=== PATIENT | male | born 1990 | race American Indian/Alaskan Native ===

== ENCOUNTER 2017-04-15 18:22 | Emergency (ER) | payer OTHER ==
[2017-04-15] MEDS ORDERED: TORADOL IM ONE (22:14)
--- NOTE | 2017-04-15 22:50 | Emergency Department Report ---
ED Back Pain/Injury HPI - General Chief Complaint: Back Pain/Injury Stated Complaint: LOWER BACK PAIN Time Seen by Provider: 04/15/17 21:57 Source: patient Limitations: No Limitations - History of Present Illness Initial Comments: This is a 27-year-old male nontoxic, well nourished in appearance, no acute signs of distress presents to the ED complaining of chronic back pain. Patient stated he was picking up heavy objects and developed sharp pain that has resolved. 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 Patient denies any trauma to the region. Denies any bladder or bowel instability, chest pain, numbness, tingling, fever, chills, headache, n/v, stiff neck, shortness of breathe. Patient stated symptoms of back pain radiate to right lower extremity. PAtient denies follow- up with PCP or any other provider because symptoms are resolved. Patient denies any allergies or PMH. MD Complaint: back pain -: Gradual, days(s) (2) Similar Symptoms Previously: Yes Place: work Radiation: right leg Severity: mild Severity scale (0 -10): 7 Quality: aching Consistency: intermittent Improves With: immobilization, supine, sitting upright Worsens With: movement, walking Context: while lifting, turning/twisting Associated Symptoms: denies other symptoms. denies: confusion, weakness, chest pain, numbness, difficulty walking, cough, difficulty urinating, diaphoresis, incontinence, fever/chills, constipation, headaches, abdominal pain, loss of appetite, malaise, nausea/vomiting, rash, seizure, shortness of breath, syncope - Related Data Previous Rx's Medication Instructions Recorded Last Taken Type Cyclobenzaprine [Flexeril] 10 mg PO BID PRN #10 tablet 04/15/17 Unknown Rx Ibuprofen [Motrin 600 MG tab] 600 mg PO Q8H PRN #30 tablet 04/15/17 Unknown Rx Allergies Allergy/AdvReac Type Severity Reaction Status Date / Time No Known Allergies Allergy Unverified 04/15/17 18:25 ED Review of Systems ROS: Stated complaint: LOWER BACK PAIN Other details as noted in HPI Constitutional: denies: chills, fever Eyes: denies: eye pain, eye discharge, vision change ENT: denies: ear pain, throat pain Respiratory: denies: cough, shortness of breath, wheezing Cardiovascular: denies: chest pain, palpitations Endocrine: no symptoms reported Gastrointestinal: denies: abdominal pain, nausea, diarrhea Genitourinary: denies: urgency, dysuria Musculoskeletal: denies: back pain, joint swelling, arthralgia Skin: denies: rash, lesions Neurological: denies: headache, weakness, paresthesias Psychiatric: denies: anxiety, depression Hematological/Lymphatic: denies: easy bleeding, easy bruising ED Past Medical Hx - Past Medical History Previous Medical History?: Yes Additional medical history: Back injury/pain, Head lac @ age 9 - Surgical History Past Surgical History?: No - Social History Smoking Status: Current Every Day Smoker Substance Use Type: Alcohol, Marijuana - Medications Home Medications: Home Medications Medication Instructions Recorded Confirmed Last Taken Type Cyclobenzaprine [Flexeril] 10 mg PO BID PRN #10 tablet 04/15/17 Unknown Rx Ibuprofen [Motrin 600 MG tab] 600 mg PO Q8H PRN #30 tablet 04/15/17 Unknown Rx ED Physical Exam - General Limitations: No Limitations General appearance: alert, in no apparent distress - Head Head exam: Present: atraumatic, normocephalic, normal inspection - Eye Eye exam: Present: normal appearance, PERRL, EOMI. Absent: scleral icterus, conjunctival injection, nystagmus, periorbital swelling, periorbital tenderness Pupils: Present: normal accommodation - ENT ENT exam: Present: normal exam, normal orophraynx, mucous membranes moist, TM's normal bilaterally, normal external ear exam - Neck Neck exam: Present: normal inspection, full ROM. Absent: tenderness, meningismus, lymphadenopathy, thyromegaly - Respiratory Respiratory exam: Present: normal lung sounds bilaterally. Absent: respiratory distress, wheezes, rales, rhonchi, stridor, chest wall tenderness, accessory muscle use, decreased breath sounds, prolonged expiratory - Cardiovascular Cardiovascular Exam: Present: regular rate, normal rhythm, normal heart sounds. Absent: systolic murmur, diastolic murmur, rubs, gallop - GI/Abdominal GI/Abdominal exam: Present: soft, normal bowel sounds. Absent: distended, tenderness, guarding, rebound, rigid, diminished bowel sounds - Rectal Rectal exam: Present: deferred - Extremities Exam Extremities exam: Present: normal inspection, full ROM, normal capillary refill. Absent: tenderness, pedal edema, joint swelling, calf tenderness - Back Exam Back exam: Present: normal inspection, full ROM, paraspinal tenderness (lumbar region). Absent: tenderness, CVA tenderness (R), CVA tenderness (L), muscle spasm, vertebral tenderness, rash noted - Expanded Back Exam Expanded Back exam: Absent: saddle anesthesia Back exam: Negative Straight Leg Raising: Left, Right - Neurological Exam Neurological exam: Present: alert, oriented X3, CN II-XII intact, normal gait, reflexes normal - Psychiatric Psychiatric exam: Present: normal affect, normal mood - Skin Skin exam: Present: warm, dry, intact, normal color. Absent: rash ED Course Vital Signs 04/15/17 18:25 Temperature 98.7 F Pulse Rate 52 L Respiratory 18 Rate Blood Pressure 128/72 O2 Sat by Pulse 99 Oximetry - Reevaluation(s) Reevaluation #1: 04/15/17 22:52 Patient is speaking in full sentences with no signs of distress noted. Reevaluation #2: 04/15/17 22:52 Patient stated symptoms have subsided after patient received Toradol in the ED. ED Medical Decision Making - Medical Decision Making 27-year-old male that presents with low back strain. Patient received Toradol in the ED which patient stated symptoms has resolved. Patient received Flexeril and ibuprofen at discharge and was instructed not to operate any machinery while taking Flexeril due to drowsiness. Patient is hemodynamically stable with stable vital signs. Patient states he is feeling better. At time time of discharge, the patient does not seem toxic or ill in appearance. No acute signs of distress noted. Patient agrees to discharge treatment plan of care. No further questions noted by the patient. Patient was instructed to follow-up with a primary care doctor in 3-5 days or if symptoms worsen and continue return to emergency room as soon as possible possible. Critical care attestation.: If time is entered above; I have spent that time in minutes in the direct care of this critically ill patient, excluding procedure time. ED Disposition Clinical Impression: Low back strain Qualifiers: Encounter type: initial encounter Qualified Code(s): S39.012A - Strain of muscle, fascia and tendon of lower back, initial encounter Disposition: TO HOME OR SELFCARE Is pt being admited?: No Does the pt Need Aspirin: No Condition: Stable Instructions: Low Back Strain (ED), Ibuprofen (By mouth), Cyclobenzaprine (By mouth) Additional Instructions: Follow-up with your primary care doctor in 3-5 days or if symptoms worsen such as bladder or bowel stability, chest pain, short of breath, numbness or tingling sensation in extremities, headache, dizziness, visual changes, nausea vomiting, or abdominal pain, return back to emergency room as was possible. Take ibuprofen and Flexeril as prescribed. Do not operate heavy machinery while taking Flexeril due to sedation Prescriptions: Cyclobenzaprine [Flexeril] 10 mg PO BID PRN #10 tablet PRN Reason: Muscle Spasm Ibuprofen [Motrin 600 MG tab] 600 mg PO Q8H PRN #30 tablet PRN Reason: Pain Referrals: PRIMARY CAREMD [Primary Care Provider] - 3-5 Days TRINA FORREST MD [Staff Physician] - 3-5 Days [facility] [Outside] - 3-5 Days [facility] [Outside] - 3-5 Days Forms: Work/School Release Form(ED)
[2017-04-16 04:27] VITALS: BP 126/75
== END 2017-04-15 23:10 | disposition home or self-care (01) ==
LOC: ED 18:22
DX: S39.012A Strain of muscle, fascia and tendon of lower back, initial encounter (principal); F17.200 Nicotine dependence, unspecified, uncomplicated; F12.10 Cannabis abuse, uncomplicated; X50.0XXA Overexertion from strenuous movement or load, initial encounter; Y93.89 Activity, other specified; Y92.89 Other specified places as the place of occurrence of the external cause; Y99.8 Other external cause status
CPT/HCPCS: 96372; 99282; J1885

== ENCOUNTER 2019-03-29 18:03 | Inpatient (IN) | payer BC, OTHER ==
[2019-03-29] MEDS ORDERED: ATIVAN IV ONE ×2 (18:09→19:07)
[2019-03-29] MEDS ORDERED: NACL 0.9% 1000 ML 1,000 ML IV ONE ×2 (18:09→22:09)
[2019-03-29] MEDS ORDERED: NACL 0.9% 1000 ML 2,000 ML IV ONE (18:24)
[2019-03-29] MEDS ORDERED: MAXIPIME/NS 2 GM/100 ML 2 GM/100 ML BAG IV ONE (18:25)
--- NOTE | 2019-03-29 18:32 | Emergency Department Report ---
<ULICES VELASCO III - Last Filed: 03/30/19 00:56> ED Seizure HPI - General Stated Complaint: SEIZURE Time Seen by Provider: 03/29/19 18:09 - Related Data Previous Rx's Medication Instructions Recorded Last Taken Type Lacosamide [Vimpat] 150 mg PO Q12HR@0800,1999 #90 03/22/19 03/29/19 08:00 Rx tablet Allergies Allergy/AdvReac Type Severity Reaction Status Date / Time [facility] AdvReac Severe Unknown Verified 03/29/19 19:02 ED Review of Systems Comment: Unobtainable due to pts medical conditions ED Past Medical Hx - Past Medical History Previous Medical History?: Yes Hx Seizures: Yes - Surgical History Past Surgical History?: No - Family History Family history: no significant - Social History Smoking Status: Current Every Day Smoker Substance Use Type: Alcohol, Marijuana - Medications Home Medications: Home Medications Medication Instructions Recorded Confirmed Last Taken Type Lacosamide [Vimpat] 150 mg PO Q12HR@08 #90 03/22/19 03/29/19 03/29/19 08:00 Rx tablet ED Physical Exam - General Limitations: Altered Mental Status General appearance: obtunded, in distress - Head Head exam: Present: atraumatic, normocephalic - Eye Eye exam: Present: normal appearance, PERRL Pupils: Present: normal accommodation - ENT ENT exam: Present: normal exam, normal orophraynx - Respiratory Respiratory exam: Present: respiratory distress, wheezes, rales - Cardiovascular Cardiovascular Exam: Present: regular rate, normal rhythm, tachycardia - Rectal Rectal exam: Present: deferred - Extremities Exam Extremities exam: Present: normal inspection - Neurological Exam Neurological exam: Present: altered - Skin Skin exam: Present: warm, dry, intact, normal color ED Course - Reevaluation(s) Reevaluation #5: Initial evaluation of patient done with the mid-level immediately upon arrival. Patient noted to have multiple seizures and in status epilepticus. I intubated the patient immediately for airway protection. Patient also required an LP due to fevers or activity. LP was done at the request of the hospitalist.. See procedure notes. Orders placed on CSF. Patient given fluids and antibiotics immediately due to his believe the patient has sepsis. Patient admitted to the hospitalist service. Reevaluation is done throughout the patient's stay in the ER. 03/30/19 00:57 ED Medical Decision Making - Lab Data Result diagrams: 03/29/19 18:29 03/29/19 18:29 - EKG Data -: EKG Interpreted by Me EKG shows normal: sinus rhythm, axis, intervals, QRS complexes, ST-T waves Rate: tachycardia - Radiology Data Radiology results: report reviewed, image reviewed interpreted by me: Right lower lung pneumonia. ET tube in good placement Critical Care Time: Yes Critical Care Time: 55 minutes ED Disposition Clinical Impression: Metabolic acidosis, Seizure, Status epilepticus, Lactic acidosis, Encephalopathy acute, ALINE (acute kidney injury), Electrolyte abnormality Sepsis Qualifiers: Sepsis type: sepsis due to unspecified organism Sepsis acute organ dysfunction status: unspecified Qualified Code(s): A41.9 - Sepsis, unspecified organism Altered mental status Qualifiers: Altered mental status type: unspecified Qualified Code(s): R41.82 - Altered mental status, unspecified Fever Qualifiers: Fever type: unspecified Qualified Code(s): R50.9 - Fever, unspecified Acute respiratory failure Qualifiers: Respiratory failure complication: hypoxia Qualified Code(s): J96.01 - Acute respiratory failure with hypoxia Pneumonia Qualifiers: Pneumonia type: due to unspecified organism Laterality: right Lung location: lower lobe of lung Qualified Code(s): J18.1 - Lobar pneumonia, unspecified organism Disposition: OP ADMIT IP TO THIS HOSP Condition: Stable <LINDAROSA - Last Filed: 03/30/19 01:11> ED Seizure HPI - History of Present Illness Initial Comments: This is a 28-year-old male that was brought by EMS for seizures. Last witnessed seizures by mother at home prior to arrival. Mother stated that patient has been sleepy all day intermittently when he woke up he was disoriented and started to have seizures. Mother stated patient does have this history of seizures and does take medication for this. Mother denies any vomiting. Mother denies the patient has been complaining about anything. Mother denies any fevers at home. MD Complaint: seizure -: This afternoon Witnessed:: Yes Trauma: No Seizure History: known seizure disorder Place: home Possible Precipitating Event: none Associated Symptoms: syncope Treatments Prior to Arrival: airway maneuvers ED Review of Systems ROS: Stated complaint: SEIZURE Other details as noted in HPI Constitutional: fever ED Past Medical Hx - Past Medical History Additional medical history: Back injury/pain, Head lac @ age 9 - Social History Smoking Status: Current Every Day Smoker Substance Use Type: Alcohol, Marijuana ED Physical Exam - General Limitations: Altered Mental Status - Head Head exam: Present: atraumatic, normocephalic - ENT ENT exam: Present: normal exam, normal orophraynx - Respiratory Respiratory exam: Present: respiratory distress, wheezes, rales - Cardiovascular Cardiovascular Exam: Present: tachycardia - GI/Abdominal GI/Abdominal exam: Present: soft, normal bowel sounds. Absent: distended - Extremities Exam Extremities exam: Present: normal capillary refill - Neurological Exam Neurological exam: Present: altered - Skin Skin exam: Present: warm, dry, intact, normal color. Absent: rash ED Course Vital Signs 03/29/19 03/29/19 03/29/19 18:47 19:14 19:15 Temperature 102.2 F H Pulse Rate 130 H 145 H 123 H Respiratory Rate Blood Pressure 160/80 142/93 O2 Sat by Pulse 100 Oximetry 03/29/19 03/29/19 03/29/19 19:28 19:30 19:45 Temperature Pulse Rate 124 H 121 H Respiratory 25 H Rate Blood Pressure 128/101 136/89 O2 Sat by Pulse 100 100 Oximetry 03/29/19 03/29/19 03/29/19 19:48 20:00 20:30 Temperature Pulse Rate 121 H 121 H 117 H Respiratory Rate Blood Pressure 128/101 134/91 148/95 O2 Sat by Pulse 100 100 99 Oximetry 03/29/19 03/29/19 03/29/19 21:00 21:15 21:30 Temperature 99.9 F H Pulse Rate 102 H 112 H 109 H Respiratory 24 Rate Blood Pressure 140/98 135/89 143/93 O2 Sat by Pulse 98 100 Oximetry 03/29/19 03/29/19 03/29/19 22:00 22:15 22:28 Temperature Pulse Rate 111 H 111 H 107 H Respiratory Rate Blood Pressure 142/93 146/94 146/94 O2 Sat by Pulse 100 100 Oximetry 03/29/19 03/29/19 03/29/19 22:30 22:45 23:00 Temperature Pulse Rate 110 H 111 H 110 H Respiratory Rate Blood Pressure 144/93 137/90 146/104 O2 Sat by Pulse 100 Oximetry 03/29/19 03/29/19 03/29/19 23:15 23:30 23:45 Temperature Pulse Rate 111 H 109 H 107 H Respiratory Rate Blood Pressure 139/94 135/89 132/92 O2 Sat by Pulse Oximetry 03/30/19 03/30/19 03/30/19 00:00 00:15 00:30 Temperature 100.0 F H Pulse Rate 104 H 113 H 111 H Respiratory Rate Blood Pressure 135/86 127/84 128/84 O2 Sat by Pulse 100 Oximetry - Reevaluation(s) Reevaluation #1: 03/29/19 18:11 Patient intubated for airway protection and intractable seizure. See intubation notes. Reevaluation #2: 03/29/19 18:09 Code sepsis initiated. Reevaluation #3: 03/30/19 00:10 Consent received by mother and LP done. See notes. - Consultations Consultation #1: 03/29/19 21:48 Patient has been consulted with Dr. Guadarrama (hospitalist) about patient history, physical exam, and labs/CT results and accepts patient for admission. - Intubation Time Out Performed: Yes Sedative: Versed Paralytic: Rocuronium Laryngoscope: fiberoptic video scope Size: 4 ET Tube Size: 7.5 Tube Secured Depth (cm): 20 Tube Secured Location: teeth Tube Placement Confirmation: visualized tube passing t, equal breath sounds bilat, no breath sounds over epi, confirmation by capnometr Patient Tolerated Procedure: well, no complications Intubation Complications: none Additional Comments: Intubation done by Dr. Velasco. - Lumbar Puncture Consent Obtained: written consent, emergent situation Time Out Performed: Yes Indication for Procedure: fever work up Patient Position: right lateral decubitus Skin Prep: Povidone-Iodine 1% Spinal Needle Gauge: 20G Interspace Used: L4-L5 Fluid Initially Obtained: clear Complications: none Patient Tolerated Procedure: well, no complications Additional Comments: Under sterile field, Betadine to clean the area prior to procedure. LP pressure was 28. Procedure done by Dr. Velasco. ED Medical Decision Making - Lab Data Result diagrams: 03/29/19 18:29 03/29/19 18:29 - EKG Data 03/29/19 18:[address] by Dr. Velasco. - Medical Decision Making Upon arrival to the ED patient has been seizing with tachycardia and febrile at 103. I came to the ED immediately. I was concerned about aspiration and airway compromise. Patient was altered. Dr. Barrett present during the exam. Code sepsis initiated. Lumbar LP performed by Dr. Velasco. Patient had airway compromise so patient has been intubated for airway as well as seizure activity. Labs obtained. CT of head has been obtained. Chest xray post intubation obtained. Patient received fluids as well as medical treatment ER. Patient is currently stable. Patient is admitted with hospitalist. Critical Care Time: Yes Critical care time in (mins) excluding proc time.: 55 Critical care attestation.: If time is entered above; I have spent that time in minutes in the direct care of this critically ill patient, excluding procedure time. ED Disposition Is pt being admited?: Yes Does the pt Need Aspirin: No
[2019-03-29 18:41] LABS: Hematocrit 38.9 % (35.5-45.6); Hemoglobin 12.4 gm/dl (11.8-15.2); Mean Corpuscular HGB Conc 32 % (32-34); Mean Corpuscular Volume 88 fl (84-94); Platelet Count 435 K/mm3 (140-440); Red Blood Count 4.43 M/mm3 (3.65-5.03); Red Cell Distribution Width 14.7 % (13.2-15.2)
[2019-03-29 18:55] LABS: Partial Thromboplastin Time 29.5 Sec. (24.2-36.6)
[2019-03-29 18:59] LABS: Alanine Aminotransferase 81 units/L (7-56); Albumin 4.4 g/dL (3.9-5); BUN/Creatinine Ratio 8; Blood Urea Nitrogen 10 mg/dL (9-20); Calcium 9.3 mg/dL (8.4-10.2); Hemolysis Index 10
[2019-03-29] MEDS ORDERED: VERSED IV ONE (19:01)
[2019-03-29 19:03] LABS: INR 1.13 (0.87-1.13)
[2019-03-29] MEDS ORDERED: ZEMURON IV ONE (19:03)
[2019-03-29 19:13] LABS: Basophils % (Manual) 0 % (0.0-1.8); Total Cells Counted 100
[2019-03-29 19:14] LABS: Anisocytosis Few; Platelet Estimate Consistent w Auto; Tear Drop Cells Rare
[2019-03-29 19:22] LABS: Chol/HDL Ratio 3.16 %
--- NOTE | 2019-03-29 19:26 | XRay Report ---
CHEST 1 VIEW 1842 INDICATION / CLINICAL INFORMATION: sepsis. COMPARISON: 03/14/2019 FINDINGS: SUPPORT DEVICES: Endotracheal tube appears to be in satisfactory position with tip approximately 6 cm above the machelle. HEART / MEDIASTINUM: Stable LUNGS / PLEURA: Increasing density and atelectasis is seen in the right base. This could represent de veloping pneumonitis and follow-up is suggested. Left lung is clear though the base is not fully seen .. No pneumothorax. ADDITIONAL FINDINGS: No significant additional findings. IMPRESSION: Atelectasis and possible infiltrate developing in the right base as above Signer Name: Daniel Ballesteros MD Signed: 03/29/2019 7:22 PM Workstation Name: [id number]
[2019-03-29] MEDS: ATIVAN 100 MG in NACL 0.9% 50 ML, VIAFLEX EMPTY CONTAINER 0 ML IV SCH (19:48)
[2019-03-29 19:51] LABS: Bacteria,Urine 1+ /HPF (Negative); Bilirubin,Urine NEG (Negative); Blood,Urine SM (Negative); Color,Urine Yellow (Yellow); Mucus,Urine FEW /HPF; Urobilinogen,Urine < 2.0 mg/dL (<2.0)
[2019-03-29 19:58] LABS: Amphetamine Screen,Urine PRESUMPTIVE NEGATIVE; Cannabinoid Screen,Urine PRESUMPTIVE NEGATIVE; Cocaine Screen,Urine PRESUMPTIVE NEGATIVE; Methadone Screen,Urine PRESUMPTIVE NEGATIVE; Opiate Screen,Urine PRESUMPTIVE NEGATIVE
[2019-03-29] MEDS ORDERED: SUBLIMAZE IV ONE (20:35)
[2019-03-29 20:38] LABS: Benzodiazepines Screen,Urine PRESUMPTIVE POSITIVE
[2019-03-29] MEDS: fentaNYL DRIP Premix 2,000 MCG/100 ML BAG IV SCH (21:00)
--- NOTE | 2019-03-29 22:05 | Cat Scan Report ---
CT HEAD WITHOUT CONTRAST INDICATION / CLINICAL INFORMATION: History provided is seizure, syncopal episode. Respiratory failure. Intubated patient. TECHNIQUE: All CT scans at this location are performed using CT dose reduction for ALARA by means of automated e xposure control. COMPARISON: Head CT 03/19/2019, 03/14/2019 and 03/08/2019. MRI brain 03/16/2019. FINDINGS: HEMORRHAGE: No evidence of intracranial hemorrhage or extra-axial fluid collection. EXTRA-AXIAL SPACES: Cortical sulci, sylvian fissures and basilar cisterns have an unremarkable appear ance. VENTRICULAR SYSTEM: The ventricular system is of normal size and configuration. CEREBRAL PARENCHYMA: No areas of abnormal brain parenchymal attenuation are identified. There is no i ndication of recent infarction. MIDLINE SHIFT OR HERNIATION: There is no mass effect. CEREBELLUM / BRAINSTEM: Brainstem and cerebellum have an unremarkable appearance. INTRACRANIAL VESSELS:No abnormalities are identified on this noncontrast head CT. ORBITS: visualized portions of the orbits have an unremarkable appearance. SOFT TISSUES of HEAD: No significant abnormality. CALVARIUM: Evaluation of bone windows reveals no abnormalities. PARANASAL SINUSES / MASTOID AIR CELLS: Paranasal sinuses are free from inflammatory mucosal disease. Mastoid air cells are normally pneumatized. IMPRESSION: 1. No abnormality identified on head CT without contrast. The neuro imaging appearance of the brain i s stable since 03/08/2019. There is been no interval change on the previous 3 CT head examinations whi ch have obtained in the past 3 weeks. Signer Name: Daniel Tatum MD Signed: 03/29/2019 10:01 PM Workstation Name: [id number]
--- NOTE | 2019-03-29 23:31 | History and Physical Report ---
History of Present Illness Date of examination: 03/29/19 History of present illness: 28-year-old man was recently diagnosed with seizure, discharge from the hospital on March 22 comes back today for evaluation of seizure. After he was discharged he had a seizure on the , mom stated that he's been compliant with his Vimpat. He was seen at [facility] and discharge. He also had another seizure at home on Wednesday and was then taken to [facility], no change in his medication he was given a follow-up with urology clinic. Mom states that he smoked marijuana on the prior to the seizure. He is been having fevers at home since last night. he also had seizure in route to the hospital, was intubated in the emergency room for airway protection. Review system is unobtainable PAST MEDICAL HISTORY:seizure PAST SURGICAL HISTORY:None FAMILY HISTORY:hypertension, diabetes SOCIAL HISTORY: Denies tobacco, marijuana, no alcohol Medications and Allergies Allergies Allergy/AdvReac Type Severity Reaction Status Date / Time levetiracetam [From [facility]] AdvReac Severe Unknown Verified 03/29/19 19:02 Home Medications Medication Instructions Recorded Confirmed Last Taken Type Lacosamide [Vimpat] 150 mg PO Q12HR@0800,1999 #90 03/22/19 03/29/19 03/29/19 08:00 Rx tablet Active Meds: Active Medications Lorazepam 100 mg/ Sodium Chloride/ Miscellaneous Information 100 mls @ 1 mls/hr IV TITR RENÉ; Protocol Last Admin: 03/29/19 19:48 Dose: 2 mg/hr, 2 mls/hr Documented by: Fentanyl Citrate (Fentanyl Drip Premix) 2,000 mcg in 100 mls @ 3.175 mls/hr IV TITR RENÉ; Protocol Last Admin: 03/29/19 21:00 Dose: 1 mcg/kg/hr, 3.175 mls/hr Documented by: Exam - Physical Exam Narrative exam: General Apperance: The patient lying in bed no acute distress, intubated HEENT: Normocephalic, atraumatic. Pupils equally round and reactive to light, unable to do extraocular movement intact, and no sclericterus or JVD or thyromegaly or nodule. Neck supple, no carotid bruit, mucous membranes moist, ET tube in place Heart: S1-S2, regular is rhythm Lungs: Clear to auscultation bilaterally, breathing comfortable Abdomen: Positive bowel sounds, soft, nontender, nondistended, no organomegaly Extremities: No edema cyanosis clubbing Skin: no rash, nodule, warm and dry Neuro: sedated - Constitutional Vitals: Temp Pulse Resp BP Pulse Ox 99.9 F H 111 H 24 146/94 100 03/29/19 21:00 03/29/19 22:15 03/29/19 21:00 03/29/19 22:15 03/29/19 22:00 Results - Labs CBC & Chem 7: 03/29/19 18:29 03/29/19 18:29 Labs: Abnormal lab results 03/29/19 03/29/19 03/29/19 Range/Units 18:29 18:29 18:29 WBC 19.4 H (4.5-11.0) K/mm3 Seg Neuts % (Manual) 72.0 H (40.0-70.0) % Monocytes % (Manual) 8.0 H (0.0-7.3) % Seg Neutrophils # Man 14.0 H (1.8-7.7) K/mm3 Monocytes # (Manual) 1.6 H (0.0-0.8) K/mm3 POC ABG pO2 (80-105) VBG pH (7.320-7.420) Sodium 136 L (137-145) mmol/L Chloride 90.6 L (98-107) mmol/L Carbon Dioxide 13 L (22-30) mmol/L Glucose 154 H (75-100) mg/dL Lactic Acid 17.50 H* (0.7-2.0) mmol/L ALT 81 H (7-56) units/L Troponin T (0.00-0.029) ng/mL Urine WBC (Auto) (0.0-6.0) /HPF 03/29/19 03/29/19 03/29/19 Range/Units 18:29 19:09 19:27 WBC (4.5-11.0) K/mm3 Seg Neuts % (Manual) (40.0-70.0) % Monocytes % (Manual) (0.0-7.3) % Seg Neutrophils # Man (1.8-7.7) K/mm3 Monocytes # (Manual) (0.0-0.8) K/mm3 POC ABG pO2 (80-105) VBG pH 7.269 L (7.320-7.420) Sodium (137-145) mmol/L Chloride (98-107) mmol/L Carbon Dioxide (22-30) mmol/L Glucose (75-100) mg/dL Lactic Acid (0.7-2.0) mmol/L ALT (7-56) units/L Troponin T 0.031 H (0.00-0.029) ng/mL Urine WBC (Auto) 9.0 H (0.0-6.0) /HPF 03/29/19 03/29/19 03/29/19 Range/Units 19:33 20:27 21:01 WBC (4.5-11.0) K/mm3 Seg Neuts % (Manual) (40.0-70.0) % Monocytes % (Manual) (0.0-7.3) % Seg Neutrophils # Man (1.8-7.7) K/mm3 Monocytes # (Manual) (0.0-0.8) K/mm3 POC ABG pO2 170 H (80-105) VBG pH (7.320-7.420) Sodium (137-145) mmol/L Chloride (98-107) mmol/L Carbon Dioxide (22-30) mmol/L Glucose (75-100) mg/dL Lactic Acid 3.80 H* 4.10 H* (0.7-2.0) mmol/L ALT (7-56) units/L Troponin T (0.00-0.029) ng/mL Urine WBC (Auto) (0.0-6.0) /HPF - Imaging and Cardiology EKG: image reviewed Chest x-ray: report reviewed Assessment and Plan Assessment Acute respiratory failure Acute on chronic seizure, ? Underlying meningitis Pneumonia Plan Admit to medicine Start IV fluids, fentanyl and ativan drip Rocephin, lumbar puncture is pending Dose of Zosyn, possible aspiration pneumonia Consult Critical care, neurology DVT prophylaxis
[2019-03-30 00:58] LABS: Appearance,CSF Clear; Red Blood Cell,CSF 10 /mm3 (0-0); White Blood Cell,CSF 18 /mm3 (1-10)
[2019-03-30] MEDS ORDERED: SODIUM CHLORIDE FLUSH SYRINGE 10 ML IV PRN (01:27)
[2019-03-30 01:51] LABS: Total Cells Counted 50 /mm3
[2019-03-30 01:52] LABS: Basophils CSF 0 %
[2019-03-30] MEDS ORDERED: ROCEPHIN/NS 2 GM/100 ML 2 GM/100 ML BAG IV SCH ×2 (02:00→16:00)
[2019-03-30] MEDS ORDERED: NACL 0.9% 1000 ML 1,000 ML IV SCH ×2 (02:00→06:00)
[2019-03-30] MEDS ORDERED: ZEMURON IV ONE (03:00)
[2019-03-30] MEDS ORDERED: VERSED IV ONE (03:00)
[2019-03-30] MEDS ORDERED: ZOSYN/NS 4.5GM/100ML 4.5 GM/100 ML VIAL IV ONE (05:13)
[2019-03-30 05:24] LABS: Creatine Kinase MB 2.8 ng/mL (0.0-4.0)
[2019-03-30] MEDS: ATIVAN 100 MG in NACL 0.9% 50 ML, VIAFLEX EMPTY CONTAINER 0 ML IV SCH (05:55)
[2019-03-30 05:58] LABS: BUN/Creatinine Ratio 10; Blood Urea Nitrogen 9 mg/dL (9-20); Calcium 8.4 mg/dL (8.4-10.2); Hemolysis Index 1
[2019-03-30 06:06] LABS: Hematocrit 33.5 % (35.5-45.6); Hemoglobin 10.9 gm/dl (11.8-15.2); Mean Corpuscular HGB Conc 33 % (32-34); Mean Corpuscular Volume 85 fl (84-94); Platelet Count 375 K/mm3 (140-440); Red Blood Count 3.92 M/mm3 (3.65-5.03); Red Cell Distribution Width 14.4 % (13.2-15.2)
[2019-03-30] MEDS: fentaNYL DRIP Premix 2,000 MCG/100 ML BAG IV SCH ×2 (07:45→22:31)
[2019-03-30 08:17] LABS: Band Neutrophils # (Manual) 0.6 K/mm3; Basophils % (Manual) 0 % (0.0-1.8); Eosinophils % (Manual) 0 % (0.0-4.3); Total Cells Counted 100
[2019-03-30 08:20] LABS: Anisocytosis Few; Burr Cells Rare; Platelet Estimate Consistent w Auto; Tear Drop Cells Rare
[2019-03-30 08:42] LABS: Creatine Kinase MB 2.8 ng/mL (0.0-4.0)
[2019-03-30] MEDS: LOVENOX SUB-Q SCH (09:14)
[2019-03-30] MEDS: PEPCID IV SCH ×2 (09:15→21:39)
[2019-03-30] MEDS: SODIUM CHLORIDE FLUSH SYRINGE 10 ML IV SCH ×2 (09:15→21:40)
[2019-03-30] MEDS ORDERED: LOVENOX SUB-Q SCH (10:00)
[2019-03-30] MEDS: TYLENOL PO PRN (10:27)
--- NOTE | 2019-03-30 11:29 | Consultation ---
History of Present Illness Consult date: 03/30/19 Requesting physician: CHUCK SILVEIRA Reason for consult: other (Seizures) History of present illness: PULMONARY/CCM CONSULT NOTE (full dictation # [id number]) Please see dictated notes for full details Medications and Allergies Allergies Allergy/AdvReac Type Severity Reaction Status Date / Time levetiracetam [From [facility]] AdvReac Severe Unknown Verified 03/29/19 19:02 Home Medications Medication Instructions Recorded Confirmed Last Taken Type Lacosamide [Vimpat] 150 mg PO Q12HR@08,1999 #90 03/22/19 03/29/19 03/29/19 08:00 Rx tablet Active Meds: Active Medications Acetaminophen (Tylenol) 650 mg PO Q4H PRN PRN Reason: Pain MILD(1-3)/Fever >100.5/LICONA Last Admin: 03/30/19 10:27 Dose: 650 mg Documented by: Enoxaparin Sodium (Lovenox) 40 mg SUB-Q QDAY@1000 RENÉ Last Admin: 03/30/19 09:14 Dose: 40 mg Documented by: Famotidine (Pepcid) 20 mg IV BID RENÉ Last Admin: 03/30/19 09:15 Dose: 20 mg Documented by: Lorazepam 100 mg/ Sodium Chloride/ Miscellaneous Information 100 mls @ 1 mls/hr IV TITR RENÉ; Protocol Last Admin: 03/30/19 05:55 Dose: 5 mg/hr, 5 mls/hr Documented by: Fentanyl Citrate (Fentanyl Drip Premix) 2,000 mcg in 100 mls @ 3.175 mls/hr IV TITR RENÉ; Protocol Last Admin: 03/30/19 07:45 Dose: 2 mcg/kg/hr, 6.35 mls/hr Documented by: Ceftriaxone Sodium (Rocephin/Ns 2 Gm/100 Ml) 2 gm in 100 mls @ 200 mls/hr IV Q24H RENÉ; Protocol Last Admin: 03/30/19 02:58 Dose: 200 mls/hr Documented by: Sodium Chloride (Nacl 0.9% 1000 Ml) 1,000 mls @ 150 mls/hr IV DIRECT RENÉ Last Admin: 03/30/19 07:45 Dose: 150 mls/hr Documented by: Ondansetron HCl (Zofran) 4 mg IV Q4H PRN PRN Reason: Nausea And Vomiting Sodium Chloride (Sodium Chloride Flush Syringe 10 Ml) 10 ml IV BID RENÉ Last Admin: 03/30/19 09:15 Dose: 10 ml Documented by: Sodium Chloride (Sodium Chloride Flush Syringe 10 Ml) 10 ml IV PRN PRN PRN Reason: LINE FLUSH Physical Examination Vital signs: Vital Signs Temp Pulse BP 102.2 F H 130 H 160/80 03/29/19 18:47 03/29/19 18:47 03/29/19 18:47 Results - Laboratory Findings CBC and BMP: 03/30/19 05:21 03/30/19 05:11 ABG POC ABG pH 7.409 (7.35-7.45) 03/30/19 04:45 POC ABG pCO2 42.5 (35-45) 03/30/19 04:45 POC ABG pO2 172 (80-105) H 03/30/19 04:45 POC ABG HCO3 26.9 (22-26 mml/L) 03/30/19 04:45 POC ABG Total CO2 28 (23-27mmol/L) 03/30/19 04:45 POC ABG O2 Sat 100 03/30/19 04:45 PT/INR, D-dimer PT Cancelled 03/29/19 18:29 INR 1.13 (0.87-1.13) 03/29/19 18:29 Abnormal lab findings: Abnormal Labs 03/29/19 03/29/19 03/29/19 18:29 18:29 18:29 WBC 19.4 H Hgb Hct Seg Neuts % (Manual) 72.0 H Lymphocytes % (Manual) Monocytes % (Manual) 8.0 H Seg Neutrophils # Man 14.0 H Monocytes # (Manual) 1.6 H POC ABG pO2 VBG pH Sodium 136 L Chloride 90.6 L Carbon Dioxide 13 L Glucose 154 H Lactic Acid 17.50 H* ALT 81 H Total Creatine Kinase Troponin T Urine WBC (Auto) Group A Strep Rapid 03/29/19 03/29/19 03/29/19 18:29 19:09 19:27 WBC Hgb Hct Seg Neuts % (Manual) Lymphocytes % (Manual) Monocytes % (Manual) Seg Neutrophils # Man Monocytes # (Manual) POC ABG pO2 VBG pH 7.269 L Sodium Chloride Carbon Dioxide Glucose Lactic Acid ALT Total Creatine Kinase Troponin T 0.031 H Urine WBC (Auto) 9.0 H Group A Strep Rapid 03/29/19 03/29/19 03/29/19 19:33 20:27 21:01 WBC Hgb Hct Seg Neuts % (Manual) Lymphocytes % (Manual) Monocytes % (Manual) Seg Neutrophils # Man Monocytes # (Manual) POC ABG pO2 170 H VBG pH Sodium Chloride Carbon Dioxide Glucose Lactic Acid 3.80 H* 4.10 H* ALT Total Creatine Kinase Troponin T Urine WBC (Auto) Group A Strep Rapid 03/29/19 03/29/19 03/30/19 23:46 Unknown 04:08 WBC Hgb Hct Seg Neuts % (Manual) Lymphocytes % (Manual) Monocytes % (Manual) Seg Neutrophils # Man Monocytes # (Manual) POC ABG pO2 VBG pH Sodium Chloride Carbon Dioxide Glucose Lactic Acid 2.10 H* ALT Total Creatine Kinase 172 H Troponin T 0.033 H Urine WBC (Auto) Group A Strep Rapid Positive A 03/30/19 03/30/19 03/30/19 04:45 05:21 07:17 WBC 20.8 H Hgb 10.9 L Hct 33.5 L Seg Neuts % (Manual) 85.0 H Lymphocytes % (Manual) 8.0 L Monocytes % (Manual) Seg Neutrophils # Man 17.7 H Monocytes # (Manual) POC ABG pO2 172 H VBG pH Sodium Chloride Carbon Dioxide Glucose Lactic Acid ALT Total Creatine Kinase 173 H Troponin T 0.039 H Urine WBC (Auto) Group A Strep Rapid
[2019-03-30] MEDS ORDERED: SODIUM BICARBONATE FEEDTUBE PRN (12:44)
[2019-03-30] MEDS ORDERED: SIMPLE SYRUP FEEDTUBE PRN ×2 (12:44)
[2019-03-30] MEDS ORDERED: PANCREAZE DR 10,500 UNIT FEEDTUBE PRN (12:44)
[2019-03-30] MEDS ORDERED: VANCOMYCIN/NS 1 GM/250 ML 1 GM/250 ML BAG IV ONE (13:00)
[2019-03-30] MEDS ORDERED: PROVENTIL IH PRN (14:00)
[2019-03-30] MEDS ORDERED: ARTIFICIAL TEARS OPHTH OINT OU PRN (14:51)
[2019-03-30] MEDS ORDERED: VASELINE LIP THERAPY TP PRN (14:51)
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
--- NOTE | 2019-03-30 15:11 | XRay Report ---
CHEST 1 VIEW INDICATION: atelectasis. COMPARISON: 03/29/2019 FINDINGS: Support devices: The endotracheal tube remains in good position terminating at the level of the clavi cles. A nasogastric tube is followed to the mid stomach. Heart: Within normal limits. Lungs/Pleura: No acute air space or interstitial disease. Atelectasis at the right lung base has reso lved. Additional findings: None. IMPRESSION: Unremarkable AP chest. Signer Name: Jerardo Hendrix Jr, MD Signed: 03/30/2019 3:07 PM Workstation Name: [id number]
[2019-03-30] MEDS: VIMPAT PO SCH (16:30)
[2019-03-30] MEDS: CLEOCIN 900 MG/50 mL 900 MG/50 ML BAG IV SCH ×2 (16:31→21:39)
--- NOTE | 2019-03-30 17:16 | Progress Note ---
Assessment and Plan Assessment and plan: 28-year-old man was recently diagnosed with seizure, discharge from the hospital on March 22 comes back today for evaluation of seizure. After he was discharged he had a seizure on the , mom stated that he's been compliant with his Vimpat. He was seen at [facility] and discharge. He also had another seizure at home on Wednesday and was then taken to [place], no change in his medication he was given a follow-up with urology clinic. Mom states that he smoked marijuana on the prior to the seizure. He is been having fevers at home since last night. He also had seizure in route to the hospital, was intubated in the emergency room for airway protection. Acute respiratory failure Sepsis Acute Metabolic Encephalopathy Status Epileptics Sinus Tachycardia Acute on chronic seizure, ?Underlying meningitis Pneumonia Plan Continue supportive care Continue IV fluids, fentanyl and ativan drip Rocephin, lumbar puncture is pending Dose of Zosyn, possible aspiration pneumonia Consult Critical care, neurology Follow up blood culture and CSF Culture Start on Acylovir for Possible HSV send CSF HSV PCR ceftriaxone 2 gm IV q 12 hour vancomycin IV with PK consult clindamycin 900 mg IV q 8 hour valtrex 1 g po TID (due to IV acyclovir shortage) EEG repeat brain MRI Neuro consult DVT/GI PROPHY History Interval history: Patient seen and examined, remains intubated, family at bedside. Hospitalist Physical - Constitutional Vitals: Temp Pulse Resp BP Pulse Ox 97.6 F 116 H 15 151/93 100 03/30/19 08:00 03/30/19 17:10 03/30/19 16:40 03/30/19 17:10 03/30/19 17:10 General appearance: Present: mild distress - EENT Eyes: Present: PERRL, EOM intact ENT: other (ET tube in place), no hearing intact, no clear oral mucosa - Neck Neck: Present: supple, normal ROM - Respiratory Respiratory effort: labored, other Respiratory: bilateral: diminished - Cardiovascular Rhythm: other (Tachycardia) - Extremities Extremities: no ischemia, pulses intact, pulses symmetrical, No edema, normal t emperature, normal color, Full ROM Peripheral Pulses: within normal limits - Abdominal General gastrointestinal: soft, non-tender, non-distended - Integumentary Integumentary: Present: warm, dry - Psychiatric Psychiatric: other (SEDATED) - Neurologic Neurologic: other (SEDATED) - Allied Health Allied health notes reviewed: nursing Results - Labs CBC & Chem 7: 03/30/19 05:21 03/30/19 05:11 Labs: Laboratory Last Values WBC 20.8 K/mm3 (4.5-11.0) H 03/30/19 05:21 RBC 3.92 M/mm3 (3.65-5.03) 03/30/19 05:21 Hgb 10.9 gm/dl (11.8-15.2) L 03/30/19 05:21 Hct 33.5 % (35.5-45.6) L 03/30/19 05:21 MCV 85 fl (84-94) 03/30/19 05:21 MCH 28 pg (28-32) 03/30/19 05:21 MCHC 33 % (32-34) 03/30/19 05:21 RDW 14.4 % (13.2-15.2) 03/30/19 05:21 Plt Count 375 K/mm3 (140-440) 03/30/19 05:21 Add Manual Diff Complete 03/30/19 05:21 Total Counted 100 03/30/19 05:21 Seg Neuts % (Manual) 85.0 % (40.0-70.0) H 03/30/19 05:21 Band Neutrophils % 3.0 % 03/30/19 05:21 Lymphocytes % (Manual) 8.0 % (13.4-35.0) L 03/30/19 05:21 Reactive Lymphs % (Man) 0 % 03/30/19 05:21 Monocytes % (Manual) 4.0 % (0.0-7.3) 03/30/19 05:21 Eosinophils % (Manual) 0 % (0.0-4.3) 03/30/19 05:21 Basophils % (Manual) 0 % (0.0-1.8) 03/30/19 05:21 Metamyelocytes % 0 % 03/30/19 05:21 Myelocytes % 0 % 03/30/19 05:21 Promyelocytes % 0 % 03/30/19 05:21 Blast Cells % 0 % 03/30/19 05:21 Nucleated RBC % Not Reportable 03/30/19 05:21 Seg Neutrophils # Man 17.7 K/mm3 (1.8-7.7) H 03/30/19 05:21 Band Neutrophils # 0.6 K/mm3 03/30/19 05:21 Lymphocytes # (Manual) 1.7 K/mm3 (1.2-5.4) 03/30/19 05:21 Abs React Lymphs (Man) 0.0 K/mm3 03/30/19 05:21 Monocytes # (Manual) 0.8 K/mm3 (0.0-0.8) 03/30/19 05:21 Eosinophils # (Manual) 0.0 K/mm3 (0.0-0.4) 03/30/19 05:21 Basophils # (Manual) 0.0 K/mm3 (0.0-0.1) 03/30/19 05:21 Metamyelocytes # 0.0 K/mm3 03/30/19 05:21 Myelocytes # 0.0 K/mm3 03/30/19 05:21 Promyelocytes # 0.0 K/mm3 03/30/19 05:21 Blast Cells # 0.0 K/mm3 03/30/19 05:21 WBC Morphology Not Reportable 03/30/19 05:21 Hypersegmented Neuts Not Reportable 03/30/19 05:21 Hyposegmented Neuts Not Reportable 03/30/19 05:21 Hypogranular Neuts Not Reportable 03/30/19 05:21 Smudge Cells Not Reportable 03/30/19 05:21 Toxic Granulation Not Reportable 03/30/19 05:21 Toxic Vacuolation Not Reportable 03/30/19 05:21 Dohle Bodies Not Reportable 03/30/19 05:21 Pelger-Huet Anomaly Not Reportable 03/30/19 05:21 Zbigniew Rods Not Reportable 03/30/19 05:21 Platelet Estimate Consistent w auto 03/30/19 05:21 Clumped Platelets Not Reportable 03/30/19 05:21 Plt Clumps, EDTA Not Reportable 03/30/19 05:21 Large Platelets Not Reportable 03/30/19 05:21 Giant Platelets Not Reportable 03/30/19 05:21 Platelet Satelliting Not Reportable 03/30/19 05:21 Plt Morphology Comment Not Reportable 03/30/19 05:21 RBC Morphology Not Reportable 03/30/19 05:21 Dimorphic RBCs Not Reportable 03/30/19 05:21 Polychromasia Not Reportable 03/30/19 05:21 Hypochromasia Not Reportable 03/30/19 05:21 Poikilocytosis Not Reportable 03/30/19 05:21 Anisocytosis Few 03/30/19 05:21 Microcytosis Not Reportable 03/30/19 05:21 Macrocytosis Not Reportable 03/30/19 05:21 Spherocytes Not Reportable 03/30/19 05:21 Pappenheimer Bodies Not Reportable 03/30/19 05:21 Sickle Cells Not Reportable 03/30/19 05:21 Target Cells Not Reportable 03/30/19 05:21 Tear Drop Cells Rare 03/30/19 05:21 Ovalocytes Not Reportable 03/30/19 05:21 Helmet Cells Not Reportable 03/30/19 05:21 [place] Bodies Not Reportable 03/30/19 05:21 [place] Rings Not Reportable 03/30/19 05:21 Zamzam Cells Rare 03/30/19 05:21 Bite Cells Not Reportable 03/30/19 05:21 Crenated Cell Not Reportable 03/30/19 05:21 Elliptocytes Not Reportable 03/30/19 05:21 Acanthocytes (Spur) Not Reportable 03/30/19 05:21 Rouleaux Not Reportable 03/30/19 05:21 Hemoglobin C Crystals Not Reportable 03/30/19 05:21 Schistocytes Not Reportable 03/30/19 05:21 Malaria parasites Not Reportable 03/30/19 05:21 Erich Bodies Not Reportable 03/30/19 05:21 Hem Pathologist Commnt No 03/30/19 05:21 PT Cancelled 03/29/19 18:29 INR 1.13 (0.87-1.13) 03/29/19 18:29 INR Cancelled 03/29/19 18:29 APTT 29.5 Sec. (24.2-36.6) 03/29/19 18:29 PT Patient/Control Mix Cancelled 03/29/19 18:29 PT Pat/Norm 1:1 5 min Cancelled 03/29/19 18:29 PT Pat/Norm 1:1 1 Hr Cancelled 03/29/19 18:29 POC ABG pH 7.409 (7.35-7.45) 03/30/19 04:45 POC ABG pCO2 42.5 (35-45) 03/30/19 04:45 POC ABG pO2 172 (80-105) H 03/30/19 04:45 POC ABG HCO3 26.9 (22-26 mml/L) 03/30/19 04:45 POC ABG Total CO2 28 (23-27mmol/L) 03/30/19 04:45 POC ABG O2 Sat 100 03/30/19 04:45 POC ABG Base Excess 2 ((-2) - (+3)mmol/L) 03/30/19 04:45 VBG pH 7.269 (7.320-7.420) L 03/29/19 19:09 FiO2 60 % 03/30/19 04:45 Sodium 137 mmol/L (137-145) 03/30/19 05:11 Potassium 3.8 mmol/L (3.6-5.0) 03/30/19 05:11 Chloride 100.0 mmol/L (98-107) 03/30/19 05:11 Carbon Dioxide 23 mmol/L (22-30) D 03/30/19 05:11 Anion Gap 18 mmol/L 03/30/19 05:11 BUN 9 mg/dL (9-20) 03/30/19 05:11 Creatinine 0.9 mg/dL (0.8-1.5) 03/30/19 05:11 Estimated GFR > 60 ml/min 03/30/19 05:11 BUN/Creatinine Ratio 10 % 03/30/19 05:11 Glucose 89 mg/dL (75-100) 03/30/19 05:11 Lactic Acid 1.90 mmol/L (0.7-2.0) 03/30/19 05:11 Calcium 8.4 mg/dL (8.4-10.2) 03/30/19 05:11 Total Bilirubin 0.20 mg/dL (0.1-1.2) 03/29/19 18:29 AST 36 units/L (5-40) 03/29/19 18:29 ALT 81 units/L (7-56) H 03/29/19 18:29 Alkaline Phosphatase 66 units/L (35-129) 03/29/19 18:29 Total Creatine Kinase 173 units/L (55-170) H 03/30/19 07:17 CK-MB (CK-2) 2.8 ng/mL (0.0-4.0) 03/30/19 07:17 CK-MB (CK-2) Rel Index 1.6 (0-4) 03/30/19 07:17 Troponin T 0.039 ng/mL (0.00-0.029) H 03/30/19 07:17 Total Protein 7.8 g/dL (6.3-8.2) 03/29/19 18:29 Albumin 4.4 g/dL (3.9-5) 03/29/19 18:29 Albumin/Globulin Ratio 1.3 % 03/29/19 18:29 Triglycerides 63 mg/dL (2-149) 03/29/19 18:29 Cholesterol 177 mg/dL (50-199) 03/29/19 18:29 LDL Cholesterol Direct 119 mg/dL (50-130) 03/29/19 18:29 HDL Cholesterol 56 mg/dL (40-59) 03/29/19 18:29 Cholesterol/HDL Ratio 3.16 % 03/29/19 18:29 Urine Color Yellow (Yellow) 03/29/19 19:27 Urine Turbidity Slightly-cloudy (Clear) 03/29/19 19: Urine pH 5.0 (5.0-7.0) 03/29/19 19:27 Ur Specific [place] 1.011 (1.003-1.030) 03/29/19 19:27 Urine Protein 100 mg/dl mg/dL (Negative) 03/29/19 19: Urine Glucose (UA) Neg mg/dL (Negative) 03/29/19 19:27 Urine Ketones Neg mg/dL (Negative) 03/29/19 19:27 Urine Blood Sm (Negative) 03/29/19 19: Urine Nitrite Neg (Negative) 03/29/19 19: Urine Bilirubin Neg (Negative) 03/29/19 19: Urine Urobilinogen < 2.0 mg/dL (<2.0) 03/29/19 19:27 Ur Leukocyte Esterase Neg (Negative) 03/29/19 19:27 Urine WBC (Auto) 9.0 /HPF (0.0-6.0) H 03/29/19 19:27 Urine RBC (Auto) 3.0 /HPF (0.0-6.0) 03/29/19 19:27 U Epithel Cells (Auto) < 1.0 /HPF (0-13.0) 03/29/19 19:27 Urine Bacteria (Auto) 1+ /HPF (Negative) 03/29/19 19:27 Urine Mucus Few /HPF 03/29/19 19:27 CSF Appearance Clear 03/30/19 Unknown CSF Color Colorless 03/30/19 Unknown CSF WBC 18 /mm3 (1-10) 03/30/19 Unknown CSF RBC 10 /mm3 (0-0) 03/30/19 Unknown CSF Seg Neutrophils 4.0 % (0-6) 03/30/19 Unknown CSF Lymphocytes % 92.0 % (40-80) 03/30/19 Unknown CSF Reactive Lymphs 0 % 03/30/19 Unknown CSF Monocytes % 4.0 % (15-45) 03/30/19 Unknown CSF Eosinophils % 0 % 03/30/19 Unknown CSF Basophils 0 % 03/30/19 Unknown CSF Pathologist Review C 03/30/19 Unknown Urine Opiates Screen Presumptive negative 03/29/19 19:27 Urine Methadone Screen Presumptive negative 03/29/19 19:27 Ur Barbiturates Screen Presumptive negative 03/29/19 19:27 Ur Phencyclidine Scrn Presumptive negative 03/29/19 19:27 Ur Amphetamines Screen Presumptive negative 03/29/19 19:27 U Benzodiazepines Scrn Presumptive positive 03/29/19 19:27 Urine Cocaine Screen Presumptive negative 03/29/19 19:27 U Marijuana (THC) Screen Presumptive negative 03/29/19 19:27 Drugs of Abuse Note Disclamer 03/29/19 19:27 Influenza A (Rapid) Negative (Negative) 03/29/19 Unknown Influenza B (Rapid) Negative (Negative) 03/29/19 Unknown Group A Strep Rapid Positive (Negative) A 03/29/19 Unknown Active Medications - Current Medications Current Medications: Generic Name Dose Route Start Last Admin Trade Name Freq PRN Reason Stop Dose Admin Acetaminophen 650 mg 03/30/19 01:27 03/30/19 10:27 Tylenol PO 650 mg Q4H PRN Administration Pain MILD(1-3)/Fever >100.5/LICONA Albuterol 2.5 mg 03/30/19 14:00 Proventil IH Q4HRT PRN Shortness Of Breath Lipase/Protease/Amylase 1 each 03/30/19 12:44 Pancreaze 10,500 Unit FEEDTUBE PRN PRN For Clogged Feeding Tube Enoxaparin Sodium 40 mg 03/30/19 10:00 03/30/19 09:14 Lovenox SUB-Q 40 mg QDAY@1000 RENÉ Administration Famotidine 20 mg 03/30/19 10:00 03/30/19 09:15 Pepcid IV 20 mg BID RENÉ Administration Hydrophilic Ointment 1 applic 03/30/19 14:51 Vaseline Lip Therapy TP Q2HR PRN Dry Lips Fentanyl Citrate 2,000 mcg in 100 mls @ 3.175 mls/hr 03/29/19 23:00 03/30/19 07:45 Fentanyl Drip Premix IV 2 mcg/kg/hr TITR RENÉ 6.35 mls/hr Administration Protocol 1 MCG/KG/HR Vancomycin HCl 1 gm in 250 mls @ 166.667 mls/hr 03/31/19 04:00 Vancomycin/Ns 1 Gm/250 Ml IV Q12H RENÉ Protocol Ceftriaxone Sodium 2 gm in 100 mls @ 200 mls/hr 03/30/19 16:00 03/30/19 16:30 Rocephin/Ns 2 Gm/100 Ml IV 200 mls/hr Q12HR RENÉ Administration Protocol Clindamycin HCl 900 mg in 50 mls @ 100 mls/hr 03/30/19 16:00 03/30/19 16:31 Cleocin 900 Mg/50 Ml IV 100 mls/hr Q8HR RENÉ Administration Protocol Acyclovir 620 mg/ Sodium 112.4 mls @ 100 mls/hr 03/30/19 18:00 Chloride IV Q8HR RENÉ Protocol Lacosamide 150 mg 03/30/19 15:00 03/30/19 16:30 Vimpat PO 150 mg Q12HR RENÉ Administration Lorazepam 2 mg 03/30/19 12:10 Ativan IV Q1H PRN Agitation Multi-Ingred Cream/Lotion/Oil/Oint 1 applic 03/30/19 14:51 Artificial Tears Ophth Oint OU Q4HR PRN Dry Eye(s) Ondansetron HCl 4 mg 03/30/19 01:27 Zofran IV Q4H PRN Nausea And Vomiting Simple Syrup 15 ml 03/30/19 12:44 Simple Syrup FEEDTUBE PRN PRN Hypoglycemia Simple Syrup 30 ml 03/30/19 12:44 Simple Syrup FEEDTUBE PRN PRN Hypoglycemia Sodium Bicarbonate 325 mg 03/30/19 12:44 Sodium Bicarbonate FEEDTUBE PRN PRN For Clogged Feeding Tube Sodium Chloride 10 ml 03/30/19 10:00 03/30/19 09:15 Sodium Chloride Flush Syringe 10 Ml IV 10 ml BID RENÉ Administration Sodium Chloride 10 ml 03/30/19 01:27 Sodium Chloride Flush Syringe 10 Ml IV PRN PRN LINE FLUSH Valacyclovir HCl 1,000 mg 03/30/19 20:00 Valtrex PO TID RENÉ Nutrition/Malnutrition Assess - Dietary Evaluation Nutrition/Malnutrition Findings: Nutrition Notes Start: 03/30/19 12:41 Freq: Status: Active Protocol: Document 03/30/19 12:41 RS (Rec: 03/30/19 13:41 RS [id number]) Co-Sign 03/30/19 12:41 Nutrition Notes Need for Assessment generated from: MD Order Initial or Follow up Assessment Current Diagnosis Respiratory Failure Other Pertinent Diagnosis Seizures, Pneu, Meningitis Current Diet Tube Feeding Labs/Tests reviewed Pertinent Medications reviewed Height 5 ft 9 in Weight 62.3 kg [place] Body Weight (kg) 72.72 BMI 20.2 Subjective/Other Information MD consult for TF. Pt admitted to to CCU with AMS and episodes of seizures. Burn Absent Trauma Absent Food Allergy No Minimum of two criteria No #1 Nutrition Diagnosis Inadequate oral intake Etiology vent As Evidenced by Signs and Symptoms NPO status Is patient on ventilator? Yes Is Patient Ambulatory and/or Out of Bed No REE-([place]-[facility] Jeor-confined to bed) 1896.084 [facility]culation [facility] Additional Notes PRO needs 1.2-2.0g/day (75-125g/day) Fluid needs: 1mL/kcal Nutrition Intervention Change Diet Order: Continue TF Nutrition Support: Vital AF 1.2 at 65ml/hr Initiate Vital AF 1.2 at 15mL/ hr and increase by 10mL q8hr until goal rate of 65mL/hr is met. Water flush of 100mL q4hr. Kcal 1,872 Protein (gm) 117 Fluid (mL) 1,265 Goal #1 TF tolerance Goal #2 Pt will meet 75% of kcal/PRO needs via TF Anticipated Discharge Needs: Unable to determine at this time Follow-Up By: 04/03/19 Additional Comments F/U for TF tolerance - Attestation Statement I have reviewed and agreed w/ Malnutrition eval & tx plan: Yes
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
[2019-03-30] MEDS ORDERED: NACL 0.9% IV SCH (18:00)
[2019-03-30] MEDS ORDERED: ZOVIRAX IV SCH (18:00)
[2019-03-30 20:19] LABS: Glucose,CSF 75 mg/dL
[2019-03-30] MEDS: VALTREX PO SCH (21:39)
--- NOTE | 2019-03-31 03:28 | XRay Report ---
CHEST 1 VIEW 03/31/2019 2:19 AM INDICATION / CLINICAL INFORMATION: follow up respiratory failure. COMPARISON: 03/30/19 FINDINGS: SUPPORT DEVICES: Unchanged. HEART / MEDIASTINUM: No significant abnormality. LUNGS / PLEURA: No significant pulmonary or pleural abnormality. No pneumothorax. ADDITIONAL FINDINGS: No significant additional findings. IMPRESSION: 1. No acute findings. No change. Signer Name: Solis Hill MD Signed: 03/31/2019 3:24 AM Workstation Name: [id number]
[2019-03-31 05:02] LABS: Hematocrit 32.4 % (35.5-45.6); Hemoglobin 10.7 gm/dl (11.8-15.2); Mean Corpuscular HGB Conc 33 % (32-34); Mean Corpuscular Volume 86 fl (84-94); Platelet Count 361 K/mm3 (140-440); Red Blood Count 3.76 M/mm3 (3.65-5.03); Red Cell Distribution Width 14.9 % (13.2-15.2)
[2019-03-31 05:19] LABS: Alanine Aminotransferase 40 units/L (7-56); Albumin 3.3 g/dL (3.9-5); BUN/Creatinine Ratio 8; Blood Urea Nitrogen 7 mg/dL (9-20); Calcium 8.6 mg/dL (8.4-10.2); Hemolysis Index 0
--- NOTE | 2019-03-31 05:34 | Consultation ---
PULMONARY CRITICAL CARE CONSULTATION CONSULTING PHYSICIAN: Dr. Isis Guadarrama. REASON FOR CONSULTATION: Acute respiratory failure, on mechanical ventilatory support; seizures. CHIEF COMPLAINT AND HISTORY OF PRESENT ILLNESS: As follows, the patient is a 28-year-old -Syrian male with past medical history significant for a diagnosis of seizure disorder, recently discharged from hospital, I believe [place] or may be in this hospital on 03/22/2019, he was in this hospital, came back for evaluation of a seizure. According to the mother, he had been taking his medications including the antiepileptic drugs. He came down from upstairs on the day, looked a little confused, sat down on the chair. She then went to see him and then she noticed significant nystagmus followed by facial, then right arm, then generalized tonic-clonic seizures. This is his usual type of seizure according to the mom. They denied current tobacco use. He did smoke some THC on the , but not on the day of presentation. He was evaluated in the Emergency Room, and it looks like he was intubated in the Emergency Room. He also had a lumbar puncture done. She denied any real fevers or chills. She denied any complaints of back pain or neck pain. She denied vomiting or overt aspiration. This really is much of the history of presentation as I have. PAST MEDICAL HISTORY: Seizure disorder. Tobacco use disorder. PAST SURGICAL HISTORY: None. MEDICATIONS: He was on at the time I stopped by to see him were reviewed. Pertinent medications included the following: Tylenol 650 mg p.o. q. 4 hours p.r.n. mild pain or fevers. All p.o. meds via the feeding tube. Rocephin 2 g IV daily, Lovenox 40 mg subcutaneously daily, Pepcid 20 mg IV b.i.d., fentanyl drip was going at 2 mcg/kg per hour, Ativan drip I believe was going at 5 mg per hour, Zofran 4 mg IV q. 8 hours p.r.n. nausea and vomiting. He also received cefepime in the Emergency Room and Zosyn 4.5 g IV x 1. ALLERGIES: To KEPPRA; nature of this allergy is unknown. DIET: Well-built, on the thin side gentleman. Family denies acute weight loss or gain in the preceding few weeks to months. FAMILY AND SOCIAL HISTORY: Lives in the community. He has a less than 10-pack year tobacco smoking history, uses THC, and there is a family history of hypertension and diabetes. REVIEW OF SYSTEMS: Unobtainable secondary to the patient's medical and mental condition. Since he has been here, no gross hematochezia or melena. No gross hematuria. No bloody tracheal secretions and no witnessed seizures. Review of systems otherwise unobtainable. PHYSICAL EXAMINATION: VITAL SIGNS: On examination at presentation in the Emergency Room, he had a fever of 102.2 degrees Fahrenheit, pulse of 130, respiratory rate 25, blood pressure 160/80, O2 sats were 100%, inspired oxygen concentration at that time was not recorded. When I stopped by to see him, his O2 sats were 98%, that was on the assist control mode of ventilation, tidal volume 500, rate of 20, PEEP of 6, and 25% FiO2. GENERAL: A thin, well-built -Syrian male. Normocephalic, atraumatic. Resting peacefully in bed without significantly increased respiratory effort and no patient ventilator dyssynchrony. HEAD, EYES, EARS, NOSE, AND THROAT: Pupils is anicteric. No conjunctival erythema. Oropharynx is moist and large oropharyngeal secretions. No gross jugular venous distention, no thyromegaly. Grossly, no palpable lymph nodes in the supraclavicular or submandibular lymph node chains. NECK: Supple. No elicitable pain. LUNGS: Auscultation of both lung sanabria unremarkable. Good bilateral air movement, and breath sounds are heard in all zones in all areas. HEART: Heart sounds 1 and 2 are heard. Regular rate and rhythm at time of my evaluation without overt rubs or murmurs. ABDOMEN: Soft, full, bowel sounds are positive, nontender, no palpable hepatosplenomegaly. EXTREMITIES: Without overt digital clubbing, no cyanosis and no pedal edema. Pedal pulses are 2+ bilaterally. NEUROLOGIC: Pupils are equal, round, about 2-3 mm, sluggishly reactive to light. Extraocular muscle movements could not be assessed. No nystagmus. He has spontaneous movements to all 4 extremities. SKIN: Normal turgor without overt cellulitis or rash. UROGENITAL: He has scrotal swelling. Nontender, firm, but not tense. LABORATORY DATA: From my review are as follows: Admission white cell count 19,400 with a hemoglobin of 12.4, hematocrit of 38.9, and platelet count of 435. No significant band forms reported. ABG showed a pH of 7.38, pCO2 of 41, pO2 of 170, that was on a 100% FiO2 at presentation. Serum sodium 136, potassium 3.6, chloride 91, bicarbonate 13, BUN 10, creatinine 1.3, glucose was 154. Lactic acid level at presentation was 17.5, down to 1.9 at this time. ALT was up at 81. Otherwise, liver function test essentially within normal limits. Troponin was slightly elevated at 0.031. Urinalysis negative for nitrites and leukocyte esterase, 9 white cells per high power field. A CSF lumbar puncture was done that shows 18 white cells, 10 RBC's, 92% lymphocytes, glucose and total protein are pending. Urine drug screen was presumptive positive for benzodiazepines, otherwise negative. Group A Rapid Strep was positive. Blood cultures, no growth to date. CSF culture, no growth to date. Tracheal aspirate is pending in the lab. IMAGING DATA: A CT scan was done of his head. I have reviewed the radiologist's report and essentially no abnormality identified ____ CT head and stable in the past 3 weeks. Chest x-ray essentially shows evidence of right lower lobe small volume atelectasis with some elevation of the hemidiaphragm on that right side. Endotracheal tube tip is in appropriate position. He may also have an early developing infiltrate in the right lower lobe, but I do feel that this is atelectasis developing there. No cardiomegaly. No gross pneumothorax. ASSESSMENT: 1. Acute respiratory failure, on mechanical ventilatory support. 2. Tonic-clonic seizure. 3. Leukocytosis. 4. Abnormal cerebrospinal fluid studies. 5. Severe metabolic acidosis at presentation. 6. Lactic acidosis. 7. Elevated serum transaminases. 8. Abnormal urinalysis. 9. History of seizures. 10. Likely hydrocele. PLAN: We will keep him on full mechanical ventilatory support in the short term to protect his airways. I will reduce the set rate to 16 per minute, and attempt to begin spontaneous breathing trials as soon as possible, ventilator-associated pneumonia bundle has been introduced, critical care bundles are being observed. Aspiration precautions will be maintained. He will be treated with p.r.n. Ativan for seizures. I will stop the Ativan drip at this point in time. It is unclear what he was taking at home for his seizure control. Neurology evaluation has been placed. We will defer to Neurology. Actually I do see he was on Vimpat 150 mg p.o. q. 12 and I will resume his home Vimpat dosing. We will continue empiric meningitis treatment with Rocephin and vancomycin. I will add vancomycin IV, give him 1 g dose, and an ID consult to be placed. Enteral nutrition will be the feeding modality of choice. Oxygen will be weaned to keep sats greater than or equal to above 90%. Bronchodilators will be scheduled with pulmonary hygiene per the respiratory therapist. He is on GI and DVT prophylaxis. Urology evaluation will be requested, and as the family reported, he was about to see a urologist. Flu and pneumonia vaccination will be addressed per protocol. Thank you very much for the consult, Dr. Guadarrama. We will follow along. We will make further recommendations as picture progresses/becomes clearer. He is critically ill on life-sustaining interventions including mechanical ventilatory support at high risk of decompensation including the risk of . At this time, I spent about 40 minutes of critical care time without overlap. I will be discussing with his mother at this point in time. JOB# [id number] VALDO/BRENNA SUTHERLAND
[2019-03-31] MEDS: CLEOCIN 900 MG/50 mL 900 MG/50 ML BAG IV SCH ×3 (05:47→21:16)
[2019-03-31] MEDS: VANCOMYCIN/NS 1 GM/250 ML 1 GM/250 ML BAG IV SCH ×2 (05:47→16:58)
[2019-03-31] MEDS: VALTREX PO SCH (07:43)
[2019-03-31] MEDS: ATIVAN IV PRN (07:43)
[2019-03-31] MEDS: LOVENOX SUB-Q SCH (09:12)
[2019-03-31] MEDS: VIMPAT PO SCH ×3 (09:13→22:39)
[2019-03-31] MEDS: ROCEPHIN/NS 2 GM/100 ML 2 GM/100 ML BAG IV SCH ×2 (09:14→21:17)
[2019-03-31] MEDS: PEPCID IV SCH ×2 (09:14→21:17)
[2019-03-31] MEDS: SODIUM CHLORIDE FLUSH SYRINGE 10 ML IV SCH ×2 (09:15→21:18)
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
--- NOTE | 2019-03-31 10:46 | Progress Note ---
Assessment and Plan PATIENT SEEMS LITTLE BETTER TODAY,FAMILY MEMBERS REPORTED THAT HE MOVED HIS LEGS,CSF SHOWS GLUCOSE OF 75 WHICH HAS ABOUT 2/3 OF BLOOD GLUCOSE. NO GROWTH IN 24HRS,VALTREX WAS STARTED. WBC COUNT CONTINUES TO BE HIGH ALTHOUGH SOME IMPROVEMNT COMPARED TO YESTERDAY. VALTREX WAS STARTED LAST NIGHT ON SUSPICION OF HSV ENCEPHALITIS. ALSO GETTING ANTI BIOTICS IN ADDITION TO VALTREX. PHYSICAL EXAMINATION PATIENT IS VERBALLY UNRESPONSIVE,RESPONDS TO PAINFUL STIMULI WITH MINIMAL FACIAL GRIMACING PUPILS REACT TO LIGHT. CORNEAL REFLEX IS PRESENT. MOVES ALL FOUR EXTREMITIES REFLEXES- REFLEXES ARE NORMAL IN ALL FOUR EXTREMITIES WITH BILATERAL DOWN GOING TOES. IMPRESION. 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 NO RECURRENCE OF SEIZURE ,DILANTIN WAS ADDED YESTERDAY TO LACOSAMIDE RECOMMEND 1. CONTINUE ACYCLOVIR/VALTREX PRESCRIBED 2. CONTINUE DILANTIN AND LACOSAMIDE PRESCRIBED. 3. WILL FOLLOW UP. Subjective Principal diagnosis: seizures/fever Objective - Vital Sign Vital Signs - 12hr 03/30/19 03/30/19 03/30/19 23:00 23:18 23:20 Temperature 101.1 F H Pulse Rate 109 H 108 H Pulse Rate [ Apical] Respiratory 16 Rate Blood Pressure 119/69 119/69 O2 Sat by Pulse 96 96 Oximetry 03/30/19 03/31/19 03/31/19 23:44 00:00 01:00 Temperature Pulse Rate 106 H 107 H 104 H Pulse Rate [ 104 H Apical] Respiratory 16 16 16 Rate Blood Pressure 119/69 116/68 116/72 O2 Sat by Pulse 96 96 97 Oximetry 03/31/19 03/31/19 03/31/19 02:00 03:00 03:03 Temperature 98.9 F Pulse Rate 103 H 102 H Pulse Rate [ Apical] Respiratory 16 16 Rate Blood Pressure 119/71 139/84 O2 Sat by Pulse 97 97 Oximetry 03/31/19 03/31/19 03/31/19 04:00 04:10 05:00 Temperature Pulse Rate 95 H 101 H 99 H Pulse Rate [ 99 H Apical] Respiratory 16 16 Rate Blood Pressure 130/80 130/80 135/84 O2 Sat by Pulse 97 97 97 Oximetry 03/31/19 03/31/19 06:00 07:00 Temperature Pulse Rate 99 H 97 H Pulse Rate [ Apical] Respiratory 16 16 Rate Blood Pressure 123/77 117/79 O2 Sat by Pulse 96 100 Oximetry - Laboratory Findings CBC and BMP: 03/31/19 04:24 03/31/19 04:24 Abnormal Lab Findings: Abnormal Labs 03/29/19 03/29/19 03/29/19 18:29 18:29 18:29 WBC 19.4 H Hgb Hct Seg Neuts % (Manual) 72.0 H Lymphocytes % (Manual) Monocytes % (Manual) 8.0 H Seg Neutrophils # Man 14.0 H Monocytes # (Manual) 1.6 H POC ABG pH POC ABG pCO2 POC ABG pO2 VBG pH Sodium 136 L Chloride 90.6 L Carbon Dioxide 13 L BUN Glucose 154 H Lactic Acid 17.50 H* ALT 81 H Total Creatine Kinase Troponin T Albumin Urine WBC (Auto) Group A Strep Rapid 03/29/19 03/29/19 03/29/19 18:29 19:09 19:27 WBC Hgb Hct Seg Neuts % (Manual) Lymphocytes % (Manual) Monocytes % (Manual) Seg Neutrophils # Man Monocytes # (Manual) POC ABG pH POC ABG pCO2 POC ABG pO2 VBG pH 7.269 L Sodium Chloride Carbon Dioxide BUN Glucose Lactic Acid ALT Total Creatine Kinase Troponin T 0.031 H Albumin Urine WBC (Auto) 9.0 H Group A Strep Rapid 03/29/19 03/29/19 03/29/19 19:33 20:27 21:01 WBC Hgb Hct Seg Neuts % (Manual) Lymphocytes % (Manual) Monocytes % (Manual) Seg Neutrophils # Man Monocytes # (Manual) POC ABG pH POC ABG pCO2 POC ABG pO2 170 H VBG pH Sodium Chloride Carbon Dioxide BUN Glucose Lactic Acid 3.80 H* 4.10 H* ALT Total Creatine Kinase Troponin T Albumin Urine WBC (Auto) Group A Strep Rapid 03/29/19 03/29/19 03/30/19 23:46 Unknown 04:08 WBC Hgb Hct Seg Neuts % (Manual) Lymphocytes % (Manual) Monocytes % (Manual) Seg Neutrophils # Man Monocytes # (Manual) POC ABG pH POC ABG pCO2 POC ABG pO2 VBG pH Sodium Chloride Carbon Dioxide BUN Glucose Lactic Acid 2.10 H* ALT Total Creatine Kinase 172 H Troponin T 0.033 H Albumin Urine WBC (Auto) Group A Strep Rapid Positive A 03/30/19 03/30/19 03/30/19 04:45 05:21 07:17 WBC 20.8 H Hgb 10.9 L Hct 33.5 L Seg Neuts % (Manual) 85.0 H Lymphocytes % (Manual) 8.0 L Monocytes % (Manual) Seg Neutrophils # Man 17.7 H Monocytes # (Manual) POC ABG pH POC ABG pCO2 POC ABG pO2 172 H VBG pH Sodium Chloride Carbon Dioxide BUN Glucose Lactic Acid ALT Total Creatine Kinase 173 H Troponin T 0.039 H Albumin Urine WBC (Auto) Group A Strep Rapid 03/31/19 03/31/19 03/31/19 04:24 04:24 04:27 WBC 17.9 H Hgb 10.7 L Hct 32.4 L Seg Neuts % (Manual) Lymphocytes % (Manual) Monocytes % (Manual) Seg Neutrophils # Man Monocytes # (Manual) POC ABG pH 7.324 L POC ABG pCO2 51.9 H POC ABG pO2 VBG pH Sodium Chloride Carbon Dioxide BUN 7 L Glucose 108 H Lactic Acid ALT Total Creatine Kinase Troponin T Albumin 3.3 L Urine WBC (Auto) Group A Strep Rapid
[2019-03-31] MEDS: fentaNYL DRIP Premix 2,000 MCG/100 ML BAG IV SCH (13:14)
--- NOTE | 2019-03-31 13:34 | Progress Note ---
Assessment and Plan Acute respiratory failure, on mechanical ventilatory support. Tonic-clonic seizure. Leukocytosis. Abnormal cerebrospinal fluid studies. Severe metabolic acidosis at presentation. Lactic acidosis. Elevated serum transaminases. Abnormal urinalysis. History of seizures. Scrotal swelling - advance ETT 2 cm -continue acyclovir for empiric Herpes encephalitis coverage - get procalcitonin level to aid clinical decision making - repeat ABG at 9 pm; reduce set rate if acidosis resolved - continue to wean FiO2 for sats > 90% - VAP bundle addressed - continue daily SAT's and SBT assessment as tolerated - target sedation for RASS 0 to -1 - prn analgesia per CPOT score - continue enteral nutrition at goal rate as tolerated - prn supportive blood transfusions to keep serum Hb > 7.0 - Monitor hemodynamics closely - continue empiric broad spectrum antiinfective's per ID recommendations (de- escalate based on clinical and microbiologic data) - continue mobility protocols and off loading as tolerated for pressure ulcer prophylaxis - continue to avoid nephrotoxins, adjust all medications for GFR and CRCL - continue GI & VTE prophylaxis with - accuchecks with glycemic control per SSI for target BG of 140-180 mg/dl acute ly - continue other care per attending / other consultants .... care plan discussed with parents at bedside ... re-evaluate in am & prn CONDITION: CRITICAL PROGNOSIS: VERY GUARDED CODE STATUS: FULL CODE Discussed extensively with RT/RN and care team in ICU IDT rounds The high probability of a clinically significant, sudden or life threatening deterioration of the [Respiratory, Cardiac & Neurological] system's' required my full and direct attention, intervention and personal management. The aggregate critical care time was 34 minutes. This time is in addition to time spent performing reported procedures but includes the following: [x] Data Review and interpretation [x] Patient assessment and monitoring of vital signs [x] Documentation [x] Medication orders and management Subjective Date of service: 03/31/19 Principal diagnosis: Ac. Resp failure; Seizures; Ac. Encephalopathy; Abnormal CSF (? herpes) Interval history: Patient is seen today for: Acute respiratory failure; Tonic-clonic seizure; Leukocytosis; Abnormal CSF (? herpes encephalitis); Lactic acidosis; Elevated serum transaminases; History of seizures; Scrotal swelling (Chronic per Mom) Seen and examined at bedside; 24hour events reviewed; nursing and respiratory care staff consulted; no adverse overnight events reported to me; resting peacefully in bed; sedated now; agitated and combative during SAT; no emesis or overt aspiration; no reported seizures; parent's in room Objective Vital Signs - 12hr 03/31/19 03/31/19 03/31/19 02:00 03:00 03:03 Temperature 98.9 F Pulse Rate 103 H 102 H Pulse Rate [ Apical] Respiratory 16 16 Rate Blood Pressure 119/71 139/84 O2 Sat by Pulse 97 97 Oximetry 03/31/19 03/31/19 03/31/19 04:00 04:10 05:00 Temperature Pulse Rate 95 H 101 H 99 H Pulse Rate [ 99 H Apical] Respiratory 16 16 Rate Blood Pressure 130/80 130/80 135/84 O2 Sat by Pulse 97 97 97 Oximetry 03/31/19 03/31/19 03/31/19 06:00 07:00 08:00 Temperature Pulse Rate 99 H 97 H 104 H Pulse Rate [ 102 H Apical] Respiratory 16 16 16 Rate Blood Pressure 123/77 117/79 133/85 O2 Sat by Pulse 96 100 98 Oximetry 03/31/19 03/31/19 03/31/19 08:40 09:00 10:00 Temperature Pulse Rate 97 H 100 H Pulse Rate [ Apical] Respiratory 16 16 Rate Blood Pressure 128/77 125/77 O2 Sat by Pulse 99 98 98 Oximetry 03/31/19 03/31/19 11:00 12:34 Temperature Pulse Rate 101 H 98 H Pulse Rate [ Apical] Respiratory 16 Rate Blood Pressure 123/76 130/77 O2 Sat by Pulse 97 99 Oximetry Constitutional: no acute distress, other (young AAM normocephalicv and atraumatic resting in bed withmildly increased resp effort on MVS) Eyes: non-icteric ENT: oropharynx moist, other (ETT 24 cm KALYAN) Neck: supple, no lymphadenopathy, no JVD Effort: mildly labored Ascultation: Bilateral: rhonchi Percussion: Bilateral: not dull Cardiovascular: regular rate and rhythm Gastrointestinal: normoactive bowel sounds, soft, non-tender, non-distended Integumentary: normal Extremities: no cyanosis, no edema, pulses normal, no ischemia or petechiae Neurologic: non-focal exam (grossly), pupils equal and round, motor strength normal and, unable to assess (re: Encephalopathy) Psychiatric: other (unable to assess re: AMS) CBC and BMP: 03/31/19 04:24 03/31/19 04:24 ABG, PT/INR, D-dimer: ABG POC ABG pH 7.324 (7.35-7.45) L 03/31/19 04:27 POC ABG pCO2 51.9 (35-45) H 03/31/19 04:27 POC ABG pO2 84 (80-105) 03/31/19 04:27 POC ABG HCO3 27.0 (22-26 mml/L) 03/31/19 04:27 POC ABG Total CO2 29 (23-27mmol/L) 03/31/19 04:27 POC ABG O2 Sat 95 03/31/19 04:27 PT/INR, D-dimer PT Cancelled 03/29/19 18:29 INR 1.13 (0.87-1.13) 03/29/19 18:29 Abnormal lab findings: Abnormal Labs 03/29/19 03/29/19 03/29/19 18:29 18:29 18:29 WBC 19.4 H Hgb Hct Seg Neuts % (Manual) 72.0 H Lymphocytes % (Manual) Monocytes % (Manual) 8.0 H Seg Neutrophils # Man 14.0 H Monocytes # (Manual) 1.6 H POC ABG pH POC ABG pCO2 POC ABG pO2 VBG pH Sodium 136 L Chloride 90.6 L Carbon Dioxide 13 L BUN Glucose 154 H Lactic Acid 17.50 H* ALT 81 H Total Creatine Kinase Troponin T Albumin Urine WBC (Auto) Group A Strep Rapid 03/29/19 03/29/19 03/29/19 18:29 19:09 19:27 WBC Hgb Hct Seg Neuts % (Manual) Lymphocytes % (Manual) Monocytes % (Manual) Seg Neutrophils # Man Monocytes # (Manual) POC ABG pH POC ABG pCO2 POC ABG pO2 VBG pH 7.269 L Sodium Chloride Carbon Dioxide BUN Glucose Lactic Acid ALT Total Creatine Kinase Troponin T 0.031 H Albumin Urine WBC (Auto) 9.0 H Group A Strep Rapid 03/29/19 03/29/19 03/29/19 19:33 20:27 21:01 WBC Hgb Hct Seg Neuts % (Manual) Lymphocytes % (Manual) Monocytes % (Manual) Seg Neutrophils # Man Monocytes # (Manual) POC ABG pH POC ABG pCO2 POC ABG pO2 170 H VBG pH Sodium Chloride Carbon Dioxide BUN Glucose Lactic Acid 3.80 H* 4.10 H* ALT Total Creatine Kinase Troponin T Albumin Urine WBC (Auto) Group A Strep Rapid 03/29/19 03/29/19 03/30/19 23:46 Unknown 04:08 WBC Hgb Hct Seg Neuts % (Manual) Lymphocytes % (Manual) Monocytes % (Manual) Seg Neutrophils # Man Monocytes # (Manual) POC ABG pH POC ABG pCO2 POC ABG pO2 VBG pH Sodium Chloride Carbon Dioxide BUN Glucose Lactic Acid 2.10 H* ALT Total Creatine Kinase 172 H Troponin T 0.033 H Albumin Urine WBC (Auto) Group A Strep Rapid Positive A 03/30/19 03/30/19 03/30/19 04:45 05:21 07:17 WBC 20.8 H Hgb 10.9 L Hct 33.5 L Seg Neuts % (Manual) 85.0 H Lymphocytes % (Manual) 8.0 L Monocytes % (Manual) Seg Neutrophils # Man 17.7 H Monocytes # (Manual) POC ABG pH POC ABG pCO2 POC ABG pO2 172 H VBG pH Sodium Chloride Carbon Dioxide BUN Glucose Lactic Acid ALT Total Creatine Kinase 173 H Troponin T 0.039 H Albumin Urine WBC (Auto) Group A Strep Rapid 03/31/19 03/31/19 03/31/19 04:24 04:24 04:27 WBC 17.9 H Hgb 10.7 L Hct 32.4 L Seg Neuts % (Manual) Lymphocytes % (Manual) Monocytes % (Manual) Seg Neutrophils # Man Monocytes # (Manual) POC ABG pH 7.324 L POC ABG pCO2 51.9 H POC ABG pO2 VBG pH Sodium Chloride Carbon Dioxide BUN 7 L Glucose 108 H Lactic Acid ALT Total Creatine Kinase Troponin T Albumin 3.3 L Urine WBC (Auto) Group A Strep Rapid Chest x-ray: image reviewed (clear lung sanabria; ETT riding high) Allied health notes reviewed: nursing
[2019-03-31] MEDS: NACL 0.9% IV SCH ×2 (14:24→22:59)
[2019-03-31] MEDS: ZOVIRAX IV SCH ×2 (14:24→22:59)
--- NOTE | 2019-03-31 14:49 | Progress Note ---
Assessment and Plan Acute respiratory failure Sepsis Acute Metabolic Encephalopathy Status Epileptics Sinus Tachycardia Acute on chronic seizure, ?Underlying meningitis Pneumonia Plan Continue supportive care Continue IV fluids, fentanyl and ativan drip Rocephin, lumbar puncture is pending Dose of Zosyn, possible aspiration pneumonia Consult Critical care, neurology Follow up blood culture and CSF Culture Start on Acylovir for Possible HSV send CSF HSV PCR ceftriaxone 2 gm IV q 12 hour vancomycin IV with PK consult clindamycin 900 mg IV q 8 hour valtrex 1 g po TID (due to IV acyclovir shortage) EEG repeat brain MRI --pending Neuro consult ---IMPRESION. 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 NO RECURRENCE OF SEIZURE ,DILANTIN WAS ADDED TO LACOSAMIDE RECOMMEND 1. CONTINUE ACYCLOVIR/VALTREX PRESCRIBED 2. CONTINUE DILANTIN AND LACOSAMIDE PRESCRIBED. DVT/GI PROPHYLAXIS The high probability of a clinically significant, sudden or life threatening deterioration of the [neuro] system(s) required my full and direct attention, intervention and personal management. The aggregate critical care time was [33] minutes. This time is in addition to time spent performing reported procedures but includes the following: [x] Data Review and interpretation [x] Patient assessment and monitoring of vital signs [x] Documentation [x] Medication orders and management Subjective Date of service: 03/31/19 Principal diagnosis: seizures/fever Interval history: 28-year-old man was recently diagnosed with seizure, discharge from the hospital on March 22 comes back today for evaluation of seizure. After he was discharged he had a seizure on the , mom stated that he's been compliant with his Vimpat. He was seen at [facility] and discharge. He also had another seizure at home on Wednesday and was then taken to [place], no change in his medication he was given a follow-up with urology clinic. Mom states that he smoked marijuana on the prior to the seizure. He is been having fevers at home since last night. He also had seizure in route to the hospital, was intubated in the emergency room for airway protection. Objective - Constitutional Vitals: Vital Signs - 12hr 03/31/19 03/31/19 03/31/19 03:00 03:03 04:00 Temperature 98.9 F Pulse Rate 102 H 95 H Pulse Rate [ 99 H Apical] Respiratory 16 16 Rate Blood Pressure 139/84 130/80 O2 Sat by Pulse 97 97 Oximetry 03/31/19 03/31/19 03/31/19 04:10 05:00 06:00 Temperature Pulse Rate 101 H 99 H 99 H Pulse Rate [ Apical] Respiratory 16 16 Rate Blood Pressure 130/80 135/84 123/77 O2 Sat by Pulse 97 97 96 Oximetry 03/31/19 03/31/19 03/31/19 07:00 08:00 08:40 Temperature Pulse Rate 97 H 104 H Pulse Rate [ 102 H Apical] Respiratory 16 16 Rate Blood Pressure 117/79 133/85 O2 Sat by Pulse 100 98 99 Oximetry 03/31/19 03/31/19 03/31/19 09:00 10:00 11:00 Temperature Pulse Rate 97 H 100 H 101 H Pulse Rate [ Apical] Respiratory 16 16 16 Rate Blood Pressure 128/77 125/77 123/76 O2 Sat by Pulse 98 98 97 Oximetry 03/31/19 03/31/19 03/31/19 12:00 12:34 13:00 Temperature Pulse Rate 98 H 98 H 101 H Pulse Rate [ Apical] Respiratory 16 16 Rate Blood Pressure 130/77 130/77 121/75 O2 Sat by Pulse 98 99 98 Oximetry 03/31/19 14:00 Temperature Pulse Rate 117 H Pulse Rate [ Apical] Respiratory 15 Rate Blood Pressure 142/102 O2 Sat by Pulse 94 Oximetry General appearance: Present: no acute distress, well-nourished - EENT Eyes: PERRL, EOM intact ENT: hearing intact, clear oral mucosa Ears: bilateral: normal - Neck Neck: supple, normal ROM - Respiratory Respiratory effort: normal Respiratory: bilateral: CTA - Breasts Breasts: normal - Cardiovascular Rhythm: regular Heart Sounds: Present: S1 & S2. Absent: gallop, rub Extremities: pulses intact, No edema, normal color, Full ROM - Gastrointestinal General gastrointestinal: Present: soft, non-tender, non-distended, normal bowel sounds - Genitourinary Male genitourinary: normal - Integumentary Integumentary: clear, warm, dry - Musculoskeletal Musculoskeletal: 1, strength equal bilaterally - Neurologic Neurologic: moves all extremities - Psychiatric Psychiatric: memory intact, appropriate mood/affect, intact judgment & insight - Labs CBC & Chem 7: 03/31/19 04:24 03/31/19 04:24 Labs: Abnormal lab results 03/31/19 03/31/19 03/31/19 Range/Units 04:24 04:24 04:27 WBC 17.9 H (4.5-11.0) K/mm3 Hgb 10.7 L (11.8-15.2) gm/dl Hct 32.4 L (35.5-45.6) % POC ABG pH 7.324 L (7.35-7.45) POC ABG pCO2 51.9 H (35-45) BUN 7 L (9-20) mg/dL Glucose 108 H (75-100) mg/dL Albumin 3.3 L (3.9-5) g/dL
[2019-03-31] MEDS: TYLENOL PO PRN (20:16)
[2019-04-01] MEDS: ATIVAN IV PRN ×6 (01:48→21:14)
[2019-04-01] MEDS: ZOFRAN IV PRN (01:48)
[2019-04-01] MEDS: VANCOMYCIN/NS 1 GM/250 ML 1 GM/250 ML BAG IV SCH ×2 (03:23→16:58)
[2019-04-01] MEDS: CLEOCIN 900 MG/50 mL 900 MG/50 ML BAG IV SCH ×3 (05:08→21:33)
[2019-04-01] MEDS: NACL 0.9% IV SCH ×3 (05:44→21:32)
[2019-04-01] MEDS: ZOVIRAX IV SCH ×3 (05:44→21:32)
--- NOTE | 2019-04-01 07:22 | XRay Report ---
CHEST 1 VIEW INDICATION / CLINICAL INFORMATION: follow up respiratory failure. COMPARISON: 03/31/2019 FINDINGS: SUPPORT DEVICES: ET tube and NG tube remain in stable and satisfactory position. HEART / MEDIASTINUM: No significant abnormality. LUNGS / PLEURA: There has developed parenchymal disease within the right medial lower lobe - unclear if this is atelectasis or developing pneumonia. Left lung remains clear. No pneumothorax. ADDITIONAL FINDINGS: No significant additional findings. IMPRESSION: 1. Developing parenchymal disease within the right lung base medially. I suspect this is atelectasis but pneumonia is not excluded and correlation with clinical presentation is suggested. Follow-up radi ograph also recommended. . Signer Name: Liberty Galindo MD Signed: 04/01/2019 7:18 AM Workstation Name: [id number]
[2019-04-01] MEDS: fentaNYL DRIP Premix 2,000 MCG/100 ML BAG IV SCH ×2 (09:08→23:08)
[2019-04-01] MEDS: SODIUM CHLORIDE FLUSH SYRINGE 10 ML IV SCH ×2 (10:12→21:36)
[2019-04-01] MEDS: PEPCID IV SCH ×2 (10:12→21:35)
[2019-04-01] MEDS: LOVENOX SUB-Q SCH (10:12)
[2019-04-01] MEDS: VIMPAT PO SCH ×2 (10:12→21:35)
[2019-04-01] MEDS: ROCEPHIN/NS 2 GM/100 ML 2 GM/100 ML BAG IV SCH ×2 (10:12→21:35)
--- NOTE | 2019-04-01 11:48 | Progress Note ---
Assessment and Plan Acute respiratory failure--Weaning in progress Sepsis Acute Metabolic Encephalopathy Status Epileptics Sinus Tachycardia Acute on chronic seizure, ?Underlying meningitis Pneumonia Plan Continue supportive care Continue IV fluids, fentanyl and ativan drip Rocephin, lumbar puncture is pending Dose of Zosyn, possible aspiration pneumonia Consult Critical care, neurology Follow up blood culture and CSF Culture Started on Valtrex for Possible HSV send CSF HSV PCR ceftriaxone 2 gm IV q 12 hour vancomycin IV with PK consult clindamycin 900 mg IV q 8 hour valtrex 1 g po TID (due to IV acyclovir shortage) EEG repeat brain MRI --pending Neuro consult ---IMPRESION. 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 NO RECURRENCE OF SEIZURE ,DILANTIN WAS ADDED TO LACOSAMIDE RECOMMEND 1. CONTINUE VALTREX PRESCRIBED 2. CONTINUE DILANTIN AND LACOSAMIDE PRESCRIBED. DVT/GI PROPHYLAXIS The high probability of a clinically significant, sudden or life threatening deterioration of the [neuro] system(s) required my full and direct attention, intervention and personal management. The aggregate critical care time was [33] minutes. This time is in addition to time spent performing reported procedures but includes the following: [x] Data Review and interpretation [x] Patient assessment and monitoring of vital signs [x] Documentation [x] Medication orders and management Subjective Date of service: 04/01/19 Principal diagnosis: seizures/fever Interval history: 28-year-old man was recently diagnosed with seizure, discharge from the hospital on March 22 comes back today for evaluation of seizure. After he was discharged he had a seizure on the , mom stated that he's been compliant with his Vimpat. He was seen at [facility] and discharge. He also had another seizure at home on Wednesday and was then taken to [place], no change in his medication he was given a follow-up with urology clinic. Mom states that he smoked marijuana on the prior to the seizure. He is been having fevers at home since last night. He also had seizure in route to the hospital, was intubated in the emergency room for airway protection. Objective - Constitutional Vitals: Vital Signs - 12hr 03/31/19 04/01/19 04/01/19 23:54 00:00 01:00 Temperature Pulse Rate 96 H 97 H 98 H Pulse Rate [ 97 H From Monitor] Respiratory 16 16 Rate Blood Pressure 104/60 121/76 131/87 O2 Sat by Pulse 100 100 100 Oximetry 04/01/19 04/01/19 04/01/19 02:01 03:00 03:37 Temperature 98.8 F Pulse Rate 128 H 99 H Pulse Rate [ From Monitor] Respiratory 17 16 Rate Blood Pressure 160/109 135/91 O2 Sat by Pulse 94 99 Oximetry 04/01/19 04/01/19 04/01/19 04:00 05:01 06:00 Temperature Pulse Rate 106 H 144 H 107 H Pulse Rate [ 106 H From Monitor] Respiratory 16 20 16 Rate Blood Pressure 143/93 143/93 128/78 O2 Sat by Pulse 98 98 Oximetry 04/01/19 04/01/19 04/01/19 07:00 08:00 08:27 Temperature 100.3 F H Pulse Rate 111 H 120 H 97 H Pulse Rate [ 106 H From Monitor] Respiratory 16 16 Rate Blood Pressure 133/85 143/91 143/91 O2 Sat by Pulse 100 97 97 Oximetry General appearance: Present: no acute distress, well-nourished - EENT Eyes: PERRL, EOM intact ENT: hearing intact, clear oral mucosa Ears: bilateral: normal - Neck Neck: supple, normal ROM - Respiratory Respiratory effort: normal Respiratory: bilateral: CTA - Breasts Breasts: normal - Cardiovascular Rhythm: regular Heart Sounds: Present: S1 & S2. Absent: gallop, rub Extremities: no ischemia, pulses intact, No edema, normal color, Full ROM - Gastrointestinal General gastrointestinal: Present: soft, non-tender, non-distended, normal bowel sounds - Genitourinary Male genitourinary: normal - Integumentary Integumentary: clear, warm, dry - Musculoskeletal Musculoskeletal: generalized weakness - Neurologic Neurologic: moves all extremities - Psychiatric Psychiatric: other (Intubated) - Labs CBC & Chem 7: 03/31/19 04:24 03/31/19 04:24 Labs: Abnormal lab results 03/31/19 Range/Units 20:54 POC ABG pH 7.345 L (7.35-7.45) POC ABG pCO2 54.1 H (35-45) POC ABG pO2 78 L (80-105)
[2019-04-01] MEDS: TYLENOL PO PRN (12:21)
--- NOTE | 2019-04-01 14:18 | Progress Note ---
Assessment and Plan Acute respiratory failure, on mechanical ventilatory support. Tonic-clonic seizure. Leukocytosis. Abnormal cerebrospinal fluid studies. Severe metabolic acidosis at presentation. Lactic acidosis. Elevated serum transaminases. Abnormal urinalysis. History of seizures. Scrotal swelling - advance ETT 2 cm (not done yesterday) - continue acyclovir for empiric Herpes encephalitis coverage - get procalcitonin level to aid clinical decision making - repeat ABG at 9 pm; reduce set rate if acidosis resolved - continue to wean FiO2 for sats > 90% - VAP bundle addressed - continue daily SAT's and SBT assessment as tolerated (failed today) - target sedation for RASS 0 to -1 - prn analgesia per CPOT score - continue enteral nutrition at goal rate as tolerated - prn supportive blood transfusions to keep serum Hb > 7.0 - Monitor hemodynamics closely - continue empiric broad spectrum antiinfective's per ID recommendations (de- escalate based on clinical and microbiologic data) - continue mobility protocols and off loading as tolerated for pressure ulcer prophylaxis - continue to avoid nephrotoxins, adjust all medications for GFR and CRCL - continue GI & VTE prophylaxis with - accuchecks with glycemic control per SSI for target BG of 140-180 mg/dl acutely - continue other care per attending / other consultants .... care plan discussed with parents at bedside ... re-evaluate in am & prn CONDITION: CRITICAL PROGNOSIS: VERY GUARDED CODE STATUS: FULL CODE Discussed extensively with RT/RN and care team in ICU IDT rounds The high probability of a clinically significant, sudden or life threatening deterioration of the [Respiratory, Cardiac & Neurological] system's' required my full and direct attention, intervention and personal management. The aggregate critical care time was 32 minutes. This time is in addition to time spent performing reported procedures but includes the following: [x] Data Review and interpretation [x] Patient assessment and monitoring of vital signs [x] Documentation [x] Medication orders and management Subjective Date of service: 04/01/19 Principal diagnosis: Ac. Resp failure; Seizures; Ac. Encephalopathy; Abnormal CSF (? herpes) Interval history: Patient is seen today for: Acute respiratory failure; Tonic-clonic seizure; Leukocytosis; Abnormal CSF (? herpes encephalitis); Lactic acidosis; Elevated serum transaminases; History of seizures; Scrotal swelling (Chronic per Mom) Seen and examined at bedside; 24hour events reviewed; nursing and respiratory care staff consulted; no adverse overnight events reported to me; resting peacefully in bed; failed SBT; still with intermittent agitation; no seizures reported; no emesis or overt aspiration Objective Vital Signs - 12hr 04/01/19 04/01/19 04/01/19 03:00 03:37 04:00 Temperature 98.8 F Pulse Rate 99 H 106 H Pulse Rate [ 106 H From Monitor] Respiratory 16 16 Rate Blood Pressure 135/91 143/93 O2 Sat by Pulse 99 98 Oximetry 04/01/19 04/01/19 04/01/19 05:01 06:00 07:00 Temperature Pulse Rate 144 H 107 H 111 H Pulse Rate [ From Monitor] Respiratory 20 16 16 Rate Blood Pressure 143/93 128/78 133/85 O2 Sat by Pulse 98 100 Oximetry 04/01/19 04/01/19 04/01/19 08:00 08:27 12:00 Temperature 100.3 F H Pulse Rate 120 H 97 H 106 H Pulse Rate [ 106 H From Monitor] Respiratory 16 Rate Blood Pressure 143/91 143/91 131/84 O2 Sat by Pulse 97 97 100 Oximetry Constitutional: no acute distress, other (young AAM normocephalicv and atraumatic resting in bed withmildly increased resp effort on MVS) Eyes: non-icteric ENT: oropharynx moist, other (ETT 24 cm KALYAN) Neck: supple, no lymphadenopathy, no JVD Effort: mildly labored Ascultation: Bilateral: rhonchi Percussion: Bilateral: not dull Cardiovascular: regular rate and rhythm Gastrointestinal: normoactive bowel sounds, soft, non-tender, non-distended Integumentary: normal Extremities: no cyanosis, no edema, pulses normal, no ischemia or petechiae Neurologic: non-focal exam (grossly), pupils equal and round, motor strength normal and, unable to assess (re: Encephalopathy) Psychiatric: other (unable to assess re: AMS) CBC and BMP: 04/02/19 04:40 04/02/19 04:40 ABG, PT/INR, D-dimer: ABG POC ABG pH 7.345 (7.35-7.45) L 03/31/19 20:54 POC ABG pCO2 54.1 (35-45) H 03/31/19 20:54 POC ABG pO2 78 (80-105) L 03/31/19 20:54 POC ABG HCO3 29.5 (22-26 mml/L) 03/31/19 20:54 POC ABG Total CO2 31 (23-27mmol/L) 03/31/19 20:54 POC ABG O2 Sat 94 03/31/19 20:54 PT/INR, D-dimer PT Cancelled 03/29/19 18:29 INR 1.13 (0.87-1.13) 03/29/19 18:29 Abnormal lab findings: Abnormal Labs 03/29/19 03/29/19 03/29/19 18:29 18:29 18:29 WBC 19.4 H Hgb Hct Seg Neuts % (Manual) 72.0 H Lymphocytes % (Manual) Monocytes % (Manual) 8.0 H Seg Neutrophils # Man 14.0 H Monocytes # (Manual) 1.6 H POC ABG pH POC ABG pCO2 POC ABG pO2 VBG pH Sodium 136 L Chloride 90.6 L Carbon Dioxide 13 L BUN Glucose 154 H Lactic Acid 17.50 H* ALT 81 H Total Creatine Kinase Troponin T Albumin Urine WBC (Auto) Group A Strep Rapid 03/29/19 03/29/19 03/29/19 18:29 19:09 19:27 WBC Hgb Hct Seg Neuts % (Manual) Lymphocytes % (Manual) Monocytes % (Manual) Seg Neutrophils # Man Monocytes # (Manual) POC ABG pH POC ABG pCO2 POC ABG pO2 VBG pH 7.269 L Sodium Chloride Carbon Dioxide BUN Glucose Lactic Acid ALT Total Creatine Kinase Troponin T 0.031 H Albumin Urine WBC (Auto) 9.0 H Group A Strep Rapid 03/29/19 03/29/19 03/29/19 19:33 20:27 21:01 WBC Hgb Hct Seg Neuts % (Manual) Lymphocytes % (Manual) Monocytes % (Manual) Seg Neutrophils # Man Monocytes # (Manual) POC ABG pH POC ABG pCO2 POC ABG pO2 170 H VBG pH Sodium Chloride Carbon Dioxide BUN Glucose Lactic Acid 3.80 H* 4.10 H* ALT Total Creatine Kinase Troponin T Albumin Urine WBC (Auto) Group A Strep Rapid 03/29/19 03/29/19 03/30/19 23:46 Unknown 04:08 WBC Hgb Hct Seg Neuts % (Manual) Lymphocytes % (Manual) Monocytes % (Manual) Seg Neutrophils # Man Monocytes # (Manual) POC ABG pH POC ABG pCO2 POC ABG pO2 VBG pH Sodium Chloride Carbon Dioxide BUN Glucose Lactic Acid 2.10 H* ALT Total Creatine Kinase 172 H Troponin T 0.033 H Albumin Urine WBC (Auto) Group A Strep Rapid Positive A 03/30/19 03/30/19 03/30/19 04:45 05:21 07:17 WBC 20.8 H Hgb 10.9 L Hct 33.5 L Seg Neuts % (Manual) 85.0 H Lymphocytes % (Manual) 8.0 L Monocytes % (Manual) Seg Neutrophils # Man 17.7 H Monocytes # (Manual) POC ABG pH POC ABG pCO2 POC ABG pO2 172 H VBG pH Sodium Chloride Carbon Dioxide BUN Glucose Lactic Acid ALT Total Creatine Kinase 173 H Troponin T 0.039 H Albumin Urine WBC (Auto) Group A Strep Rapid 03/31/19 03/31/19 03/31/19 04:24 04:24 04:27 WBC 17.9 H Hgb 10.7 L Hct 32.4 L Seg Neuts % (Manual) Lymphocytes % (Manual) Monocytes % (Manual) Seg Neutrophils # Man Monocytes # (Manual) POC ABG pH 7.324 L POC ABG pCO2 51.9 H POC ABG pO2 VBG pH Sodium Chloride Carbon Dioxide BUN 7 L Glucose 108 H Lactic Acid ALT Total Creatine Kinase Troponin T Albumin 3.3 L Urine WBC (Auto) Group A Strep Rapid 03/31/19 20:54 WBC Hgb Hct Seg Neuts % (Manual) Lymphocytes % (Manual) Monocytes % (Manual) Seg Neutrophils # Man Monocytes # (Manual) POC ABG pH 7.345 L POC ABG pCO2 54.1 H POC ABG pO2 78 L VBG pH Sodium Chloride Carbon Dioxide BUN Glucose Lactic Acid ALT Total Creatine Kinase Troponin T Albumin Urine WBC (Auto) Group A Strep Rapid Chest x-ray: image reviewed (No new infiltrate) Allied health notes reviewed: nursing
--- NOTE | 2019-04-01 22:10 | XRay Report ---
CHEST 1 VIEW 04/01/2019 9:39 PM INDICATION / CLINICAL INFORMATION: advanced ET. COMPARISON: Chest x-ray 2:17 AM same day FINDINGS: SUPPORT DEVICES: ET tube and NG tube again project in expected position. ET tube has been advanced sl ightly and now has its tip 5 cm above machelle HEART / MEDIASTINUM: No significant abnormality. LUNGS / PLEURA: Mild parenchymal disease right lower lobe, unchanged suggestive for pneumonia. No pne umothorax. ADDITIONAL FINDINGS: No significant additional findings. IMPRESSION: 1. Probable right lower lobe pneumonia, unchanged Signer Name: Luis M Wong MD Signed: 04/01/2019 10:06 PM Workstation Name: [id number]
[2019-04-02] MEDS: ZOFRAN IV PRN (02:50)
[2019-04-02] MEDS: ATIVAN IV PRN ×4 (02:50→18:10)
[2019-04-02] MEDS: VANCOMYCIN/NS 1 GM/250 ML 1 GM/250 ML BAG IV SCH ×3 (03:37→21:06)
[2019-04-02] MEDS: ZOVIRAX IV SCH ×3 (05:30→21:05)
[2019-04-02] MEDS: NACL 0.9% IV SCH ×3 (05:30→21:05)
[2019-04-02] MEDS: CLEOCIN 900 MG/50 mL 900 MG/50 ML BAG IV SCH ×2 (05:30→13:17)
[2019-04-02 05:36] LABS: Basophils # (Auto) 0.1 K/mm3 (0.0-0.1); Basophils % (Auto) 0.5 % (0.0-1.8); Eosinophils # (Auto) 0.4 K/mm3 (0.0-0.4); Hemoglobin 9.5 gm/dl (11.8-15.2); Lymphocytes # (Auto) 0.7 K/mm3 (1.2-5.4); Lymphocytes % (Auto) 4.7 % (13.4-35.0); Mean Corpuscular HGB Conc 34 % (32-34); Mean Corpuscular Volume 84 fl (84-94); Monocytes # (Auto) 1.7 K/mm3 (0.0-0.8); Monocytes % (Auto) 12.7 % (0.0-7.3); Platelet Count 381 K/mm3 (140-440); Red Blood Count 3.33 M/mm3 (3.65-5.03); Red Cell Distribution Width 14.3 % (13.2-15.2)
[2019-04-02 06:03] LABS: Alanine Aminotransferase 27 units/L (7-56); BUN/Creatinine Ratio 6; Blood Urea Nitrogen 5 mg/dL (9-20); Calcium 8.4 mg/dL (8.4-10.2); Hemolysis Index 20
[2019-04-02] MEDS: fentaNYL DRIP Premix 2,000 MCG/100 ML BAG IV SCH (08:02)
[2019-04-02] MEDS: VIMPAT PO SCH ×2 (09:14→21:05)
[2019-04-02] MEDS: PEPCID IV SCH ×2 (09:15→21:05)
[2019-04-02] MEDS: LOVENOX SUB-Q SCH (09:15)
[2019-04-02] MEDS: TYLENOL PO PRN (09:15)
[2019-04-02] MEDS: SODIUM CHLORIDE FLUSH SYRINGE 10 ML IV SCH ×2 (09:16→21:05)
[2019-04-02] MEDS: ROCEPHIN/NS 2 GM/100 ML 2 GM/100 ML BAG IV SCH ×2 (10:08→21:06)
--- NOTE | 2019-04-02 12:38 | Progress Note ---
Assessment and Plan Acute respiratory failure--Weaning in progress Sepsis Acute Metabolic Encephalopathy Status Epileptics Sinus Tachycardia Acute on chronic seizure, ?Underlying meningitis Pneumonia Plan Continue supportive care Continue IV fluids, fentanyl and ativan drip Rocephin, lumbar puncture ---done-CSF -- CSF with only 18 WBCs possible CSF pleocytosis and mildly elevated protein Pneumonia versus Asp Pneumonia--On Ceftriaxone and Vancomycin Critical care, neurology -F/u appreciated Follow up blood culture and CSF Culture Started on Valtrex--Acyclovir not available for Possible HSV --HSV pcr pending sent CSF HSV PCR ceftriaxone 2 gm IV q 12 hour vancomycin IV with PK consult valtrex 1 g po TID (due to IV acyclovir shortage) EEG Neuro consult ---IMPRESION. 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 NO RECURRENCE OF SEIZURE ,DILANTIN WAS ADDED TO LACOSAMIDE RECOMMEND 1. CONTINUE VALTREX PRESCRIBED 2. CONTINUE DILANTIN AND LACOSAMIDE PRESCRIBED. DVT/GI PROPHYLAXIS The high probability of a clinically significant, sudden or life threatening deterioration of the [neuro] system(s) required my full and direct attention, intervention and personal management. The aggregate critical care time was [32] minutes. This time is in addition to time spent performing reported procedures but includes the following: [x] Data Review and interpretation [x] Patient assessment and monitoring of vital signs [x] Documentation [x] Medication orders and management Subjective Date of service: 04/02/19 Principal diagnosis: Ac. Resp failure; Seizures; Ac. Encephalopathy; Abnormal CSF (? herpes) Interval history: 28-year-old man was recently diagnosed with seizure, discharge from the hospital on March 22 comes back today for evaluation of seizure. After he was discharged he had a seizure on the , mom stated that he's been compliant with his Vimpat. He was seen at [facility] and discharge. He also had another seizure at home on Wednesday and was then taken to [place], no change in his medication he was given a follow-up with urology clinic. Mom states that he smoked marijuana on the prior to the seizure. He is been having fevers at home since last night. He also had seizure in route to the hospital, was intubated in the emergency room for airway protection. Objective - Constitutional Vitals: Vital Signs - 12hr 04/02/19 04/02/19 04/02/19 01:00 01:07 02:01 Temperature Pulse Rate 107 H 107 H 122 H Respiratory 16 16 Rate Blood Pressure 128/88 128/88 146/94 O2 Sat by Pulse 100 100 100 Oximetry 04/02/19 04/02/19 04/02/19 03:00 04:00 04:02 Temperature 100.1 F H Pulse Rate 126 H 112 H Respiratory 17 16 Rate Blood Pressure 137/83 127/68 O2 Sat by Pulse 98 98 Oximetry 04/02/19 04/02/19 04/02/19 05:00 05:15 05:30 Temperature Pulse Rate 110 H 111 H 115 H Respiratory 16 15 16 Rate Blood Pressure 135/84 133/83 139/93 O2 Sat by Pulse 100 100 100 Oximetry 04/02/19 04/02/19 04/02/19 05:45 06:00 06:15 Temperature Pulse Rate 142 H 137 H 136 H Respiratory 16 15 16 Rate Blood Pressure 139/93 154/96 O2 Sat by Pulse 97 97 98 Oximetry 04/02/19 04/02/19 04/02/19 06:30 06:45 07:00 Temperature Pulse Rate 129 H 124 H 122 H Respiratory 16 16 16 Rate Blood Pressure 137/82 134/79 129/78 O2 Sat by Pulse 98 98 98 Oximetry 04/02/19 04/02/19 04/02/19 07:15 07:30 07:45 Temperature Pulse Rate 135 H 120 H 118 H Respiratory 15 16 16 Rate Blood Pressure 129/78 129/78 125/77 O2 Sat by Pulse 99 99 99 Oximetry 04/02/19 04/02/19 04/02/19 08:00 08:15 08:30 Temperature 100.7 F H Pulse Rate 118 H 115 H 114 H Respiratory 16 16 16 Rate Blood Pressure 132/82 135/87 131/83 O2 Sat by Pulse 99 99 99 Oximetry 04/02/19 04/02/19 04/02/19 08:45 09:00 09:15 Temperature Pulse Rate 112 H 121 H 117 H Respiratory 16 16 16 Rate Blood Pressure 142/96 151/97 145/93 O2 Sat by Pulse 100 98 99 Oximetry 04/02/19 04/02/19 04/02/19 09:30 09:45 10:00 Temperature Pulse Rate 119 H 115 H 112 H Respiratory 16 16 16 Rate Blood Pressure 150/88 135/80 127/79 O2 Sat by Pulse 99 99 99 Oximetry 04/02/19 04/02/19 04/02/19 10:06 10:15 10:30 Temperature Pulse Rate 116 H 124 H 126 H Respiratory 16 15 Rate Blood Pressure 127/99 135/93 146/86 O2 Sat by Pulse 99 98 97 Oximetry General appearance: Present: no acute distress, well-nourished - EENT Eyes: PERRL, EOM intact ENT: hearing intact, clear oral mucosa Ears: bilateral: normal - Neck Neck: supple, normal ROM - Respiratory Respiratory effort: normal Respiratory: bilateral: CTA - Breasts Breasts: normal - Cardiovascular Rhythm: regular Heart Sounds: Present: S1 & S2. Absent: gallop, rub Extremities: pulses intact, No edema, normal color, Full ROM - Gastrointestinal General gastrointestinal: Present: soft, non-tender, non-distended, normal bowel sounds - Genitourinary Male genitourinary: normal - Integumentary Integumentary: clear, warm, dry - Musculoskeletal Musculoskeletal: 1, strength equal bilaterally - Neurologic Neurologic: moves all extremities - Psychiatric Psychiatric: memory intact, appropriate mood/affect, intact judgment & insight - Labs CBC & Chem 7: 04/02/19 04:40 04/02/19 04:40 Labs: Abnormal lab results 04/01/19 04/02/19 04/02/19 Range/Units 22:40 04:40 04:40 WBC 13.7 H (4.5-11.0) K/mm3 RBC 3.33 L (3.65-5.03) M/mm3 Hgb 9.5 L (11.8-15.2) gm/dl Hct 28.0 L (35.5-45.6) % Lymph % (Auto) 4.7 L (13.4-35.0) % [place] % (Auto) 12.7 H (0.0-7.3) % Lymph # 0.7 L (1.2-5.4) K/mm3 [place] # 1.7 H (0.0-0.8) K/mm3 Seg Neutrophils % 79.1 H (40.0-70.0) % Seg Neutrophils # 10.9 H (1.8-7.7) K/mm3 POC ABG pCO2 50.2 H (35-45) POC ABG pO2 145 H (80-105) Potassium 3.2 L (3.6-5.0) mmol/L Chloride 94.9 L (98-107) mmol/L BUN 5 L (9-20) mg/dL Albumin 3.0 L (3.9-5) g/dL 04/02/19 Range/Units 05:35 WBC (4.5-11.0) K/mm3 RBC (3.65-5.03) M/mm3 Hgb (11.8-15.2) gm/dl Hct (35.5-45.6) % Lymph % (Auto) (13.4-35.0) % [place] % (Auto) (0.0-7.3) % Lymph # (1.2-5.4) K/mm3 [place] # (0.0-0.8) K/mm3 Seg Neutrophils % (40.0-70.0) % Seg Neutrophils # (1.8-7.7) K/mm3 POC ABG pCO2 45.4 H (35-45) POC ABG pO2 (80-105) Potassium (3.6-5.0) mmol/L Chloride (98-107) mmol/L BUN (9-20) mg/dL Albumin (3.9-5) g/dL
[2019-04-02] MEDS ORDERED: POTASSIUM CHLORIDE FEEDTUBE NR (13:11)
[2019-04-02] MEDS ORDERED: DIPRIVAN 10 MG/ML 0 MG/0 ML BOTTLE IV ONE (13:49)
[2019-04-02] MEDS ORDERED: DIPRIVAN 10 MG/ML 1,000 MG/100 ML BOTTLE IV SCH (14:00)
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
--- NOTE | 2019-04-02 16:16 | Progress Note ---
Assessment and Plan Acute respiratory failure, on mechanical ventilatory support. Tonic-clonic seizure. Leukocytosis. Abnormal cerebrospinal fluid studies. Severe metabolic acidosis at presentation. Lactic acidosis. Elevated serum transaminases. Abnormal urinalysis. History of seizures. Scrotal swelling - ABG after 2 hours on PSV 10/6 - keep set rate at 12/min - tentative extubation in am if passes repeat SBT - continue acyclovir for empiric Herpes encephalitis coverage - repeat ABG at 9 pm; reduce set rate if acidosis resolved - continue to wean FiO2 for sats > 90% - VAP bundle addressed - continue daily SAT's and SBT assessment as tolerated (failed today) - target sedation for RASS 0 to -1 - prn analgesia per CPOT score - continue enteral nutrition at goal rate as tolerated - prn supportive blood transfusions to keep serum Hb > 7.0 - Monitor hemodynamics closely - continue empiric broad spectrum antiinfective's per ID recommendations (de- escalate based on clinical and microbiologic data) - continue mobility protocols and off loading as tolerated for pressure ulcer prophylaxis - continue to avoid nephrotoxins, adjust all medications for GFR and CRCL - continue GI & VTE prophylaxis with - accuchecks with glycemic control per SSI for target BG of 140-180 mg/dl acutely - continue other care per attending / other consultants .... care plan discussed with parents at bedside ... re-evaluate in am & prn CONDITION: CRITICAL PROGNOSIS: VERY GUARDED CODE STATUS: FULL CODE Discussed extensively with RT/RN and care team in ICU IDT rounds The high probability of a clinically significant, sudden or life threatening deterioration of the [Respiratory, Cardiac & Neurological] system's' required my full and direct attention, intervention and personal management. The aggregate critical care time was 35 minutes. This time is in addition to time spent performing reported procedures but includes the following: [x] Data Review and interpretation [x] Patient assessment and monitoring of vital signs [x] Documentation [x] Medication orders and management Subjective Date of service: 04/02/19 Principal diagnosis: Ac. Resp failure; Seizures; Ac. Encephalopathy; Abnormal CSF (? herpes) Interval history: Patient is seen today for: Acute respiratory failure; Tonic-clonic seizure; Leukocytosis; Abnormal CSF (? herpes encephalitis); Lactic acidosis; Elevated serum transaminases; History of seizures; Scrotal swelling (Chronic per Mom) Seen and examined at bedside; 24hour events reviewed; nursing and respiratory care staff consulted; no adverse overnight events reported to me; resting peacefully in bed; was more appropriate mentally and folowing commabnds; failed SBT ultimately with hypercapnia; no N/V/F/C; still with delirium ultimately Objective Vital Signs - 12hr 04/02/19 04/02/19 04/02/19 05:00 05:15 05:30 Temperature Pulse Rate 110 H 111 H 115 H Respiratory 16 15 16 Rate Blood Pressure 135/84 133/83 139/93 O2 Sat by Pulse 100 100 100 Oximetry 04/02/19 04/02/19 04/02/19 05:45 06:00 06:15 Temperature Pulse Rate 142 H 137 H 136 H Respiratory 16 15 16 Rate Blood Pressure 139/93 154/96 O2 Sat by Pulse 97 97 98 Oximetry 04/02/19 04/02/19 04/02/19 06:30 06:45 07:00 Temperature Pulse Rate 129 H 124 H 122 H Respiratory 16 16 16 Rate Blood Pressure 137/82 134/79 129/78 O2 Sat by Pulse 98 98 98 Oximetry 04/02/19 04/02/19 04/02/19 07:15 07:30 07:45 Temperature Pulse Rate 135 H 120 H 118 H Respiratory 15 16 16 Rate Blood Pressure 129/78 129/78 125/77 O2 Sat by Pulse 99 99 99 Oximetry 04/02/19 04/02/19 04/02/19 08:00 08:15 08:30 Temperature 100.7 F H Pulse Rate 122 H 115 H 114 H Respiratory 16 16 16 Rate Blood Pressure 132/82 135/87 131/83 O2 Sat by Pulse 99 99 99 Oximetry 04/02/19 04/02/19 04/02/19 08:45 09:00 09:15 Temperature Pulse Rate 112 H 121 H 117 H Respiratory 16 16 16 Rate Blood Pressure 142/96 151/97 145/93 O2 Sat by Pulse 100 98 99 Oximetry 04/02/19 04/02/19 04/02/19 09:30 09:45 10:00 Temperature Pulse Rate 119 H 115 H 112 H Respiratory 16 16 16 Rate Blood Pressure 150/88 135/80 127/79 O2 Sat by Pulse 99 99 99 Oximetry 04/02/19 04/02/19 04/02/19 10:06 10:15 10:30 Temperature Pulse Rate 116 H 124 H 126 H Respiratory 16 15 Rate Blood Pressure 127/99 135/93 146/86 O2 Sat by Pulse 99 98 97 Oximetry 04/02/19 04/02/19 04/02/19 10:45 11:00 11:15 Temperature Pulse Rate 132 H 122 H Respiratory 21 11 L 16 Rate Blood Pressure 146/86 164/95 143/86 O2 Sat by Pulse 97 98 98 Oximetry 04/02/19 04/02/19 04/02/19 11:30 11:45 12:00 Temperature Pulse Rate 116 H 107 H 104 H Respiratory 16 16 16 Rate Blood Pressure 137/80 126/75 128/74 O2 Sat by Pulse 98 99 99 Oximetry 04/02/19 04/02/19 04/02/19 12:15 12:30 12:45 Temperature Pulse Rate 102 H 99 H 97 H Respiratory 16 16 16 Rate Blood Pressure 118/68 125/80 130/84 O2 Sat by Pulse 99 99 100 Oximetry 04/02/19 04/02/19 04/02/19 13:00 13:15 13:18 Temperature Pulse Rate 107 H 112 H 113 H Respiratory 16 15 Rate Blood Pressure 137/89 150/106 150/106 O2 Sat by Pulse 100 100 100 Oximetry 04/02/19 04/02/19 04/02/19 13:31 13:45 14:01 Temperature Pulse Rate 131 H 149 H 123 H Respiratory 18 16 16 Rate Blood Pressure 159/109 159/109 159/109 O2 Sat by Pulse 100 98 95 Oximetry 04/02/19 04/02/19 04/02/19 14:15 14:31 14:45 Temperature Pulse Rate 131 H 129 H 127 H Respiratory 14 24 13 Rate Blood Pressure 150/101 151/94 150/104 O2 Sat by Pulse 100 99 99 Oximetry 04/02/19 04/02/19 15:00 15:15 Temperature Pulse Rate 122 H 125 H Respiratory 14 11 L Rate Blood Pressure 155/96 154/97 O2 Sat by Pulse 99 98 Oximetry Constitutional: no acute distress, other (young AAM normocephalicv and atraumatic resting in bed withmildly increased resp effort on MVS) Eyes: non-icteric ENT: oropharynx moist, other (ETT 24 cm KALYAN) Neck: supple, no lymphadenopathy, no JVD Effort: mildly labored Ascultation: Bilateral: rhonchi Percussion: Bilateral: not dull Cardiovascular: regular rate and rhythm Gastrointestinal: normoactive bowel sounds, soft, non-tender, non-distended Integumentary: normal Extremities: no cyanosis, no edema, pulses normal, no ischemia or petechiae Neurologic: non-focal exam (grossly), pupils equal and round, motor strength normal and, unable to assess (re: Encephalopathy) Psychiatric: other (unable to assess re: AMS) CBC and BMP: 04/02/19 04:40 04/02/19 04:40 ABG, PT/INR, D-dimer: ABG POC ABG pH 7.444 (7.35-7.45) 04/02/19 05:35 POC ABG pCO2 45.4 (35-45) H 04/02/19 05:35 POC ABG pO2 85 (80-105) 04/02/19 05:35 POC ABG HCO3 31.2 (22-26 mml/L) 04/02/19 05:35 POC ABG Total CO2 33 (23-27mmol/L) 04/02/19 05:35 POC ABG O2 Sat 97 04/02/19 05:35 PT/INR, D-dimer PT Cancelled 03/29/19 18:29 INR 1.13 (0.87-1.13) 03/29/19 18:29 Abnormal lab findings: Abnormal Labs 03/29/19 03/29/19 03/29/19 18:29 18:29 18:29 WBC 19.4 H RBC Hgb Hct Lymph % (Auto) [place] % (Auto) Lymph # [place] # Seg Neutrophils % Seg Neuts % (Manual) 72.0 H Lymphocytes % (Manual) Monocytes % (Manual) 8.0 H Seg Neutrophils # Seg Neutrophils # Man 14.0 H Monocytes # (Manual) 1.6 H POC ABG pH POC ABG pCO2 POC ABG pO2 VBG pH Sodium 136 L Potassium Chloride 90.6 L Carbon Dioxide 13 L BUN Glucose 154 H Lactic Acid 17.50 H* ALT 81 H Total Creatine Kinase Troponin T Albumin Urine WBC (Auto) Group A Strep Rapid 03/29/19 03/29/19 03/29/19 18:29 19:09 19:27 WBC RBC Hgb Hct Lymph % (Auto) [place] % (Auto) Lymph # [place] # Seg Neutrophils % Seg Neuts % (Manual) Lymphocytes % (Manual) Monocytes % (Manual) Seg Neutrophils # Seg Neutrophils # Man Monocytes # (Manual) POC ABG pH POC ABG pCO2 POC ABG pO2 VBG pH 7.269 L Sodium Potassium Chloride Carbon Dioxide BUN Glucose Lactic Acid ALT Total Creatine Kinase Troponin T 0.031 H Albumin Urine WBC (Auto) 9.0 H Group A Strep Rapid 03/29/19 03/29/19 03/29/19 19:33 20:27 21:01 WBC RBC Hgb Hct Lymph % (Auto) [place] % (Auto) Lymph # [place] # Seg Neutrophils % Seg Neuts % (Manual) Lymphocytes % (Manual) Monocytes % (Manual) Seg Neutrophils # Seg Neutrophils # Man Monocytes # (Manual) POC ABG pH POC ABG pCO2 POC ABG pO2 170 H VBG pH Sodium Potassium Chloride Carbon Dioxide BUN Glucose Lactic Acid 3.80 H* 4.10 H* ALT Total Creatine Kinase Troponin T Albumin Urine WBC (Auto) Group A Strep Rapid 03/29/19 03/29/19 03/30/19 23:46 Unknown 04:08 WBC RBC Hgb Hct Lymph % (Auto) [place] % (Auto) Lymph # [place] # Seg Neutrophils % Seg Neuts % (Manual) Lymphocytes % (Manual) Monocytes % (Manual) Seg Neutrophils # Seg Neutrophils # Man Monocytes # (Manual) POC ABG pH POC ABG pCO2 POC ABG pO2 VBG pH Sodium Potassium Chloride Carbon Dioxide BUN Glucose Lactic Acid 2.10 H* ALT Total Creatine Kinase 172 H Troponin T 0.033 H Albumin Urine WBC (Auto) Group A Strep Rapid Positive A 03/30/19 03/30/19 03/30/19 04:45 05:21 07:17 WBC 20.8 H RBC Hgb 10.9 L Hct 33.5 L Lymph % (Auto) [place] % (Auto) Lymph # [place] # Seg Neutrophils % Seg Neuts % (Manual) 85.0 H Lymphocytes % (Manual) 8.0 L Monocytes % (Manual) Seg Neutrophils # Seg Neutrophils # Man 17.7 H Monocytes # (Manual) POC ABG pH POC ABG pCO2 POC ABG pO2 172 H VBG pH Sodium Potassium Chloride Carbon Dioxide BUN Glucose Lactic Acid ALT Total Creatine Kinase 173 H Troponin T 0.039 H Albumin Urine WBC (Auto) Group A Strep Rapid 03/31/19 03/31/19 03/31/19 04:24 04:24 04:27 WBC 17.9 H RBC Hgb 10.7 L Hct 32.4 L Lymph % (Auto) [place] % (Auto) Lymph # [place] # Seg Neutrophils % Seg Neuts % (Manual) Lymphocytes % (Manual) Monocytes % (Manual) Seg Neutrophils # Seg Neutrophils # Man Monocytes # (Manual) POC ABG pH 7.324 L POC ABG pCO2 51.9 H POC ABG pO2 VBG pH Sodium Potassium Chloride Carbon Dioxide BUN 7 L Glucose 108 H Lactic Acid ALT Total Creatine Kinase Troponin T Albumin 3.3 L Urine WBC (Auto) Group A Strep Rapid 03/31/19 04/01/19 04/02/19 20:54 22:40 04:40 WBC 13.7 H RBC 3.33 L Hgb 9.5 L Hct 28.0 L Lymph % (Auto) 4.7 L [place] % (Auto) 12.7 H Lymph # 0.7 L [place] # 1.7 H Seg Neutrophils % 79.1 H Seg Neuts % (Manual) Lymphocytes % (Manual) Monocytes % (Manual) Seg Neutrophils # 10.9 H Seg Neutrophils # Man Monocytes # (Manual) POC ABG pH 7.345 L POC ABG pCO2 54.1 H 50.2 H POC ABG pO2 78 L 145 H VBG pH Sodium Potassium Chloride Carbon Dioxide BUN Glucose Lactic Acid ALT Total Creatine Kinase Troponin T Albumin Urine WBC (Auto) Group A Strep Rapid 04/02/19 04/02/19 04:40 05:35 WBC RBC Hgb Hct Lymph % (Auto) [place] % (Auto) Lymph # [place] # Seg Neutrophils % Seg Neuts % (Manual) Lymphocytes % (Manual) Monocytes % (Manual) Seg Neutrophils # Seg Neutrophils # Man Monocytes # (Manual) POC ABG pH POC ABG pCO2 45.4 H POC ABG pO2 VBG pH Sodium Potassium 3.2 L Chloride 94.9 L Carbon Dioxide BUN 5 L Glucose Lactic Acid ALT Total Creatine Kinase Troponin T Albumin 3.0 L Urine WBC (Auto) Group A Strep Rapid Chest x-ray: image reviewed Allied health notes reviewed: nursing
--- NOTE | 2019-04-02 21:02 | XRay Report ---
ABDOMEN 1 VIEW(S) INDICATION / CLINICAL INFORMATION: tube feed retention. COMPARISON: None available. FINDINGS: TUBES / LINES: NG tube has tip in distal gastric antrum portion of stomach. BOWEL GAS PATTERN: No significant abnormality. FREE AIR / EXTRALUMINAL GAS: None seen. ADDITIONAL FINDINGS: No significant additional findings. IMPRESSION: 1. No significant abnormality. Signer Name: Luis M Wong MD Signed: 04/02/2019 8:58 PM Workstation Name: [id number]
[2019-04-02] MEDS: REGLAN IV SCH (21:04)
[2019-04-03] MEDS: REGLAN IV SCH ×4 (03:00→20:11)
[2019-04-03] MEDS: VANCOMYCIN/NS 1 GM/250 ML 1 GM/250 ML BAG IV SCH ×3 (03:02→20:12)
[2019-04-03] MEDS: ATIVAN IV PRN ×4 (04:10→20:11)
--- NOTE | 2019-04-03 05:57 | XRay Report ---
CHEST 1 VIEW INDICATION / CLINICAL INFORMATION: follow up respiratory failure. COMPARISON: Chest radiograph 04/01/2019 FINDINGS: SUPPORT DEVICES: Stable position of endotracheal and enteric tubes. HEART / MEDIASTINUM: No significant abnormality. LUNGS / PLEURA: Near-complete resolution of previously seen right lower lobe parenchymal opacity. No pleural effusion. No pneumothorax. ADDITIONAL FINDINGS: No significant additional findings. IMPRESSION: 1. Near complete resolution of previously seen right lower lobe parenchymal opacity. Signer Name: Geena Lopes MD Signed: 04/03/2019 5:53 AM Workstation Name: [id number]
[2019-04-03] MEDS: ZOVIRAX IV SCH ×3 (06:41→22:50)
[2019-04-03] MEDS: NACL 0.9% IV SCH ×3 (06:41→22:50)
[2019-04-03] MEDS ORDERED: DILAUDID IV PRN (07:30)
[2019-04-03] MEDS: VIMPAT PO SCH ×2 (09:25→21:38)
[2019-04-03] MEDS: LOVENOX SUB-Q SCH (09:25)
[2019-04-03] MEDS: PEPCID IV SCH ×2 (09:25→21:39)
[2019-04-03] MEDS: SODIUM CHLORIDE FLUSH SYRINGE 10 ML IV SCH ×2 (09:26→21:38)
[2019-04-03] MEDS: ROCEPHIN/NS 2 GM/100 ML 2 GM/100 ML BAG IV SCH ×2 (09:49→21:38)
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
--- NOTE | 2019-04-03 13:29 | Progress Note ---
Assessment and Plan Acute respiratory failure, on mechanical ventilatory support. Tonic-clonic seizure. Leukocytosis. Abnormal cerebrospinal fluid studies. Severe metabolic acidosis at presentation. Lactic acidosis. Elevated serum transaminases. Abnormal urinalysis. History of seizures. Scrotal swelling - Precedex started - ABG after 2 hours on PSV 10/6 - extubate if acceptable - keep set rate at 12/min - continue acyclovir for empiric Herpes encephalitis coverage - continue to wean FiO2 for sats > 90% - VAP bundle addressed - continue daily SAT's and SBT assessment as tolerated (failed today) - target sedation for RASS 0 to -1 - prn analgesia per CPOT score - continue enteral nutrition at goal rate as tolerated - prn supportive blood transfusions to keep serum Hb > 7.0 - Monitor hemodynamics closely - continue empiric broad spectrum antiinfective's per ID recommendations (de- escalate based on clinical and microbiologic data) - continue mobility protocols and off loading as tolerated for pressure ulcer prophylaxis - continue to avoid nephrotoxins, adjust all medications for GFR and CRCL - continue GI & VTE prophylaxis with - accuchecks with glycemic control per SSI for target BG of 140-180 mg/dl acutely - continue other care per attending / other consultants .... care plan discussed with parents at bedside ... re-evaluate in am & prn CONDITION: CRITICAL PROGNOSIS: VERY GUARDED CODE STATUS: FULL CODE Discussed extensively with RT/RN and care team in ICU IDT rounds The high probability of a clinically significant, sudden or life threatening deterioration of the [Respiratory, Cardiac & Neurological] system's' required my full and direct attention, intervention and personal management. The aggregate critical care time was 33 minutes. This time is in addition to time spent performing reported procedures but includes the following: [x] Data Review and interpretation [x] Patient assessment and monitoring of vital signs [x] Documentation [x] Medication orders and management Subjective Date of service: 04/03/19 Principal diagnosis: Ac. Resp failure; Seizures; Ac. Encephalopathy; Abnormal CSF (? herpes) Interval history: Patient is seen today for: Acute respiratory failure; Tonic-clonic seizure; Leukocytosis; Abnormal CSF (? herpes encephalitis); Lactic acidosis; Elevated serum transaminases; History of seizures; Scrotal swelling (Chronic per Mom) Seen and examined at bedside; 24hour events reviewed; nursing and respiratory care staff consulted; no adverse overnight events reported to me; resting peacefully in bed; toleratin SBT better today; still with intermittent agitation and started on Precedex; No N/V/F/C Objective Vital Signs - 12hr 04/03/19 04/03/19 04/03/19 02:00 03:00 04:00 Temperature 98.9 F Pulse Rate 98 H 115 H 107 H Respiratory 18 17 18 Rate Blood Pressure 122/82 146/98 137/97 O2 Sat by Pulse 100 100 100 Oximetry 04/03/19 04/03/19 04/03/19 05:00 06:00 07:00 Temperature Pulse Rate 108 H 105 H 117 H Respiratory 12 12 12 Rate Blood Pressure 133/91 129/81 147/93 O2 Sat by Pulse 99 99 98 Oximetry 04/03/19 04/03/19 04/03/19 08:00 09:00 09:20 Temperature Pulse Rate 115 H 116 H 114 H Respiratory 14 13 12 Rate Blood Pressure 133/85 133/85 129/83 O2 Sat by Pulse 99 98 98 Oximetry 04/03/19 04/03/19 10:00 11:00 Temperature Pulse Rate 112 H 105 H Respiratory 14 14 Rate Blood Pressure 141/88 140/89 O2 Sat by Pulse 100 99 Oximetry Constitutional: no acute distress, other (young AAM normocephalicv and atraum atic resting in bed withmildly increased resp effort on MVS) Eyes: non-icteric ENT: oropharynx moist, other (ETT 24 cm KALYAN) Neck: supple, no lymphadenopathy, no JVD Effort: mildly labored Ascultation: Bilateral: rhonchi Percussion: Bilateral: not dull Cardiovascular: regular rate and rhythm Gastrointestinal: normoactive bowel sounds, soft, non-tender, non-distended Integumentary: normal Extremities: no cyanosis, no edema, pulses normal, no ischemia or petechiae Neurologic: non-focal exam (grossly), pupils equal and round, motor strength normal and, unable to assess (re: Encephalopathy) Psychiatric: other (unable to assess re: AMS) CBC and BMP: 04/04/19 04:16 04/04/19 04:16 ABG, PT/INR, D-dimer: ABG POC ABG pH 7.506 (7.35-7.45) H 04/03/19 04:13 POC ABG pCO2 39.6 (35-45) 04/03/19 04:13 POC ABG pO2 143 (80-105) H 04/03/19 04:13 POC ABG HCO3 31.4 (22-26 mml/L) 04/03/19 04:13 POC ABG Total CO2 33 (23-27mmol/L) 04/03/19 04:13 POC ABG O2 Sat 99 04/03/19 04:13 PT/INR, D-dimer PT Cancelled 03/29/19 18:29 INR 1.13 (0.87-1.13) 03/29/19 18:29 Abnormal lab findings: Abnormal Labs 03/29/19 03/29/19 03/29/19 18:29 18:29 18:29 WBC 19.4 H RBC Hgb Hct Lymph % (Auto) [place] % (Auto) Lymph # [place] # Seg Neutrophils % Seg Neuts % (Manual) 72.0 H Lymphocytes % (Manual) Monocytes % (Manual) 8.0 H Seg Neutrophils # Seg Neutrophils # Man 14.0 H Monocytes # (Manual) 1.6 H POC ABG pH POC ABG pCO2 POC ABG pO2 VBG pH Sodium 136 L Potassium Chloride 90.6 L Carbon Dioxide 13 L BUN Glucose 154 H Lactic Acid 17.50 H* ALT 81 H Total Creatine Kinase Troponin T Albumin Urine WBC (Auto) Group A Strep Rapid 03/29/19 03/29/19 03/29/19 18:29 19:09 19:27 WBC RBC Hgb Hct Lymph % (Auto) [place] % (Auto) Lymph # [place] # Seg Neutrophils % Seg Neuts % (Manual) Lymphocytes % (Manual) Monocytes % (Manual) Seg Neutrophils # Seg Neutrophils # Man Monocytes # (Manual) POC ABG pH POC ABG pCO2 POC ABG pO2 VBG pH 7.269 L Sodium Potassium Chloride Carbon Dioxide BUN Glucose Lactic Acid ALT Total Creatine Kinase Troponin T 0.031 H Albumin Urine WBC (Auto) 9.0 H Group A Strep Rapid 03/29/19 03/29/19 03/29/19 19:33 20:27 21:01 WBC RBC Hgb Hct Lymph % (Auto) [place] % (Auto) Lymph # [place] # Seg Neutrophils % Seg Neuts % (Manual) Lymphocytes % (Manual) Monocytes % (Manual) Seg Neutrophils # Seg Neutrophils # Man Monocytes # (Manual) POC ABG pH POC ABG pCO2 POC ABG pO2 170 H VBG pH Sodium Potassium Chloride Carbon Dioxide BUN Glucose Lactic Acid 3.80 H* 4.10 H* ALT Total Creatine Kinase Troponin T Albumin Urine WBC (Auto) Group A Strep Rapid 03/29/19 03/29/19 03/30/19 23:46 Unknown 04:08 WBC RBC Hgb Hct Lymph % (Auto) [place] % (Auto) Lymph # [place] # Seg Neutrophils % Seg Neuts % (Manual) Lymphocytes % (Manual) Monocytes % (Manual) Seg Neutrophils # Seg Neutrophils # Man Monocytes # (Manual) POC ABG pH POC ABG pCO2 POC ABG pO2 VBG pH Sodium Potassium Chloride Carbon Dioxide BUN Glucose Lactic Acid 2.10 H* ALT Total Creatine Kinase 172 H Troponin T 0.033 H Albumin Urine WBC (Auto) Group A Strep Rapid Positive A 03/30/19 03/30/19 03/30/19 04:45 05:21 07:17 WBC 20.8 H RBC Hgb 10.9 L Hct 33.5 L Lymph % (Auto) [place] % (Auto) Lymph # [place] # Seg Neutrophils % Seg Neuts % (Manual) 85.0 H Lymphocytes % (Manual) 8.0 L Monocytes % (Manual) Seg Neutrophils # Seg Neutrophils # Man 17.7 H Monocytes # (Manual) POC ABG pH POC ABG pCO2 POC ABG pO2 172 H VBG pH Sodium Potassium Chloride Carbon Dioxide BUN Glucose Lactic Acid ALT Total Creatine Kinase 173 H Troponin T 0.039 H Albumin Urine WBC (Auto) Group A Strep Rapid 03/31/19 03/31/19 03/31/19 04:24 04:24 04:27 WBC 17.9 H RBC Hgb 10.7 L Hct 32.4 L Lymph % (Auto) [place] % (Auto) Lymph # [place] # Seg Neutrophils % Seg Neuts % (Manual) Lymphocytes % (Manual) Monocytes % (Manual) Seg Neutrophils # Seg Neutrophils # Man Monocytes # (Manual) POC ABG pH 7.324 L POC ABG pCO2 51.9 H POC ABG pO2 VBG pH Sodium Potassium Chloride Carbon Dioxide BUN 7 L Glucose 108 H Lactic Acid ALT Total Creatine Kinase Troponin T Albumin 3.3 L Urine WBC (Auto) Group A Strep Rapid 03/31/19 04/01/19 04/02/19 20:54 22:40 04:40 WBC 13.7 H RBC 3.33 L Hgb 9.5 L Hct 28.0 L Lymph % (Auto) 4.7 L [place] % (Auto) 12.7 H Lymph # 0.7 L [place] # 1.7 H Seg Neutrophils % 79.1 H Seg Neuts % (Manual) Lymphocytes % (Manual) Monocytes % (Manual) Seg Neutrophils # 10.9 H Seg Neutrophils # Man Monocytes # (Manual) POC ABG pH 7.345 L POC ABG pCO2 54.1 H 50.2 H POC ABG pO2 78 L 145 H VBG pH Sodium Potassium Chloride Carbon Dioxide BUN Glucose Lactic Acid ALT Total Creatine Kinase Troponin T Albumin Urine WBC (Auto) Group A Strep Rapid 04/02/19 04/02/19 04/02/19 04:40 05:35 16:07 WBC RBC Hgb Hct Lymph % (Auto) [place] % (Auto) Lymph # [place] # Seg Neutrophils % Seg Neuts % (Manual) Lymphocytes % (Manual) Monocytes % (Manual) Seg Neutrophils # Seg Neutrophils # Man Monocytes # (Manual) POC ABG pH 7.310 L POC ABG pCO2 45.4 H 68.5 H POC ABG pO2 137 H VBG pH Sodium Potassium 3.2 L Chloride 94.9 L Carbon Dioxide BUN 5 L Glucose Lactic Acid ALT Total Creatine Kinase Troponin T Albumin 3.0 L Urine WBC (Auto) Group A Strep Rapid 04/03/19 04:13 WBC RBC Hgb Hct Lymph % (Auto) [place] % (Auto) Lymph # [place] # Seg Neutrophils % Seg Neuts % (Manual) Lymphocytes % (Manual) Monocytes % (Manual) Seg Neutrophils # Seg Neutrophils # Man Monocytes # (Manual) POC ABG pH 7.506 H POC ABG pCO2 POC ABG pO2 143 H VBG pH Sodium Potassium Chloride Carbon Dioxide BUN Glucose Lactic Acid ALT Total Creatine Kinase Troponin T Albumin Urine WBC (Auto) Group A Strep Rapid Allied health notes reviewed: nursing
[2019-04-03] MEDS: DEXMEDETOMIDINE 200 MCG in NACL 0.9% 48 ML IV SCH ×2 (14:43→20:40)
--- NOTE | 2019-04-03 14:53 | Progress Note ---
Assessment and Plan Assessment and plan: 28-year-old man was recently diagnosed with seizure, discharge from the hospital on March 22 comes back today for evaluation of seizure. After he was discharged he had a seizure on the , mom stated that he's been compliant with his Vimpat. He was seen at [facility] and discharge. He also had another seizure at home on Wednesday and was then taken to [place], no change in his medication he was given a follow-up with urology clinic. Mom states that he smoked marijuana on the prior to the seizure. He is been having fevers at home since last night. He also had seizure in route to the hospital, was intubated in the emergency room for airway protection. * csf NEGATIVE FOR BACTERIA MENINGITIS * Patient clinically improving and anticipate Extubation today * Will need extensive counselling following extubation. Acute respiratory failure ON MV>96 HOURS Sepsis Acute Metabolic Encephalopathy Status Epileptics Sinus Tachycardia Acute on chronic seizure, ?Underlying meningitis ?Viral Encephalitis Pneumonia Plan Continue supportive care Continue Acylovir for Possible HSV ceftriaxone 2 gm IV q 12 hour vancomycin IV with PK consult clindamycin 900 mg IV q 8 hour Neurology seen and examined, dilantin and lacosamide started DVT/GI PROPHY Family advised of findings The high probability of a clinically significant, sudden or life threatening deterioration of the [neuro] system(s) required my full and direct attention, intervention and personal management. The aggregate critical care time was [32] minutes. This time is in addition to time spent performing reported procedures but includes the following: [x] Data Review and interpretation [x] Patient assessment and monitoring of vital signs [x] Documentation [x] Medication orders and management History Interval history: Patient seen and examined, remains intubated, family at bedside VERY AGITATED. Hospitalist Physical - Physical exam Narrative exam: General appearance: Present: no acute distress, well-nourished, Agitated, disheveled - EENT Eyes: PERRL, EOM intact ENT: hearing intact, clear oral mucosa Ears: bilateral: normal ETT STILL IN. - Neck Neck: supple, normal ROM - Respiratory Respiratory effort: normal Respiratory: bilateral: CTA - Breasts Breasts: normal - Cardiovascular Rhythm: regular Heart Sounds: Present: S1 & S2. Absent: gallop, rub Extremities: pulses intact, No edema, normal color, Full ROM - Gastrointestinal General gastrointestinal: Present: soft, non-tender, non-distended, normal bowel sounds - Genitourinary Male genitourinary: normal - Integumentary Integumentary: clear, warm, dry - Musculoskeletal Musculoskeletal: 1, strength equal bilaterally - Neurologic Neurologic: moves all extremities - Psychiatric Psychiatric: memory intact, appropriate mood/affect, intact judgment & insight - Constitutional Vitals: Temp Pulse Resp BP Pulse Ox 98.9 F 131 H 11 L 159/102 100 04/03/19 04:00 04/03/19 14:00 04/03/19 14:00 04/03/19 14:00 04/03/19 14:00 General appearance: Present: no acute distress, well-nourished Results - Labs CBC & Chem 7: 04/02/19 04:40 04/02/19 04:40 Labs: Laboratory Last Values WBC 13.7 K/mm3 (4.5-11.0) H 04/02/19 04:40 RBC 3.33 M/mm3 (3.65-5.03) L 04/02/19 04:40 Hgb 9.5 gm/dl (11.8-15.2) L 04/02/19 04:40 Hct 28.0 % (35.5-45.6) L 04/02/19 04:40 MCV 84 fl (84-94) 04/02/19 04:40 MCH 29 pg (28-32) 04/02/19 04:40 MCHC 34 % (32-34) 04/02/19 04:40 RDW 14.3 % (13.2-15.2) 04/02/19 04:40 Plt Count 381 K/mm3 (140-440) 04/02/19 04:40 Lymph % (Auto) 4.7 % (13.4-35.0) L 04/02/19 04:40 [place] % (Auto) 12.7 % (0.0-7.3) H 04/02/19 04:40 Eos % (Auto) 3.0 % (0.0-4.3) 04/02/19 04:40 Baso % (Auto) 0.5 % (0.0-1.8) 04/02/19 04:40 Lymph # 0.7 K/mm3 (1.2-5.4) L 04/02/19 04:40 [place] # 1.7 K/mm3 (0.0-0.8) H 04/02/19 04:40 Eos # 0.4 K/mm3 (0.0-0.4) 04/02/19 04:40 Baso # 0.1 K/mm3 (0.0-0.1) 04/02/19 04:40 Add Manual Diff Complete 03/30/19 05:21 Total Counted 100 03/30/19 05:21 Seg Neutrophils % 79.1 % (40.0-70.0) H 04/02/19 04:40 Seg Neuts % (Manual) 85.0 % (40.0-70.0) H 03/30/19 05:21 Band Neutrophils % 3.0 % 03/30/19 05:21 Lymphocytes % (Manual) 8.0 % (13.4-35.0) L 03/30/19 05:21 Reactive Lymphs % (Man) 0 % 03/30/19 05:21 Monocytes % (Manual) 4.0 % (0.0-7.3) 03/30/19 05:21 Eosinophils % (Manual) 0 % (0.0-4.3) 03/30/19 05:21 Basophils % (Manual) 0 % (0.0-1.8) 03/30/19 05:21 Metamyelocytes % 0 % 03/30/19 05:21 Myelocytes % 0 % 03/30/19 05:21 Promyelocytes % 0 % 03/30/19 05:21 Blast Cells % 0 % 03/30/19 05:21 Nucleated RBC % Not Reportable 03/30/19 05:21 Seg Neutrophils # 10.9 K/mm3 (1.8-7.7) H 04/02/19 04:40 Seg Neutrophils # Man 17.7 K/mm3 (1.8-7.7) H 03/30/19 05:21 Band Neutrophils # 0.6 K/mm3 03/30/19 05:21 Lymphocytes # (Manual) 1.7 K/mm3 (1.2-5.4) 03/30/19 05:21 Abs React Lymphs (Man) 0.0 K/mm3 03/30/19 05:21 Monocytes # (Manual) 0.8 K/mm3 (0.0-0.8) 03/30/19 05:21 Eosinophils # (Manual) 0.0 K/mm3 (0.0-0.4) 03/30/19 05:21 Basophils # (Manual) 0.0 K/mm3 (0.0-0.1) 03/30/19 05:21 Metamyelocytes # 0.0 K/mm3 03/30/19 05:21 Myelocytes # 0.0 K/mm3 03/30/19 05:21 Promyelocytes # 0.0 K/mm3 03/30/19 05:21 Blast Cells # 0.0 K/mm3 03/30/19 05:21 WBC Morphology Not Reportable 03/30/19 05:21 Hypersegmented Neuts Not Reportable 03/30/19 05:21 Hyposegmented Neuts Not Reportable 03/30/19 05:21 Hypogranular Neuts Not Reportable 03/30/19 05:21 Smudge Cells Not Reportable 03/30/19 05:21 Toxic Granulation Not Reportable 03/30/19 05:21 Toxic Vacuolation Not Reportable 03/30/19 05:21 Dohle Bodies Not Reportable 03/30/19 05:21 Pelger-Huet Anomaly Not Reportable 03/30/19 05:21 Zbigniew Rods Not Reportable 03/30/19 05:21 Platelet Estimate Consistent w auto 03/30/19 05:21 Clumped Platelets Not Reportable 03/30/19 05:21 Plt Clumps, EDTA Not Reportable 03/30/19 05:21 Large Platelets Not Reportable 03/30/19 05:21 Giant Platelets Not Reportable 03/30/19 05:21 Platelet Satelliting Not Reportable 03/30/19 05:21 Plt Morphology Comment Not Reportable 03/30/19 05:21 RBC Morphology Not Reportable 03/30/19 05:21 Dimorphic RBCs Not Reportable 03/30/19 05:21 Polychromasia Not Reportable 03/30/19 05:21 Hypochromasia Not Reportable 03/30/19 05:21 Poikilocytosis Not Reportable 03/30/19 05:21 Anisocytosis Few 03/30/19 05:21 Microcytosis Not Reportable 03/30/19 05:21 Macrocytosis Not Reportable 03/30/19 05:21 Spherocytes Not Reportable 03/30/19 05:21 Pappenheimer Bodies Not Reportable 03/30/19 05:21 Sickle Cells Not Reportable 03/30/19 05:21 Target Cells Not Reportable 03/30/19 05:21 Tear Drop Cells Rare 03/30/19 05:21 Ovalocytes Not Reportable 03/30/19 05:21 Helmet Cells Not Reportable 03/30/19 05:21 [place] Bodies Not Reportable 03/30/19 05:21 [place] Rings Not Reportable 03/30/19 05:21 Zamzam Cells Rare 03/30/19 05:21 Bite Cells Not Reportable 03/30/19 05:21 Crenated Cell Not Reportable 03/30/19 05:21 Elliptocytes Not Reportable 03/30/19 05:21 Acanthocytes (Spur) Not Reportable 03/30/19 05:21 Rouleaux Not Reportable 03/30/19 05:21 Hemoglobin C Crystals Not Reportable 03/30/19 05:21 Schistocytes Not Reportable 03/30/19 05:21 Malaria parasites Not Reportable 03/30/19 05:21 Erich Bodies Not Reportable 03/30/19 05:21 Hem Pathologist Commnt No 03/30/19 05:21 PT Cancelled 03/29/19 18:29 INR 1.13 (0.87-1.13) 03/29/19 18:29 INR Cancelled 03/29/19 18:29 APTT 29.5 Sec. (24.2-36.6) 03/29/19 18:29 PT Patient/Control Mix Cancelled 03/29/19 18:29 PT Pat/Norm 1:1 5 min Cancelled 03/29/19 18:29 PT Pat/Norm 1:1 1 Hr Cancelled 03/29/19 18:29 POC ABG pH 7.506 (7.35-7.45) H 04/03/19 04:13 POC ABG pCO2 39.6 (35-45) 04/03/19 04:13 POC ABG pO2 143 (80-105) H 04/03/19 04:13 POC ABG HCO3 31.4 (22-26 mml/L) 04/03/19 04:13 POC ABG Total CO2 33 (23-27mmol/L) 04/03/19 04:13 POC ABG O2 Sat 99 04/03/19 04:13 POC ABG Base Excess 8 ((-2) - (+3)mmol/L) 04/03/19 04:13 VBG pH 7.269 (7.320-7.420) L 03/29/19 19:09 FiO2 30 % 04/03/19 04:13 Sodium 137 mmol/L (137-145) 04/02/19 04:40 Potassium 3.2 mmol/L (3.6-5.0) L 04/02/19 04:40 Chloride 94.9 mmol/L (98-107) L 04/02/19 04:40 Carbon Dioxide 26 mmol/L (22-30) 04/02/19 04:40 Anion Gap 19 mmol/L 04/02/19 04:40 BUN 5 mg/dL (9-20) L 04/02/19 04:40 Creatinine 0.9 mg/dL (0.8-1.5) 04/02/19 04:40 Estimated GFR > 60 ml/min 04/02/19 04:40 BUN/Creatinine Ratio 6 % 04/02/19 04:40 Glucose 95 mg/dL (75-100) 04/02/19 04:40 POC Glucose 89 (70-105) 04/03/19 12:44 Lactic Acid 1.90 mmol/L (0.7-2.0) 03/30/19 05:11 Calcium 8.4 mg/dL (8.4-10.2) 04/02/19 04:40 Total Bilirubin 0.20 mg/dL (0.1-1.2) 04/02/19 04:40 AST 19 units/L (5-40) 04/02/19 04:40 ALT 27 units/L (7-56) 04/02/19 04:40 Alkaline Phosphatase 53 units/L (35-129) 04/02/19 04:40 Total Creatine Kinase 173 units/L (55-170) H 03/30/19 07:17 CK-MB (CK-2) 2.8 ng/mL (0.0-4.0) 03/30/19 07:17 CK-MB (CK-2) Rel Index 1.6 (0-4) 03/30/19 07:17 Troponin T 0.039 ng/mL (0.00-0.029) H 03/30/19 07:17 Total Protein 6.3 g/dL (6.3-8.2) 04/02/19 04:40 Albumin 3.0 g/dL (3.9-5) L 04/02/19 04:40 Albumin/Globulin Ratio 0.9 % 04/02/19 04:40 Triglycerides 63 mg/dL (2-149) 03/29/19 18:29 Cholesterol 177 mg/dL (50-199) 03/29/19 18:29 LDL Cholesterol Direct 119 mg/dL (50-130) 03/29/19 18:29 HDL Cholesterol 56 mg/dL (40-59) 03/29/19 18:29 Cholesterol/HDL Ratio 3.16 % 03/29/19 18:29 Urine Color Yellow (Yellow) 03/29/19 19:27 Urine Turbidity Slightly-cloudy (Clear) 03/29/19 19: Urine pH 5.0 (5.0-7.0) 03/29/19 19:27 Ur Specific [place] 1.011 (1.003-1.030) 03/29/19 19:27 Urine Protein 100 mg/dl mg/dL (Negative) 03/29/19 19:27 Urine Glucose (UA) Neg mg/dL (Negative) 03/29/19 19:27 Urine Ketones Neg mg/dL (Negative) 03/29/19 19:27 Urine Blood Sm (Negative) 03/29/19 19:27 Urine Nitrite Neg (Negative) 03/29/19 19:27 Urine Bilirubin Neg (Negative) 03/29/19 19:27 Urine Urobilinogen < 2.0 mg/dL (<2.0) 03/29/19 19:27 Ur Leukocyte Esterase Neg (Negative) 03/29/19 19:27 Urine WBC (Auto) 9.0 /HPF (0.0-6.0) H 03/29/19 19:27 Urine RBC (Auto) 3.0 /HPF (0.0-6.0) 03/29/19 19:27 U Epithel Cells (Auto) < 1.0 /HPF (0-13.0) 03/29/19 19:27 Urine Bacteria (Auto) 1+ /HPF (Negative) 03/29/19 19:27 Urine Mucus Few /HPF 03/29/19 19:27 CSF Appearance Clear 03/30/19 Unknown CSF Color Colorless 03/30/19 Unknown CSF WBC 18 /mm3 (1-10) 03/30/19 Unknown CSF RBC 10 /mm3 (0-0) 03/30/19 Unknown CSF Seg Neutrophils 4.0 % (0-6) 03/30/19 Unknown CSF Lymphocytes % 92.0 % (40-80) 03/30/19 Unknown CSF Reactive Lymphs 0 % 03/30/19 Unknown CSF Monocytes % 4.0 % (15-45) 03/30/19 Unknown CSF Eosinophils % 0 % 03/30/19 Unknown CSF Basophils 0 % 03/30/19 Unknown CSF Pathologist Review C 03/30/19 Unknown CSF Glucose 75 mg/dL 03/30/19 Unknown CSF Total Protein 61 mg/dL 03/30/19 Unknown Vancomycin Trough 7.8 ug/mL (5.0-20.0) 04/01/19 15:22 Urine Opiates Screen Presumptive negative 03/29/19 19:27 Urine Methadone Screen Presumptive negative 03/29/19 19:27 Ur Barbiturates Screen Presumptive negative 03/29/19 19:27 Ur Phencyclidine Scrn Presumptive negative 03/29/19 19:27 Ur Amphetamines Screen Presumptive negative 03/29/19 19:27 U Benzodiazepines Scrn Presumptive positive 03/29/19 19:27 Urine Cocaine Screen Presumptive negative 03/29/19 19:27 U Marijuana (THC) Screen Presumptive negative 03/29/19 19:27 Drugs of Abuse Note Disclamer 03/29/19 19:27 RPR Nonreactive (Nonreactive) 03/31/19 11:17 Influenza A (Rapid) Negative (Negative) 03/29/19 Unknown Influenza B (Rapid) Negative (Negative) 03/29/19 Unknown Group A Strep Rapid Positive (Negative) A 03/29/19 Unknown Active Medications - Current Medications Current Medications: Generic Name Dose Route Start Last Admin Trade Name Freq PRN Reason Stop Dose Admin Acetaminophen 650 mg 03/30/19 01:27 04/02/19 09:15 Tylenol PO 650 mg Q4H PRN Administration Pain MILD(1-3)/Fever >100.5/LICONA Albuterol 2.5 mg 03/30/19 14:00 Proventil IH Q4HRT PRN Shortness Of Breath Lipase/Protease/Amylase 1 each 03/30/19 12:[address] 10,500 Unit FEEDTUBE PRN PRN For Clogged Feeding Tube Enoxaparin Sodium 40 mg 03/30/19 10:00 04/03/19 09:25 Lovenox SUB-Q 40 mg QDAY@1000 RENÉ Administration Famotidine 20 mg 03/30/19 10:00 04/03/19 09:25 Pepcid IV 20 mg BID RENÉ Administration Haloperidol Lactate 5 mg 04/03/19 15:00 04/03/19 14:48 Haldol IV 04/03/19 15:01 5 mg ONCE ONE Administration Hydromorphone HCl 0.5 mg 04/03/19 07:30 04/03/19 07:58 Dilaudid IV 0.5 mg Q3H PRN Administration Pain , Severe (7-10) Hydrophilic Ointment 1 applic 03/30/19 14:51 Vaseline Lip Therapy TP Q2HR PRN Dry Lips Fentanyl Citrate 2,000 mcg in 100 mls @ 3.175 mls/hr 03/29/19 23:00 04/02/19 19:08 Fentanyl Drip Premix IV 0 mcg/kg/hr TITR RENÉ 0 mls/hr Titration Protocol 1 MCG/KG/HR Ceftriaxone Sodium 2 gm in 100 mls @ 200 mls/hr 03/31/19 10:00 04/03/19 09:49 Rocephin/Ns 2 Gm/100 Ml IV 200 mls/hr Q12HR RENÉ Administration Protocol Acyclovir 620 mg/ Sodium 112.4 mls @ 100 mls/hr 03/31/19 14:00 04/03/19 13:25 Chloride IV 100 mls/hr Q8HR RENÉ Administration Protocol Vancomycin HCl 1 gm in 250 mls @ 166.667 mls/hr 04/02/19 12:00 04/03/19 11:50 Vancomycin/Ns 1 Gm/250 Ml IV 166.667 mls/hr Q8H RENÉ Administration Protocol Dexmedetomidine HCl 200 mcg/ 50 mls @ 3.115 mls/hr 04/03/19 15:00 04/03/19 14:43 Sodium Chloride IV 0.2 mcg/kg/hr TITRATE RENÉ 3.115 mls/hr Administration Protocol 0.2 MCG/KG/HR Lacosamide 150 mg 03/30/19 15:00 04/03/19 09:25 Vimpat PO 150 mg Q12HR RENÉ Administration Lorazepam 2 mg 03/30/19 12:10 04/03/19 08:00 Ativan IV 2 mg Q1H PRN Administration Agitation Metoclopramide HCl 5 mg 04/02/19 20:00 04/03/19 08:03 Reglan IV 5 mg Q6H RENÉ Administration Multi-Ingred Cream/Lotion/Oil/Oint 1 applic 03/30/19 14:51 Artificial Tears Ophth Oint OU Q4HR PRN Dry Eye(s) Ondansetron HCl 4 mg 03/30/19 01:27 04/02/19 02:50 Zofran IV 4 mg Q4H PRN Administration Nausea And Vomiting Quetiapine Fumarate 50 mg 04/02/19 22:00 04/03/19 09:26 Seroquel PO 50 mg BID RENÉ Administration Simple Syrup 15 ml 03/30/19 12:44 Simple Syrup FEEDTUBE PRN PRN Hypoglycemia Simple Syrup 30 ml 03/30/19 12:44 Simple Syrup FEEDTUBE PRN PRN Hypoglycemia Sodium Bicarbonate 325 mg 03/30/19 12:44 Sodium Bicarbonate FEEDTUBE PRN PRN For Clogged Feeding Tube Sodium Chloride 10 ml 03/30/19 10:00 04/03/19 09:26 Sodium Chloride Flush Syringe 10 Ml IV 10 ml BID RENÉ Administration Sodium Chloride 10 ml 03/30/19 01:27 Sodium Chloride Flush Syringe 10 Ml IV PRN PRN LINE FLUSH Nutrition/Malnutrition Assess - Dietary Evaluation Nutrition/Malnutrition Findings: Nutrition Notes Start: 03/30/19 12:41 Freq: Status: Active Protocol: Document 04/03/19 10:35 LM (Rec: 04/03/19 10:51 LM [email or web address]) Nutrition Notes Initial or Follow up Reassessment Current Diagnosis Respiratory Failure Other Pertinent Diagnosis Seizures, Pneu Current Diet Vital AF 1.2 at 65 ml/hr Labs/Tests K 3.2 BUN 5 Pertinent Medications Reviewed Height 5 ft 9 in Weight 62.3 kg [place] Body Weight (kg) 72.72 BMI 20.2 Subjective/Other Information TF turned off due to KUB. Percent of energy/protein needs met: 0%/0% Burn Absent Trauma Absent Minimum of two criteria No #1 Nutrition Diagnosis Inadequate oral intake Diagnosis Progress(for reassessment Continues documentation) Is patient on ventilator? Yes Is Patient Ambulatory and/or Out of Bed No REE-([facility]-confined to bed) 1896.084 Calculation Used for Recommendations [facility] Additional Notes PRO needs 1.2-2.0g/day (75-125g/day) Fluid needs: 1mL/kcal Nutrition Intervention Change Diet Order: Restart TF Nutrition Support: Vital AF 1.2 at 65ml/hr Water flush of 100mL q4hr. Kcal 1,872 Protein (gm) 117 Fluid (mL) 1,265 Goal #1 Restart TF Goal #2 Meet at least 75% of energy and protein needs Goal #3 TF tolerance Anticipated Discharge Needs: Unable to determine at this time Follow-Up By: 04/05/19 Additional Comments F/U for TF restart/tolerance
[2019-04-03] MEDS ORDERED: HALDOL IV ONE (15:00)
[2019-04-04] MEDS: ATIVAN IV PRN ×2 (00:28→06:08)
[2019-04-04] MEDS: REGLAN IV SCH ×3 (02:10→21:14)
[2019-04-04] MEDS: DEXMEDETOMIDINE 200 MCG in NACL 0.9% 48 ML IV SCH ×2 (02:45→07:33)
[2019-04-04] MEDS: VANCOMYCIN/NS 1 GM/250 ML 1 GM/250 ML BAG IV SCH ×2 (03:47→22:08)
[2019-04-04 05:23] LABS: Hematocrit 33.2 % (35.5-45.6); Hemoglobin 10.7 gm/dl (11.8-15.2); Mean Corpuscular HGB Conc 32 % (32-34); Mean Corpuscular Volume 85 fl (84-94); Platelet Count 509 K/mm3 (140-440); Red Cell Distribution Width 14.9 % (13.2-15.2)
[2019-04-04 05:38] LABS: BUN/Creatinine Ratio 5; Blood Urea Nitrogen 6 mg/dL (9-20); Calcium 9.6 mg/dL (8.4-10.2); Hemolysis Index 93
[2019-04-04] MEDS: NACL 0.9% IV SCH ×3 (05:59→22:04)
[2019-04-04] MEDS: ZOVIRAX IV SCH ×3 (05:59→22:04)
[2019-04-04] MEDS: SODIUM CHLORIDE FLUSH SYRINGE 10 ML IV SCH ×2 (11:00→21:14)
[2019-04-04] MEDS: VIMPAT 150 MG in NACL 0.9% 100 ML IV SCH ×2 (11:11→21:14)
--- NOTE | 2019-04-04 11:41 | Progress Note ---
Assessment and Plan 28-year-old man was recently diagnosed with seizure, discharge from the hospital on March 22 comes back today for evaluation of seizure. After he was discharged he had a seizure on the , mom stated that he's been compliant with his Vimpat. He was seen at [facility] and discharge. He also had another seizure at home on Wednesday and was then taken to [place], no change in his medication he was given a follow-up with urology clinic. Mom states that he smoked marijuana on the prior to the seizure. He is been having fevers at home since last night. He also had seizure in route to the hospital, was intubated in the emergency room for airway protection. * csf NEGATIVE FOR BACTERIA MENINGITIS * Will need extensive counselling following extubation. Acute respiratory failure off MV Sepsis Acute Metabolic Encephalopathy Status Epilepti - resolved inus Tachycardia Acute on chronic seizure, ?Underlying meningitis ?Viral Encephalitis Pneumonia Plan Continue supportive care Continue Acylovir for Possible HSV For MRI of viktor brain ceftriaxone 2 gm IV q 12 hour vancomycin IV with PK consult clindamycin 900 mg IV q 8 hour Neurology seen and examined, dilantin and lacosamide started DVT/GI PROPHY Family advised of findings The high probability of a clinically significant, sudden or life threatening deterioration of the [neuro] system(s) required my full and direct attention, intervention and personal management. The aggregate critical care time was [32] minutes. This time is in addition to time spent performing reported procedures but includes the following: [x] Data Review and interpretation [x] Patient assessment and monitoring of vital signs [x] Documentation [x] Medication orders and management Subjective Date of service: 04/04/19 Principal diagnosis: Ac. Resp failure; Seizures; Ac. Encephalopathy; Abnormal CSF (? herpes) Interval history: Patient seen and examined. Off vent. His mother by the bedside. Remains confused. Extubated 04/03/2018. Remains afebrile. Discussed with patient's nurse. No overnight events reported to me. . Objective - Exam Narrative Exam: Constitutional: Confused. In no distress Head: Normocephalic atraumatic Eyes: Pupils are equal round and reactive to light Nose: No enlarged turbinates, no septal deviation. Mouth: Moist mucous membranes. Neck: Supple no thyromegaly. No bruit. No JVD Heart: Regular rate and rhythm, S1-S2 abnormal. No rubs murmurs or gallop Lungs: Clear to auscultation bilaterally no rales or rhonchi Abdomen: Soft, nontender. Bowel sound are present. Extremities: No edema no cyanosis and no clubbing. Neuro: Alert oriented Oriented x3. No focal sensory or motor deficit. Skin: No rashes no hyperemic spots Psychiatry: Euthymic. Calm. - Constitutional Vitals: Vital Signs - 12hr 04/03/19 04/03/19 04/03/19 23:43 23:47 23:49 Temperature 98.1 F Pulse Rate 99 H 101 H Pulse Rate [ From Monitor] Respiratory 24 25 H Rate Blood Pressure 120/79 120/79 O2 Sat by Pulse 98 97 Oximetry 04/04/19 04/04/19 04/04/19 00:00 00:01 01:00 Temperature Pulse Rate 93 H 127 H 89 Pulse Rate [ 93 H From Monitor] Respiratory 23 20 20 Rate Blood Pressure 120/79 133/97 O2 Sat by Pulse 99 99 99 Oximetry 04/04/19 04/04/19 04/04/19 02:00 03:00 03:33 Temperature 98.9 F Pulse Rate 101 H 93 H Pulse Rate [ From Monitor] Respiratory 22 22 Rate Blood Pressure 121/91 111/82 O2 Sat by Pulse 98 98 Oximetry 04/04/19 04/04/19 04/04/19 04:00 05:00 06:00 Temperature Pulse Rate 94 H 94 H 94 H Pulse Rate [ 91 H From Monitor] Respiratory 21 11 L 10 L Rate Blood Pressure 131/95 152/101 147/97 O2 Sat by Pulse 99 100 100 Oximetry 04/04/19 04/04/19 04/04/19 07:00 08:00 09:00 Temperature 97.8 F Pulse Rate 97 H 97 H 92 H Pulse Rate [ 97 H From Monitor] Respiratory 16 12 22 Rate Blood Pressure 136/97 121/93 138/92 O2 Sat by Pulse 100 100 100 Oximetry - Labs CBC & Chem 7: 04/04/19 04:16 04/04/19 04:16 Labs: Abnormal lab results 04/03/19 04/04/19 04/04/19 Range/Units 15:44 04:16 04:16 WBC 18.9 H (4.5-11.0) K/mm3 Hgb 10.7 L (11.8-15.2) gm/dl Hct 33.2 L (35.5-45.6) % MCH 27 L (28-32) pg Plt Count 509 H (140-440) K/mm3 POC ABG pH 7.461 H (7.35-7.45) POC ABG pCO2 45.8 H (35-45) POC ABG pO2 109 H (80-105) BUN 6 L (9-20) mg/dL
--- NOTE | 2019-04-04 12:23 | Progress Note ---
Assessment and Plan Acute respiratory failure, on mechanical ventilatory support. Tonic-clonic seizure. Leukocytosis. Abnormal cerebrospinal fluid studies. Severe metabolic acidosis at presentation. Lactic acidosis. Elevated serum transaminases. Abnormal urinalysis. History of seizures. Scrotal swelling - Stop Precedex - begin Flomax - prn straight cath's for now - D51/2 NS @ 50 mls/hr X 2 liters re: acyclovir and Vancomycin dosing / ALINE risk - repeat CRP level to aid clinical decision making - begin colace 100 mg po bid and give Mag citrate 150 mls X 1 dose for consdtipation - ST evaluation and advance diet as tolerated - continue acyclovir for empiric Herpes encephalitis coverage - continue to wean FiO2 for sats > 90% - prn analgesia per pain / CPOT score - continue enteral nutrition at goal rate as tolerated - prn supportive blood transfusions to keep serum Hb > 7.0 - Monitor hemodynamics closely - continue empiric broad spectrum antiinfective's per ID recommendations (de- escalate based on clinical and microbiologic data) - continue mobility protocols and off loading as tolerated for pressure ulcer prophylaxis - continue to avoid nephrotoxins, adjust all medications for GFR and CRCL - continue GI & VTE prophylaxis with - accuchecks with glycemic control per SSI for target BG of 140-180 mg/dl acutely - continue other care per attending / other consultants .... care plan discussed with parents at bedside ... re-evaluate in am & prn CONDITION: IMPROVED PROGNOSIS: GUARDED CODE STATUS: FULL CODE I have spent ( >35 ) minutes with the patient w/ >50% of the time spent counseling and/or coordinating care for this patient. Counseling topics and/or how time was spent coordinating patient's care is outlined in the impression and plan above. Subjective Date of service: 04/04/19 Principal diagnosis: Ac. Resp failure; Seizures; Ac. Encephalopathy; Abnormal CSF (? herpes) Interval history: Patient is seen today for: Acute respiratory failure; Tonic-clonic seizure; Abraham kocytosis; Abnormal CSF (? herpes encephalitis); Lactic acidosis; Elevated serum transaminases; History of seizures; Scrotal swelling (Chronic per Mom) Seen and examined at bedside; 24hour events reviewed; nursing and respiratory care staff consulted; no adverse overnight events reported to me; resting peacefully in bed; still with Delirium; remains on Precedex drip; + urinary retention on bladder scan; no BM's X 72 hours Objective Vital Signs - 12hr 04/04/19 04/04/19 04/04/19 01:00 02:00 03:00 Temperature Pulse Rate 89 101 H 93 H Pulse Rate [ From Monitor] Respiratory 20 22 22 Rate Blood Pressure 133/97 121/91 111/82 O2 Sat by Pulse 99 98 98 Oximetry 04/04/19 04/04/19 04/04/19 03:33 04:00 05:00 Temperature 98.9 F Pulse Rate 94 H 94 H Pulse Rate [ 91 H From Monitor] Respiratory 21 11 L Rate Blood Pressure 131/95 152/101 O2 Sat by Pulse 99 100 Oximetry 04/04/19 04/04/19 04/04/19 06:00 07:00 08:00 Temperature 97.8 F Pulse Rate 94 H 97 H 97 H Pulse Rate [ 97 H From Monitor] Respiratory 10 L 16 12 Rate Blood Pressure 147/97 136/97 121/93 O2 Sat by Pulse 100 100 100 Oximetry 04/04/19 04/04/19 04/04/19 09:00 10:00 11:00 Temperature Pulse Rate 92 H 95 H 87 Pulse Rate [ From Monitor] Respiratory 22 15 14 Rate Blood Pressure 138/92 160/113 114/79 O2 Sat by Pulse 100 100 100 Oximetry 04/04/19 12:00 Temperature 97.1 F L Pulse Rate Pulse Rate [ From Monitor] Respiratory Rate Blood Pressure O2 Sat by Pulse Oximetry Constitutional: no acute distress, other (young AAM normocephalicv and atraumati c resting in bed withmildly increased resp effort on MVS) Eyes: non-icteric ENT: oropharynx moist, other (extubated) Neck: supple, no lymphadenopathy, no JVD Effort: mildly labored Ascultation: Bilateral: rhonchi (scant) Percussion: Bilateral: not dull Cardiovascular: regular rate and rhythm Gastrointestinal: normoactive bowel sounds, soft, non-tender, non-distended Integumentary: normal Extremities: no cyanosis, no edema, pulses normal, no ischemia or petechiae Neurologic: non-focal exam (grossly), pupils equal and round, motor strength normal and, unable to assess (re: Encephalopathy) Psychiatric: other (unable to assess re: AMS) CBC and BMP: 04/05/19 04:56 04/05/19 04:56 ABG, PT/INR, D-dimer: ABG POC ABG pH 7.461 (7.35-7.45) H 04/03/19 15:44 POC ABG pCO2 45.8 (35-45) H 04/03/19 15:44 POC ABG pO2 109 (80-105) H 04/03/19 15:44 POC ABG HCO3 32.6 (22-26 mml/L) 04/03/19 15:44 POC ABG Total CO2 34 (23-27mmol/L) 04/03/19 15:44 POC ABG O2 Sat 98 04/03/19 15:44 PT/INR, D-dimer PT Cancelled 03/29/19 18:29 INR 1.13 (0.87-1.13) 03/29/19 18:29 Abnormal lab findings: Abnormal Labs 03/29/19 03/29/19 03/29/19 18:29 18:29 18:29 WBC 19.4 H RBC Hgb Hct MCH Plt Count Lymph % (Auto) [place] % (Auto) Lymph # [place] # Seg Neutrophils % Seg Neuts % (Manual) 72.0 H Lymphocytes % (Manual) Monocytes % (Manual) 8.0 H Seg Neutrophils # Seg Neutrophils # Man 14.0 H Monocytes # (Manual) 1.6 H POC ABG pH POC ABG pCO2 POC ABG pO2 VBG pH Sodium 136 L Potassium Chloride 90.6 L Carbon Dioxide 13 L BUN Glucose 154 H Lactic Acid 17.50 H* ALT 81 H Total Creatine Kinase Troponin T Albumin Urine WBC (Auto) Group A Strep Rapid 03/29/19 03/29/19 03/29/19 18:29 19:09 19:27 WBC RBC Hgb Hct MCH Plt Count Lymph % (Auto) [place] % (Auto) Lymph # [place] # Seg Neutrophils % Seg Neuts % (Manual) Lymphocytes % (Manual) Monocytes % (Manual) Seg Neutrophils # Seg Neutrophils # Man Monocytes # (Manual) POC ABG pH POC ABG pCO2 POC ABG pO2 VBG pH 7.269 L Sodium Potassium Chloride Carbon Dioxide BUN Glucose Lactic Acid ALT Total Creatine Kinase Troponin T 0.031 H Albumin Urine WBC (Auto) 9.0 H Group A Strep Rapid 03/29/19 03/29/19 03/29/19 19:33 20:27 21:01 WBC RBC Hgb Hct MCH Plt Count Lymph % (Auto) [place] % (Auto) Lymph # [place] # Seg Neutrophils % Seg Neuts % (Manual) Lymphocytes % (Manual) Monocytes % (Manual) Seg Neutrophils # Seg Neutrophils # Man Monocytes # (Manual) POC ABG pH POC ABG pCO2 POC ABG pO2 170 H VBG pH Sodium Potassium Chloride Carbon Dioxide BUN Glucose Lactic Acid 3.80 H* 4.10 H* ALT Total Creatine Kinase Troponin T Albumin Urine WBC (Auto) Group A Strep Rapid 03/29/19 03/29/19 03/30/19 23:46 Unknown 04:08 WBC RBC Hgb Hct MCH Plt Count Lymph % (Auto) [place] % (Auto) Lymph # [place] # Seg Neutrophils % Seg Neuts % (Manual) Lymphocytes % (Manual) Monocytes % (Manual) Seg Neutrophils # Seg Neutrophils # Man Monocytes # (Manual) POC ABG pH POC ABG pCO2 POC ABG pO2 VBG pH Sodium Potassium Chloride Carbon Dioxide BUN Glucose Lactic Acid 2.10 H* ALT Total Creatine Kinase 172 H Troponin T 0.033 H Albumin Urine WBC (Auto) Group A Strep Rapid Positive A 03/30/19 03/30/19 03/30/19 04:45 05:21 07:17 WBC 20.8 H RBC Hgb 10.9 L Hct 33.5 L MCH Plt Count Lymph % (Auto) [place] % (Auto) Lymph # [place] # Seg Neutrophils % Seg Neuts % (Manual) 85.0 H Lymphocytes % (Manual) 8.0 L Monocytes % (Manual) Seg Neutrophils # Seg Neutrophils # Man 17.7 H Monocytes # (Manual) POC ABG pH POC ABG pCO2 POC ABG pO2 172 H VBG pH Sodium Potassium Chloride Carbon Dioxide BUN Glucose Lactic Acid ALT Total Creatine Kinase 173 H Troponin T 0.039 H Albumin Urine WBC (Auto) Group A Strep Rapid 03/31/19 03/31/19 03/31/19 04:24 04:24 04:27 WBC 17.9 H RBC Hgb 10.7 L Hct 32.4 L MCH Plt Count Lymph % (Auto) [place] % (Auto) Lymph # [place] # Seg Neutrophils % Seg Neuts % (Manual) Lymphocytes % (Manual) Monocytes % (Manual) Seg Neutrophils # Seg Neutrophils # Man Monocytes # (Manual) POC ABG pH 7.324 L POC ABG pCO2 51.9 H POC ABG pO2 VBG pH Sodium Potassium Chloride Carbon Dioxide BUN 7 L Glucose 108 H Lactic Acid ALT Total Creatine Kinase Troponin T Albumin 3.3 L Urine WBC (Auto) Group A Strep Rapid 03/31/19 04/01/19 04/02/19 20:54 22:40 04:40 WBC 13.7 H RBC 3.33 L Hgb 9.5 L Hct 28.0 L MCH Plt Count Lymph % (Auto) 4.7 L [place] % (Auto) 12.7 H Lymph # 0.7 L [place] # 1.7 H Seg Neutrophils % 79.1 H Seg Neuts % (Manual) Lymphocytes % (Manual) Monocytes % (Manual) Seg Neutrophils # 10.9 H Seg Neutrophils # Man Monocytes # (Manual) POC ABG pH 7.345 L POC ABG pCO2 54.1 H 50.2 H POC ABG pO2 78 L 145 H VBG pH Sodium Potassium Chloride Carbon Dioxide BUN Glucose Lactic Acid ALT Total Creatine Kinase Troponin T Albumin Urine WBC (Auto) Group A Strep Rapid 04/02/19 04/02/19 04/02/19 04:40 05:35 16:07 WBC RBC Hgb Hct MCH Plt Count Lymph % (Auto) [place] % (Auto) Lymph # [place] # Seg Neutrophils % Seg Neuts % (Manual) Lymphocytes % (Manual) Monocytes % (Manual) Seg Neutrophils # Seg Neutrophils # Man Monocytes # (Manual) POC ABG pH 7.310 L POC ABG pCO2 45.4 H 68.5 H POC ABG pO2 137 H VBG pH Sodium Potassium 3.2 L Chloride 94.9 L Carbon Dioxide BUN 5 L Glucose Lactic Acid ALT Total Creatine Kinase Troponin T Albumin 3.0 L Urine WBC (Auto) Group A Strep Rapid 04/03/19 04/03/19 04/04/19 04:13 15:44 04:16 WBC 18.9 H RBC Hgb 10.7 L Hct 33.2 L MCH 27 L Plt Count 509 H Lymph % (Auto) [place] % (Auto) Lymph # [place] # Seg Neutrophils % Seg Neuts % (Manual) Lymphocytes % (Manual) Monocytes % (Manual) Seg Neutrophils # Seg Neutrophils # Man Monocytes # (Manual) POC ABG pH 7.506 H 7.461 H POC ABG pCO2 45.8 H POC ABG pO2 143 H 109 H VBG pH Sodium Potassium Chloride Carbon Dioxide BUN Glucose Lactic Acid ALT Total Creatine Kinase Troponin T Albumin Urine WBC (Auto) Group A Strep Rapid 04/04/19 04:16 WBC RBC Hgb Hct MCH Plt Count Lymph % (Auto) [place] % (Auto) Lymph # [place] # Seg Neutrophils % Seg Neuts % (Manual) Lymphocytes % (Manual) Monocytes % (Manual) Seg Neutrophils # Seg Neutrophils # Man Monocytes # (Manual) POC ABG pH POC ABG pCO2 POC ABG pO2 VBG pH Sodium Potassium Chloride Carbon Dioxide BUN 6 L Glucose Lactic Acid ALT Total Creatine Kinase Troponin T Albumin Urine WBC (Auto) Group A Strep Rapid Chest x-ray: image reviewed (no new infiltrate) Allied health notes reviewed: nursing
[2019-04-04] MEDS ORDERED: CITRATE OF MAGNESIA PO ONE (13:00)
[2019-04-04] MEDS: D5/0.45NS 1,000 ML IV SCH (13:59)
[2019-04-04] MEDS: COLACE FEEDTUBE SCH ×2 (14:00→21:02)
[2019-04-04] MEDS: FLOMAX PO SCH (14:00)
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
[2019-04-04] MEDS: ROCEPHIN/NS 2 GM/100 ML 2 GM/100 ML BAG IV SCH ×2 (20:33→22:07)
[2019-04-04] MEDS: LOVENOX SUB-Q SCH (20:51)
[2019-04-04] MEDS: PEPCID IV SCH (21:16)
[2019-04-05] MEDS: ATIVAN IV PRN ×3 (00:34→16:01)
[2019-04-05] MEDS: REGLAN IV SCH ×5 (04:23→21:36)
--- NOTE | 2019-04-05 04:37 | XRay Report ---
CHEST 1 VIEW INDICATION / CLINICAL INFORMATION: follow up respiratory failure. COMPARISON: Chest radiograph 04/03/2019 FINDINGS: SUPPORT DEVICES: Interval removal of endotracheal and enteric tubes. HEART / MEDIASTINUM: No significant abnormality. LUNGS / PLEURA: No significant pulmonary or pleural abnormality. No pneumothorax. ADDITIONAL FINDINGS: No significant additional findings. IMPRESSION: 1. Interval removal of endotracheal and enteric tubes. 2. No acute findings. Signer Name: Geena Lopes MD Signed: 04/05/2019 4:32 AM Workstation Name: [id number]
[2019-04-05 05:37] LABS: Hemoglobin 10.8 gm/dl (11.8-15.2); Mean Corpuscular HGB Conc 33 % (32-34); Mean Corpuscular Volume 85 fl (84-94); Platelet Count 546 K/mm3 (140-440); Red Blood Count 3.89 M/mm3 (3.65-5.03); Red Cell Distribution Width 14.8 % (13.2-15.2)
[2019-04-05 05:51] LABS: INR 1.25 (0.87-1.13)
[2019-04-05 06:19] LABS: Alanine Aminotransferase 24 units/L (7-56); Albumin 3.3 g/dL (3.9-5); BUN/Creatinine Ratio 6; Blood Urea Nitrogen 7 mg/dL (9-20); Calcium 9.7 mg/dL (8.4-10.2); Hemolysis Index 0
[2019-04-05 06:43] LABS: Basophils % (Manual) 0 % (0.0-1.8); Eosinophils % (Manual) 0 % (0.0-4.3); Total Cells Counted 100
[2019-04-05 06:46] LABS: Anisocytosis 1+; Platelet Estimate Consistent w Auto; Stomatocytes Rare
--- NOTE | 2019-04-05 09:00 | Progress Note ---
Assessment and Plan Assessment and plan: 28-year-old man was recently diagnosed with seizure, discharge from the hospital on March 22 comes back today for evaluation of seizure. After he was discharged he had a seizure on the , mom stated that he's been compliant with his Vimpat. He was seen at [facility] and discharge. He also had another seizure at home on Wednesday and was then taken to [place], no change in his medication he was given a follow-up with urology clinic. Mom states that he smoked marijuana on the prior to the seizure. He is been having fevers at home since last night. He also had seizure in route to the hospital, was intubated in the emergency room for airway protection. * csf NEGATIVE FOR BACTERIA MENINGITIS Acute respiratory failure was intubated, now extubated, off MV Sepsis Acute Metabolic Encephalopathy Status Epilepti - resolved inus Tachycardia Acute on chronic seizure, ?Underlying meningitis ?Viral Encephalitis Pneumonia Plan Continue supportive care Continue Acylovir for Possible HSV For MRI of Brain ceftriaxone 2 gm IV q 12 hour Vancomycin IV with PK consult Clindamycin 900 mg IV q 8 hour Neurology seen and examined, dilantin and lacosamide started DVT/GI PROPHY Discused with patient and mother at bedside The high probability of a clinically significant, sudden or life threatening deterioration of the [neuro] system(s) required my full and direct attention, intervention and personal management. The aggregate critical care time was [33] minutes. This time is in addition to time spent performing reported procedures but includes the following: [x] Data Review and interpretation [x] Patient assessment and monitoring of vital signs [x] Documentation [x] Medication orders and management History Interval history: Patient extubated yesterday Asking about food Hospitalist Physical - Physical exam Narrative exam: Gen: Not in acute distress, sitting up in bed HEENT: Normocephalic, atraumatic Neck: supple, no JVD Heart: S1 and S2 reg, no murmurs, rubs or gallop Lungs: Clear to auscultation, no rhonchi, no wheeze Abd: soft, non tender, non distended, normal BS, Groin: right large inguinoscrotal hernia, Ext: No edema, no clubbing, no cyanosis Neuro: Awake, alert, oriented X 3, no focal neurological signs - Constitutional Vitals: Temp Pulse Resp BP Pulse Ox 98.0 F 110 H 14 155/96 100 04/05/19 08:00 04/05/19 06:00 04/05/19 07:00 04/05/19 08:00 04/05/19 07:00 General appearance: Present: no acute distress, well-nourished Results - Labs CBC & Chem 7: 04/05/19 04:56 04/05/19 04:56 Labs: Laboratory Last Values WBC 20.5 K/mm3 (4.5-11.0) H 04/05/19 04:56 RBC 3.89 M/mm3 (3.65-5.03) 04/05/19 04:56 Hgb 10.8 gm/dl (11.8-15.2) L 04/05/19 04:56 Hct 33.0 % (35.5-45.6) L 04/05/19 04:56 MCV 85 fl (84-94) 04/05/19 04:56 MCH 28 pg (28-32) 04/05/19 04:56 MCHC 33 % (32-34) 04/05/19 04:56 RDW 14.8 % (13.2-15.2) 04/05/19 04:56 Plt Count 546 K/mm3 (140-440) H 04/05/19 04:56 Lymph % (Auto) 4.7 % (13.4-35.0) L 04/02/19 04:40 [place] % (Auto) 12.7 % (0.0-7.3) H 04/02/19 04:40 Eos % (Auto) 3.0 % (0.0-4.3) 04/02/19 04:40 Baso % (Auto) 0.5 % (0.0-1.8) 04/02/19 04:40 Lymph # 0.7 K/mm3 (1.2-5.4) L 04/02/19 04:40 [place] # 1.7 K/mm3 (0.0-0.8) H 04/02/19 04:40 Eos # 0.4 K/mm3 (0.0-0.4) 04/02/19 04:40 Baso # 0.1 K/mm3 (0.0-0.1) 04/02/19 04:40 Add Manual Diff Complete 04/05/19 04:56 Total Counted 100 04/05/19 04:56 Seg Neutrophils % 79.1 % (40.0-70.0) H 04/02/19 04:40 Seg Neuts % (Manual) 85.0 % (40.0-70.0) H 04/05/19 04:56 Band Neutrophils % 0 % 04/05/19 04:56 Lymphocytes % (Manual) 7.0 % (13.4-35.0) L 04/05/19 04:56 Reactive Lymphs % (Man) 0 % 04/05/19 04:56 Monocytes % (Manual) 8.0 % (0.0-7.3) H 04/05/19 04:56 Eosinophils % (Manual) 0 % (0.0-4.3) 04/05/19 04:56 Basophils % (Manual) 0 % (0.0-1.8) 04/05/19 04:56 Metamyelocytes % 0 % 04/05/19 04:56 Myelocytes % 0 % 04/05/19 04:56 Promyelocytes % 0 % 04/05/19 04:56 Blast Cells % 0 % 04/05/19 04:56 Nucleated RBC % Not Reportable 04/05/19 04:56 Seg Neutrophils # 10.9 K/mm3 (1.8-7.7) H 04/02/19 04:40 Seg Neutrophils # Man 17.4 K/mm3 (1.8-7.7) H 04/05/19 04:56 Band Neutrophils # 0.0 K/mm3 04/05/19 04:56 Lymphocytes # (Manual) 1.4 K/mm3 (1.2-5.4) 04/05/19 04:56 Abs React Lymphs (Man) 0.0 K/mm3 04/05/19 04:56 Monocytes # (Manual) 1.6 K/mm3 (0.0-0.8) H 04/05/19 04:56 Eosinophils # (Manual) 0.0 K/mm3 (0.0-0.4) 04/05/19 04:56 Basophils # (Manual) 0.0 K/mm3 (0.0-0.1) 04/05/19 04:56 Metamyelocytes # 0.0 K/mm3 04/05/19 04:56 Myelocytes # 0.0 K/mm3 04/05/19 04:56 Promyelocytes # 0.0 K/mm3 04/05/19 04:56 Blast Cells # 0.0 K/mm3 04/05/19 04:56 WBC Morphology Not Reportable 04/05/19 04:56 Hypersegmented Neuts Not Reportable 04/05/19 04:56 Hyposegmented Neuts Not Reportable 04/05/19 04:56 Hypogranular Neuts Not Reportable 04/05/19 04:56 Smudge Cells Not Reportable 04/05/19 04:56 Toxic Granulation Not Reportable 04/05/19 04:56 Toxic Vacuolation Not Reportable 04/05/19 04:56 Dohle Bodies Not Reportable 04/05/19 04:56 Pelger-Huet Anomaly Not Reportable 04/05/19 04:56 Zbigniew Rods Not Reportable 04/05/19 04:56 Platelet Estimate Consistent w auto 04/05/19 04:56 Clumped Platelets Not Reportable 04/05/19 04:56 Plt Clumps, EDTA Not Reportable 04/05/19 04:56 Large Platelets Not Reportable 04/05/19 04:56 Giant Platelets Not Reportable 04/05/19 04:56 Platelet Satelliting Not Reportable 04/05/19 04:56 Plt Morphology Comment Not Reportable 04/05/19 04:56 RBC Morphology Not Reportable 04/05/19 04:56 Dimorphic RBCs Not Reportable 04/05/19 04:56 Polychromasia Not Reportable 04/05/19 04:56 Hypochromasia Not Reportable 04/05/19 04:56 Poikilocytosis Not Reportable 04/05/19 04:56 Anisocytosis 1+ 04/05/19 04:56 Microcytosis Few 04/05/19 04:56 Macrocytosis Not Reportable 04/05/19 04:56 Spherocytes Not Reportable 04/05/19 04:56 Pappenheimer Bodies Not Reportable 04/05/19 04:56 Sickle Cells Not Reportable 04/05/19 04:56 Target Cells Not Reportable 04/05/19 04:56 Tear Drop Cells Not Reportable 04/05/19 04:56 Ovalocytes Not Reportable 04/05/19 04:56 Stomatocytes Rare 04/05/19 04:56 Helmet Cells Not Reportable 04/05/19 04:56 [place] Bodies Not Reportable 04/05/19 04:56 [place] Rings Not Reportable 04/05/19 04:56 Zamzam Cells Not Reportable 04/05/19 04:56 Bite Cells Not Reportable 04/05/19 04:56 Crenated Cell Not Reportable 04/05/19 04:56 Elliptocytes Not Reportable 04/05/19 04:56 Acanthocytes (Spur) Not Reportable 04/05/19 04:56 Rouleaux Not Reportable 04/05/19 04:56 Hemoglobin C Crystals Not Reportable 04/05/19 04:56 Schistocytes Not Reportable 04/05/19 04:56 Malaria parasites Not Reportable 04/05/19 04:56 Erich Bodies Not Reportable 04/05/19 04:56 Hem Pathologist Commnt No 04/05/19 04:56 PT 15.4 Sec. (12.2-14.9) H 04/05/19 04:56 INR 1.25 (0.87-1.13) H 04/05/19 04:56 INR Cancelled 03/29/19 18:29 APTT 29.5 Sec. (24.2-36.6) 03/29/19 18:29 PT Patient/Control Mix Cancelled 03/29/19 18:29 PT Pat/Norm 1:1 5 min Cancelled 03/29/19 18:29 PT Pat/Norm 1:1 1 Hr Cancelled 03/29/19 18:29 POC ABG pH 7.461 (7.35-7.45) H 04/03/19 15:44 POC ABG pCO2 45.8 (35-45) H 04/03/19 15:44 POC ABG pO2 109 (80-105) H 04/03/19 15:44 POC ABG HCO3 32.6 (22-26 mml/L) 04/03/19 15:44 POC ABG Total CO2 34 (23-27mmol/L) 04/03/19 15:44 POC ABG O2 Sat 98 04/03/19 15:44 POC ABG Base Excess 9 ((-2) - (+3)mmol/L) 04/03/19 15:44 VBG pH 7.269 (7.320-7.420) L 03/29/19 19:09 FiO2 25 % 04/03/19 15:44 Sodium 148 mmol/L (137-145) H 04/05/19 04:56 Potassium 3.1 mmol/L (3.6-5.0) L D 04/05/19 04:56 Chloride 104.1 mmol/L (98-107) 04/05/19 04:56 Carbon Dioxide 29 mmol/L (22-30) 04/05/19 04:56 Anion Gap 18 mmol/L 04/05/19 04:56 BUN 7 mg/dL (9-20) L 04/05/19 04:56 Creatinine 1.2 mg/dL (0.8-1.5) 04/05/19 04:56 Estimated GFR > 60 ml/min 04/05/19 04:56 BUN/Creatinine Ratio 6 % 04/05/19 04:56 Glucose 98 mg/dL (75-100) 04/05/19 04:56 POC Glucose 89 (70-105) 04/03/19 12:44 Lactic Acid 1.90 mmol/L (0.7-2.0) 03/30/19 05:11 Calcium 9.7 mg/dL (8.4-10.2) 04/05/19 04:56 Total Bilirubin 0.20 mg/dL (0.1-1.2) 04/05/19 04:56 AST 15 units/L (5-40) 04/05/19 04:56 ALT 24 units/L (7-56) 04/05/19 04:56 Alkaline Phosphatase 56 units/L (35-129) 04/05/19 04:56 Total Creatine Kinase 173 units/L (55-170) H 03/30/19 07:17 CK-MB (CK-2) 2.8 ng/mL (0.0-4.0) 03/30/19 07:17 CK-MB (CK-2) Rel Index 1.6 (0-4) 03/30/19 07:17 Troponin T 0.039 ng/mL (0.00-0.029) H 03/30/19 07:17 Total Protein 7.3 g/dL (6.3-8.2) 04/05/19 04:56 Albumin 3.3 g/dL (3.9-5) L 04/05/19 04:56 Albumin/Globulin Ratio 0.8 % 04/05/19 04:56 Triglycerides 63 mg/dL (2-149) 03/29/19 18: Cholesterol 177 mg/dL (50-199) 03/29/19 18: LDL Cholesterol Direct 119 mg/dL (50-130) 03/29/19 18:29 HDL Cholesterol 56 mg/dL (40-59) 03/29/19 18: Cholesterol/HDL Ratio 3.16 % 03/29/19 18:29 Urine Color Yellow (Yellow) 03/29/19 19: Urine Turbidity Slightly-cloudy (Clear) 03/29/19 19: Urine pH 5.0 (5.0-7.0) 03/29/19 19: Ur Specific [place] 1.011 (1.003-1.030) 03/29/19 19: Urine Protein 100 mg/dl mg/dL (Negative) 03/29/19 19: Urine Glucose (UA) Neg mg/dL (Negative) 03/29/19: Urine Ketones Neg mg/dL (Negative) 03/29/19 19: Urine Blood Sm (Negative) 03/29/19 19: Urine Nitrite Neg (Negative) 03/29/19: Urine Bilirubin Neg (Negative) 03/29/19: Urine Urobilinogen < 2.0 mg/dL (<2.0) 03/29/19 19: Ur Leukocyte Esterase Neg (Negative) 03/29/19 19: Urine WBC (Auto) 9.0 /HPF (0.0-6.0) H 03/29/19: Urine RBC (Auto) 3.0 /HPF (0.0-6.0) 03/29/19 19: U Epithel Cells (Auto) < 1.0 /HPF (0-13.0) 03/29/19: Urine Bacteria (Auto) 1+ /HPF (Negative) 03/29/19 19: Urine Mucus Few /HPF 03/29/19 19: CSF Appearance Clear 03/30/19 Unknown CSF Color Colorless 03/30/19 Unknown CSF WBC 18 /mm3 (1-10) 03/30/19 Unknown CSF RBC 10 /mm3 (0-0) 03/30/19 Unknown CSF Seg Neutrophils 4.0 % (0-6) 03/30/19 Unknown CSF Lymphocytes % 92.0 % (40-80) 03/30/19 Unknown CSF Reactive Lymphs 0 % 03/30/19 Unknown CSF Monocytes % 4.0 % (15-45) 03/30/19 Unknown CSF Eosinophils % 0 % 03/30/19 Unknown CSF Basophils 0 % 03/30/19 Unknown CSF Pathologist Review C 03/30/19 Unknown CSF Glucose 75 mg/dL 03/30/19 Unknown CSF Total Protein 61 mg/dL 03/30/19 Unknown Vancomycin Trough 22.3 ug/mL (5.0-20.0) H 04/04/19 10:58 Urine Opiates Screen Presumptive negative 03/29/19 19:27 Urine Methadone Screen Presumptive negative 03/29/19 19:27 Ur Barbiturates Screen Presumptive negative 03/29/19 19:27 Ur Phencyclidine Scrn Presumptive negative 03/29/19 19:27 Ur Amphetamines Screen Presumptive negative 03/29/19 19:27 U Benzodiazepines Scrn Presumptive positive 03/29/19 19:27 Urine Cocaine Screen Presumptive negative 03/29/19 19:27 U Marijuana (THC) Screen Presumptive negative 03/29/19 19:27 Drugs of Abuse Note Disclamer 03/29/19 19:27 RPR Nonreactive (Nonreactive) 03/31/19 11:17 Influenza A (Rapid) Negative (Negative) 03/29/19 Unknown Influenza B (Rapid) Negative (Negative) 03/29/19 Unknown Group A Strep Rapid Positive (Negative) A 03/29/19 Unknown Miscellaneous Test Flexitest 1 03/30/19 Unknown Active Medications - Current Medications Current Medications: Generic Name Dose Route Start Last Admin Trade Name Freq PRN Reason Stop Dose Admin Acetaminophen 650 mg 03/30/19 01:27 04/02/19 09:15 Tylenol PO 650 mg Q4H PRN Administration Pain MILD(1-3)/Fever >100.5/LICONA Albuterol 2.5 mg 03/30/19 14:00 Proventil IH Q4HRT PRN Shortness Of Breath Lipase/Protease/Amylase 1 each 03/30/19 12:[address] 10,500 Unit FEEDTUBE PRN PRN For Clogged Feeding Tube Docusate Sodium 100 mg 04/04/19 13:00 04/04/19 21:02 Colace FEEDTUBE Not Given BID RENÉ Enoxaparin Sodium 40 mg 03/30/19 10:00 04/04/19 20:51 Lovenox SUB-Q 40 mg QDAY@1000 RENÉ Administration Famotidine 20 mg 03/30/19 10:00 04/04/19 21:16 Pepcid IV 20 mg BID RENÉ Administration Hydromorphone HCl 0.5 mg 04/03/19 07:30 04/03/19 07:58 Dilaudid IV 0.5 mg Q3H PRN Administration Pain , Severe (7-10) Hydrophilic Ointment 1 applic 03/30/19 14:51 Vaseline Lip Therapy TP Q2HR PRN Dry Lips Ceftriaxone Sodium 2 gm in 100 mls @ 200 mls/hr 03/31/19 10:00 04/04/19 22:07 Rocephin/Ns 2 Gm/100 Ml IV Not Given Q12HR RENÉ Protocol Acyclovir 620 mg/ Sodium 112.4 mls @ 100 mls/hr 03/31/19 14:00 04/04/19 22:04 Chloride IV 100 mls/hr Q8HR RENÉ Administration Protocol Dexmedetomidine HCl 200 mcg/ 50 mls @ 3.115 mls/hr 04/03/19 15:00 04/04/19 07:33 Sodium Chloride IV 0.7 mcg/kg/hr TITRATE RENÉ 10.903 mls/hr Administration Protocol 0.2 MCG/KG/HR Lacosamide 150 mg/ Sodium 115 mls @ 100 mls/hr 04/04/19 10:00 04/04/19 21:14 Chloride IV 100 mls/hr Q12H RENÉ Administration Dextrose/Sodium Chloride 1,000 mls @ 50 mls/hr 04/04/19 13:00 04/04/19 13:59 D5/0.45ns IV 50 mls/hr DIRECT RENÉ Administration Vancomycin HCl 1 gm in 250 mls @ 166.667 mls/hr 04/04/19 22:00 04/04/19 22:08 Vancomycin/Ns 1 Gm/250 Ml IV 166.667 mls/hr Q12HR RENÉ Administration Protocol Potassium Chloride 10 meq in 100 mls @ 100 mls/hr 04/05/19 09:00 Kcl 10meq/100ml IV 04/05/19 10:59 Q1H RENÉ Lorazepam 2 mg 03/30/19 12:10 04/05/19 04:23 Ativan IV 2 mg Q1H PRN Administration Agitation Metoclopramide HCl 5 mg 04/02/19 20:00 04/05/19 04:23 Reglan IV 5 mg Q6H RENÉ Administration Multi-Ingred Cream/Lotion/Oil/Oint 1 applic 03/30/19 14:51 Artificial Tears Ophth Oint OU Q4HR PRN Dry Eye(s) Ondansetron HCl 4 mg 03/30/19 01:27 04/02/19 02:50 Zofran IV 4 mg Q4H PRN Administration Nausea And Vomiting Quetiapine Fumarate 50 mg 04/02/19 22:00 04/04/19 21:14 Seroquel PO Not Given BID RENÉ Simple Syrup 15 ml 03/30/19 12:44 Simple Syrup FEEDTUBE PRN PRN Hypoglycemia Simple Syrup 30 ml 03/30/19 12:44 Simple Syrup FEEDTUBE PRN PRN Hypoglycemia Sodium Bicarbonate 325 mg 03/30/19 12:44 Sodium Bicarbonate FEEDTUBE PRN PRN For Clogged Feeding Tube Sodium Chloride 10 ml 03/30/19 10:00 04/04/19 21:14 Sodium Chloride Flush Syringe 10 Ml IV 10 ml BID RENÉ Administration Sodium Chloride 10 ml 03/30/19 01:27 Sodium Chloride Flush Syringe 10 Ml IV PRN PRN LINE FLUSH Tamsulosin HCl 0.4 mg 04/04/19 13:00 04/04/19 14:00 Flomax PO Not Given QDAY RENÉ Nutrition/Malnutrition Assess - Dietary Evaluation Nutrition/Malnutrition Findings: Nutrition Notes Start: 03/30/19 12:4 1 Freq: Status: Active Protocol: Document 04/03/19 10:35 LM (Rec: 04/03/19 10:51 LM [email or web address]) Nutrition Notes Initial or Follow up Reassessment Current Diagnosis Respiratory Failure Other Pertinent Diagnosis Seizures, Pneu Current Diet Vital AF 1.2 at 65 ml/hr Labs/Tests K 3.2 BUN 5 Pertinent Medications Reviewed Height 5 ft 9 in Weight 62.3 kg [place] Body Weight (kg) 72.72 BMI 20.2 Subjective/Other Information TF turned off due to KUB. Percent of energy/protein needs met: 0%/0% Burn Absent Trauma Absent Minimum of two criteria No #1 Nutrition Diagnosis Inadequate oral intake Diagnosis Progress(for reassessment Continues documentation) Is patient on ventilator? Yes Is Patient Ambulatory and/or Out of Bed No REE-([facility]-confined to bed) 1896.084 Calculation Used for Recommendations [facility] Additional Notes PRO needs 1.2-2.0g/day (75-125g/day) Fluid needs: 1mL/kcal Nutrition Intervention Change Diet Order: Restart TF Nutrition Support: Vital AF 1.2 at 65ml/hr Water flush of 100mL q4hr. Kcal 1,872 Protein (gm) 117 Fluid (mL) 1,265 Goal #1 Restart TF Goal #2 Meet at least 75% of energy and protein needs Goal #3 TF tolerance Anticipated Discharge Needs: Unable to determine at this time Follow-Up By: 04/05/19 Additional Comments F/U for TF restart/tolerance
[2019-04-05] MEDS: VIMPAT 150 MG in NACL 0.9% 100 ML IV SCH ×2 (09:58→21:23)
[2019-04-05] MEDS: VANCOMYCIN/NS 1 GM/250 ML 1 GM/250 ML BAG IV SCH (09:58)
[2019-04-05] MEDS: ROCEPHIN/NS 2 GM/100 ML 2 GM/100 ML BAG IV SCH ×2 (09:59→22:47)
[2019-04-05] MEDS: KCL 10MEQ/100ML 10 MEQ/100 ML BAG IV SCH ×2 (09:59→11:00)
[2019-04-05] MEDS: PEPCID IV SCH ×2 (10:00→21:28)
[2019-04-05] MEDS: LOVENOX SUB-Q SCH (10:01)
[2019-04-05] MEDS: FLOMAX PO SCH (10:05)
[2019-04-05] MEDS: COLACE FEEDTUBE SCH ×2 (10:05→21:19)
--- NOTE | 2019-04-05 13:05 | Progress Note ---
Assessment and Plan Acute respiratory failure, on mechanical ventilatory support. Tonic-clonic seizure. Leukocytosis. Abnormal cerebrospinal fluid studies. Severe metabolic acidosis at presentation. Lactic acidosis. Elevated serum transaminases. Abnormal urinalysis. History of seizures. Scrotal swelling - Stop Precedex - begin Flomax - prn straight cath's for now - D51/2 NS @ 50 mls/hr X 2 liters re: acyclovir and Vancomycin dosing / ALINE risk - repeat CRP level to aid clinical decision making - begin colace 100 mg po bid and give Mag citrate 150 mls X 1 dose for consdtipation - ST evaluation and advance diet as tolerated - continue acyclovir for empiric Herpes encephalitis coverage - continue to wean FiO2 for sats > 90% - prn analgesia per pain / CPOT score - continue enteral nutrition at goal rate as tolerated - prn supportive blood transfusions to keep serum Hb > 7.0 - Monitor hemodynamics closely - continue empiric broad spectrum antiinfective's per ID recommendations (de- escalate based on clinical and microbiologic data) - continue mobility protocols and off loading as tolerated for pressure ulcer prophylaxis - continue to avoid nephrotoxins, adjust all medications for GFR and CRCL - continue GI & VTE prophylaxis with - accuchecks with glycemic control per SSI for target BG of 140-180 mg/dl acutely - continue other care per attending / other consultants .... care plan discussed with parents at bedside ... re-evaluate in am & prn CONDITION: IMPROVED PROGNOSIS: GUARDED CODE STATUS: FULL CODE Subjective Date of service: 04/05/19 Principal diagnosis: Ac. Resp failure; Seizures; Ac. Encephalopathy; Abnormal CSF (? herpes) Interval history: Patient is seen today for: Acute respiratory failure; Tonic-clonic seizure; Leukocytosis; Abnormal CSF (? herpes encephalitis); Lactic acidosis; Elevated serum transaminases; History of seizures; Scrotal swelling (Chronic per Mom) Seen and examined at bedside; 24hour events reviewed; nursing and respiratory care staff consulted; no adverse overnight events reported to me; resting peacefully in bed; Objective Vital Signs - 12hr 04/05/19 04/05/19 04/05/19 02:00 03:00 04:00 Temperature 98.1 F Pulse Rate 108 H 113 H 106 H Pulse Rate [ 110 H From Monitor] Respiratory 14 24 20 Rate Blood Pressure 150/95 158/100 138/92 O2 Sat by Pulse 100 99 100 Oximetry 04/05/19 04/05/19 04/05/19 05:00 06:00 07:00 Temperature Pulse Rate 111 H 110 H Pulse Rate [ From Monitor] Respiratory 23 16 14 Rate Blood Pressure 148/92 152/90 153/95 O2 Sat by Pulse 99 99 100 Oximetry 04/05/19 04/05/19 04/05/19 08:00 08:20 12:00 Temperature 98.0 F 98.1 F Pulse Rate Pulse Rate [ From Monitor] Respiratory Rate Blood Pressure 155/96 O2 Sat by Pulse 100 Oximetry Constitutional: no acute distress, other (young AAM normocephalicv and atraumatic resting in bed withmildly increased resp effort on MVS) Eyes: non-icteric ENT: oropharynx moist, other (extubated) Neck: supple, no lymphadenopathy, no JVD Effort: mildly labored Ascultation: Bilateral: rhonchi (scant) Percussion: Bilateral: not dull Cardiovascular: regular rate and rhythm Gastrointestinal: normoactive bowel sounds, soft, non-tender, non-distended Integumentary: normal Extremities: no cyanosis, no edema, pulses normal, no ischemia or petechiae Neurologic: non-focal exam (grossly), pupils equal and round, motor strength normal and, unable to assess (re: Encephalopathy) Psychiatric: other (unable to assess re: AMS) CBC and BMP: 04/05/19 04:56 04/05/19 04:56 ABG, PT/INR, D-dimer: ABG POC ABG pH 7.461 (7.35-7.45) H 04/03/19 15:44 POC ABG pCO2 45.8 (35-45) H 04/03/19 15:44 POC ABG pO2 109 (80-105) H 04/03/19 15:44 POC ABG HCO3 32.6 (22-26 mml/L) 04/03/19 15:44 POC ABG Total CO2 34 (23-27mmol/L) 04/03/19 15:44 POC ABG O2 Sat 98 04/03/19 15:44 PT/INR, D-dimer PT 15.4 Sec. (12.2-14.9) H 04/05/19 04:56 INR 1.25 (0.87-1.13) H 04/05/19 04:56 Abnormal lab findings: Abnormal Labs 03/29/19 03/29/19 03/29/19 18:29 18:29 18:29 WBC 19.4 H RBC Hgb Hct MCH Plt Count Lymph % (Auto) [place] % (Auto) Lymph # [place] # Seg Neutrophils % Seg Neuts % (Manual) 72.0 H Lymphocytes % (Manual) Monocytes % (Manual) 8.0 H Seg Neutrophils # Seg Neutrophils # Man 14.0 H Monocytes # (Manual) 1.6 H PT INR POC ABG pH POC ABG pCO2 POC ABG pO2 VBG pH Sodium 136 L Potassium Chloride 90.6 L Carbon Dioxide 13 L BUN Glucose 154 H Lactic Acid 17.50 H* ALT 81 H Total Creatine Kinase Troponin T Albumin Urine WBC (Auto) Vancomycin Trough Group A Strep Rapid 03/29/19 03/29/19 03/29/19 18:29 19:09 19:27 WBC RBC Hgb Hct MCH Plt Count Lymph % (Auto) [place] % (Auto) Lymph # [place] # Seg Neutrophils % Seg Neuts % (Manual) Lymphocytes % (Manual) Monocytes % (Manual) Seg Neutrophils # Seg Neutrophils # Man Monocytes # (Manual) PT INR POC ABG pH POC ABG pCO2 POC ABG pO2 VBG pH 7.269 L Sodium Potassium Chloride Carbon Dioxide BUN Glucose Lactic Acid ALT Total Creatine Kinase Troponin T 0.031 H Albumin Urine WBC (Auto) 9.0 H Vancomycin Trough Group A Strep Rapid 03/29/19 03/29/19 03/29/19 19:33 20:27 21:01 WBC RBC Hgb Hct MCH Plt Count Lymph % (Auto) [place] % (Auto) Lymph # [place] # Seg Neutrophils % Seg Neuts % (Manual) Lymphocytes % (Manual) Monocytes % (Manual) Seg Neutrophils # Seg Neutrophils # Man Monocytes # (Manual) PT INR POC ABG pH POC ABG pCO2 POC ABG pO2 170 H VBG pH Sodium Potassium Chloride Carbon Dioxide BUN Glucose Lactic Acid 3.80 H* 4.10 H* ALT Total Creatine Kinase Troponin T Albumin Urine WBC (Auto) Vancomycin Trough Group A Strep Rapid 03/29/19 03/29/19 03/30/19 23:46 Unknown 04:08 WBC RBC Hgb Hct MCH Plt Count Lymph % (Auto) [place] % (Auto) Lymph # [place] # Seg Neutrophils % Seg Neuts % (Manual) Lymphocytes % (Manual) Monocytes % (Manual) Seg Neutrophils # Seg Neutrophils # Man Monocytes # (Manual) PT INR POC ABG pH POC ABG pCO2 POC ABG pO2 VBG pH Sodium Potassium Chloride Carbon Dioxide BUN Glucose Lactic Acid 2.10 H* ALT Total Creatine Kinase 172 H Troponin T 0.033 H Albumin Urine WBC (Auto) Vancomycin Trough Group A Strep Rapid Positive A 03/30/19 03/30/19 03/30/19 04:45 05:21 07:17 WBC 20.8 H RBC Hgb 10.9 L Hct 33.5 L MCH Plt Count Lymph % (Auto) [place] % (Auto) Lymph # [place] # Seg Neutrophils % Seg Neuts % (Manual) 85.0 H Lymphocytes % (Manual) 8.0 L Monocytes % (Manual) Seg Neutrophils # Seg Neutrophils # Man 17.7 H Monocytes # (Manual) PT INR POC ABG pH POC ABG pCO2 POC ABG pO2 172 H VBG pH Sodium Potassium Chloride Carbon Dioxide BUN Glucose Lactic Acid ALT Total Creatine Kinase 173 H Troponin T 0.039 H Albumin Urine WBC (Auto) Vancomycin Trough Group A Strep Rapid 03/31/19 03/31/19 03/31/19 04:24 04:24 04:27 WBC 17.9 H RBC Hgb 10.7 L Hct 32.4 L MCH Plt Count Lymph % (Auto) [place] % (Auto) Lymph # [place] # Seg Neutrophils % Seg Neuts % (Manual) Lymphocytes % (Manual) Monocytes % (Manual) Seg Neutrophils # Seg Neutrophils # Man Monocytes # (Manual) PT INR POC ABG pH 7.324 L POC ABG pCO2 51.9 H POC ABG pO2 VBG pH Sodium Potassium Chloride Carbon Dioxide BUN 7 L Glucose 108 H Lactic Acid ALT Total Creatine Kinase Troponin T Albumin 3.3 L Urine WBC (Auto) Vancomycin Trough Group A Strep Rapid 03/31/19 04/01/19 04/02/19 20:54 22:40 04:40 WBC 13.7 H RBC 3.33 L Hgb 9.5 L Hct 28.0 L MCH Plt Count Lymph % (Auto) 4.7 L [place] % (Auto) 12.7 H Lymph # 0.7 L [place] # 1.7 H Seg Neutrophils % 79.1 H Seg Neuts % (Manual) Lymphocytes % (Manual) Monocytes % (Manual) Seg Neutrophils # 10.9 H Seg Neutrophils # Man Monocytes # (Manual) PT INR POC ABG pH 7.345 L POC ABG pCO2 54.1 H 50.2 H POC ABG pO2 78 L 145 H VBG pH Sodium Potassium Chloride Carbon Dioxide BUN Glucose Lactic Acid ALT Total Creatine Kinase Troponin T Albumin Urine WBC (Auto) Vancomycin Trough Group A Strep Rapid 04/02/19 04/02/19 04/02/19 04:40 05:35 16:07 WBC RBC Hgb Hct MCH Plt Count Lymph % (Auto) [place] % (Auto) Lymph # [place] # Seg Neutrophils % Seg Neuts % (Manual) Lymphocytes % (Manual) Monocytes % (Manual) Seg Neutrophils # Seg Neutrophils # Man Monocytes # (Manual) PT INR POC ABG pH 7.310 L POC ABG pCO2 45.4 H 68.5 H POC ABG pO2 137 H VBG pH Sodium Potassium 3.2 L Chloride 94.9 L Carbon Dioxide BUN 5 L Glucose Lactic Acid ALT Total Creatine Kinase Troponin T Albumin 3.0 L Urine WBC (Auto) Vancomycin Trough Group A Strep Rapid 04/03/19 04/03/19 04/04/19 04:13 15:44 04:16 WBC 18.9 H RBC Hgb 10.7 L Hct 33.2 L MCH 27 L Plt Count 509 H Lymph % (Auto) [place] % (Auto) Lymph # [place] # Seg Neutrophils % Seg Neuts % (Manual) Lymphocytes % (Manual) Monocytes % (Manual) Seg Neutrophils # Seg Neutrophils # Man Monocytes # (Manual) PT INR POC ABG pH 7.506 H 7.461 H POC ABG pCO2 45.8 H POC ABG pO2 143 H 109 H VBG pH Sodium Potassium Chloride Carbon Dioxide BUN Glucose Lactic Acid ALT Total Creatine Kinase Troponin T Albumin Urine WBC (Auto) Vancomycin Trough Group A Strep Rapid 04/04/19 04/04/19 04/05/19 04:16 10:58 04:56 WBC 20.5 H RBC Hgb 10.8 L Hct 33.0 L MCH Plt Count 546 H Lymph % (Auto) [place] % (Auto) Lymph # [place] # Seg Neutrophils % Seg Neuts % (Manual) 85.0 H Lymphocytes % (Manual) 7.0 L Monocytes % (Manual) 8.0 H Seg Neutrophils # Seg Neutrophils # Man 17.4 H Monocytes # (Manual) 1.6 H PT INR POC ABG pH POC ABG pCO2 POC ABG pO2 VBG pH Sodium Potassium Chloride Carbon Dioxide BUN 6 L Glucose Lactic Acid ALT Total Creatine Kinase Troponin T Albumin Urine WBC (Auto) Vancomycin Trough 22.3 H Group A Strep Rapid 04/05/19 04/05/19 04:56 04:56 WBC RBC Hgb Hct MCH Plt Count Lymph % (Auto) [place] % (Auto) Lymph # [place] # Seg Neutrophils % Seg Neuts % (Manual) Lymphocytes % (Manual) Monocytes % (Manual) Seg Neutrophils # Seg Neutrophils # Man Monocytes # (Manual) PT 15.4 H INR 1.25 H POC ABG pH POC ABG pCO2 POC ABG pO2 VBG pH Sodium 148 H Potassium 3.1 L D Chloride Carbon Dioxide BUN 7 L Glucose Lactic Acid ALT Total Creatine Kinase Troponin T Albumin 3.3 L Urine WBC (Auto) Vancomycin Trough Group A Strep Rapid Allied health notes reviewed: nursing
[2019-04-05] MEDS: DEXMEDETOMIDINE 200 MCG in NACL 0.9% 48 ML IV SCH (13:43)
[2019-04-05] MEDS: NACL 0.9% IV SCH ×2 (13:45)
[2019-04-05] MEDS: ZOVIRAX IV SCH ×2 (13:45)
[2019-04-05] MEDS ORDERED: POTASSIUM CHLORIDE FEEDTUBE ONE (14:00)
[2019-04-05] MEDS ORDERED: HALDOL IV STA (16:06)
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
--- NOTE | 2019-04-05 18:02 | Magnetic Resonance Report ---
MRI BRAIN WITHOUT CONTRAST INDICATION / CLINICAL INFORMATION: Encephalitis. Seizures. TECHNIQUE: Multiplanar, multisequence MR images of the brain were obtained. COMPARISON: Head CT 03/29/2019 and MRI brain 03/16/2019. FINDINGS: BRAIN / INTRACRANIAL CONTENTS: Ventricles and cortical sulci are normal in size and configuration. Th ere is no mass effect. No evidence of intracranial hemorrhage or extra-axial fluid collection is seen . No areas of abnormal brain parenchymal signal intensity are identified. There is no indication of r emote cortical infarction. Diffusion weighted scans are negative. There is no indication of acute isc hemic injury. The brainstem and cerebellum have an unremarkable appearance. Incidental note is made of negative cis terna magna. CRANIOCERVICAL JUNCTION: No abnormalities are identified at the craniocervical junction. VASCULAR FLOW-VOIDS: Normal flow-voids are present within the major intracranial vessels. ORBITS: The orbits have an unremarkable appearance. SINUSES / MASTOIDS: Several millimeters of mucosal thickening are seen at the base of left maxillary sinus. Inflammatory changes are present in both sphenoid sinuses as well as within multiple ethmoid a ir cells bilaterally. Frontal sinuses appear clear. Inflammatory changes in the sphenoid and ethmoid air cells have progressed since prior study. Mild inflammatory changes are seen in the mastoid air ce lls bilaterally. IMPRESSION: 1. No intracranial abnormalities are identified on MRI brain without contrast. No significant interva l change. Signer Name: Daniel Tatum MD Signed: 04/05/2019 5:58 PM Workstation Name: [id number]
[2019-04-05] MEDS: D5/0.45NS 1,000 ML IV SCH (19:12)
[2019-04-05] MEDS: SODIUM CHLORIDE FLUSH SYRINGE 10 ML IV SCH (21:29)
[2019-04-06 05:48] LABS: Basophils # (Auto) 0.2 K/mm3 (0.0-0.1); Basophils % (Auto) 0.8 % (0.0-1.8); Eosinophils # (Auto) 0.4 K/mm3 (0.0-0.4); Eosinophils % (Auto) 2.3 % (0.0-4.3); Hematocrit 29.7 % (35.5-45.6); Hemoglobin 9.7 gm/dl (11.8-15.2); Lymphocytes # (Auto) 1.5 K/mm3 (1.2-5.4); Lymphocytes % (Auto) 8.3 % (13.4-35.0); Mean Corpuscular HGB Conc 33 % (32-34); Mean Corpuscular Volume 84 fl (84-94); Monocytes # (Auto) 2.8 K/mm3 (0.0-0.8); Monocytes % (Auto) 15.4 % (0.0-7.3); Platelet Count 519 K/mm3 (140-440); Red Blood Count 3.52 M/mm3 (3.65-5.03); Red Cell Distribution Width 14.5 % (13.2-15.2)
[2019-04-06 06:20] LABS: Alanine Aminotransferase 25 units/L (7-56); Albumin 2.9 g/dL (3.9-5); BUN/Creatinine Ratio 5; Blood Urea Nitrogen 5 mg/dL (9-20); Calcium 8.6 mg/dL (8.4-10.2); Hemolysis Index 1
--- NOTE | 2019-04-06 06:54 | Progress Note ---
Assessment and Plan Acute respiratory failure,s/p mechanical ventilatory support. Tonic-clonic seizure. Leukocytosis. Abnormal cerebrospinal fluid studies. Severe metabolic acidosis at presentation. Lactic acidosis. Elevated serum transaminases. Abnormal urinalysis. History of seizures. Scrotal swelling Continue supportive care Continue Acylovir for Possible HSV MRI of Brain pending ceftriaxone 2 gm IV q 12 hour Vancomycin IV with PK consult Clindamycin 900 mg IV q 8 hour Continue dilantin and lacosamide Increase activity VTE prophylaxis Seizure precautions Supplemental oxygen if needed to keep O2 sats >90% Discussed with patient and his mother who was a tthe bedside Subjective Date of service: 04/06/19 Principal diagnosis: Ac. Resp failure; Seizures; Ac. Encephalopathy; Abnormal CSF (? herpes) Interval history: Patient is seen today for: Acute respiratory failure s/p MVS ; Tonic-clonic seizure; Leukocytosis; Abnormal CSF (? herpes encephalitis); Lactic acidosis; Elevated serum transaminases; History of seizures; Scrotal swelling (Chronic per Mom) Seen and examined at bedside; 24hour events reviewed; nursing and respiratory care staff consulted; no adverse overnight events reported to me; resting peacefully in bed; apparently had breakthrough seizures- per mother, no chest pain, no shortness of breath, no fevers, no nausea or vomiting. Awaiting MRI Objective Vital Signs - 12hr 04/05/19 04/05/19 04/05/19 19:09 20:04 20:56 Temperature 98.0 F 99.2 F Pulse Rate 107 H 107 H 93 H Respiratory 18 18 Rate Blood Pressure 155/99 Blood Pressure 148/92 [Left] O2 Sat by Pulse 98 100 Oximetry 04/05/19 23:37 Temperature 99.5 F Pulse Rate 109 H Respiratory 18 Rate Blood Pressure 145/94 Blood Pressure [Left] O2 Sat by Pulse 100 Oximetry Constitutional: no acute distress, other (young AAM normocephalicv and atr aumatic resting in bed ) Eyes: non-icteric ENT: oropharynx moist Neck: supple, no lymphadenopathy, no JVD Effort: normal Ascultation: Bilateral: rhonchi (scant) Percussion: Bilateral: not dull Cardiovascular: regular rate and rhythm, other (S1,S2, no murmurs) Gastrointestinal: normoactive bowel sounds, soft, non-tender, non-distended Integumentary: normal Extremities: no cyanosis, no edema, pulses normal, no ischemia or petechiae Neurologic: normal mental status, non-focal exam, pupils equal and round, CN II- XII normal, motor strength normal and Psychiatric: mood appropriate, anxious CBC and BMP: 04/09/19 04:31 04/09/19 04:31 ABG, PT/INR, D-dimer: ABG POC ABG pH 7.461 (7.35-7.45) H 04/03/19 15:44 POC ABG pCO2 45.8 (35-45) H 04/03/19 15:44 POC ABG pO2 109 (80-105) H 04/03/19 15:44 POC ABG HCO3 32.6 (22-26 mml/L) 04/03/19 15:44 POC ABG Total CO2 34 (23-27mmol/L) 04/03/19 15:44 POC ABG O2 Sat 98 04/03/19 15:44 PT/INR, D-dimer PT 15.4 Sec. (12.2-14.9) H 04/05/19 04:56 INR 1.25 (0.87-1.13) H 04/05/19 04:56 Abnormal lab findings: Abnormal Labs 03/29/19 03/29/19 03/29/19 18:29 18:29 18:29 WBC 19.4 H RBC Hgb Hct MCH Plt Count Lymph % (Auto) [place] % (Auto) Lymph # [place] # Baso # Seg Neutrophils % Seg Neuts % (Manual) 72.0 H Lymphocytes % (Manual) Monocytes % (Manual) 8.0 H Seg Neutrophils # Seg Neutrophils # Man 14.0 H Monocytes # (Manual) 1.6 H PT INR POC ABG pH POC ABG pCO2 POC ABG pO2 VBG pH Sodium 136 L Potassium Chloride 90.6 L Carbon Dioxide 13 L BUN Glucose 154 H Lactic Acid 17.50 H* ALT 81 H Total Creatine Kinase Troponin T Albumin Urine WBC (Auto) Vancomycin Trough Group A Strep Rapid 03/29/19 03/29/19 03/29/19 18:29 19:09 19:27 WBC RBC Hgb Hct MCH Plt Count Lymph % (Auto) [place] % (Auto) Lymph # [place] # Baso # Seg Neutrophils % Seg Neuts % (Manual) Lymphocytes % (Manual) Monocytes % (Manual) Seg Neutrophils # Seg Neutrophils # Man Monocytes # (Manual) PT INR POC ABG pH POC ABG pCO2 POC ABG pO2 VBG pH 7.269 L Sodium Potassium Chloride Carbon Dioxide BUN Glucose Lactic Acid ALT Total Creatine Kinase Troponin T 0.031 H Albumin Urine WBC (Auto) 9.0 H Vancomycin Trough Group A Strep Rapid 03/29/19 03/29/19 03/29/19 19:33 20:27 21:01 WBC RBC Hgb Hct MCH Plt Count Lymph % (Auto) [place] % (Auto) Lymph # [place] # Baso # Seg Neutrophils % Seg Neuts % (Manual) Lymphocytes % (Manual) Monocytes % (Manual) Seg Neutrophils # Seg Neutrophils # Man Monocytes # (Manual) PT INR POC ABG pH POC ABG pCO2 POC ABG pO2 170 H VBG pH Sodium Potassium Chloride Carbon Dioxide BUN Glucose Lactic Acid 3.80 H* 4.10 H* ALT Total Creatine Kinase Troponin T Albumin Urine WBC (Auto) Vancomycin Trough Group A Strep Rapid 03/29/19 03/29/19 03/30/19 23:46 Unknown 04:08 WBC RBC Hgb Hct MCH Plt Count Lymph % (Auto) [place] % (Auto) Lymph # [place] # Baso # Seg Neutrophils % Seg Neuts % (Manual) Lymphocytes % (Manual) Monocytes % (Manual) Seg Neutrophils # Seg Neutrophils # Man Monocytes # (Manual) PT INR POC ABG pH POC ABG pCO2 POC ABG pO2 VBG pH Sodium Potassium Chloride Carbon Dioxide BUN Glucose Lactic Acid 2.10 H* ALT Total Creatine Kinase 172 H Troponin T 0.033 H Albumin Urine WBC (Auto) Vancomycin Trough Group A Strep Rapid Positive A 03/30/19 03/30/19 03/30/19 04:45 05:21 07:17 WBC 20.8 H RBC Hgb 10.9 L Hct 33.5 L MCH Plt Count Lymph % (Auto) [place] % (Auto) Lymph # [place] # Baso # Seg Neutrophils % Seg Neuts % (Manual) 85.0 H Lymphocytes % (Manual) 8.0 L Monocytes % (Manual) Seg Neutrophils # Seg Neutrophils # Man 17.7 H Monocytes # (Manual) PT INR POC ABG pH POC ABG pCO2 POC ABG pO2 172 H VBG pH Sodium Potassium Chloride Carbon Dioxide BUN Glucose Lactic Acid ALT Total Creatine Kinase 173 H Troponin T 0.039 H Albumin Urine WBC (Auto) Vancomycin Trough Group A Strep Rapid 03/31/19 03/31/1919 04:24 04:24 04:27 WBC 17.9 H RBC Hgb 10.7 L Hct 32.4 L MCH Plt Count Lymph % (Auto) [place] % (Auto) Lymph # [place] # Baso # Seg Neutrophils % Seg Neuts % (Manual) Lymphocytes % (Manual) Monocytes % (Manual) Seg Neutrophils # Seg Neutrophils # Man Monocytes # (Manual) PT INR POC ABG pH 7.324 L POC ABG pCO2 51.9 H POC ABG pO2 VBG pH Sodium Potassium Chloride Carbon Dioxide BUN 7 L Glucose 108 H Lactic Acid ALT Total Creatine Kinase Troponin T Albumin 3.3 L Urine WBC (Auto) Vancomycin Trough Group A Strep Rapid 03/31/19 04/01/19 04/02/19 20:54 22:40 04:40 WBC 13.7 H RBC 3.33 L Hgb 9.5 L Hct 28.0 L MCH Plt Count Lymph % (Auto) 4.7 L [place] % (Auto) 12.7 H Lymph # 0.7 L [place] # 1.7 H Baso # Seg Neutrophils % 79.1 H Seg Neuts % (Manual) Lymphocytes % (Manual) Monocytes % (Manual) Seg Neutrophils # 10.9 H Seg Neutrophils # Man Monocytes # (Manual) PT INR POC ABG pH 7.345 L POC ABG pCO2 54.1 H 50.2 H POC ABG pO2 78 L 145 H VBG pH Sodium Potassium Chloride Carbon Dioxide BUN Glucose Lactic Acid ALT Total Creatine Kinase Troponin T Albumin Urine WBC (Auto) Vancomycin Trough Group A Strep Rapid 04/02/19 04/02/19 04/02/19 04:40 05:35 16:07 WBC RBC Hgb Hct MCH Plt Count Lymph % (Auto) [place] % (Auto) Lymph # [place] # Baso # Seg Neutrophils % Seg Neuts % (Manual) Lymphocytes % (Manual) Monocytes % (Manual) Seg Neutrophils # Seg Neutrophils # Man Monocytes # (Manual) PT INR POC ABG pH 7.310 L POC ABG pCO2 45.4 H 68.5 H POC ABG pO2 137 H VBG pH Sodium Potassium 3.2 L Chloride 94.9 L Carbon Dioxide BUN 5 L Glucose Lactic Acid ALT Total Creatine Kinase Troponin T Albumin 3.0 L Urine WBC (Auto) Vancomycin Trough Group A Strep Rapid 04/03/19 04/03/19 04/04/19 04:13 15:44 04:16 WBC 18.9 H RBC Hgb 10.7 L Hct 33.2 L MCH 27 L Plt Count 509 H Lymph % (Auto) [place] % (Auto) Lymph # [place] # Baso # Seg Neutrophils % Seg Neuts % (Manual) Lymphocytes % (Manual) Monocytes % (Manual) Seg Neutrophils # Seg Neutrophils # Man Monocytes # (Manual) PT INR POC ABG pH 7.506 H 7.461 H POC ABG pCO2 45.8 H POC ABG pO2 143 H 109 H VBG pH Sodium Potassium Chloride Carbon Dioxide BUN Glucose Lactic Acid ALT Total Creatine Kinase Troponin T Albumin Urine WBC (Auto) Vancomycin Trough Group A Strep Rapid 04/04/19 04/04/19 04/05/19 04:16 10:58 04:56 WBC 20.5 H RBC Hgb 10.8 L Hct 33.0 L MCH Plt Count 546 H Lymph % (Auto) [place] % (Auto) Lymph # [place] # Baso # Seg Neutrophils % Seg Neuts % (Manual) 85.0 H Lymphocytes % (Manual) 7.0 L Monocytes % (Manual) 8.0 H Seg Neutrophils # Seg Neutrophils # Man 17.4 H Monocytes # (Manual) 1.6 H PT INR POC ABG pH POC ABG pCO2 POC ABG pO2 VBG pH Sodium Potassium Chloride Carbon Dioxide BUN 6 L Glucose Lactic Acid ALT Total Creatine Kinase Troponin T Albumin Urine WBC (Auto) Vancomycin Trough 22.3 H Group A Strep Rapid 04/05/19 04/05/19 04/06/19 04:56 04:56 04:52 WBC 18.1 H RBC 3.52 L Hgb 9.7 L Hct 29.7 L MCH Plt Count 519 H Lymph % (Auto) 8.3 L [place] % (Auto) 15.4 H Lymph # [place] # 2.8 H Baso # 0.2 H Seg Neutrophils % 73.2 H Seg Neuts % (Manual) Lymphocytes % (Manual) Monocytes % (Manual) Seg Neutrophils # 13.2 H Seg Neutrophils # Man Monocytes # (Manual) PT 15.4 H INR 1.25 H POC ABG pH POC ABG pCO2 POC ABG pO2 VBG pH Sodium 148 H Potassium 3.1 L D Chloride Carbon Dioxide BUN 7 L Glucose Lactic Acid ALT Total Creatine Kinase Troponin T Albumin 3.3 L Urine WBC (Auto) Vancomycin Trough Group A Strep Rapid 04/06/19 04:52 WBC RBC Hgb Hct MCH Plt Count Lymph % (Auto) [place] % (Auto) Lymph # [place] # Baso # Seg Neutrophils % Seg Neuts % (Manual) Lymphocytes % (Manual) Monocytes % (Manual) Seg Neutrophils # Seg Neutrophils # Man Monocytes # (Manual) PT INR POC ABG pH POC ABG pCO2 POC ABG pO2 VBG pH Sodium Potassium 2.7 L* Chloride Carbon Dioxide BUN 5 L Glucose Lactic Acid ALT Total Creatine Kinase Troponin T Albumin 2.9 L Urine WBC (Auto) Vancomycin Trough Group A Strep Rapid Allied health notes reviewed: nursing
[2019-04-06] MEDS ORDERED: K-DUR PO ONE (07:00)
[2019-04-06] MEDS ORDERED: MAGNESIUM SULFATE 3 GM in NACL 0.9% 100 ML IV ONE (07:40)
--- NOTE | 2019-04-06 07:52 | XRay Report ---
CHEST 1 VIEW INDICATION: follow up respiratory failure. COMPARISON: 04/05/2019 FINDINGS: Support devices: None. Heart: Within normal limits. Lungs/Pleura: No acute air space or interstitial disease. Additional findings: None. IMPRESSION: No acute findings. Signer Name: Jerardo Hendrix Jr, MD Signed: 04/06/2019 7:48 AM Workstation Name: [id number]
[2019-04-06] MEDS: KCL 10MEQ/100ML 10 MEQ/100 ML BAG IV SCH ×6 (08:07→19:43)
--- NOTE | 2019-04-06 09:06 | Progress Note ---
Assessment and Plan Assessment and plan: 28-year-old man was recently diagnosed with seizure, discharge from the hospital on March 22 comes back today for evaluation of seizure. After he was discharged he had a seizure on the , mom stated that he's been compliant with his Vimpat. He was seen at [facility] and discharge. He also had another seizure at home on Wednesday and was then taken to [place], no change in his medication he was given a follow-up with urology clinic. Mom states that he smoked marijuana on the prior to the seizure. He is been having fevers at home since last night. He also had seizure in route to the hospital, was intubated in the emergency room for airway protection. * CSF NEGATIVE FOR BACTERIA MENINGITIS Acute respiratory failure was intubated, now extubated, off MV Sepsis Acute Metabolic Encephalopathy Status Epilepticus - resolved Sinus Tachycardia Acute on chronic seizure, ?Underlying meningitis ?Viral Encephalitis Pneumonia Plan Continue supportive care Continue Acylovir for Possible HSV For MRI of Brain ceftriaxone 2 gm IV q 12 hour Vancomycin IV with PK consult Clindamycin 900 mg IV q 8 hour Neurology seen and examined, dilantin and lacosamide started DVT/GI PROPHY Discussed with patient and mother at bedside PT ordered History Interval history: Patient extubated 04/04/19 No more seizures Hospitalist Physical - Physical exam Narrative exam: Gen: Not in acute distress, sitting up in bed HEENT: Normocephalic, atraumatic Neck: supple, no JVD Heart: S1 and S2 reg, no murmurs, rubs or gallop Lungs: Clear to auscultation, no rhonchi, no wheeze Abd: soft, non tender, non distended, normal BS, Groin: right large inguinoscrotal hernia, Ext: No edema, no clubbing, no cyanosis Neuro: Awake, alert, oriented X 3, no focal neurological signs - Constitutional Vitals: Temp Pulse Resp BP Pulse Ox 98.8 F 98 H 18 141/99 96 04/06/19 07:37 04/06/19 07:37 04/06/19 07:37 04/06/19 07:37 04/06/19 08:17 General appearance: Present: no acute distress Results - Labs CBC & Chem 7: 04/06/19 04:52 04/06/19 04:52 Labs: Laboratory Last Values WBC 18.1 K/mm3 (4.5-11.0) H 04/06/19 04:52 RBC 3.52 M/mm3 (3.65-5.03) L 04/06/19 04:52 Hgb 9.7 gm/dl (11.8-15.2) L 04/06/19 04:52 Hct 29.7 % (35.5-45.6) L 04/06/19 04:52 MCV 84 fl (84-94) 04/06/19 04:52 MCH 28 pg (28-32) 04/06/19 04:52 MCHC 33 % (32-34) 04/06/19 04:52 RDW 14.5 % (13.2-15.2) 04/06/19 04:52 Plt Count 519 K/mm3 (140-440) H 04/06/19 04:52 Lymph % (Auto) 8.3 % (13.4-35.0) L 04/06/19 04:52 [place] % (Auto) 15.4 % (0.0-7.3) H 04/06/19 04:52 Eos % (Auto) 2.3 % (0.0-4.3) 04/06/19 04:52 Baso % (Auto) 0.8 % (0.0-1.8) 04/06/19 04:52 Lymph # 1.5 K/mm3 (1.2-5.4) 04/06/19 04:52 [place] # 2.8 K/mm3 (0.0-0.8) H 04/06/19 04:52 Eos # 0.4 K/mm3 (0.0-0.4) 04/06/19 04:52 Baso # 0.2 K/mm3 (0.0-0.1) H 04/06/19 04:52 Add Manual Diff Complete 04/05/19 04:56 Total Counted 100 04/05/19 04:56 Seg Neutrophils % 73.2 % (40.0-70.0) H 04/06/19 04:52 Seg Neuts % (Manual) 85.0 % (40.0-70.0) H 04/05/19 04:56 Band Neutrophils % 0 % 04/05/19 04:56 Lymphocytes % (Manual) 7.0 % (13.4-35.0) L 04/05/19 04:56 Reactive Lymphs % (Man) 0 % 04/05/19 04:56 Monocytes % (Manual) 8.0 % (0.0-7.3) H 04/05/19 04:56 Eosinophils % (Manual) 0 % (0.0-4.3) 04/05/19 04:56 Basophils % (Manual) 0 % (0.0-1.8) 04/05/19 04:56 Metamyelocytes % 0 % 04/05/19 04:56 Myelocytes % 0 % 04/05/19 04:56 Promyelocytes % 0 % 04/05/19 04:56 Blast Cells % 0 % 04/05/19 04:56 Nucleated RBC % Not Reportable 04/05/19 04:56 Seg Neutrophils # 13.2 K/mm3 (1.8-7.7) H 04/06/19 04:52 Seg Neutrophils # Man 17.4 K/mm3 (1.8-7.7) H 04/05/19 04:56 Band Neutrophils # 0.0 K/mm3 04/05/19 04:56 Lymphocytes # (Manual) 1.4 K/mm3 (1.2-5.4) 04/05/19 04:56 Abs React Lymphs (Man) 0.0 K/mm3 04/05/19 04:56 Monocytes # (Manual) 1.6 K/mm3 (0.0-0.8) H 04/05/19 04:56 Eosinophils # (Manual) 0.0 K/mm3 (0.0-0.4) 04/05/19 04:56 Basophils # (Manual) 0.0 K/mm3 (0.0-0.1) 04/05/19 04:56 Metamyelocytes # 0.0 K/mm3 04/05/19 04:56 Myelocytes # 0.0 K/mm3 04/05/19 04:56 Promyelocytes # 0.0 K/mm3 04/05/19 04:56 Blast Cells # 0.0 K/mm3 04/05/19 04:56 WBC Morphology Not Reportable 04/05/19 04:56 Hypersegmented Neuts Not Reportable 04/05/19 04:56 Hyposegmented Neuts Not Reportable 04/05/19 04:56 Hypogranular Neuts Not Reportable 04/05/19 04:56 Smudge Cells Not Reportable 04/05/19 04:56 Toxic Granulation Not Reportable 04/05/19 04:56 Toxic Vacuolation Not Reportable 04/05/19 04:56 Dohle Bodies Not Reportable 04/05/19 04:56 Pelger-Huet Anomaly Not Reportable 04/05/19 04:56 Zbigniew Rods Not Reportable 04/05/19 04:56 Platelet Estimate Consistent w auto 04/05/19 04:56 Clumped Platelets Not Reportable 04/05/19 04:56 Plt Clumps, EDTA Not Reportable 04/05/19 04:56 Large Platelets Not Reportable 04/05/19 04:56 Giant Platelets Not Reportable 04/05/19 04:56 Platelet Satelliting Not Reportable 04/05/19 04:56 Plt Morphology Comment Not Reportable 04/05/19 04:56 RBC Morphology Not Reportable 04/05/19 04:56 Dimorphic RBCs Not Reportable 04/05/19 04:56 Polychromasia Not Reportable 04/05/19 04:56 Hypochromasia Not Reportable 04/05/19 04:56 Poikilocytosis Not Reportable 04/05/19 04:56 Anisocytosis 1+ 04/05/19 04:56 Microcytosis Few 04/05/19 04:56 Macrocytosis Not Reportable 04/05/19 04:56 Spherocytes Not Reportable 04/05/19 04:56 Pappenheimer Bodies Not Reportable 04/05/19 04:56 Sickle Cells Not Reportable 04/05/19 04:56 Target Cells Not Reportable 04/05/19 04:56 Tear Drop Cells Not Reportable 04/05/19 04:56 Ovalocytes Not Reportable 04/05/19 04:56 Stomatocytes Rare 04/05/19 04:56 Helmet Cells Not Reportable 04/05/19 04:56 [place] Bodies Not Reportable 04/05/19 04:56 [place] Rings Not Reportable 04/05/19 04:56 Zamzam Cells Not Reportable 04/05/19 04:56 Bite Cells Not Reportable 04/05/19 04:56 Crenated Cell Not Reportable 04/05/19 04:56 Elliptocytes Not Reportable 04/05/19 04:56 Acanthocytes (Spur) Not Reportable 04/05/19 04:56 Rouleaux Not Reportable 04/05/19 04:56 Hemoglobin C Crystals Not Reportable 04/05/19 04:56 Schistocytes Not Reportable 04/05/19 04:56 Malaria parasites Not Reportable 04/05/19 04:56 Erich Bodies Not Reportable 04/05/19 04:56 Hem Pathologist Commnt No 04/05/19 04:56 PT 15.4 Sec. (12.2-14.9) H 04/05/19 04:56 INR 1.25 (0.87-1.13) H 04/05/19 04:56 INR Cancelled 03/29/19 18:29 APTT 29.5 Sec. (24.2-36.6) 03/29/19 18:29 PT Patient/Control Mix Cancelled 03/29/19 18:29 PT Pat/Norm 1:1 5 min Cancelled 03/29/19 18:29 PT Pat/Norm 1:1 1 Hr Cancelled 03/29/19 18:29 POC ABG pH 7.461 (7.35-7.45) H 04/03/19 15:44 POC ABG pCO2 45.8 (35-45) H 04/03/19 15:44 POC ABG pO2 109 (80-105) H 04/03/19 15:44 POC ABG HCO3 32.6 (22-26 mml/L) 04/03/19 15:44 POC ABG Total CO2 34 (23-27mmol/L) 04/03/19 15:44 POC ABG O2 Sat 98 04/03/19 15:44 POC ABG Base Excess 9 ((-2) - (+3)mmol/L) 04/03/19 15:44 VBG pH 7.269 (7.320-7.420) L 03/29/19 19:09 FiO2 25 % 04/03/19 15:44 Sodium 144 mmol/L (137-145) 04/06/19 04:52 Potassium 2.7 mmol/L (3.6-5.0) L* 04/06/19 04:52 Chloride 101.6 mmol/L (98-107) 04/06/19 04:52 Carbon Dioxide 28 mmol/L (22-30) 04/06/19 04:52 Anion Gap 17 mmol/L 04/06/19 04:52 BUN 5 mg/dL (9-20) L 04/06/19 04:52 Creatinine 1.1 mg/dL (0.8-1.5) 04/06/19 04:52 Estimated GFR > 60 ml/min 04/06/19 04:52 BUN/Creatinine Ratio 5 % 04/06/19 04:52 Glucose 91 mg/dL (75-100) 04/06/19 04:52 POC Glucose 89 (70-105) 04/03/19 12:44 Lactic Acid 1.90 mmol/L (0.7-2.0) 03/30/19 05:11 Calcium 8.6 mg/dL (8.4-10.2) 04/06/19 04:52 Magnesium 1.60 mg/dL (1.7-2.3) L 04/06/19 04:52 Total Bilirubin 0.20 mg/dL (0.1-1.2) 04/06/19 04:52 AST 21 units/L (5-40) 04/06/19 04:52 ALT 25 units/L (7-56) 04/06/19 04:52 Alkaline Phosphatase 47 units/L (35-129) 04/06/19 04:52 Total Creatine Kinase 173 units/L (55-170) H 03/30/19 07:17 CK-MB (CK-2) 2.8 ng/mL (0.0-4.0) 03/30/19 07:17 CK-MB (CK-2) Rel Index 1.6 (0-4) 03/30/19 07:17 Troponin T 0.039 ng/mL (0.00-0.029) H 03/30/19 07:17 Total Protein 6.5 g/dL (6.3-8.2) 04/06/19 04:52 Albumin 2.9 g/dL (3.9-5) L 04/06/19 04:52 Albumin/Globulin Ratio 0.8 % 04/06/19 04:52 Triglycerides 63 mg/dL (2-149) 03/29/19 18:29 Cholesterol 177 mg/dL (50-199) 03/29/19 18:29 LDL Cholesterol Direct 119 mg/dL (50-130) 03/29/19 18: HDL Cholesterol 56 mg/dL (40-59) 03/29/19 18: Cholesterol/HDL Ratio 3.16 % 03/29/19 18: Urine Color Yellow (Yellow) 03/29/19 19: Urine Turbidity Slightly-cloudy (Clear) 03/29/19 19: Urine pH 5.0 (5.0-7.0) 03/29/19 19: Ur Specific [place] 1.011 (1.003-1.030) 03/29/19 19: Urine Protein 100 mg/dl mg/dL (Negative) 03/29/19 19: Urine Glucose (UA) Neg mg/dL (Negative) 03/29/19: Urine Ketones Neg mg/dL (Negative) 03/29/19: Urine Blood Sm (Negative) 03/29/19 19: Urine Nitrite Neg (Negative) 03/29/19 19: Urine Bilirubin Neg (Negative) 03/29/19: Urine Urobilinogen < 2.0 mg/dL (<2.0) 03/29/19 19: Ur Leukocyte Esterase Neg (Negative) 03/29/19 19: Urine WBC (Auto) 9.0 /HPF (0.0-6.0) H 03/29/19: Urine RBC (Auto) 3.0 /HPF (0.0-6.0) 03/29/19 19: U Epithel Cells (Auto) < 1.0 /HPF (0-13.0) 03/29/19: Urine Bacteria (Auto) 1+ /HPF (Negative) 03/29/19 19: Urine Mucus Few /HPF 03/29/19 19: CSF Appearance Clear 03/30/19 Unknown CSF Color Colorless 03/30/19 Unknown CSF WBC 18 /mm3 (1-10) 03/30/19 Unknown CSF RBC 10 /mm3 (0-0) 03/30/19 Unknown CSF Seg Neutrophils 4.0 % (0-6) 03/30/19 Unknown CSF Lymphocytes % 92.0 % (40-80) 03/30/19 Unknown CSF Reactive Lymphs 0 % 03/30/19 Unknown CSF Monocytes % 4.0 % (15-45) 03/30/19 Unknown CSF Eosinophils % 0 % 03/30/19 Unknown CSF Basophils 0 % 03/30/19 Unknown CSF Pathologist Review C 03/30/19 Unknown CSF Glucose 75 mg/dL 03/30/19 Unknown CSF Total Protein 61 mg/dL 03/30/19 Unknown Vancomycin Trough 22.3 ug/mL (5.0-20.0) H 04/04/19 10:58 Urine Opiates Screen Presumptive negative 03/29/19 19:27 Urine Methadone Screen Presumptive negative 03/29/19 19:27 Ur Barbiturates Screen Presumptive negative 03/29/19 19:27 Ur Phencyclidine Scrn Presumptive negative 03/29/19 19:27 Ur Amphetamines Screen Presumptive negative 03/29/19 19:27 U Benzodiazepines Scrn Presumptive positive 03/29/19 19:27 Urine Cocaine Screen Presumptive negative 03/29/19 19:27 U Marijuana (THC) Screen Presumptive negative 03/29/19 19:27 Drugs of Abuse Note Disclamer 03/29/19 19:27 RPR Nonreactive (Nonreactive) 03/31/19 11:17 Influenza A (Rapid) Negative (Negative) 03/29/19 Unknown Influenza B (Rapid) Negative (Negative) 03/29/19 Unknown Group A Strep Rapid Positive (Negative) A 03/29/19 Unknown Miscellaneous Test Flexitest 1 03/30/19 Unknown Active Medications - Current Medications Current Medications: Generic Name Dose Route Start Last Admin Trade Name Freq PRN Reason Stop Dose Admin Acetaminophen 650 mg 03/30/19 01:27 04/02/19 09:15 Tylenol PO 650 mg Q4H PRN Administration Pain MILD(1-3)/Fever >100.5/LICONA Albuterol 2.5 mg 03/30/19 14:00 Proventil IH Q4HRT PRN Shortness Of Breath Docusate Sodium 100 mg 04/04/19 13:00 04/05/19 21:19 Colace FEEDTUBE Not Given BID RENÉ Enoxaparin Sodium 40 mg 03/30/19 10:00 04/05/19 10:01 Lovenox SUB-Q 40 mg QDAY@1000 RENÉ Administration Famotidine 20 mg 04/06/19 10:00 Pepcid PO BID RENÉ Hydromorphone HCl 0.5 mg 04/03/19 07:30 04/03/19 07:58 Dilaudid IV 0.5 mg Q3H PRN Administration Pain , Severe (7-10) Hydrophilic Ointment 1 applic 03/30/19 14:51 Vaseline Lip Therapy TP Q2HR PRN Dry Lips Ceftriaxone Sodium 2 gm in 100 mls @ 200 mls/hr 03/31/19 10:00 04/05/19 22:47 Rocephin/Ns 2 Gm/100 Ml IV 04/09/19 23:59 200 mls/hr Q12HR RENÉ Administration Protocol Lacosamide 150 mg/ Sodium 115 mls @ 100 mls/hr 04/04/19 10:00 04/05/19 21:23 Chloride IV 04/06/19 12:00 100 mls/hr Q12H RENÉ Administration Magnesium Sulfate 3 gm/ Sodium 106 mls @ 35.333 mls/hr 04/06/19 07:40 Chloride IV 04/06/19 10:39 ONCE ONE Lacosamide 150 mg 04/06/19 22:00 Vimpat PO Q12HR RENÉ Lorazepam 2 mg 03/30/19 12:10 04/05/19 16:01 Ativan IV 2 mg Q1H PRN Administration Agitation Multi-Ingred Cream/Lotion/Oil/Oint 1 applic 03/30/19 14:51 Artificial Tears Ophth Oint OU Q4HR PRN Dry Eye(s) Ondansetron HCl 4 mg 03/30/19 01:27 04/02/19 02:50 Zofran IV 4 mg Q4H PRN Administration Nausea And Vomiting Quetiapine Fumarate 50 mg 04/02/19 22:00 04/05/19 21:24 Seroquel PO 50 mg BID RENÉ Administration Sodium Chloride 10 ml 03/30/19 10:00 04/05/19 21:29 Sodium Chloride Flush Syringe 10 Ml IV 10 ml BID RENÉ Administration Sodium Chloride 10 ml 03/30/19 01:27 Sodium Chloride Flush Syringe 10 Ml IV PRN PRN LINE FLUSH Tamsulosin HCl 0.4 mg 04/04/19 13:00 04/05/19 10:05 Flomax PO 0.4 mg QDAY RENÉ Administration Nutrition/Malnutrition Assess - Dietary Evaluation Nutrition/Malnutrition Findings: Nutrition Notes Start: 03/30/19 12:41 Freq: Status: Active Protocol: Document 04/05/19 09:02 JOB (Rec: 04/05/19 09:42 JOB [email or web address]) Co-Sign 04/05/19 09:02 LM Nutrition Notes Initial or Follow up Reassessment Current Diagnosis Respiratory Failure Other Pertinent Diagnosis Seizures, Pneu Current Diet Vital AF 1.2 at 65 ml/hr Labs/Tests Na 148 K 3.1 BUN 7 Pertinent Medications Reviewed Height 5 ft 9 in Weight 62.3 kg [place] Body Weight (kg) 72.72 BMI 20.2 Subjective/Other Information TF still turned off due to pt being extubated. Percent of energy/protein needs met: 0%/0% Burn Absent Trauma Absent Minimum of two criteria No #1 Nutrition Diagnosis Inadequate oral intake Diagnosis Progress(for reassessment Continues documentation) Is patient on ventilator? No Is Patient Ambulatory and/or Out of Bed No REE-([facility]-confined to bed) 6916.084 Calculation Used for Recommendations [facility] Additional Notes PRO needs: 50g-62g/kg (0.8g-1g /kg) Fluid needs: 1mL/kcal Nutrition Intervention Change Diet Order: Advance diet when medically feasible Nutrition Support: D/C TF Goal #1 Advance diet when medically feasible Goal #2 Meet at least 75% of energy and protein needs Anticipated Discharge Needs: Unable to determine at this time Follow-Up By: 04/07/19 Additional Comments F/U for diet advancement
[2019-04-06] MEDS: LOVENOX SUB-Q SCH (09:50)
[2019-04-06] MEDS: FLOMAX PO SCH (09:50)
[2019-04-06] MEDS: PEPCID PO SCH ×2 (09:50→21:21)
[2019-04-06] MEDS: ROCEPHIN/NS 2 GM/100 ML 2 GM/100 ML BAG IV SCH (09:54)
[2019-04-06] MEDS: SODIUM CHLORIDE FLUSH SYRINGE 10 ML IV SCH ×2 (09:54→23:28)
[2019-04-06] MEDS: COLACE FEEDTUBE SCH ×3 (09:55→22:04)
[2019-04-06] MEDS: VIMPAT 150 MG in NACL 0.9% 100 ML IV SCH (11:22)
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
[2019-04-06 14:21] LABS: BUN/Creatinine Ratio 4; Blood Urea Nitrogen 5 mg/dL (9-20); Calcium 8.6 mg/dL (8.4-10.2); Hemolysis Index 0
[2019-04-06] MEDS ORDERED: MAGNESIUM SULFATE 2GM/50ML 2 GM/50 ML BAG IV ONE (16:00)
[2019-04-06] MEDS: ATIVAN IV PRN (16:09)
--- NOTE | 2019-04-06 16:29 | Event Note ---
Date: 04/06/19 Called to see because of seizures. Earlier had episode of staring presumed to be seizures. This time had jerking movements but no complete loss of consciousness. He is sitting up in bed, dazed. Vitals stable. discussed with Neurology.
[2019-04-06] MEDS ORDERED: VIMPAT PO SCH (22:00)
--- NOTE | 2019-04-06 22:50 | Progress Note ---
Assessment and Plan Patient is a 28 y/o man w/ a h/o seizures which first began in February 2019. Patient was admitted with fever, sepsis, seizures, and was placed on Abx at that time. Patient was ultimately discharged on Vimpat on 03/22/19, and had tolerated this well, until he began having more seizures. The patient was then taken to [place], where he was given vimpat, and discharged. Patient was admitted to [facility] on 03/29/19, with seizures, and was found to have ALINE, lactic acidosis, fever, sepsis. Patient was intubated for respiratory failure, and ultimately extubated. According to the patient's clinical findings, he has seizures. Etiology of seizures is uncertain at this time, as CSF has not shown any evidence of HSV. Plan: 1. Seizures: - Increase Vimpat to 200mg BID - Patient did not tolerate keppra previously - Check MRI brain w/ contrast, as previous MRIs were not with contrast - Recommend ultrasound of scrotum, to rule out testicular mass, as some testicular cancers can cause auto-immune anti-body mediated seizures and encephalitis. - If patient has seizures, give ativan 1mg IV stat. If seizure does not resolve within 2 minutes of first dose, can repeat x1. Please call primary and neurology stat if patient has seizures. - Will continue to monitor neurologic status Thank you for allowing me to take part in the care of this patient. Bennett Kinney MD Neurology Subjective Date of service: 04/06/19 Principal diagnosis: Ac. Resp failure; Seizures; Ac. Encephalopathy; Abnormal CSF (? herpes) Interval history: Patient is a 28 y/o man w/ a h/o seizures which first began in February 2019. Patient was admitted with fever, sepsis, seizures, and was placed on Abx at that time. Patient was ultimately discharged on Vimpat on 03/22/19, and had tolerated this well, until he began having more seizures. The patient was then taken to [place], where he was given vimpat, and discharged. Patient was admitted to [facility] on 03/29/19, with seizures, and was found to have ALINE, lactic acidosis, fever, sepsis. Patient was intubated for respiratory failure, and ultimately extubated. Patient reportedly had a seizure earlier today, for which he was given ativan. Objective - Exam Narrative Exam: Patient is alert, awake, oriented x4, follows complex commands. PERRL, VFF, EOMI, no facila weakness noted, tongue midline, b/l intact to LT. 5/5 strength in all extremities. 2+ reflexes throughout. No dysarhtria or aphasia noted. B/l intact to LT. B/l intact to FTN and HTS. Noted to have a scrotal swelling. - Vital Sign Vital Signs - 12hr 04/06/19 04/06/19 04/06/19 11:29 12:00 15:30 Temperature 97.7 F Pulse Rate 86 91 H Pulse Rate [ 90 From Monitor] Respiratory 18 Rate Blood Pressure 134/85 O2 Sat by Pulse 98 100 Oximetry 04/06/19 04/06/19 04/06/19 16:38 19:30 20:18 Temperature 97.3 F L 99.5 F Pulse Rate 107 H 91 H Pulse Rate [ From Monitor] Respiratory 18 18 Rate Blood Pressure 139/98 146/95 O2 Sat by Pulse 98 100 100 Oximetry - General Apperance Constitutional: comfortable - EENT EENT: ATNC, PERRL, mucous membranes moist, hearing intact, vision intact - Respiratory Respiratory: lungs clear, normal breath sounds - Cardiovascular Cardiovascular: regular rate, normal S1, normal S2 Extremities: no clubbing, cyanosis, no inflammation - Gastrointestinal Gastrointestinal: normoactive bowel sounds, soft, non-tender - Integumentary Integumentary: normal - Musculoskeletal Musculoskeletal: no fluid collection, no pain - Psychiatric Psychiatric: mood/affect appropriate - Laboratory Findings CBC and BMP: 04/06/19 04:52 04/06/19 13:42 Abnormal Lab Findings: Abnormal Labs 03/29/19 03/29/19 03/29/19 18:29 18:29 18:29 WBC 19.4 H RBC Hgb Hct MCH Plt Count Lymph % (Auto) [place] % (Auto) Lymph # [place] # Baso # Seg Neutrophils % Seg Neuts % (Manual) 72.0 H Lymphocytes % (Manual) Monocytes % (Manual) 8.0 H Seg Neutrophils # Seg Neutrophils # Man 14.0 H Monocytes # (Manual) 1.6 H PT INR POC ABG pH POC ABG pCO2 POC ABG pO2 VBG pH Sodium 136 L Potassium Chloride 90.6 L Carbon Dioxide 13 L BUN Glucose 154 H Lactic Acid 17.50 H* Magnesium ALT 81 H Total Creatine Kinase Troponin T Albumin Urine WBC (Auto) Vancomycin Trough Group A Strep Rapid 03/29/19 03/29/19 03/29/19 18:29 19:09 19:27 WBC RBC Hgb Hct MCH Plt Count Lymph % (Auto) [place] % (Auto) Lymph # [place] # Baso # Seg Neutrophils % Seg Neuts % (Manual) Lymphocytes % (Manual) Monocytes % (Manual) Seg Neutrophils # Seg Neutrophils # Man Monocytes # (Manual) PT INR POC ABG pH POC ABG pCO2 POC ABG pO2 VBG pH 7.269 L Sodium Potassium Chloride Carbon Dioxide BUN Glucose Lactic Acid Magnesium ALT Total Creatine Kinase Troponin T 0.031 H Albumin Urine WBC (Auto) 9.0 H Vancomycin Trough Group A Strep Rapid 03/29/19 03/29/19 03/29/19 19:33 20:27 21:01 WBC RBC Hgb Hct MCH Plt Count Lymph % (Auto) [place] % (Auto) Lymph # [place] # Baso # Seg Neutrophils % Seg Neuts % (Manual) Lymphocytes % (Manual) Monocytes % (Manual) Seg Neutrophils # Seg Neutrophils # Man Monocytes # (Manual) PT INR POC ABG pH POC ABG pCO2 POC ABG pO2 170 H VBG pH Sodium Potassium Chloride Carbon Dioxide BUN Glucose Lactic Acid 3.80 H* 4.10 H* Magnesium ALT Total Creatine Kinase Troponin T Albumin Urine WBC (Auto) Vancomycin Trough Group A Strep Rapid 03/29/19 03/29/19 03/30/19 23:46 Unknown 04:08 WBC RBC Hgb Hct MCH Plt Count Lymph % (Auto) [place] % (Auto) Lymph # [place] # Baso # Seg Neutrophils % Seg Neuts % (Manual) Lymphocytes % (Manual) Monocytes % (Manual) Seg Neutrophils # Seg Neutrophils # Man Monocytes # (Manual) PT INR POC ABG pH POC ABG pCO2 POC ABG pO2 VBG pH Sodium Potassium Chloride Carbon Dioxide BUN Glucose Lactic Acid 2.10 H* Magnesium ALT Total Creatine Kinase 172 H Troponin T 0.033 H Albumin Urine WBC (Auto) Vancomycin Trough Group A Strep Rapid Positive A 03/30/19 03/30/19 03/30/19 04:45 05:21 07:17 WBC 20.8 H RBC Hgb 10.9 L Hct 33.5 L MCH Plt Count Lymph % (Auto) [place] % (Auto) Lymph # [place] # Baso # Seg Neutrophils % Seg Neuts % (Manual) 85.0 H Lymphocytes % (Manual) 8.0 L Monocytes % (Manual) Seg Neutrophils # Seg Neutrophils # Man 17.7 H Monocytes # (Manual) PT INR POC ABG pH POC ABG pCO2 POC ABG pO2 172 H VBG pH Sodium Potassium Chloride Carbon Dioxide BUN Glucose Lactic Acid Magnesium ALT Total Creatine Kinase 173 H Troponin T 0.039 H Albumin Urine WBC (Auto) Vancomycin Trough Group A Strep Rapid 03/31/19 03/31/19 03/31/19 04:24 04:24 04:27 WBC 17.9 H RBC Hgb 10.7 L Hct 32.4 L MCH Plt Count Lymph % (Auto) [place] % (Auto) Lymph # [place] # Baso # Seg Neutrophils % Seg Neuts % (Manual) Lymphocytes % (Manual) Monocytes % (Manual) Seg Neutrophils # Seg Neutrophils # Man Monocytes # (Manual) PT INR POC ABG pH 7.324 L POC ABG pCO2 51.9 H POC ABG pO2 VBG pH Sodium Potassium Chloride Carbon Dioxide BUN 7 L Glucose 108 H Lactic Acid Magnesium ALT Total Creatine Kinase Troponin T Albumin 3.3 L Urine WBC (Auto) Vancomycin Trough Group A Strep Rapid 03/31/19 04/01/19 04/02/19 20:54 22:40 04:40 WBC 13.7 H RBC 3.33 L Hgb 9.5 L Hct 28.0 L MCH Plt Count Lymph % (Auto) 4.7 L [place] % (Auto) 12.7 H Lymph # 0.7 L [place] # 1.7 H Baso # Seg Neutrophils % 79.1 H Seg Neuts % (Manual) Lymphocytes % (Manual) Monocytes % (Manual) Seg Neutrophils # 10.9 H Seg Neutrophils # Man Monocytes # (Manual) PT INR POC ABG pH 7.345 L POC ABG pCO2 54.1 H 50.2 H POC ABG pO2 78 L 145 H VBG pH Sodium Potassium Chloride Carbon Dioxide BUN Glucose Lactic Acid Magnesium ALT Total Creatine Kinase Troponin T Albumin Urine WBC (Auto) Vancomycin Trough Group A Strep Rapid 04/02/19 04/02/19 04/02/19 04:40 05:35 16:07 WBC RBC Hgb Hct MCH Plt Count Lymph % (Auto) [place] % (Auto) Lymph # [place] # Baso # Seg Neutrophils % Seg Neuts % (Manual) Lymphocytes % (Manual) Monocytes % (Manual) Seg Neutrophils # Seg Neutrophils # Man Monocytes # (Manual) PT INR POC ABG pH 7.310 L POC ABG pCO2 45.4 H 68.5 H POC ABG pO2 137 H VBG pH Sodium Potassium 3.2 L Chloride 94.9 L Carbon Dioxide BUN 5 L Glucose Lactic Acid Magnesium ALT Total Creatine Kinase Troponin T Albumin 3.0 L Urine WBC (Auto) Vancomycin Trough Group A Strep Rapid 04/03/19 04/03/19 04/04/19 04:13 15:44 04:16 WBC 18.9 H RBC Hgb 10.7 L Hct 33.2 L MCH 27 L Plt Count 509 H Lymph % (Auto) [place] % (Auto) Lymph # [place] # Baso # Seg Neutrophils % Seg Neuts % (Manual) Lymphocytes % (Manual) Monocytes % (Manual) Seg Neutrophils # Seg Neutrophils # Man Monocytes # (Manual) PT INR POC ABG pH 7.506 H 7.461 H POC ABG pCO2 45.8 H POC ABG pO2 143 H 109 H VBG pH Sodium Potassium Chloride Carbon Dioxide BUN Glucose Lactic Acid Magnesium ALT Total Creatine Kinase Troponin T Albumin Urine WBC (Auto) Vancomycin Trough Group A Strep Rapid 04/04/19 04/04/19 04/05/19 04:16 10:58 04:56 WBC 20.5 H RBC Hgb 10.8 L Hct 33.0 L MCH Plt Count 546 H Lymph % (Auto) [place] % (Auto) Lymph # [place] # Baso # Seg Neutrophils % Seg Neuts % (Manual) 85.0 H Lymphocytes % (Manual) 7.0 L Monocytes % (Manual) 8.0 H Seg Neutrophils # Seg Neutrophils # Man 17.4 H Monocytes # (Manual) 1.6 H PT INR POC ABG pH POC ABG pCO2 POC ABG pO2 VBG pH Sodium Potassium Chloride Carbon Dioxide BUN 6 L Glucose Lactic Acid Magnesium ALT Total Creatine Kinase Troponin T Albumin Urine WBC (Auto) Vancomycin Trough 22.3 H Group A Strep Rapid 04/05/19 04/05/19 04/06/19 04:56 04:56 04:52 WBC 18.1 H RBC 3.52 L Hgb 9.7 L Hct 29.7 L MCH Plt Count 519 H Lymph % (Auto) 8.3 L [place] % (Auto) 15.4 H Lymph # [place] # 2.8 H Baso # 0.2 H Seg Neutrophils % 73.2 H Seg Neuts % (Manual) Lymphocytes % (Manual) Monocytes % (Manual) Seg Neutrophils # 13.2 H Seg Neutrophils # Man Monocytes # (Manual) PT 15.4 H INR 1.25 H POC ABG pH POC ABG pCO2 POC ABG pO2 VBG pH Sodium 148 H Potassium 3.1 L D Chloride Carbon Dioxide BUN 7 L Glucose Lactic Acid Magnesium ALT Total Creatine Kinase Troponin T Albumin 3.3 L Urine WBC (Auto) Vancomycin Trough Group A Strep Rapid 04/06/19 04/06/19 04/06/19 04:52 04:52 13:42 WBC RBC Hgb Hct MCH Plt Count Lymph % (Auto) [place] % (Auto) Lymph # [place] # Baso # Seg Neutrophils % Seg Neuts % (Manual) Lymphocytes % (Manual) Monocytes % (Manual) Seg Neutrophils # Seg Neutrophils # Man Monocytes # (Manual) PT INR POC ABG pH POC ABG pCO2 POC ABG pO2 VBG pH Sodium Potassium 2.7 L* 2.8 L* Chloride Carbon Dioxide BUN 5 L 5 L Glucose 137 H Lactic Acid Magnesium 1.60 L 1.60 L ALT Total Creatine Kinase Troponin T Albumin 2.9 L Urine WBC (Auto) Vancomycin Trough Group A Strep Rapid
[2019-04-07] MEDS: ROCEPHIN/NS 2 GM/100 ML 2 GM/100 ML BAG IV SCH ×3 (00:01→21:54)
[2019-04-07 05:56] LABS: Alanine Aminotransferase 44 units/L (7-56); Albumin 2.6 g/dL (3.9-5); BUN/Creatinine Ratio 5; Blood Urea Nitrogen 5 mg/dL (9-20); Calcium 8.3 mg/dL (8.4-10.2); Hemolysis Index 78
[2019-04-07] MEDS ORDERED: K-DUR PO ONE (09:00)
[2019-04-07] MEDS ORDERED: HALDOL IM ONE (09:00)
[2019-04-07 09:53] LABS: Hematocrit 30.3 % (35.5-45.6); Hemoglobin 10.1 gm/dl (11.8-15.2); Mean Corpuscular HGB Conc 33 % (32-34); Mean Corpuscular Volume 83 fl (84-94); Platelet Count 492 K/mm3 (140-440); Red Blood Count 3.64 M/mm3 (3.65-5.03); Red Cell Distribution Width 14.2 % (13.2-15.2)
--- NOTE | 2019-04-07 10:45 | Progress Note ---
Assessment and Plan Acute respiratory failure,s/p mechanical ventilatory support. Tonic-clonic seizure. Leukocytosis. Abnormal cerebrospinal fluid studies. Severe metabolic acidosis at presentation. Lactic acidosis. Elevated serum transaminases. Abnormal urinalysis. History of seizures. Scrotal swelling Aspiration PNA Continue supportive care Continue Acylovir for Possible HSV MRI of Brain - unremarkable ceftriaxone 2 gm IV q 12 hour Vancomycin IV with PK consult Clindamycin 900 mg IV q 8 hour Continue dilantin and lacosamide Increase activity VTE prophylaxis Seizure precautions Supplemental oxygen if needed to keep O2 sats >90% Discussed with patient and his mother who was at the bedside Discharge planning per primary service Subjective Date of service: 04/07/19 Principal diagnosis: Ac. Resp failure; Seizures; Ac. Encephalopathy; Abnormal CSF (? herpes) Interval history: Patient is seen today for: Acute respiratory failure; Tonic-clonic seizure; Leukocytosis; Abnormal CSF (? herpes encephalitis); Lactic acidosis; Elevated serum transaminases; History of seizures; Scrotal swelling (Chronic per Mom) Seen and examined at bedside; 24hour events reviewed; nursing and respiratory care staff consulted; no adverse overnight events reported to me; resting pea cefully in bed; no new respiratory issues; no fevers; no nausea; no chest pain;no shortness of breath Objective Vital Signs - 12hr 04/07/19 04/07/19 04/07/19 00:30 04:07 08:36 Temperature 98 F 98.5 F 98.2 F Pulse Rate 68 88 80 Respiratory 18 18 Rate Blood Pressure 141/91 144/88 Blood Pressure 134/68 [Left] O2 Sat by Pulse 98 99 Oximetry Constitutional: no acute distress, other Eyes: non-icteric ENT: oropharynx moist, other Neck: supple, no lymphadenopathy, no JVD Effort: normal Ascultation: Bilateral: rhonchi (scant) Percussion: Bilateral: not dull Cardiovascular: regular rate and rhythm, other (S1,S2, no murmurs) Gastrointestinal: normoactive bowel sounds, soft, non-tender Integumentary: normal Extremities: no cyanosis, no edema, pulses normal, no ischemia or petechiae Neurologic: normal mental status, non-focal exam (grossly), pupils equal and round, motor strength normal and Psychiatric: anxious CBC and BMP: 04/09/19 04:31 04/09/19 04:31 ABG, PT/INR, D-dimer: ABG POC ABG pH 7.461 (7.35-7.45) H 04/03/19 15:44 POC ABG pCO2 45.8 (35-45) H 04/03/19 15:44 POC ABG pO2 109 (80-105) H 04/03/19 15:44 POC ABG HCO3 32.6 (22-26 mml/L) 04/03/19 15:44 POC ABG Total CO2 34 (23-27mmol/L) 04/03/19 15:44 POC ABG O2 Sat 98 04/03/19 15:44 PT/INR, D-dimer PT 15.4 Sec. (12.2-14.9) H 04/05/19 04:56 INR 1.25 (0.87-1.13) H 04/05/19 04:56 Abnormal lab findings: Abnormal Labs 03/29/19 03/29/19 03/29/19 18:29 18:29 18:29 WBC 19.4 H RBC Hgb Hct MCV MCH Plt Count Lymph % (Auto) [place] % (Auto) Lymph # [place] # Baso # Seg Neutrophils % Seg Neuts % (Manual) 72.0 H Lymphocytes % (Manual) Monocytes % (Manual) 8.0 H Seg Neutrophils # Seg Neutrophils # Man 14.0 H Monocytes # (Manual) 1.6 H PT INR POC ABG pH POC ABG pCO2 POC ABG pO2 VBG pH Sodium 136 L Potassium Chloride 90.6 L Carbon Dioxide 13 L BUN Glucose 154 H Lactic Acid 17.50 H* Calcium Magnesium AST ALT 81 H Total Creatine Kinase Troponin T Albumin Urine WBC (Auto) Vancomycin Trough Group A Strep Rapid 03/29/19 03/29/19 03/29/19 18:29 19:09 19:27 WBC RBC Hgb Hct MCV MCH Plt Count Lymph % (Auto) [place] % (Auto) Lymph # [place] # Baso # Seg Neutrophils % Seg Neuts % (Manual) Lymphocytes % (Manual) Monocytes % (Manual) Seg Neutrophils # Seg Neutrophils # Man Monocytes # (Manual) PT INR POC ABG pH POC ABG pCO2 POC ABG pO2 VBG pH 7.269 L Sodium Potassium Chloride Carbon Dioxide BUN Glucose Lactic Acid Calcium Magnesium AST ALT Total Creatine Kinase Troponin T 0.031 H Albumin Urine WBC (Auto) 9.0 H Vancomycin Trough Group A Strep Rapid 03/29/19 03/29/19 03/29/19 19:33 20:27 21:01 WBC RBC Hgb Hct MCV MCH Plt Count Lymph % (Auto) [place] % (Auto) Lymph # [place] # Baso # Seg Neutrophils % Seg Neuts % (Manual) Lymphocytes % (Manual) Monocytes % (Manual) Seg Neutrophils # Seg Neutrophils # Man Monocytes # (Manual) PT INR POC ABG pH POC ABG pCO2 POC ABG pO2 170 H VBG pH Sodium Potassium Chloride Carbon Dioxide BUN Glucose Lactic Acid 3.80 H* 4.10 H* Calcium Magnesium AST ALT Total Creatine Kinase Troponin T Albumin Urine WBC (Auto) Vancomycin Trough Group A Strep Rapid 03/29/19 03/29/19 03/30/19 23:46 Unknown 04:08 WBC RBC Hgb Hct MCV MCH Plt Count Lymph % (Auto) [place] % (Auto) Lymph # [place] # Baso # Seg Neutrophils % Seg Neuts % (Manual) Lymphocytes % (Manual) Monocytes % (Manual) Seg Neutrophils # Seg Neutrophils # Man Monocytes # (Manual) PT INR POC ABG pH POC ABG pCO2 POC ABG pO2 VBG pH Sodium Potassium Chloride Carbon Dioxide BUN Glucose Lactic Acid 2.10 H* Calcium Magnesium AST ALT Total Creatine Kinase 172 H Troponin T 0.033 H Albumin Urine WBC (Auto) Vancomycin Trough Group A Strep Rapid Positive A 03/30/19 03/30/19 03/30/19 04:45 05:21 07:17 WBC 20.8 H RBC Hgb 10.9 L Hct 33.5 L MCV MCH Plt Count Lymph % (Auto) [place] % (Auto) Lymph # [place] # Baso # Seg Neutrophils % Seg Neuts % (Manual) 85.0 H Lymphocytes % (Manual) 8.0 L Monocytes % (Manual) Seg Neutrophils # Seg Neutrophils # Man 17.7 H Monocytes # (Manual) PT INR POC ABG pH POC ABG pCO2 POC ABG pO2 172 H VBG pH Sodium Potassium Chloride Carbon Dioxide BUN Glucose Lactic Acid Calcium Magnesium AST ALT Total Creatine Kinase 173 H Troponin T 0.039 H Albumin Urine WBC (Auto) Vancomycin Trough Group A Strep Rapid 03/31/19 03/31/19 03/31/19 04:24 04:24 04:27 WBC 17.9 H RBC Hgb 10.7 L Hct 32.4 L MCV MCH Plt Count Lymph % (Auto) [place] % (Auto) Lymph # [place] # Baso # Seg Neutrophils % Seg Neuts % (Manual) Lymphocytes % (Manual) Monocytes % (Manual) Seg Neutrophils # Seg Neutrophils # Man Monocytes # (Manual) PT INR POC ABG pH 7.324 L POC ABG pCO2 51.9 H POC ABG pO2 VBG pH Sodium Potassium Chloride Carbon Dioxide BUN 7 L Glucose 108 H Lactic Acid Calcium Magnesium AST ALT Total Creatine Kinase Troponin T Albumin 3.3 L Urine WBC (Auto) Vancomycin Trough Group A Strep Rapid 03/31/19 04/01/19 04/02/19 20:54 22:40 04:40 WBC 13.7 H RBC 3.33 L Hgb 9.5 L Hct 28.0 L MCV MCH Plt Count Lymph % (Auto) 4.7 L [place] % (Auto) 12.7 H Lymph # 0.7 L [place] # 1.7 H Baso # Seg Neutrophils % 79.1 H Seg Neuts % (Manual) Lymphocytes % (Manual) Monocytes % (Manual) Seg Neutrophils # 10.9 H Seg Neutrophils # Man Monocytes # (Manual) PT INR POC ABG pH 7.345 L POC ABG pCO2 54.1 H 50.2 H POC ABG pO2 78 L 145 H VBG pH Sodium Potassium Chloride Carbon Dioxide BUN Glucose Lactic Acid Calcium Magnesium AST ALT Total Creatine Kinase Troponin T Albumin Urine WBC (Auto) Vancomycin Trough Group A Strep Rapid 04/02/19 04/02/19 04/02/19 04:40 05:35 16:07 WBC RBC Hgb Hct MCV MCH Plt Count Lymph % (Auto) [place] % (Auto) Lymph # [place] # Baso # Seg Neutrophils % Seg Neuts % (Manual) Lymphocytes % (Manual) Monocytes % (Manual) Seg Neutrophils # Seg Neutrophils # Man Monocytes # (Manual) PT INR POC ABG pH 7.310 L POC ABG pCO2 45.4 H 68.5 H POC ABG pO2 137 H VBG pH Sodium Potassium 3.2 L Chloride 94.9 L Carbon Dioxide BUN 5 L Glucose Lactic Acid Calcium Magnesium AST ALT Total Creatine Kinase Troponin T Albumin 3.0 L Urine WBC (Auto) Vancomycin Trough Group A Strep Rapid 04/03/19 04/03/19 04/04/19 04:13 15:44 04:16 WBC 18.9 H RBC Hgb 10.7 L Hct 33.2 L MCV MCH 27 L Plt Count 509 H Lymph % (Auto) [place] % (Auto) Lymph # [place] # Baso # Seg Neutrophils % Seg Neuts % (Manual) Lymphocytes % (Manual) Monocytes % (Manual) Seg Neutrophils # Seg Neutrophils # Man Monocytes # (Manual) PT INR POC ABG pH 7.506 H 7.461 H POC ABG pCO2 45.8 H POC ABG pO2 143 H 109 H VBG pH Sodium Potassium Chloride Carbon Dioxide BUN Glucose Lactic Acid Calcium Magnesium AST ALT Total Creatine Kinase Troponin T Albumin Urine WBC (Auto) Vancomycin Trough Group A Strep Rapid 04/04/19 04/04/19 04/05/19 04:16 10:58 04:56 WBC 20.5 H RBC Hgb 10.8 L Hct 33.0 L MCV MCH Plt Count 546 H Lymph % (Auto) [place] % (Auto) Lymph # [place] # Baso # Seg Neutrophils % Seg Neuts % (Manual) 85.0 H Lymphocytes % (Manual) 7.0 L Monocytes % (Manual) 8.0 H Seg Neutrophils # Seg Neutrophils # Man 17.4 H Monocytes # (Manual) 1.6 H PT INR POC ABG pH POC ABG pCO2 POC ABG pO2 VBG pH Sodium Potassium Chloride Carbon Dioxide BUN 6 L Glucose Lactic Acid Calcium Magnesium AST ALT Total Creatine Kinase Troponin T Albumin Urine WBC (Auto) Vancomycin Trough 22.3 H Group A Strep Rapid 04/05/19 04/05/19 04/06/19 04:56 04:56 04:52 WBC 18.1 H RBC 3.52 L Hgb 9.7 L Hct 29.7 L MCV MCH Plt Count 519 H Lymph % (Auto) 8.3 L [place] % (Auto) 15.4 H Lymph # [place] # 2.8 H Baso # 0.2 H Seg Neutrophils % 73.2 H Seg Neuts % (Manual) Lymphocytes % (Manual) Monocytes % (Manual) Seg Neutrophils # 13.2 H Seg Neutrophils # Man Monocytes # (Manual) PT 15.4 H INR 1.25 H POC ABG pH POC ABG pCO2 POC ABG pO2 VBG pH Sodium 148 H Potassium 3.1 L D Chloride Carbon Dioxide BUN 7 L Glucose Lactic Acid Calcium Magnesium AST ALT Total Creatine Kinase Troponin T Albumin 3.3 L Urine WBC (Auto) Vancomycin Trough Group A Strep Rapid 04/06/19 04/06/19 04/06/19 04:52 04:52 13:42 WBC RBC Hgb Hct MCV MCH Plt Count Lymph % (Auto) [place] % (Auto) Lymph # [place] # Baso # Seg Neutrophils % Seg Neuts % (Manual) Lymphocytes % (Manual) Monocytes % (Manual) Seg Neutrophils # Seg Neutrophils # Man Monocytes # (Manual) PT INR POC ABG pH POC ABG pCO2 POC ABG pO2 VBG pH Sodium Potassium 2.7 L* 2.8 L* Chloride Carbon Dioxide BUN 5 L 5 L Glucose 137 H Lactic Acid Calcium Magnesium 1.60 L 1.60 L AST ALT Total Creatine Kinase Troponin T Albumin 2.9 L Urine WBC (Auto) Vancomycin Trough Group A Strep Rapid 04/07/19 04/07/19 04:05 08:48 WBC 13.6 H RBC 3.64 L Hgb 10.1 L Hct 30.3 L MCV 83 L MCH Plt Count 492 H Lymph % (Auto) [place] % (Auto) Lymph # [place] # Baso # Seg Neutrophils % Seg Neuts % (Manual) Lymphocytes % (Manual) Monocytes % (Manual) Seg Neutrophils # Seg Neutrophils # Man Monocytes # (Manual) PT INR POC ABG pH POC ABG pCO2 POC ABG pO2 VBG pH Sodium Potassium Chloride Carbon Dioxide BUN 5 L Glucose Lactic Acid Calcium 8.3 L Magnesium AST 43 H ALT Total Creatine Kinase Troponin T Albumin 2.6 L Urine WBC (Auto) Vancomycin Trough Group A Strep Rapid Allied health notes reviewed: nursing
[2019-04-07] MEDS: SODIUM CHLORIDE FLUSH SYRINGE 10 ML IV SCH (10:46)
[2019-04-07] MEDS: VIMPAT PO SCH ×2 (10:46→21:49)
[2019-04-07] MEDS: PEPCID PO SCH ×2 (12:10→21:49)
[2019-04-07] MEDS: FLOMAX PO SCH (12:10)
[2019-04-07] MEDS: LOVENOX SUB-Q SCH (12:10)
--- NOTE | 2019-04-07 12:14 | Magnetic Resonance Report ---
MR BRAIN WITH CONTRAST HISTORY: Seizure COMPARISON: Noncontrast MR brain dated 2018 TECHNIQUE: Multiplanar, multi sequential MRI images of the brain, obtained after administration of in travenous contrast. CONTRAST: 12 ml of MultiHance FINDINGS: Cerebral and Cerebellar Hemispheres: No evidence of mass or mass effect. No midline shift. No acute hemorrhage. No extra-axial fluid collection. No abnormal enhancement. Ventricles: Normal in size and configuration for age. Visualized Orbits: No significant abnormality. Visualized Paranasal Sinuses: No significant abnormality. Additional Findings: None IMPRESSION: Unremarkable MR brain with contrast. No abnormal enhancement or mass is identified. Signer Name: Jerardo Hendrix Jr, MD Signed: 04/07/2019 12:09 PM Workstation Name: [id number]
[2019-04-07] MEDS: COLACE FEEDTUBE SCH ×2 (12:21→21:48)
[2019-04-07 12:50] LABS: Band Neutrophils # (Manual) 0.1 K/mm3; Total Cells Counted 100
[2019-04-07 12:51] LABS: Anisocytosis Few; Platelet Estimate Consistent w Auto
--- NOTE | 2019-04-07 13:01 | Progress Note ---
Assessment and Plan Assessment and plan: 28-year-old man was recently diagnosed with seizure, discharge from the hospital on March 22 comes back today for evaluation of seizure. After he was discharged he had a seizure on the , mom stated that he's been compliant with his Vimpat. He was seen at [facility] and discharge. He also had another seizure at home on Wednesday and was then taken to [place], no change in his medication he was given a follow-up with urology clinic. Mom states that he smoked marijuana on the prior to the seizure. He is been having fevers at home since last night. He also had seizure in route to the hospital, was intubated in the emergency room for airway protection. * CSF NEGATIVE FOR BACTERIA MENINGITIS Acute respiratory failure was intubated, now extubated, off MV Sepsis Acute Metabolic Encephalopathy Status Epilepticus - resolved Breakthrough seizure episodes Sinus Tachycardia Acute on chronic seizure Pneumonia Plan Continue supportive care Acylovir discontinued MRI of Brain, unremmarkable Continue ceftriaxone 2 gm IV q 12 hour Vancomycin IV discontinued Clindamycin iv discontinued Neurology following. Discussed with Dr. Kinney Lacosamide dose increased Trileptal added DVT/GI PROPHY Discussed with patient and Father at bedside History Interval history: Patient extubated 04/04/19 Seizures yesterday and today Hospitalist Physical - Physical exam Narrative exam: Gen: Not in acute distress, sitting up in bed HEENT: Normocephalic, atraumatic Neck: supple, no JVD Heart: S1 and S2 reg, no murmurs, rubs or gallop Lungs: Clear to auscultation, no rhonchi, no wheeze Abd: soft, non tender, non distended, normal BS, Groin: right large inguinoscrotal hernia, Ext: No edema, no clubbing, no cyanosis Neuro: Awake, alert, oriented X 3, no focal neurological signs - Constitutional Vitals: Temp Pulse Resp BP Pulse Ox 98.2 F 80 18 144/88 100 04/07/19 08:36 04/07/19 10:00 04/07/19 10:00 04/07/19 08:36 04/07/19 10:00 General appearance: Present: no acute distress Results - Labs CBC & Chem 7: 04/08/19 06:35 04/08/19 06:35 Labs: Laboratory Last Values WBC 13.6 K/mm3 (4.5-11.0) H 04/07/19 08:48 RBC 3.64 M/mm3 (3.65-5.03) L 04/07/19 08:48 Hgb 10.1 gm/dl (11.8-15.2) L 04/07/19 08:48 Hct 30.3 % (35.5-45.6) L 04/07/19 08:48 MCV 83 fl (84-94) L 04/07/19 08:48 MCH 28 pg (28-32) 04/07/19 08:48 MCHC 33 % (32-34) 04/07/19 08:48 RDW 14.2 % (13.2-15.2) 04/07/19 08:48 Plt Count 492 K/mm3 (140-440) H 04/07/19 08:48 Lymph % (Auto) 8.3 % (13.4-35.0) L 04/06/19 04:52 Citrus % (Auto) 15.4 % (0.0-7.3) H 04/06/19 04:52 Eos % (Auto) 2.3 % (0.0-4.3) 04/06/19 04:52 Baso % (Auto) 0.8 % (0.0-1.8) 04/06/19 04:52 Lymph # 1.5 K/mm3 (1.2-5.4) 04/06/19 04:52 Citrus # 2.8 K/mm3 (0.0-0.8) H 04/06/19 04:52 Eos # 0.4 K/mm3 (0.0-0.4) 04/06/19 04:52 Baso # 0.2 K/mm3 (0.0-0.1) H 04/06/19 04:52 Add Manual Diff Complete 04/07/19 08:48 Total Counted 100 04/07/19 08:48 Seg Neutrophils % 73.2 % (40.0-70.0) H 04/06/19 04:52 Seg Neuts % (Manual) 85.0 % (40.0-70.0) H 04/07/19 08:48 Band Neutrophils % 1.0 % 04/07/19 08:48 Lymphocytes % (Manual) 5.0 % (13.4-35.0) L 04/07/19 08:48 Reactive Lymphs % (Man) 0 % 04/07/19 08:48 Monocytes % (Manual) 3.0 % (0.0-7.3) 04/07/19 08:48 Eosinophils % (Manual) 2.0 % (0.0-4.3) 04/07/19 08:48 Basophils % (Manual) 1.0 % (0.0-1.8) 04/07/19 08:48 Metamyelocytes % 3.0 % 04/07/19 08:48 Myelocytes % 0 % 04/07/19 08:48 Promyelocytes % 0 % 04/07/19 08:48 Blast Cells % 0 % 04/07/19 08:48 Nucleated RBC % Not Reportable 04/07/19 08:48 Seg Neutrophils # 13.2 K/mm3 (1.8-7.7) H 04/06/19 04:52 Seg Neutrophils # Man 11.6 K/mm3 (1.8-7.7) H 04/07/19 08:48 Band Neutrophils # 0.1 K/mm3 04/07/19 08:48 Lymphocytes # (Manual) 0.7 K/mm3 (1.2-5.4) L 04/07/19 08:48 Abs React Lymphs (Man) 0.0 K/mm3 04/07/19 08:48 Monocytes # (Manual) 0.4 K/mm3 (0.0-0.8) 04/07/19 08:48 Eosinophils # (Manual) 0.3 K/mm3 (0.0-0.4) 04/07/19 08:48 Basophils # (Manual) 0.1 K/mm3 (0.0-0.1) 04/07/19 08:48 Metamyelocytes # 0.4 K/mm3 04/07/19 08:48 Myelocytes # 0.0 K/mm3 04/07/19 08:48 Promyelocytes # 0.0 K/mm3 04/07/19 08:48 Blast Cells # 0.0 K/mm3 04/07/19 08:48 WBC Morphology Not Reportable 04/07/19 08:48 Hypersegmented Neuts Not Reportable 04/07/19 08:48 Hyposegmented Neuts Not Reportable 04/07/19 08:48 Hypogranular Neuts Not Reportable 04/07/19 08:48 Smudge Cells Not Reportable 04/07/19 08:48 Toxic Granulation Not Reportable 04/07/19 08:48 Toxic Vacuolation Not Reportable 04/07/19 08:48 Dohle Bodies Not Reportable 04/07/19 08:48 Pelger-Huet Anomaly Not Reportable 04/07/19 08:48 Zbigniew Rods Not Reportable 04/07/19 08:48 Platelet Estimate Consistent w auto 04/07/19 08:48 Clumped Platelets Not Reportable 04/07/19 08:48 Plt Clumps, EDTA Not Reportable 04/07/19 08:48 Large Platelets Not Reportable 04/07/19 08:48 Giant Platelets Not Reportable 04/07/19 08:48 Platelet Satelliting Not Reportable 04/07/19 08:48 Plt Morphology Comment Not Reportable 04/07/19 08:48 RBC Morphology Not Reportable 04/07/19 08:48 Dimorphic RBCs Not Reportable 04/07/19 08:48 Polychromasia Not Reportable 04/07/19 08:48 Hypochromasia Not Reportable 04/07/19 08:48 Poikilocytosis Not Reportable 04/07/19 08:48 Anisocytosis Few 04/07/19 08:48 Microcytosis Not Reportable 04/07/19 08:48 Macrocytosis Not Reportable 04/07/19 08:48 Spherocytes Not Reportable 04/07/19 08:48 Pappenheimer Bodies Not Reportable 04/07/19 08:48 Sickle Cells Not Reportable 04/07/19 08:48 Target Cells Not Reportable 04/07/19 08:48 Tear Drop Cells Not Reportable 04/07/19 08:48 Ovalocytes Not Reportable 04/07/19 08:48 Stomatocytes Rare 04/05/19 04:56 Helmet Cells Not Reportable 04/07/19 08:48 [place] Bodies Not Reportable 04/07/19 08:48 Freedom Rings Not Reportable 04/07/19 08:48 Zamzam Cells Not Reportable 04/07/19 08:48 Bite Cells Not Reportable 04/07/19 08:48 Crenated Cell Not Reportable 04/07/19 08:48 Elliptocytes Not Reportable 04/07/19 08:48 Acanthocytes (Spur) Not Reportable 04/07/19 08:48 Rouleaux Not Reportable 04/07/19 08:48 Hemoglobin C Crystals Not Reportable 04/07/19 08:48 Schistocytes Not Reportable 04/07/19 08:48 Malaria parasites Not Reportable 04/07/19 08:48 Erich Bodies Not Reportable 04/07/19 08:48 Hem Pathologist Commnt No 04/07/19 08:48 PT 15.4 Sec. (12.2-14.9) H 04/05/19 04:56 INR 1.25 (0.87-1.13) H 04/05/19 04:56 INR Cancelled 03/29/19 18:29 APTT 29.5 Sec. (24.2-36.6) 03/29/19 18:29 PT Patient/Control Mix Cancelled 03/29/19 18:29 PT Pat/Norm 1:1 5 min Cancelled 03/29/19 18:29 PT Pat/Norm 1:1 1 Hr Cancelled 03/29/19 18:29 POC ABG pH 7.461 (7.35-7.45) H 04/03/19 15:44 POC ABG pCO2 45.8 (35-45) H 04/03/19 15:44 POC ABG pO2 109 (80-105) H 04/03/19 15:44 POC ABG HCO3 32.6 (22-26 mml/L) 04/03/19 15:44 POC ABG Total CO2 34 (23-27mmol/L) 04/03/19 15:44 POC ABG O2 Sat 98 04/03/19 15:44 POC ABG Base Excess 9 ((-2) - (+3)mmol/L) 04/03/19 15:44 VBG pH 7.269 (7.320-7.420) L 03/29/19 19:09 FiO2 25 % 04/03/19 15:44 Sodium 138 mmol/L (137-145) 04/07/19 04:05 Potassium 3.7 mmol/L (3.6-5.0) D 04/07/19 04:05 Chloride 101.5 mmol/L (98-107) 04/07/19 04:05 Carbon Dioxide 24 mmol/L (22-30) 04/07/19 04:05 Anion Gap 16 mmol/L 04/07/19 04:05 BUN 5 mg/dL (9-20) L 04/07/19 04:05 Creatinine 1.1 mg/dL (0.8-1.5) 04/07/19 04:05 Estimated GFR > 60 ml/min 04/07/19 04:05 BUN/Creatinine Ratio 5 % 04/07/19 04:05 Glucose 87 mg/dL (75-100) 04/07/19 04:05 POC Glucose 89 (70-105) 04/03/19 12:44 Lactic Acid 1.90 mmol/L (0.7-2.0) 03/30/19 05:11 Calcium 8.3 mg/dL (8.4-10.2) L 04/07/19 04:05 Phosphorus 3.10 mg/dL (2.5-4.5) 04/06/19 13:42 Magnesium 2.30 mg/dL (1.7-2.3) 04/07/19 08:48 Total Bilirubin < 0.20 mg/dL (0.1-1.2) 04/07/19 04:05 AST 43 units/L (5-40) H 04/07/19 04:05 ALT 44 units/L (7-56) 04/07/19 04:05 Alkaline Phosphatase 50 units/L (35-129) 04/07/19 04:05 Total Creatine Kinase 173 units/L (55-170) H 03/30/19 07:17 CK-MB (CK-2) 2.8 ng/mL (0.0-4.0) 03/30/19 07:17 CK-MB (CK-2) Rel Index 1.6 (0-4) 03/30/19 07:17 Troponin T 0.039 ng/mL (0.00-0.029) H 03/30/19 07:17 Total Protein 6.5 g/dL (6.3-8.2) 04/07/19 04:05 Albumin 2.6 g/dL (3.9-5) L 04/07/19 04:05 Albumin/Globulin Ratio 0.7 % 04/07/19 04:05 Triglycerides 63 mg/dL (2-149) 03/29/19 18:29 Cholesterol 177 mg/dL (50-199) 03/29/19 18: LDL Cholesterol Direct 119 mg/dL (50-130) 03/29/19 18: HDL Cholesterol 56 mg/dL (40-59) 03/29/19 18: Cholesterol/HDL Ratio 3.16 % 03/29/19 18:29 Urine Color Yellow (Yellow) 03/29/19: Urine Turbidity Slightly-cloudy (Clear) 03/29/19: Urine pH 5.0 (5.0-7.0) 03/29/19 Ur Specific [place] 1.011 (1.003-1.030) 03/29/19: Urine Protein 100 mg/dl mg/dL (Negative) 03/29/19 Urine Glucose (UA) Neg mg/dL (Negative) 03/29/19 Urine Ketones Neg mg/dL (Negative) 03/29/19: Urine Blood Sm (Negative) 03/29/19: Urine Nitrite Neg (Negative) 03/29/19: Urine Bilirubin Neg (Negative) 03/29/19: Urine Urobilinogen < 2.0 mg/dL (<2.0) 03/29/19: Ur Leukocyte Esterase Neg (Negative) 03/29/19 Urine WBC (Auto) 9.0 /HPF (0.0-6.0) H 03/29/19: Urine RBC (Auto) 3.0 /HPF (0.0-6.0) 03/29/19: U Epithel Cells (Auto) < 1.0 /HPF (0-13.0) 03/29/19 Urine Bacteria (Auto) 1+ /HPF (Negative) 03/29/19: Urine Mucus Few /HPF 03/29/19: CSF Appearance Clear 03/30/19 Unknown CSF Color Colorless 03/30/19 Unknown CSF WBC 18 /mm3 (1-10) 03/30/19 Unknown CSF RBC 10 /mm3 (0-0) 03/30/19 Unknown CSF Seg Neutrophils 4.0 % (0-6) 03/30/19 Unknown CSF Lymphocytes % 92.0 % (40-80) 03/30/19 Unknown CSF Reactive Lymphs 0 % 03/30/19 Unknown CSF Monocytes % 4.0 % (15-45) 03/30/19 Unknown CSF Eosinophils % 0 % 03/30/19 Unknown CSF Basophils 0 % 03/30/19 Unknown CSF Pathologist Review C 03/30/19 Unknown CSF Glucose 75 mg/dL 03/30/19 Unknown CSF Total Protein 61 mg/dL 03/30/19 Unknown Vancomycin Trough 22.3 ug/mL (5.0-20.0) H 04/04/19 10:58 Urine Opiates Screen Presumptive negative 03/29/19 19:27 Urine Methadone Screen Presumptive negative 03/29/19 19:27 Ur Barbiturates Screen Presumptive negative 03/29/19 19:27 Ur Phencyclidine Scrn Presumptive negative 03/29/19 19:27 Ur Amphetamines Screen Presumptive negative 03/29/19 19:27 U Benzodiazepines Scrn Presumptive positive 03/29/19 19:27 Urine Cocaine Screen Presumptive negative 03/29/19 19:27 U Marijuana (THC) Screen Presumptive negative 03/29/19 19:27 Drugs of Abuse Note Disclamer 03/29/19 19:27 RPR Nonreactive (Nonreactive) 03/31/19 11:17 Influenza A (Rapid) Negative (Negative) 03/29/19 Unknown Influenza B (Rapid) Negative (Negative) 03/29/19 Unknown Group A Strep Rapid Positive (Negative) A 03/29/19 Unknown Miscellaneous Test Flexitest 1 03/30/19 Unknown Active Medications - Current Medications Current Medications: Generic Name Dose Route Start Last Admin Trade Name Freq PRN Reason Stop Dose Admin Acetaminophen 650 mg 03/30/19 01:27 04/02/19 09:15 Tylenol PO 650 mg Q4H PRN Administration Pain MILD(1-3)/Fever >100.5/LICONA Albuterol 2.5 mg 03/30/19 14:00 Proventil IH Q4HRT PRN Shortness Of Breath Docusate Sodium 100 mg 04/04/19 13:00 04/07/19 12:21 Colace FEEDTUBE Not Given BID RENÉ Enoxaparin Sodium 40 mg 03/30/19 10:00 04/07/19 12:10 Lovenox SUB-Q 40 mg QDAY@1000 RENÉ Administration Famotidine 20 mg 04/06/19 10:00 04/07/19 12:10 Pepcid PO 20 mg BID RENÉ Administration Hydromorphone HCl 0.5 mg 04/03/19 07:30 04/03/19 07:58 Dilaudid IV 0.5 mg Q3H PRN Administration Pain , Severe (7-10) Hydrophilic Ointment 1 applic 03/30/19 14:51 Vaseline Lip Therapy TP Q2HR PRN Dry Lips Ceftriaxone Sodium 2 gm in 100 mls @ 200 mls/hr 03/31/19 10:00 04/07/19 12:09 Rocephin/Ns 2 Gm/100 Ml IV 04/09/19 23:59 200 mls/hr Q12HR RENÉ Administration Protocol Lacosamide 200 mg 04/07/19 10:00 04/07/19 10:46 Vimpat PO 200 mg Q12HR RENÉ Administration Lorazepam 2 mg 03/30/19 12:10 04/06/19 16:09 Ativan IV 2 mg Q1H PRN Administration Agitation Multi-Ingred Cream/Lotion/Oil/Oint 1 applic 03/30/19 14:51 Artificial Tears Ophth Oint OU Q4HR PRN Dry Eye(s) Ondansetron HCl 4 mg 03/30/19 01:27 04/02/19 02:50 Zofran IV 4 mg Q4H PRN Administration Nausea And Vomiting Quetiapine Fumarate 50 mg 04/02/19 22:00 04/07/19 12:10 Seroquel PO 50 mg BID RENÉ Administration Sodium Chloride 10 ml 03/30/19 10:00 04/07/19 10:46 Sodium Chloride Flush Syringe 10 Ml IV 10 ml BID RENÉ Administration Sodium Chloride 10 ml 03/30/19 01:27 Sodium Chloride Flush Syringe 10 Ml IV PRN PRN LINE FLUSH Tamsulosin HCl 0.4 mg 04/04/19 13:00 04/07/19 12:10 Flomax PO 0.4 mg QDAY RENÉ Administration Nutrition/Malnutrition Assess - Dietary Evaluation Nutrition/Malnutrition Findings: Nutrition Notes Start: 03/30/19 12:41 Freq: Status: Active Protocol: Document 04/07/19 09:32 PS (Rec: 04/07/19 10:15 PS [id number]) Co-Sign 04/07/19 09:32 LM Nutrition Notes Initial or Follow up Reassessment Current Diagnosis Respiratory Failure Other Pertinent Diagnosis Seizures, Pneu Current Diet Regular Mechanical Soft Diet Labs/Tests BUN 5 Ca 8.3 Pertinent Medications Reviewed Height 5 ft 9 in Weight 62.3 kg Pauline Body Weight (kg) 72.72 BMI 20.2 Subjective/Other Information Follow up for diet advancement . Pt. on regular diet, but having trouble chewing. Pt. requested a different meal and at 100% of that small meal ( 04/06). Mechanical soft diet ordered. Percent of energy/protein needs met: 30%/43% Burn Present Trauma Present Minimum of two criteria No #1 Nutrition Diagnosis Inadequate oral intake Diagnosis Progress(for reassessment Continues documentation) Is patient on ventilator? No Is Patient Ambulatory and/or Out of Bed No REE-([facility]-confined to bed) 4136.084 Calculation Used for Recommendations [facility] Additional Notes PRO needs: 50g-62g/kg (0.8g-1g /kg) Fluid needs: 1mL/kcal Nutrition Intervention Change Diet Order: Regular Mechanical Soft Diet Add Supplement/Snack (indicate name/kcal Ensure Enlive Slaughters Daily /protein ) Provides kCal: 350 Provides Protein (gm) 20 Goal #1 Meet at least 75% of energy and protein needs Anticipated Discharge Needs: Regular Diet Follow-Up By: 04/10/19 Additional Comments F/U for PO/ONS intakes
[2019-04-07] MEDS: TRILEPTAL PO SCH ×2 (13:55→21:49)
--- NOTE | 2019-04-07 14:19 | Ultrasound Report ---
SCROTAL ULTRASOUND WITH DOPPLER HISTORY: scrotal swelling, rule out tumor COMPARISON: None. TECHNIQUE: Grayscale, color and spectral Doppler images were obtained of the scrotum. FINDINGS: RIGHT: Right testicle: No significant abnormality. No mass. Right testicular size: 3.7 x 2.4 x 3.4 cm. Right epididymis: No significant abnormality. LEFT: Left testicle: No significant abnormality. No mass. Left testicular size: 4.1 x 1.9 x 2.6 cm. Left epididymis: No significant abnormality. Small right hydrocele is identified. There is a heterogeneous ovoid structure superior to the right testicle measuring 5.6 x 3.1 x 4.5 cm. Echogenicity is similar to fat. This may represent a right inguinal hernia containing fat. No obviou s bowel loops are appreciated. Spectral Doppler waveforms demonstrate arterial flow to both testes. IMPRESSION: Unremarkable testes and epididymides. No evidence for testicular mass or torsion. Heterogeneous structure seen superior to the right testicle may represent a right inguinal hernia con taining fat. Please correlate with the patient's clinical presentation. Small right hydrocele. Signer Name: Jerardo Hendrix Jr, MD Signed: 04/07/2019 2:14 PM Workstation Name: [id number]
--- NOTE | 2019-04-07 15:39 | Progress Note ---
Assessment and Plan Patient is a 28 y/o man w/ a h/o seizures which first began in February 2019. Patient was admitted with fever, sepsis, seizures, and was placed on Abx at that time. Patient was ultimately discharged on Vimpat on 03/22/19, and had tolerated this well, until he began having more seizures. The patient was then taken to [place], where he was given vimpat, and discharged. Patient was admitted to [facility] on 03/29/19, with seizures, and was found to have ALINE, lactic acidosis, fever, sepsis. Patient was intubated for respiratory failure, and ultimately extubated. According to the patient's clinical findings, he has seizures. Etiology of seizures is uncertain at this time. CSF has not shown any evidence of HSV. Plan: 1. Seizures: - Cont. Vimpat to 200mg BID - As patient continues to have seizures, added Oxcarbazepine 300mg BID. Patient will require for CBC and LFTs to be checked in one month, for monitoring while on this medication. - Patient did not tolerate keppra previously - MRI brain w/ contrast was unremarkable. - CSF: 18 WBC, 92% lymphocytes, 61 protein, no evidence HSV. - Recommend for ID to consider other viral etiologies, such as [place]. - Recommend ultrasound of scrotum/testicles, to rule out testicular mass, as some testicular cancers can cause auto-immune anti-body mediated seizures and encephalitis. - If patient has seizures, give ativan 1mg IV stat. If seizure does not resolve within 2 minutes of first dose, can repeat x1. Please call primary and neurology stat if patient has seizures. - Will sign off as I am not covering neurology service over the weekend. Recommend for neurologist who is covering weekend to be consulted for further neurologic monitoring/management. Thank you for allowing me to take part in the care of this patient. Bennett Kinney MD Neurology Subjective Date of service: 04/07/19 Principal diagnosis: Ac. Resp failure; Seizures; Ac. Encephalopathy; Abnormal CSF (? herpes) Interval history: Patient had a seizure-like event today, in which patient became confused and was staring off to the right. Episode lasted about 5-10 minutes, after which patient became more conversant. Objective - Exam Narrative Exam: Patient is alert, awake, oriented x4, follows complex commands. PERRL, VFF, EOMI, no facila weakness noted, tongue midline, b/l intact to LT. 5/5 strength in all extremities. 2+ reflexes throughout. No dysarhtria or aphasia noted. B/l intact to LT. B/l intact to FTN and HTS. Noted to have a scrotal swelling. - Vital Sign Vital Signs - 12hr 04/07/19 04/07/19 04/07/19 04:07 08:36 10:00 Temperature 98.5 F 98.2 F Pulse Rate 88 80 81 Pulse Rate [ 80 From Monitor] Pulse Rate [ 80 Left Radial] Pulse Rate [ 80 Right Radial] Respiratory 18 18 18 Rate Blood Pressure 141/91 144/88 O2 Sat by Pulse 98 99 100 Oximetry 04/07/19 13:56 Temperature Pulse Rate Pulse Rate [ From Monitor] Pulse Rate [ Left Radial] Pulse Rate [ Right Radial] Respiratory Rate Blood Pressure O2 Sat by Pulse 100 Oximetry - General Apperance Constitutional: comfortable - EENT EENT: ATNC, PERRL, mucous membranes moist, hearing intact, vision intact - Respiratory Respiratory: lungs clear, normal breath sounds - Cardiovascular Cardiovascular: regular rate, normal S1, normal S2 Extremities: no clubbing, cyanosis, no inflammation - Gastrointestinal Gastrointestinal: normoactive bowel sounds, soft, non-tender - Integumentary Integumentary: normal - Musculoskeletal Musculoskeletal: no fluid collection, no pain - Psychiatric Psychiatric: mood/affect appropriate - Laboratory Findings CBC and BMP: 04/07/19 08:48 04/07/19 04:05 Abnormal Lab Findings: Abnormal Labs 03/29/19 03/29/19 03/29/19 18:29 18:29 18:29 WBC 19.4 H RBC Hgb Hct MCV MCH Plt Count Lymph % (Auto) [place] % (Auto) Lymph # [place] # Baso # Seg Neutrophils % Seg Neuts % (Manual) 72.0 H Lymphocytes % (Manual) Monocytes % (Manual) 8.0 H Seg Neutrophils # Seg Neutrophils # Man 14.0 H Lymphocytes # (Manual) Monocytes # (Manual) 1.6 H PT INR POC ABG pH POC ABG pCO2 POC ABG pO2 VBG pH Sodium 136 L Potassium Chloride 90.6 L Carbon Dioxide 13 L BUN Glucose 154 H Lactic Acid 17.50 H* Calcium Magnesium AST ALT 81 H Total Creatine Kinase Troponin T Albumin Urine WBC (Auto) Vancomycin Trough Group A Strep Rapid 03/29/19 03/29/19 03/29/19 18:29 19:09 19:27 WBC RBC Hgb Hct MCV MCH Plt Count Lymph % (Auto) [place] % (Auto) Lymph # [place] # Baso # Seg Neutrophils % Seg Neuts % (Manual) Lymphocytes % (Manual) Monocytes % (Manual) Seg Neutrophils # Seg Neutrophils # Man Lymphocytes # (Manual) Monocytes # (Manual) PT INR POC ABG pH POC ABG pCO2 POC ABG pO2 VBG pH 7.269 L Sodium Potassium Chloride Carbon Dioxide BUN Glucose Lactic Acid Calcium Magnesium AST ALT Total Creatine Kinase Troponin T 0.031 H Albumin Urine WBC (Auto) 9.0 H Vancomycin Trough Group A Strep Rapid 03/29/19 03/29/19 03/29/19 19:33 20:27 21:01 WBC RBC Hgb Hct MCV MCH Plt Count Lymph % (Auto) [place] % (Auto) Lymph # [place] # Baso # Seg Neutrophils % Seg Neuts % (Manual) Lymphocytes % (Manual) Monocytes % (Manual) Seg Neutrophils # Seg Neutrophils # Man Lymphocytes # (Manual) Monocytes # (Manual) PT INR POC ABG pH POC ABG pCO2 POC ABG pO2 170 H VBG pH Sodium Potassium Chloride Carbon Dioxide BUN Glucose Lactic Acid 3.80 H* 4.10 H* Calcium Magnesium AST ALT Total Creatine Kinase Troponin T Albumin Urine WBC (Auto) Vancomycin Trough Group A Strep Rapid 03/29/19 03/29/19 03/30/19 23:46 Unknown 04:08 WBC RBC Hgb Hct MCV MCH Plt Count Lymph % (Auto) [place] % (Auto) Lymph # [place] # Baso # Seg Neutrophils % Seg Neuts % (Manual) Lymphocytes % (Manual) Monocytes % (Manual) Seg Neutrophils # Seg Neutrophils # Man Lymphocytes # (Manual) Monocytes # (Manual) PT INR POC ABG pH POC ABG pCO2 POC ABG pO2 VBG pH Sodium Potassium Chloride Carbon Dioxide BUN Glucose Lactic Acid 2.10 H* Calcium Magnesium AST ALT Total Creatine Kinase 172 H Troponin T 0.033 H Albumin Urine WBC (Auto) Vancomycin Trough Group A Strep Rapid Positive A 03/30/19 03/30/19 03/30/19 04:45 05:21 07:17 WBC 20.8 H RBC Hgb 10.9 L Hct 33.5 L MCV MCH Plt Count Lymph % (Auto) [place] % (Auto) Lymph # [place] # Baso # Seg Neutrophils % Seg Neuts % (Manual) 85.0 H Lymphocytes % (Manual) 8.0 L Monocytes % (Manual) Seg Neutrophils # Seg Neutrophils # Man 17.7 H Lymphocytes # (Manual) Monocytes # (Manual) PT INR POC ABG pH POC ABG pCO2 POC ABG pO2 172 H VBG pH Sodium Potassium Chloride Carbon Dioxide BUN Glucose Lactic Acid Calcium Magnesium AST ALT Total Creatine Kinase 173 H Troponin T 0.039 H Albumin Urine WBC (Auto) Vancomycin Trough Group A Strep Rapid 03/31/19 03/31/19 03/31/19 04:24 04:24 04:27 WBC 17.9 H RBC Hgb 10.7 L Hct 32.4 L MCV MCH Plt Count Lymph % (Auto) [place] % (Auto) Lymph # [place] # Baso # Seg Neutrophils % Seg Neuts % (Manual) Lymphocytes % (Manual) Monocytes % (Manual) Seg Neutrophils # Seg Neutrophils # Man Lymphocytes # (Manual) Monocytes # (Manual) PT INR POC ABG pH 7.324 L POC ABG pCO2 51.9 H POC ABG pO2 VBG pH Sodium Potassium Chloride Carbon Dioxide BUN 7 L Glucose 108 H Lactic Acid Calcium Magnesium AST ALT Total Creatine Kinase Troponin T Albumin 3.3 L Urine WBC (Auto) Vancomycin Trough Group A Strep Rapid 03/31/19 04/01/19 04/02/19 20:54 22:40 04:40 WBC 13.7 H RBC 3.33 L Hgb 9.5 L Hct 28.0 L MCV MCH Plt Count Lymph % (Auto) 4.7 L [place] % (Auto) 12.7 H Lymph # 0.7 L [place] # 1.7 H Baso # Seg Neutrophils % 79.1 H Seg Neuts % (Manual) Lymphocytes % (Manual) Monocytes % (Manual) Seg Neutrophils # 10.9 H Seg Neutrophils # Man Lymphocytes # (Manual) Monocytes # (Manual) PT INR POC ABG pH 7.345 L POC ABG pCO2 54.1 H 50.2 H POC ABG pO2 78 L 145 H VBG pH Sodium Potassium Chloride Carbon Dioxide BUN Glucose Lactic Acid Calcium Magnesium AST ALT Total Creatine Kinase Troponin T Albumin Urine WBC (Auto) Vancomycin Trough Group A Strep Rapid 04/02/19 04/02/19 04/02/19 04:40 05:35 16:07 WBC RBC Hgb Hct MCV MCH Plt Count Lymph % (Auto) [place] % (Auto) Lymph # [place] # Baso # Seg Neutrophils % Seg Neuts % (Manual) Lymphocytes % (Manual) Monocytes % (Manual) Seg Neutrophils # Seg Neutrophils # Man Lymphocytes # (Manual) Monocytes # (Manual) PT INR POC ABG pH 7.310 L POC ABG pCO2 45.4 H 68.5 H POC ABG pO2 137 H VBG pH Sodium Potassium 3.2 L Chloride 94.9 L Carbon Dioxide BUN 5 L Glucose Lactic Acid Calcium Magnesium AST ALT Total Creatine Kinase Troponin T Albumin 3.0 L Urine WBC (Auto) Vancomycin Trough Group A Strep Rapid 04/03/19 04/03/19 04/04/19 04:13 15:44 04:16 WBC 18.9 H RBC Hgb 10.7 L Hct 33.2 L MCV MCH 27 L Plt Count 509 H Lymph % (Auto) [place] % (Auto) Lymph # [place] # Baso # Seg Neutrophils % Seg Neuts % (Manual) Lymphocytes % (Manual) Monocytes % (Manual) Seg Neutrophils # Seg Neutrophils # Man Lymphocytes # (Manual) Monocytes # (Manual) PT INR POC ABG pH 7.506 H 7.461 H POC ABG pCO2 45.8 H POC ABG pO2 143 H 109 H VBG pH Sodium Potassium Chloride Carbon Dioxide BUN Glucose Lactic Acid Calcium Magnesium AST ALT Total Creatine Kinase Troponin T Albumin Urine WBC (Auto) Vancomycin Trough Group A Strep Rapid 04/04/19 04/04/19 04/05/19 04:16 10:58 04:56 WBC 20.5 H RBC Hgb 10.8 L Hct 33.0 L MCV MCH Plt Count 546 H Lymph % (Auto) [place] % (Auto) Lymph # [place] # Baso # Seg Neutrophils % Seg Neuts % (Manual) 85.0 H Lymphocytes % (Manual) 7.0 L Monocytes % (Manual) 8.0 H Seg Neutrophils # Seg Neutrophils # Man 17.4 H Lymphocytes # (Manual) Monocytes # (Manual) 1.6 H PT INR POC ABG pH POC ABG pCO2 POC ABG pO2 VBG pH Sodium Potassium Chloride Carbon Dioxide BUN 6 L Glucose Lactic Acid Calcium Magnesium AST ALT Total Creatine Kinase Troponin T Albumin Urine WBC (Auto) Vancomycin Trough 22.3 H Group A Strep Rapid 04/05/19 04/05/19 04/06/19 04:56 04:56 04:52 WBC 18.1 H RBC 3.52 L Hgb 9.7 L Hct 29.7 L MCV MCH Plt Count 519 H Lymph % (Auto) 8.3 L [place] % (Auto) 15.4 H Lymph # [place] # 2.8 H Baso # 0.2 H Seg Neutrophils % 73.2 H Seg Neuts % (Manual) Lymphocytes % (Manual) Monocytes % (Manual) Seg Neutrophils # 13.2 H Seg Neutrophils # Man Lymphocytes # (Manual) Monocytes # (Manual) PT 15.4 H INR 1.25 H POC ABG pH POC ABG pCO2 POC ABG pO2 VBG pH Sodium 148 H Potassium 3.1 L D Chloride Carbon Dioxide BUN 7 L Glucose Lactic Acid Calcium Magnesium AST ALT Total Creatine Kinase Troponin T Albumin 3.3 L Urine WBC (Auto) Vancomycin Trough Group A Strep Rapid 04/06/19 04/06/19 04/06/19 04:52 04:52 13:42 WBC RBC Hgb Hct MCV MCH Plt Count Lymph % (Auto) [place] % (Auto) Lymph # [place] # Baso # Seg Neutrophils % Seg Neuts % (Manual) Lymphocytes % (Manual) Monocytes % (Manual) Seg Neutrophils # Seg Neutrophils # Man Lymphocytes # (Manual) Monocytes # (Manual) PT INR POC ABG pH POC ABG pCO2 POC ABG pO2 VBG pH Sodium Potassium 2.7 L* 2.8 L* Chloride Carbon Dioxide BUN 5 L 5 L Glucose 137 H Lactic Acid Calcium Magnesium 1.60 L 1.60 L AST ALT Total Creatine Kinase Troponin T Albumin 2.9 L Urine WBC (Auto) Vancomycin Trough Group A Strep Rapid 04/07/19 04/07/19 04:05 08:48 WBC 13.6 H RBC 3.64 L Hgb 10.1 L Hct 30.3 L MCV 83 L MCH Plt Count 492 H Lymph % (Auto) [place] % (Auto) Lymph # [place] # Baso # Seg Neutrophils % Seg Neuts % (Manual) 85.0 H Lymphocytes % (Manual) 5.0 L Monocytes % (Manual) Seg Neutrophils # Seg Neutrophils # Man 11.6 H Lymphocytes # (Manual) 0.7 L Monocytes # (Manual) PT INR POC ABG pH POC ABG pCO2 POC ABG pO2 VBG pH Sodium Potassium Chloride Carbon Dioxide BUN 5 L Glucose Lactic Acid Calcium 8.3 L Magnesium AST 43 H ALT Total Creatine Kinase Troponin T Albumin 2.6 L Urine WBC (Auto) Vancomycin Trough Group A Strep Rapid
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
[2019-04-07] MEDS: ATIVAN IV PRN (19:25)
[2019-04-08 07:18] LABS: Hematocrit 30.4 % (35.5-45.6); Hemoglobin 10.1 gm/dl (11.8-15.2); Mean Corpuscular HGB Conc 33 % (32-34); Mean Corpuscular Volume 84 fl (84-94); Platelet Count 529 K/mm3 (140-440); Red Blood Count 3.63 M/mm3 (3.65-5.03); Red Cell Distribution Width 14.4 % (13.2-15.2)
[2019-04-08 07:25] LABS: BUN/Creatinine Ratio 6; Blood Urea Nitrogen 6 mg/dL (9-20); Hemolysis Index 27
[2019-04-08] MEDS: PEPCID PO SCH ×2 (09:54→22:01)
[2019-04-08] MEDS: FLOMAX PO SCH (09:54)
[2019-04-08] MEDS: VIMPAT PO SCH ×2 (09:56→22:01)
[2019-04-08] MEDS: TRILEPTAL PO SCH ×2 (09:56→22:02)
[2019-04-08] MEDS: LOVENOX SUB-Q SCH (09:56)
[2019-04-08] MEDS: ROCEPHIN/NS 2 GM/100 ML 2 GM/100 ML BAG IV SCH ×2 (09:57→22:02)
[2019-04-08] MEDS: SODIUM CHLORIDE FLUSH SYRINGE 10 ML IV SCH ×2 (10:37→22:02)
[2019-04-08] MEDS: COLACE FEEDTUBE SCH ×2 (10:38→22:01)
--- NOTE | 2019-04-08 11:59 | Consultation ---
History of Present Illness Consult date: 04/08/19 History of present illness: see my dictated note and went over the repeat MRIand it is normal I did check the CSF studies and this could be post viral or post seizure patient has small seizure earlier but stable at this point Medications and Allergies Allergies Allergy/AdvReac Type Severity Reaction Status Date / Time levetiracetam [From [facility]] AdvReac Severe Unknown Verified 03/29/19 19:02 Home Medications Medication Instructions Recorded Confirmed Last Taken Type Lacosamide [Vimpat] 150 mg PO Q12HR@0800,1999 #90 03/22/19 03/29/19 03/29/19 08:00 Rx tablet Active Meds: Active Medications Acetaminophen (Tylenol) 650 mg PO Q4H PRN PRN Reason: Pain MILD(1-3)/Fever >100.5/LICONA Last Admin: 04/02/19 09:15 Dose: 650 mg Documented by: Albuterol (Proventil) 2.5 mg IH Q4HRT PRN PRN Reason: Shortness Of Breath Docusate Sodium (Colace) 100 mg FEEDTUBE BID [facility] Last Admin: 04/07/19 21:48 Dose: 100 mg Documented by: Enoxaparin Sodium (Lovenox) 40 mg SUB-Q QDAY@1000 RENÉ Last Admin: 04/08/19 09:56 Dose: 40 mg Documented by: Famotidine (Pepcid) 20 mg PO BID [facility] Last Admin: 04/08/19 09:54 Dose: 20 mg Documented by: Hydromorphone HCl (Dilaudid) 0.5 mg IV Q3H PRN PRN Reason: Pain , Severe (7-10) Last Admin: 04/03/19 07:58 Dose: 0.5 mg Documented by: Hydrophilic Ointment (Vaseline Lip Therapy) 1 applic TP Q2HR PRN PRN Reason: Dry Lips Ceftriaxone Sodium (Rocephin/Ns 2 Gm/100 Ml) 2 gm in 100 mls @ 200 mls/hr IV Q12HR [facility]; Protocol Stop: 04/09/19 23:59 Last Admin: 04/08/19 09:57 Dose: 200 mls/hr Documented by: Lacosamide (Vimpat) 200 mg PO Q12HR [facility] Last Admin: 04/08/19 09:56 Dose: 200 mg Documented by: Lorazepam (Ativan) 2 mg IV Q1H PRN PRN Reason: Agitation Last Admin: 04/07/19 19:25 Dose: 2 mg Documented by: Multi-Ingred Cream/Lotion/Oil/Oint (Artificial Tears Ophth Oint) 1 applic OU Q4HR PRN PRN Reason: Dry Eye(s) Ondansetron HCl (Zofran) 4 mg IV Q4H PRN PRN Reason: Nausea And Vomiting Last Admin: 04/02/19 02:50 Dose: 4 mg Documented by: Oxcarbazepine (Trileptal) 300 mg PO BID [facility] Last Admin: 04/08/19 09:56 Dose: 300 mg Documented by: Quetiapine Fumarate (Seroquel) 50 mg PO BID [facility] Last Admin: 04/08/19 09:54 Dose: 50 mg Documented by: Sodium Chloride (Sodium Chloride Flush Syringe 10 Ml) 10 ml IV BID [facility] Last Admin: 04/07/19 10:46 Dose: 10 ml Documented by: Sodium Chloride (Sodium Chloride Flush Syringe 10 Ml) 10 ml IV PRN PRN PRN Reason: LINE FLUSH Tamsulosin HCl (Flomax) 0.4 mg PO QDAY [facility] Last Admin: 04/08/19 09:54 Dose: 0.4 mg Documented by: Physical Examination - Vital Signs Vital Signs: Vital Signs Temp Pulse BP 102.2 F H 130 H 160/80 03/29/19 18:47 03/29/19 18:47 03/29/19 18:47 Results - Laboratory Findings CBC and BMP: 04/08/19 06:35 04/08/19 06:35 Abnormal Lab Findings: Abnormal Labs 03/29/19 03/29/19 03/29/19 18:29 18:29 18:29 WBC 19.4 H RBC Hgb Hct MCV MCH Plt Count Lymph % (Auto) [place] % (Auto) Lymph # [place] # Baso # Seg Neutrophils % Seg Neuts % (Manual) 72.0 H Lymphocytes % (Manual) Monocytes % (Manual) 8.0 H Seg Neutrophils # Seg Neutrophils # Man 14.0 H Lymphocytes # (Manual) Monocytes # (Manual) 1.6 H PT INR POC ABG pH POC ABG pCO2 POC ABG pO2 VBG pH Sodium 136 L Potassium Chloride 90.6 L Carbon Dioxide 13 L BUN Glucose 154 H Lactic Acid 17.50 H* Calcium Magnesium AST ALT 81 H Total Creatine Kinase Troponin T Albumin Urine WBC (Auto) Vancomycin Trough Group A Strep Rapid 03/29/19 03/29/19 03/29/19 18:29 19:09 19:27 WBC RBC Hgb Hct MCV MCH Plt Count Lymph % (Auto) [place] % (Auto) Lymph # [place] # Baso # Seg Neutrophils % Seg Neuts % (Manual) Lymphocytes % (Manual) Monocytes % (Manual) Seg Neutrophils # Seg Neutrophils # Man Lymphocytes # (Manual) Monocytes # (Manual) PT INR POC ABG pH POC ABG pCO2 POC ABG pO2 VBG pH 7.269 L Sodium Potassium Chloride Carbon Dioxide BUN Glucose Lactic Acid Calcium Magnesium AST ALT Total Creatine Kinase Troponin T 0.031 H Albumin Urine WBC (Auto) 9.0 H Vancomycin Trough Group A Strep Rapid 03/29/19 03/29/19 03/29/19 19:33 20:27 21:01 WBC RBC Hgb Hct MCV MCH Plt Count Lymph % (Auto) [place] % (Auto) Lymph # [place] # Baso # Seg Neutrophils % Seg Neuts % (Manual) Lymphocytes % (Manual) Monocytes % (Manual) Seg Neutrophils # Seg Neutrophils # Man Lymphocytes # (Manual) Monocytes # (Manual) PT INR POC ABG pH POC ABG pCO2 POC ABG pO2 170 H VBG pH Sodium Potassium Chloride Carbon Dioxide BUN Glucose Lactic Acid 3.80 H* 4.10 H* Calcium Magnesium AST ALT Total Creatine Kinase Troponin T Albumin Urine WBC (Auto) Vancomycin Trough Group A Strep Rapid 03/29/19 03/29/19 03/30/19 23:46 Unknown 04:08 WBC RBC Hgb Hct MCV MCH Plt Count Lymph % (Auto) [place] % (Auto) Lymph # [place] # Baso # Seg Neutrophils % Seg Neuts % (Manual) Lymphocytes % (Manual) Monocytes % (Manual) Seg Neutrophils # Seg Neutrophils # Man Lymphocytes # (Manual) Monocytes # (Manual) PT INR POC ABG pH POC ABG pCO2 POC ABG pO2 VBG pH Sodium Potassium Chloride Carbon Dioxide BUN Glucose Lactic Acid 2.10 H* Calcium Magnesium AST ALT Total Creatine Kinase 172 H Troponin T 0.033 H Albumin Urine WBC (Auto) Vancomycin Trough Group A Strep Rapid Positive A 03/30/19 03/30/19 03/30/19 04:45 05:21 07:17 WBC 20.8 H RBC Hgb 10.9 L Hct 33.5 L MCV MCH Plt Count Lymph % (Auto) [place] % (Auto) Lymph # [place] # Baso # Seg Neutrophils % Seg Neuts % (Manual) 85.0 H Lymphocytes % (Manual) 8.0 L Monocytes % (Manual) Seg Neutrophils # Seg Neutrophils # Man 17.7 H Lymphocytes # (Manual) Monocytes # (Manual) PT INR POC ABG pH POC ABG pCO2 POC ABG pO2 172 H VBG pH Sodium Potassium Chloride Carbon Dioxide BUN Glucose Lactic Acid Calcium Magnesium AST ALT Total Creatine Kinase 173 H Troponin T 0.039 H Albumin Urine WBC (Auto) Vancomycin Trough Group A Strep Rapid 03/31/19 03/31/19 03/31/19 04:24 04:24 04:27 WBC 17.9 H RBC Hgb 10.7 L Hct 32.4 L MCV MCH Plt Count Lymph % (Auto) [place] % (Auto) Lymph # [place] # Baso # Seg Neutrophils % Seg Neuts % (Manual) Lymphocytes % (Manual) Monocytes % (Manual) Seg Neutrophils # Seg Neutrophils # Man Lymphocytes # (Manual) Monocytes # (Manual) PT INR POC ABG pH 7.324 L POC ABG pCO2 51.9 H POC ABG pO2 VBG pH Sodium Potassium Chloride Carbon Dioxide BUN 7 L Glucose 108 H Lactic Acid Calcium Magnesium AST ALT Total Creatine Kinase Troponin T Albumin 3.3 L Urine WBC (Auto) Vancomycin Trough Group A Strep Rapid 03/31/19 04/01/19 04/02/19 20:54 22:40 04:40 WBC 13.7 H RBC 3.33 L Hgb 9.5 L Hct 28.0 L MCV MCH Plt Count Lymph % (Auto) 4.7 L [place] % (Auto) 12.7 H Lymph # 0.7 L [place] # 1.7 H Baso # Seg Neutrophils % 79.1 H Seg Neuts % (Manual) Lymphocytes % (Manual) Monocytes % (Manual) Seg Neutrophils # 10.9 H Seg Neutrophils # Man Lymphocytes # (Manual) Monocytes # (Manual) PT INR POC ABG pH 7.345 L POC ABG pCO2 54.1 H 50.2 H POC ABG pO2 78 L 145 H VBG pH Sodium Potassium Chloride Carbon Dioxide BUN Glucose Lactic Acid Calcium Magnesium AST ALT Total Creatine Kinase Troponin T Albumin Urine WBC (Auto) Vancomycin Trough Group A Strep Rapid 04/02/19 04/02/19 04/02/19 04:40 05:35 16:07 WBC RBC Hgb Hct MCV MCH Plt Count Lymph % (Auto) [place] % (Auto) Lymph # [place] # Baso # Seg Neutrophils % Seg Neuts % (Manual) Lymphocytes % (Manual) Monocytes % (Manual) Seg Neutrophils # Seg Neutrophils # Man Lymphocytes # (Manual) Monocytes # (Manual) PT INR POC ABG pH 7.310 L POC ABG pCO2 45.4 H 68.5 H POC ABG pO2 137 H VBG pH Sodium Potassium 3.2 L Chloride 94.9 L Carbon Dioxide BUN 5 L Glucose Lactic Acid Calcium Magnesium AST ALT Total Creatine Kinase Troponin T Albumin 3.0 L Urine WBC (Auto) Vancomycin Trough Group A Strep Rapid 04/03/19 04/03/19 04/04/19 04:13 15:44 04:16 WBC 18.9 H RBC Hgb 10.7 L Hct 33.2 L MCV MCH 27 L Plt Count 509 H Lymph % (Auto) [place] % (Auto) Lymph # [place] # Baso # Seg Neutrophils % Seg Neuts % (Manual) Lymphocytes % (Manual) Monocytes % (Manual) Seg Neutrophils # Seg Neutrophils # Man Lymphocytes # (Manual) Monocytes # (Manual) PT INR POC ABG pH 7.506 H 7.461 H POC ABG pCO2 45.8 H POC ABG pO2 143 H 109 H VBG pH Sodium Potassium Chloride Carbon Dioxide BUN Glucose Lactic Acid Calcium Magnesium AST ALT Total Creatine Kinase Troponin T Albumin Urine WBC (Auto) Vancomycin Trough Group A Strep Rapid 04/04/19 04/04/19 04/05/19 04:16 10:58 04:56 WBC 20.5 H RBC Hgb 10.8 L Hct 33.0 L MCV MCH Plt Count 546 H Lymph % (Auto) [place] % (Auto) Lymph # [place] # Baso # Seg Neutrophils % Seg Neuts % (Manual) 85.0 H Lymphocytes % (Manual) 7.0 L Monocytes % (Manual) 8.0 H Seg Neutrophils # Seg Neutrophils # Man 17.4 H Lymphocytes # (Manual) Monocytes # (Manual) 1.6 H PT INR POC ABG pH POC ABG pCO2 POC ABG pO2 VBG pH Sodium Potassium Chloride Carbon Dioxide BUN 6 L Glucose Lactic Acid Calcium Magnesium AST ALT Total Creatine Kinase Troponin T Albumin Urine WBC (Auto) Vancomycin Trough 22.3 H Group A Strep Rapid 04/05/19 04/05/19 04/06/19 04:56 04:56 04:52 WBC 18.1 H RBC 3.52 L Hgb 9.7 L Hct 29.7 L MCV MCH Plt Count 519 H Lymph % (Auto) 8.3 L [place] % (Auto) 15.4 H Lymph # [place] # 2.8 H Baso # 0.2 H Seg Neutrophils % 73.2 H Seg Neuts % (Manual) Lymphocytes % (Manual) Monocytes % (Manual) Seg Neutrophils # 13.2 H Seg Neutrophils # Man Lymphocytes # (Manual) Monocytes # (Manual) PT 15.4 H INR 1.25 H POC ABG pH POC ABG pCO2 POC ABG pO2 VBG pH Sodium 148 H Potassium 3.1 L D Chloride Carbon Dioxide BUN 7 L Glucose Lactic Acid Calcium Magnesium AST ALT Total Creatine Kinase Troponin T Albumin 3.3 L Urine WBC (Auto) Vancomycin Trough Group A Strep Rapid 04/06/19 04/06/19 04/06/19 04:52 04:52 13:42 WBC RBC Hgb Hct MCV MCH Plt Count Lymph % (Auto) [place] % (Auto) Lymph # [place] # Baso # Seg Neutrophils % Seg Neuts % (Manual) Lymphocytes % (Manual) Monocytes % (Manual) Seg Neutrophils # Seg Neutrophils # Man Lymphocytes # (Manual) Monocytes # (Manual) PT INR POC ABG pH POC ABG pCO2 POC ABG pO2 VBG pH Sodium Potassium 2.7 L* 2.8 L* Chloride Carbon Dioxide BUN 5 L 5 L Glucose 137 H Lactic Acid Calcium Magnesium 1.60 L 1.60 L AST ALT Total Creatine Kinase Troponin T Albumin 2.9 L Urine WBC (Auto) Vancomycin Trough Group A Strep Rapid 04/07/19 04/07/19 04/08/19 04:05 08:48 06:35 WBC 13.6 H 12.8 H RBC 3.64 L 3.63 L Hgb 10.1 L 10.1 L Hct 30.3 L 30.4 L MCV 83 L MCH Plt Count 492 H 529 H Lymph % (Auto) [place] % (Auto) Lymph # [place] # Baso # Seg Neutrophils % Seg Neuts % (Manual) 85.0 H Lymphocytes % (Manual) 5.0 L Monocytes % (Manual) Seg Neutrophils # Seg Neutrophils # Man 11.6 H Lymphocytes # (Manual) 0.7 L Monocytes # (Manual) PT INR POC ABG pH POC ABG pCO2 POC ABG pO2 VBG pH Sodium Potassium Chloride Carbon Dioxide BUN 5 L Glucose Lactic Acid Calcium 8.3 L Magnesium AST 43 H ALT Total Creatine Kinase Troponin T Albumin 2.6 L Urine WBC (Auto) Vancomycin Trough Group A Strep Rapid 04/08/19 06:35 WBC RBC Hgb Hct MCV MCH Plt Count Lymph % (Auto) [place] % (Auto) Lymph # [place] # Baso # Seg Neutrophils % Seg Neuts % (Manual) Lymphocytes % (Manual) Monocytes % (Manual) Seg Neutrophils # Seg Neutrophils # Man Lymphocytes # (Manual) Monocytes # (Manual) PT INR POC ABG pH POC ABG pCO2 POC ABG pO2 VBG pH Sodium Potassium Chloride Carbon Dioxide BUN 6 L Glucose Lactic Acid Calcium Magnesium AST ALT Total Creatine Kinase Troponin T Albumin Urine WBC (Auto) Vancomycin Trough Group A Strep Rapid
--- NOTE | 2019-04-08 13:07 | Progress Note ---
Assessment and Plan Assessment and plan: 28-year-old man was recently diagnosed with seizure, discharge from the hospital on March 22 comes back today for evaluation of seizure. After he was discharged he had a seizure on the , mom stated that he's been compliant with his Vimpat. He was seen at [facility] and discharge. He also had another seizure at home on Wednesday and was then taken to [place], no change in his medication he was given a follow-up with urology clinic. Mom states that he smoked marijuana on the prior to the seizure. He is been having fevers at home since last night. He also had seizure in route to the hospital, was intubated in the emergency room for airway protection. * CSF NEGATIVE FOR BACTERIA MENINGITIS Acute respiratory failure was intubated, now extubated, off MV Sepsis Acute Metabolic Encephalopathy Status Epilepticus - resolved Breakthrough seizure episodes Sinus Tachycardia Acute on chronic seizure Pneumonia Plan Continue supportive care Acylovir discontinued MRI of Brain, unremarkable Continue ceftriaxone 2 gm IV q 12 hour Vancomycin IV discontinued Clindamycin iv discontinued Neurology following. Discussed with Dr. Kinney on 04/[address] samson today for weekend coverage Lacosamide dose increased Trileptal added DVT/GI PROPHY Discussed with patient and Father at bedside History Interval history: Patient extubated 04/04/19 Seizures yesterday Hospitalist Physical - Physical exam Narrative exam: Gen: Not in acute distress, sitting up in bed HEENT: Normocephalic, atraumatic Neck: supple, no JVD Heart: S1 and S2 reg, no murmurs, rubs or gallop Lungs: Clear to auscultation, no rhonchi, no wheeze Abd: soft, non tender, non distended, normal BS, Groin: right large inguinoscrotal hernia, Ext: No edema, no clubbing, no cyanosis Neuro: Awake, alert, oriented X 3, no focal neurological signs - Constitutional Vitals: Temp Pulse Resp BP Pulse Ox 98.5 F 98 H 18 137/92 99 04/08/19 07:49 04/08/19 10:00 04/08/19 08:41 04/08/19 07:49 04/08/19 07:49 General appearance: Present: no acute distress Results - Labs CBC & Chem 7: 04/08/19 06:35 04/08/19 06:35 Labs: Laboratory Last Values WBC 12.8 K/mm3 (4.5-11.0) H 04/08/19 06:35 RBC 3.63 M/mm3 (3.65-5.03) L 04/08/19 06:35 Hgb 10.1 gm/dl (11.8-15.2) L 04/08/19 06:35 Hct 30.4 % (35.5-45.6) L 04/08/19 06:35 MCV 84 fl (84-94) 04/08/19 06:35 MCH 28 pg (28-32) 04/08/19 06:35 MCHC 33 % (32-34) 04/08/19 06:35 RDW 14.4 % (13.2-15.2) 04/08/19 06:35 Plt Count 529 K/mm3 (140-440) H 04/08/19 06:35 Lymph % (Auto) 8.3 % (13.4-35.0) L 04/06/19 04:52 Calhoun % (Auto) 15.4 % (0.0-7.3) H 04/06/19 04:52 Eos % (Auto) 2.3 % (0.0-4.3) 04/06/19 04:52 Baso % (Auto) 0.8 % (0.0-1.8) 04/06/19 04:52 Lymph # 1.5 K/mm3 (1.2-5.4) 04/06/19 04:52 Calhoun # 2.8 K/mm3 (0.0-0.8) H 04/06/19 04:52 Eos # 0.4 K/mm3 (0.0-0.4) 04/06/19 04:52 Baso # 0.2 K/mm3 (0.0-0.1) H 04/06/19 04:52 Add Manual Diff Complete 04/07/19 08:48 Total Counted 100 04/07/19 08:48 Seg Neutrophils % 73.2 % (40.0-70.0) H 04/06/19 04:52 Seg Neuts % (Manual) 85.0 % (40.0-70.0) H 04/07/19 08:48 Band Neutrophils % 1.0 % 04/07/19 08:48 Lymphocytes % (Manual) 5.0 % (13.4-35.0) L 04/07/19 08:48 Reactive Lymphs % (Man) 0 % 04/07/19 08:48 Monocytes % (Manual) 3.0 % (0.0-7.3) 04/07/19 08:48 Eosinophils % (Manual) 2.0 % (0.0-4.3) 04/07/19 08:48 Basophils % (Manual) 1.0 % (0.0-1.8) 04/07/19 08:48 Metamyelocytes % 3.0 % 04/07/19 08:48 Myelocytes % 0 % 04/07/19 08:48 Promyelocytes % 0 % 04/07/19 08:48 Blast Cells % 0 % 04/07/19 08:48 Nucleated RBC % Not Reportable 04/07/19 08:48 Seg Neutrophils # 13.2 K/mm3 (1.8-7.7) H 04/06/19 04:52 Seg Neutrophils # Man 11.6 K/mm3 (1.8-7.7) H 04/07/19 08:48 Band Neutrophils # 0.1 K/mm3 04/07/19 08:48 Lymphocytes # (Manual) 0.7 K/mm3 (1.2-5.4) L 04/07/19 08:48 Abs React Lymphs (Man) 0.0 K/mm3 04/07/19 08:48 Monocytes # (Manual) 0.4 K/mm3 (0.0-0.8) 04/07/19 08:48 Eosinophils # (Manual) 0.3 K/mm3 (0.0-0.4) 04/07/19 08:48 Basophils # (Manual) 0.1 K/mm3 (0.0-0.1) 04/07/19 08:48 Metamyelocytes # 0.4 K/mm3 04/07/19 08:48 Myelocytes # 0.0 K/mm3 04/07/19 08:48 Promyelocytes # 0.0 K/mm3 04/07/19 08:48 Blast Cells # 0.0 K/mm3 04/07/19 08:48 WBC Morphology Not Reportable 04/07/19 08:48 Hypersegmented Neuts Not Reportable 04/07/19 08:48 Hyposegmented Neuts Not Reportable 04/07/19 08:48 Hypogranular Neuts Not Reportable 04/07/19 08:48 Smudge Cells Not Reportable 04/07/19 08:48 Toxic Granulation Not Reportable 04/07/19 08:48 Toxic Vacuolation Not Reportable 04/07/19 08:48 Dohle Bodies Not Reportable 04/07/19 08:48 Pelger-Huet Anomaly Not Reportable 04/07/19 08:48 Zbigniew Rods Not Reportable 04/07/19 08:48 Platelet Estimate Consistent w auto 04/07/19 08:48 Clumped Platelets Not Reportable 04/07/19 08:48 Plt Clumps, EDTA Not Reportable 04/07/19 08:48 Large Platelets Not Reportable 04/07/19 08:48 Giant Platelets Not Reportable 04/07/19 08:48 Platelet Satelliting Not Reportable 04/07/19 08:48 Plt Morphology Comment Not Reportable 04/07/19 08:48 RBC Morphology Not Reportable 04/07/19 08:48 Dimorphic RBCs Not Reportable 04/07/19 08:48 Polychromasia Not Reportable 04/07/19 08:48 Hypochromasia Not Reportable 04/07/19 08:48 Poikilocytosis Not Reportable 04/07/19 08:48 Anisocytosis Few 04/07/19 08:48 Microcytosis Not Reportable 04/07/19 08:48 Macrocytosis Not Reportable 04/07/19 08:48 Spherocytes Not Reportable 04/07/19 08:48 Pappenheimer Bodies Not Reportable 04/07/19 08:48 Sickle Cells Not Reportable 04/07/19 08:48 Target Cells Not Reportable 04/07/19 08:48 Tear Drop Cells Not Reportable 04/07/19 08:48 Ovalocytes Not Reportable 04/07/19 08:48 Stomatocytes Rare 04/05/19 04:56 Helmet Cells Not Reportable 04/07/19 08:48 Tolliver-Weed Bodies Not Reportable 04/07/19 08:48 Vonore Rings Not Reportable 04/07/19 08:48 Zamzam Cells Not Reportable 04/07/19 08:48 Bite Cells Not Reportable 04/07/19 08:48 Crenated Cell Not Reportable 04/07/19 08:48 Elliptocytes Not Reportable 04/07/19 08:48 Acanthocytes (Spur) Not Reportable 04/07/19 08:48 Rouleaux Not Reportable 04/07/19 08:48 Hemoglobin C Crystals Not Reportable 04/07/19 08:48 Schistocytes Not Reportable 04/07/19 08:48 Malaria parasites Not Reportable 04/07/19 08:48 Erich Bodies Not Reportable 04/07/19 08:48 Hem Pathologist Commnt No 04/07/19 08:48 PT 15.4 Sec. (12.2-14.9) H 04/05/19 04:56 INR 1.25 (0.87-1.13) H 04/05/19 04:56 INR Cancelled 03/29/19 18:29 APTT 29.5 Sec. (24.2-36.6) 03/29/19 18:29 PT Patient/Control Mix Cancelled 03/29/19 18:29 PT Pat/Norm 1:1 5 min Cancelled 03/29/19 18:29 PT Pat/Norm 1:1 1 Hr Cancelled 03/29/19 18:29 POC ABG pH 7.461 (7.35-7.45) H 04/03/19 15:44 POC ABG pCO2 45.8 (35-45) H 04/03/19 15:44 POC ABG pO2 109 (80-105) H 04/03/19 15:44 POC ABG HCO3 32.6 (22-26 mml/L) 04/03/19 15:44 POC ABG Total CO2 34 (23-27mmol/L) 04/03/19 15:44 POC ABG O2 Sat 98 04/03/19 15:44 POC ABG Base Excess 9 ((-2) - (+3)mmol/L) 04/03/19 15:44 VBG pH 7.269 (7.320-7.420) L 03/29/19 19:09 FiO2 25 % 04/03/19 15:44 Sodium 138 mmol/L (137-145) 04/08/19 06:35 Potassium 3.7 mmol/L (3.6-5.0) 04/08/19 06:35 Chloride 98.3 mmol/L (98-107) 04/08/19 06:35 Carbon Dioxide 24 mmol/L (22-30) 04/08/19 06:35 Anion Gap 19 mmol/L 04/08/19 06:35 BUN 6 mg/dL (9-20) L 04/08/19 06:35 Creatinine 1.0 mg/dL (0.8-1.5) 04/08/19 06:35 Estimated GFR > 60 ml/min 04/08/19 06:35 BUN/Creatinine Ratio 6 % 04/08/19 06:35 Glucose 87 mg/dL (75-100) 04/08/19 06:35 POC Glucose 89 (70-105) 04/03/19 12:44 Lactic Acid 1.90 mmol/L (0.7-2.0) 03/30/19 05:11 Calcium 9.0 mg/dL (8.4-10.2) 04/08/19 06:35 Phosphorus 3.10 mg/dL (2.5-4.5) 04/06/19 13:42 Magnesium 2.30 mg/dL (1.7-2.3) 04/07/19 08:48 Total Bilirubin < 0.20 mg/dL (0.1-1.2) 04/07/19 04:05 AST 43 units/L (5-40) H 04/07/19 04:05 ALT 44 units/L (7-56) 04/07/19 04:05 Alkaline Phosphatase 50 units/L (35-129) 04/07/19 04:05 Total Creatine Kinase 173 units/L (55-170) H 03/30/19 07:17 CK-MB (CK-2) 2.8 ng/mL (0.0-4.0) 03/30/19 07:17 CK-MB (CK-2) Rel Index 1.6 (0-4) 03/30/19 07:17 Troponin T 0.039 ng/mL (0.00-0.029) H 03/30/19 07:17 Total Protein 6.5 g/dL (6.3-8.2) 04/07/19 04:05 Albumin 2.6 g/dL (3.9-5) L 04/07/19 04:05 Albumin/Globulin Ratio 0.7 % 04/07/19 04:05 Triglycerides 63 mg/dL (2-149) 03/29/19 18:29 Cholesterol 177 mg/dL (50-199) 03/29/19 18:29 LDL Cholesterol Direct 119 mg/dL (50-130) 03/29/19 18: HDL Cholesterol 56 mg/dL (40-59) 03/29/19 18:29 Cholesterol/HDL Ratio 3.16 % 03/29/19 18:29 Urine Color Yellow (Yellow) 03/29/19 19: Urine Turbidity Slightly-cloudy (Clear) 03/29/19 19: Urine pH 5.0 (5.0-7.0) 03/29/19 19: Ur Specific Mercer 1.011 (1.003-1.030) 03/29/19 19: Urine Protein 100 mg/dl mg/dL (Negative) 03/29/19 19: Urine Glucose (UA) Neg mg/dL (Negative) 03/29/19 19: Urine Ketones Neg mg/dL (Negative) 03/29/19 19: Urine Blood Sm (Negative) 03/29/19 19: Urine Nitrite Neg (Negative) 03/29/19 19: Urine Bilirubin Neg (Negative) 03/29/19 19: Urine Urobilinogen < 2.0 mg/dL (<2.0) 03/29/19 19: Ur Leukocyte Esterase Neg (Negative) 03/29/19 19: Urine WBC (Auto) 9.0 /HPF (0.0-6.0) H 03/29/19 19: Urine RBC (Auto) 3.0 /HPF (0.0-6.0) 03/29/19 19: U Epithel Cells (Auto) < 1.0 /HPF (0-13.0) 03/29/19 19: Urine Bacteria (Auto) 1+ /HPF (Negative) 03/29/19 19: Urine Mucus Few /HPF 03/29/19 19: CSF Appearance Clear 03/30/19 Unknown CSF Color Colorless 03/30/19 Unknown CSF WBC 18 /mm3 (1-10) 03/30/19 Unknown CSF RBC 10 /mm3 (0-0) 03/30/19 Unknown CSF Seg Neutrophils 4.0 % (0-6) 03/30/19 Unknown CSF Lymphocytes % 92.0 % (40-80) 03/30/19 Unknown CSF Reactive Lymphs 0 % 03/30/19 Unknown CSF Monocytes % 4.0 % (15-45) 03/30/19 Unknown CSF Eosinophils % 0 % 03/30/19 Unknown CSF Basophils 0 % 03/30/19 Unknown CSF Pathologist Review C 03/30/19 Unknown CSF Glucose 75 mg/dL 03/30/19 Unknown CSF Total Protein 61 mg/dL 03/30/19 Unknown Vancomycin Trough 22.3 ug/mL (5.0-20.0) H 04/04/19 10:58 Urine Opiates Screen Presumptive negative 03/29/19 19:27 Urine Methadone Screen Presumptive negative 03/29/19 19:27 Ur Barbiturates Screen Presumptive negative 03/29/19 19:27 Ur Phencyclidine Scrn Presumptive negative 03/29/19 19:27 Ur Amphetamines Screen Presumptive negative 03/29/19 19:27 U Benzodiazepines Scrn Presumptive positive 03/29/19 19:27 Urine Cocaine Screen Presumptive negative 03/29/19 19:27 U Marijuana (THC) Screen Presumptive negative 03/29/19 19:27 Drugs of Abuse Note Disclamer 03/29/19 19:27 RPR Nonreactive (Nonreactive) 03/31/19 11:17 Influenza A (Rapid) Negative (Negative) 03/29/19 Unknown Influenza B (Rapid) Negative (Negative) 03/29/19 Unknown Group A Strep Rapid Positive (Negative) A 03/29/19 Unknown Miscellaneous Test Flexitest 1 03/30/19 Unknown Active Medications - Current Medications Current Medications: Generic Name Dose Route Start Last Admin Trade Name Freq PRN Reason Stop Dose Admin Acetaminophen 650 mg 03/30/19 01:27 04/02/19 09:15 Tylenol PO 650 mg Q4H PRN Administration Pain MILD(1-3)/Fever >100.5/LICONA Albuterol 2.5 mg 03/30/19 14:00 Proventil IH Q4HRT PRN Shortness Of Breath Docusate Sodium 100 mg 04/04/19 13:00 04/07/19 21:48 Colace FEEDTUBE 100 mg BID RENÉ Administration Enoxaparin Sodium 40 mg 03/30/19 10:00 04/08/19 09:56 Lovenox SUB-Q 40 mg QDAY@1000 RENÉ Administration Famotidine 20 mg 04/06/19 10:00 04/08/19 09:54 Pepcid PO 20 mg BID RENÉ Administration Hydromorphone HCl 0.5 mg 04/03/19 07:30 04/03/19 07:58 Dilaudid IV 0.5 mg Q3H PRN Administration Pain , Severe (7-10) Hydrophilic Ointment 1 applic 03/30/19 14:51 Vaseline Lip Therapy TP Q2HR PRN Dry Lips Ceftriaxone Sodium 2 gm in 100 mls @ 200 mls/hr 03/31/19 10:00 04/08/19 09:57 Rocephin/Ns 2 Gm/100 Ml IV 04/09/19 23:59 200 mls/hr Q12HR RENÉ Administration Protocol Lacosamide 200 mg 04/07/19 10:00 04/08/19 09:56 Vimpat PO 200 mg Q12HR RENÉ Administration Lorazepam 2 mg 03/30/19 12:10 04/07/19 19:25 Ativan IV 2 mg Q1H PRN Administration Agitation Multi-Ingred Cream/Lotion/Oil/Oint 1 applic 03/30/19 14:51 Artificial Tears Ophth Oint OU Q4HR PRN Dry Eye(s) Ondansetron HCl 4 mg 03/30/19 01:27 04/02/19 02:50 Zofran IV 4 mg Q4H PRN Administration Nausea And Vomiting Oxcarbazepine 300 mg 04/07/19 14:00 04/08/19 09:56 Trileptal PO 300 mg BID RENÉ Administration Quetiapine Fumarate 50 mg 04/02/19 22:00 04/08/19 09:54 Seroquel PO 50 mg BID RENÉ Administration Sodium Chloride 10 ml 03/30/19 10:00 04/07/19 10:46 Sodium Chloride Flush Syringe 10 Ml IV 10 ml BID RENÉ Administration Sodium Chloride 10 ml 03/30/19 01:27 Sodium Chloride Flush Syringe 10 Ml IV PRN PRN LINE FLUSH Tamsulosin HCl 0.4 mg 04/04/19 13:00 04/08/19 09:54 Flomax PO 0.4 mg QDAY RENÉ Administration Nutrition/Malnutrition Assess - Dietary Evaluation Nutrition/Malnutrition Findings: Nutrition Notes Start: 03/30/19 12:41 Freq: Status: Active Protocol: Document 04/07/19 09:32 PS (Rec: 04/07/19 10:15 PS [id number]) Co-Sign 04/07/19 09:32 LM Nutrition Notes Initial or Follow up Reassessment Current Diagnosis Respiratory Failure Other Pertinent Diagnosis Seizures, Pneu Current Diet Regular Mechanical Soft Diet Labs/Tests BUN 5 Ca 8.3 Pertinent Medications Reviewed Height 5 ft 9 in Weight 62.3 kg Adams Body Weight (kg) 72.72 BMI 20.2 Subjective/Other Information Follow up for diet advancement . Pt. on regular diet, but having trouble chewing. Pt. requested a different meal and at 100% of that small meal ( 04/06). Mechanical soft diet ordered. Percent of energy/protein needs met: 30%/43% Burn Present Trauma Present Minimum of two criteria No #1 Nutrition Diagnosis Inadequate oral intake Diagnosis Progress(for reassessment Continues documentation) Is patient on ventilator? No Is Patient Ambulatory and/or Out of Bed No REE-([facility]-confined to bed) 1076.084 Calculation Used for Recommendations [facility] Additional Notes PRO needs: 50g-62g/kg (0.8g-1g /kg) Fluid needs: 1mL/kcal Nutrition Intervention Change Diet Order: Regular Mechanical Soft Diet Add Supplement/Snack (indicate name/kcal Ensure Enlive Mazon Daily /protein ) Provides kCal: 350 Provides Protein (gm) 20 Goal #1 Meet at least 75% of energy and protein needs Anticipated Discharge Needs: Regular Diet Follow-Up By: 04/10/19 Additional Comments F/U for PO/ONS intakes
--- NOTE | 2019-04-08 18:06 | Progress Note ---
Assessment and Plan Acute respiratory failure, on mechanical ventilatory support. Tonic-clonic seizure. Leukocytosis. Abnormal cerebrospinal fluid studies. Severe metabolic acidosis at presentation. Lactic acidosis. Elevated serum transaminases. Abnormal urinalysis. History of seizures. Scrotal swelling Continue supportive care Continue Acylovir for Possible HSV MRI of Brain , unremarkable Complete antibitoics per ID Continue AEDs Increase activity VTE prophylaxis Seizure precautions Supplemental oxygen if needed to keep O2 sats >90% Discharge planning per primary Subjective Date of service: 04/08/19 Principal diagnosis: Ac. Resp failure; Seizures; Ac. Encephalopathy; Abnormal CSF (? herpes) Interval history: Patient is seen today for: Acute respiratory failure; Tonic-clonic seizure; Abraham kocytosis; Abnormal CSF (? herpes encephalitis); Lactic acidosis; Elevated serum transaminases; History of seizures; Scrotal swelling (Chronic per Mom) Seen and examined at bedside; 24hour events reviewed; nursing and respiratory care staff consulted; no adverse overnight events reported to me; resting peacefully in bed; Objective Vital Signs - 12hr 04/08/19 04/08/19 04/08/19 07:49 08:41 10:00 Temperature 98.5 F Pulse Rate 84 98 H Pulse Rate [ 80 From Monitor] Respiratory 14 18 Rate Blood Pressure 137/92 O2 Sat by Pulse 99 Oximetry 04/08/19 12:59 Temperature 98.0 F Pulse Rate 91 H Pulse Rate [ From Monitor] Respiratory 14 Rate Blood Pressure 131/91 O2 Sat by Pulse 98 Oximetry Constitutional: no acute distress, alert Eyes: non-icteric ENT: oropharynx moist Neck: supple, no lymphadenopathy, no JVD Effort: normal Ascultation: Bilateral: rhonchi (scant) Percussion: Bilateral: not dull Cardiovascular: regular rate and rhythm, other (S1,S2, no murmurs, no gallops) Gastrointestinal: normoactive bowel sounds, soft, non-tender Integumentary: normal Extremities: no cyanosis, no edema, pulses normal, no ischemia or petechiae Neurologic: normal mental status, non-focal exam (grossly), pupils equal and round, CN II-XII normal, motor strength normal and Psychiatric: mood appropriate, affect normal CBC and BMP: 04/09/19 04:31 04/09/19 04:31 ABG, PT/INR, D-dimer: ABG POC ABG pH 7.461 (7.35-7.45) H 04/03/19 15:44 POC ABG pCO2 45.8 (35-45) H 04/03/19 15:44 POC ABG pO2 109 (80-105) H 04/03/19 15:44 POC ABG HCO3 32.6 (22-26 mml/L) 04/03/19 15:44 POC ABG Total CO2 34 (23-27mmol/L) 04/03/19 15:44 POC ABG O2 Sat 98 04/03/19 15:44 PT/INR, D-dimer PT 15.4 Sec. (12.2-14.9) H 04/05/19 04:56 INR 1.25 (0.87-1.13) H 04/05/19 04:56 Abnormal lab findings: Abnormal Labs 03/29/19 03/29/19 03/29/19 18:29 18:29 18:29 WBC 19.4 H RBC Hgb Hct MCV MCH Plt Count Lymph % (Auto) [place] % (Auto) Lymph # Pr[place] # Baso # Seg Neutrophils % Seg Neuts % (Manual) 72.0 H Lymphocytes % (Manual) Monocytes % (Manual) 8.0 H Seg Neutrophils # Seg Neutrophils # Man 14.0 H Lymphocytes # (Manual) Monocytes # (Manual) 1.6 H PT INR POC ABG pH POC ABG pCO2 POC ABG pO2 VBG pH Sodium 136 L Potassium Chloride 90.6 L Carbon Dioxide 13 L BUN Glucose 154 H Lactic Acid 17.50 H* Calcium Magnesium AST ALT 81 H Total Creatine Kinase Troponin T Albumin Urine WBC (Auto) Vancomycin Trough Group A Strep Rapid 03/29/19 03/29/19 03/29/19 18:29 19:09 19:27 WBC RBC Hgb Hct MCV MCH Plt Count Lymph % (Auto) [place] % (Auto) Lymph # [place] # Baso # Seg Neutrophils % Seg Neuts % (Manual) Lymphocytes % (Manual) Monocytes % (Manual) Seg Neutrophils # Seg Neutrophils # Man Lymphocytes # (Manual) Monocytes # (Manual) PT INR POC ABG pH POC ABG pCO2 POC ABG pO2 VBG pH 7.269 L Sodium Potassium Chloride Carbon Dioxide BUN Glucose Lactic Acid Calcium Magnesium AST ALT Total Creatine Kinase Troponin T 0.031 H Albumin Urine WBC (Auto) 9.0 H Vancomycin Trough Group A Strep Rapid 10/08/1603/29/19 03/29/19 19:33 20:27 21:01 WBC RBC Hgb Hct MCV MCH Plt Count Lymph % (Auto) [place] % (Auto) Lymph # [place] # Baso # Seg Neutrophils % Seg Neuts % (Manual) Lymphocytes % (Manual) Monocytes % (Manual) Seg Neutrophils # Seg Neutrophils # Man Lymphocytes # (Manual) Monocytes # (Manual) PT INR POC ABG pH POC ABG pCO2 POC ABG pO2 170 H VBG pH Sodium Potassium Chloride Carbon Dioxide BUN Glucose Lactic Acid 3.80 H* 4.10 H* Calcium Magnesium AST ALT Total Creatine Kinase Troponin T Albumin Urine WBC (Auto) Vancomycin Trough Group A Strep Rapid 03/29/19 03/29/19 03/30/19 23:46 Unknown 04:08 WBC RBC Hgb Hct MCV MCH Plt Count Lymph % (Auto) [place] % (Auto) Lymph # [place] # Baso # Seg Neutrophils % Seg Neuts % (Manual) Lymphocytes % (Manual) Monocytes % (Manual) Seg Neutrophils # Seg Neutrophils # Man Lymphocytes # (Manual) Monocytes # (Manual) PT INR POC ABG pH POC ABG pCO2 POC ABG pO2 VBG pH Sodium Potassium Chloride Carbon Dioxide BUN Glucose Lactic Acid 2.10 H* Calcium Magnesium AST ALT Total Creatine Kinase 172 H Troponin T 0.033 H Albumin Urine WBC (Auto) Vancomycin Trough Group A Strep Rapid Positive A 03/30/19 03/30/19 03/30/19 04:45 05:21 07:17 WBC 20.8 H RBC Hgb 10.9 L Hct 33.5 L MCV MCH Plt Count Lymph % (Auto) [place] % (Auto) Lymph # [place] # Baso # Seg Neutrophils % Seg Neuts % (Manual) 85.0 H Lymphocytes % (Manual) 8.0 L Monocytes % (Manual) Seg Neutrophils # Seg Neutrophils # Man 17.7 H Lymphocytes # (Manual) Monocytes # (Manual) PT INR POC ABG pH POC ABG pCO2 POC ABG pO2 172 H VBG pH Sodium Potassium Chloride Carbon Dioxide BUN Glucose Lactic Acid Calcium Magnesium AST ALT Total Creatine Kinase 173 H Troponin T 0.039 H Albumin Urine WBC (Auto) Vancomycin Trough Group A Strep Rapid 03/31/19 03/31/19 03/31/19 04:24 04:24 04:27 WBC 17.9 H RBC Hgb 10.7 L Hct 32.4 L MCV MCH Plt Count Lymph % (Auto) [place] % (Auto) Lymph # [place] # Baso # Seg Neutrophils % Seg Neuts % (Manual) Lymphocytes % (Manual) Monocytes % (Manual) Seg Neutrophils # Seg Neutrophils # Man Lymphocytes # (Manual) Monocytes # (Manual) PT INR POC ABG pH 7.324 L POC ABG pCO2 51.9 H POC ABG pO2 VBG pH Sodium Potassium Chloride Carbon Dioxide BUN 7 L Glucose 108 H Lactic Acid Calcium Magnesium AST ALT Total Creatine Kinase Troponin T Albumin 3.3 L Urine WBC (Auto) Vancomycin Trough Group A Strep Rapid 03/31/19 04/01/19 04/02/19 20:54 22:40 04:40 WBC 13.7 H RBC 3.33 L Hgb 9.5 L Hct 28.0 L MCV MCH Plt Count Lymph % (Auto) 4.7 L [place] % (Auto) 12.7 H Lymph # 0.7 L [place] # 1.7 H Baso # Seg Neutrophils % 79.1 H Seg Neuts % (Manual) Lymphocytes % (Manual) Monocytes % (Manual) Seg Neutrophils # 10.9 H Seg Neutrophils # Man Lymphocytes # (Manual) Monocytes # (Manual) PT INR POC ABG pH 7.345 L POC ABG pCO2 54.1 H 50.2 H POC ABG pO2 78 L 145 H VBG pH Sodium Potassium Chloride Carbon Dioxide BUN Glucose Lactic Acid Calcium Magnesium AST ALT Total Creatine Kinase Troponin T Albumin Urine WBC (Auto) Vancomycin Trough Group A Strep Rapid 04/02/19 04/02/19 04/02/19 04:40 05:35 16:07 WBC RBC Hgb Hct MCV MCH Plt Count Lymph % (Auto) [place] % (Auto) Lymph # [place] # Baso # Seg Neutrophils % Seg Neuts % (Manual) Lymphocytes % (Manual) Monocytes % (Manual) Seg Neutrophils # Seg Neutrophils # Man Lymphocytes # (Manual) Monocytes # (Manual) PT INR POC ABG pH 7.310 L POC ABG pCO2 45.4 H 68.5 H POC ABG pO2 137 H VBG pH Sodium Potassium 3.2 L Chloride 94.9 L Carbon Dioxide BUN 5 L Glucose Lactic Acid Calcium Magnesium AST ALT Total Creatine Kinase Troponin T Albumin 3.0 L Urine WBC (Auto) Vancomycin Trough Group A Strep Rapid 04/03/19 04/03/19 04/04/19 04:13 15:44 04:16 WBC 18.9 H RBC Hgb 10.7 L Hct 33.2 L MCV MCH 27 L Plt Count 509 H Lymph % (Auto) [place] % (Auto) Lymph # [place] # Baso # Seg Neutrophils % Seg Neuts % (Manual) Lymphocytes % (Manual) Monocytes % (Manual) Seg Neutrophils # Seg Neutrophils # Man Lymphocytes # (Manual) Monocytes # (Manual) PT INR POC ABG pH 7.506 H 7.461 H POC ABG pCO2 45.8 H POC ABG pO2 143 H 109 H VBG pH Sodium Potassium Chloride Carbon Dioxide BUN Glucose Lactic Acid Calcium Magnesium AST ALT Total Creatine Kinase Troponin T Albumin Urine WBC (Auto) Vancomycin Trough Group A Strep Rapid 04/04/19 04/04/19 04/05/19 04:16 10:58 04:56 WBC 20.5 H RBC Hgb 10.8 L Hct 33.0 L MCV MCH Plt Count 546 H Lymph % (Auto) [place] % (Auto) Lymph # [place] # Baso # Seg Neutrophils % Seg Neuts % (Manual) 85.0 H Lymphocytes % (Manual) 7.0 L Monocytes % (Manual) 8.0 H Seg Neutrophils # Seg Neutrophils # Man 17.4 H Lymphocytes # (Manual) Monocytes # (Manual) 1.6 H PT INR POC ABG pH POC ABG pCO2 POC ABG pO2 VBG pH Sodium Potassium Chloride Carbon Dioxide BUN 6 L Glucose Lactic Acid Calcium Magnesium AST ALT Total Creatine Kinase Troponin T Albumin Urine WBC (Auto) Vancomycin Trough 22.3 H Group A Strep Rapid 04/05/19 04/05/19 04/06/19 04:56 04:56 04:52 WBC 18.1 H RBC 3.52 L Hgb 9.7 L Hct 29.7 L MCV MCH Plt Count 519 H Lymph % (Auto) 8.3 L [place] % (Auto) 15.4 H Lymph # [place] # 2.8 H Baso # 0.2 H Seg Neutrophils % 73.2 H Seg Neuts % (Manual) Lymphocytes % (Manual) Monocytes % (Manual) Seg Neutrophils # 13.2 H Seg Neutrophils # Man Lymphocytes # (Manual) Monocytes # (Manual) PT 15.4 H INR 1.25 H POC ABG pH POC ABG pCO2 POC ABG pO2 VBG pH Sodium 148 H Potassium 3.1 L D Chloride Carbon Dioxide BUN 7 L Glucose Lactic Acid Calcium Magnesium AST ALT Total Creatine Kinase Troponin T Albumin 3.3 L Urine WBC (Auto) Vancomycin Trough Group A Strep Rapid 04/06/19 04/06/19 04/06/19 04:52 04:52 13:42 WBC RBC Hgb Hct MCV MCH Plt Count Lymph % (Auto) [place] % (Auto) Lymph # [place] # Baso # Seg Neutrophils % Seg Neuts % (Manual) Lymphocytes % (Manual) Monocytes % (Manual) Seg Neutrophils # Seg Neutrophils # Man Lymphocytes # (Manual) Monocytes # (Manual) PT INR POC ABG pH POC ABG pCO2 POC ABG pO2 VBG pH Sodium Potassium 2.7 L* 2.8 L* Chloride Carbon Dioxide BUN 5 L 5 L Glucose 137 H Lactic Acid Calcium Magnesium 1.60 L 1.60 L AST ALT Total Creatine Kinase Troponin T Albumin 2.9 L Urine WBC (Auto) Vancomycin Trough Group A Strep Rapid 04/07/19 04/07/19 04/08/19 04:05 08:48 06:35 WBC 13.6 H 12.8 H RBC 3.64 L 3.63 L Hgb 10.1 L 10.1 L Hct 30.3 L 30.4 L MCV 83 L MCH Plt Count 492 H 529 H Lymph % (Auto) [place] % (Auto) Lymph # [place] # Baso # Seg Neutrophils % Seg Neuts % (Manual) 85.0 H Lymphocytes % (Manual) 5.0 L Monocytes % (Manual) Seg Neutrophils # Seg Neutrophils # Man 11.6 H Lymphocytes # (Manual) 0.7 L Monocytes # (Manual) PT INR POC ABG pH POC ABG pCO2 POC ABG pO2 VBG pH Sodium Potassium Chloride Carbon Dioxide BUN 5 L Glucose Lactic Acid Calcium 8.3 L Magnesium AST 43 H ALT Total Creatine Kinase Troponin T Albumin 2.6 L Urine WBC (Auto) Vancomycin Trough Group A Strep Rapid 04/08/19 06:35 WBC RBC Hgb Hct MCV MCH Plt Count Lymph % (Auto) [place] % (Auto) Lymph # [place] # Baso # Seg Neutrophils % Seg Neuts % (Manual) Lymphocytes % (Manual) Monocytes % (Manual) Seg Neutrophils # Seg Neutrophils # Man Lymphocytes # (Manual) Monocytes # (Manual) PT INR POC ABG pH POC ABG pCO2 POC ABG pO2 VBG pH Sodium Potassium Chloride Carbon Dioxide BUN 6 L Glucose Lactic Acid Calcium Magnesium AST ALT Total Creatine Kinase Troponin T Albumin Urine WBC (Auto) Vancomycin Trough Group A Strep Rapid Allied health notes reviewed: nursing
[2019-04-09] MEDS: ATIVAN IV PRN (01:29)
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
[2019-04-09 05:26] LABS: Hematocrit 31.4 % (35.5-45.6); Hemoglobin 10.4 gm/dl (11.8-15.2); Mean Corpuscular HGB Conc 33 % (32-34); Mean Corpuscular Volume 84 fl (84-94); Platelet Count 506 K/mm3 (140-440); Red Blood Count 3.76 M/mm3 (3.65-5.03); Red Cell Distribution Width 14.6 % (13.2-15.2)
[2019-04-09 05:47] LABS: BUN/Creatinine Ratio 9; Blood Urea Nitrogen 9 mg/dL (9-20); Calcium 9.1 mg/dL (8.4-10.2); Hemolysis Index 2
[2019-04-09] MEDS: ROCEPHIN/NS 2 GM/100 ML 2 GM/100 ML BAG IV SCH ×2 (09:46→22:07)
[2019-04-09] MEDS: LOVENOX SUB-Q SCH (09:48)
[2019-04-09] MEDS: TRILEPTAL PO SCH ×2 (09:48→22:07)
[2019-04-09] MEDS: FLOMAX PO SCH (09:48)
[2019-04-09] MEDS: VIMPAT PO SCH ×2 (09:48→22:07)
[2019-04-09] MEDS: PEPCID PO SCH ×2 (09:48→22:07)
[2019-04-09] MEDS: SODIUM CHLORIDE FLUSH SYRINGE 10 ML IV SCH ×2 (09:49→22:07)
[2019-04-09] MEDS: COLACE FEEDTUBE SCH ×2 (10:20→22:11)
--- NOTE | 2019-04-09 14:32 | Progress Note ---
Assessment and Plan Acute respiratory failure, s/p mechanical ventilatory support. Tonic-clonic seizure. Leukocytosis. Abnormal cerebrospinal fluid studies. Severe metabolic acidosis at presentation. Lactic acidosis. Elevated serum transaminases. Abnormal urinalysis. History of seizures. Scrotal swelling Continue supportive care Continue Acylovir for Possible HSV MRI of Brain , unremarkable Complete antibitoics per ID Continue AEDs Increase activity VTE prophylaxis Seizure precautions Supplemental oxygen if needed to keep O2 sats >90% Discharge planning per primary Subjective Date of service: 04/09/19 Principal diagnosis: Ac. Resp failure; Seizures; Ac. Encephalopathy; Abnormal CSF (? herpes) Interval history: Patient is seen today for: Acute respiratory failure; Tonic-clonic seizure; Le ukocytosis; Abnormal CSF (? herpes encephalitis); Lactic acidosis; Elevated serum transaminases; History of seizures; Scrotal swelling (Chronic per Mom) Seen and examined at bedside; 24hour events reviewed; nursing and respiratory care staff consulted; no adverse overnight events reported to me; resting peacefully in bed; Objective Vital Signs - 12hr 04/09/19 04/09/19 04/09/19 04:00 04:53 07:31 Temperature 98.4 F 98.4 F 98.1 F Pulse Rate 96 H 99 H 96 H Respiratory 16 18 Rate Blood Pressure 148/96 155/102 Blood Pressure 148/96 [Left] O2 Sat by Pulse 99 100 Oximetry 04/09/19 11:33 Temperature Pulse Rate 100 H Respiratory Rate Blood Pressure 154/102 Blood Pressure [Left] O2 Sat by Pulse 99 Oximetry Constitutional: no acute distress, alert Eyes: non-icteric ENT: oropharynx moist Neck: supple, no lymphadenopathy, no JVD Effort: normal Ascultation: Bilateral: rhonchi (scant) Percussion: Bilateral: not dull Cardiovascular: regular rate and rhythm, other (S1,S2, no murmurs) Gastrointestinal: normoactive bowel sounds, soft, non-tender Integumentary: normal Extremities: no cyanosis, no edema, pulses normal, no ischemia or petechiae Neurologic: normal mental status, non-focal exam (grossly), pupils equal and round, CN II-XII normal, motor strength normal and Psychiatric: mood appropriate, affect normal CBC and BMP: 04/09/19 04:31 04/09/19 04:31 ABG, PT/INR, D-dimer: ABG POC ABG pH 7.461 (7.35-7.45) H 04/03/19 15:44 POC ABG pCO2 45.8 (35-45) H 04/03/19 15:44 POC ABG pO2 109 (80-105) H 04/03/19 15:44 POC ABG HCO3 32.6 (22-26 mml/L) 04/03/19 15:44 POC ABG Total CO2 34 (23-27mmol/L) 04/03/19 15:44 POC ABG O2 Sat 98 04/03/19 15:44 PT/INR, D-dimer PT 15.4 Sec. (12.2-14.9) H 04/05/19 04:56 INR 1.25 (0.87-1.13) H 04/05/19 04:56 Abnormal lab findings: Abnormal Labs 03/29/19 03/29/19 03/29/19 18:29 18:29 18:29 WBC 19.4 H RBC Hgb Hct MCV MCH Plt Count Lymph % (Auto) [place] % (Auto) Lymph # [place] # Baso # Seg Neutrophils % Seg Neuts % (Manual) 72.0 H Lymphocytes % (Manual) Monocytes % (Manual) 8.0 H Seg Neutrophils # Seg Neutrophils # Man 14.0 H Lymphocytes # (Manual) Monocytes # (Manual) 1.6 H PT INR POC ABG pH POC ABG pCO2 POC ABG pO2 VBG pH Sodium 136 L Potassium Chloride 90.6 L Carbon Dioxide 13 L BUN Glucose 154 H Lactic Acid 17.50 H* Calcium Magnesium AST ALT 81 H Total Creatine Kinase Troponin T Albumin Urine WBC (Auto) Vancomycin Trough Group A Strep Rapid 03/29/19 03/29/19 03/29/19 18:29 19:09 19:27 WBC RBC Hgb Hct MCV MCH Plt Count Lymph % (Auto) [place] % (Auto) Lymph # [place] # Baso # Seg Neutrophils % Seg Neuts % (Manual) Lymphocytes % (Manual) Monocytes % (Manual) Seg Neutrophils # Seg Neutrophils # Man Lymphocytes # (Manual) Monocytes # (Manual) PT INR POC ABG pH POC ABG pCO2 POC ABG pO2 VBG pH 7.269 L Sodium Potassium Chloride Carbon Dioxide BUN Glucose Lactic Acid Calcium Magnesium AST ALT Total Creatine Kinase Troponin T 0.031 H Albumin Urine WBC (Auto) 9.0 H Vancomycin Trough Group A Strep Rapid 03/29/19 03/29/19 03/29/19 19:33 20:27 21:01 WBC RBC Hgb Hct MCV MCH Plt Count Lymph % (Auto) [place] % (Auto) Lymph # [place] # Baso # Seg Neutrophils % Seg Neuts % (Manual) Lymphocytes % (Manual) Monocytes % (Manual) Seg Neutrophils # Seg Neutrophils # Man Lymphocytes # (Manual) Monocytes # (Manual) PT INR POC ABG pH POC ABG pCO2 POC ABG pO2 170 H VBG pH Sodium Potassium Chloride Carbon Dioxide BUN Glucose Lactic Acid 3.80 H* 4.10 H* Calcium Magnesium AST ALT Total Creatine Kinase Troponin T Albumin Urine WBC (Auto) Vancomycin Trough Group A Strep Rapid 03/29/19 03/29/19 03/30/19 23:46 Unknown 04:08 WBC RBC Hgb Hct MCV MCH Plt Count Lymph % (Auto) [place] % (Auto) Lymph # [place] # Baso # Seg Neutrophils % Seg Neuts % (Manual) Lymphocytes % (Manual) Monocytes % (Manual) Seg Neutrophils # Seg Neutrophils # Man Lymphocytes # (Manual) Monocytes # (Manual) PT INR POC ABG pH POC ABG pCO2 POC ABG pO2 VBG pH Sodium Potassium Chloride Carbon Dioxide BUN Glucose Lactic Acid 2.10 H* Calcium Magnesium AST ALT Total Creatine Kinase 172 H Troponin T 0.033 H Albumin Urine WBC (Auto) Vancomycin Trough Group A Strep Rapid Positive A 03/30/19 03/30/19 03/30/19 04:45 05:21 07:17 WBC 20.8 H RBC Hgb 10.9 L Hct 33.5 L MCV MCH Plt Count Lymph % (Auto) [place] % (Auto) Lymph # [place] # Baso # Seg Neutrophils % Seg Neuts % (Manual) 85.0 H Lymphocytes % (Manual) 8.0 L Monocytes % (Manual) Seg Neutrophils # Seg Neutrophils # Man 17.7 H Lymphocytes # (Manual) Monocytes # (Manual) PT INR POC ABG pH POC ABG pCO2 POC ABG pO2 172 H VBG pH Sodium Potassium Chloride Carbon Dioxide BUN Glucose Lactic Acid Calcium Magnesium AST ALT Total Creatine Kinase 173 H Troponin T 0.039 H Albumin Urine WBC (Auto) Vancomycin Trough Group A Strep Rapid 03/31/19 03/31/19 03/31/19 04:24 04:24 04:27 WBC 17.9 H RBC Hgb 10.7 L Hct 32.4 L MCV MCH Plt Count Lymph % (Auto) [place] % (Auto) Lymph # [place] # Baso # Seg Neutrophils % Seg Neuts % (Manual) Lymphocytes % (Manual) Monocytes % (Manual) Seg Neutrophils # Seg Neutrophils # Man Lymphocytes # (Manual) Monocytes # (Manual) PT INR POC ABG pH 7.324 L POC ABG pCO2 51.9 H POC ABG pO2 VBG pH Sodium Potassium Chloride Carbon Dioxide BUN 7 L Glucose 108 H Lactic Acid Calcium Magnesium AST ALT Total Creatine Kinase Troponin T Albumin 3.3 L Urine WBC (Auto) Vancomycin Trough Group A Strep Rapid 03/31/19 04/01/19 04/02/19 20:54 22:40 04:40 WBC 13.7 H RBC 3.33 L Hgb 9.5 L Hct 28.0 L MCV MCH Plt Count Lymph % (Auto) 4.7 L [place] % (Auto) 12.7 H Lymph # 0.7 L [place] # 1.7 H Baso # Seg Neutrophils % 79.1 H Seg Neuts % (Manual) Lymphocytes % (Manual) Monocytes % (Manual) Seg Neutrophils # 10.9 H Seg Neutrophils # Man Lymphocytes # (Manual) Monocytes # (Manual) PT INR POC ABG pH 7.345 L POC ABG pCO2 54.1 H 50.2 H POC ABG pO2 78 L 145 H VBG pH Sodium Potassium Chloride Carbon Dioxide BUN Glucose Lactic Acid Calcium Magnesium AST ALT Total Creatine Kinase Troponin T Albumin Urine WBC (Auto) Vancomycin Trough Group A Strep Rapid 04/02/19 04/02/19 04/02/19 04:40 05:35 16:07 WBC RBC Hgb Hct MCV MCH Plt Count Lymph % (Auto) [place] % (Auto) Lymph # [place] # Baso # Seg Neutrophils % Seg Neuts % (Manual) Lymphocytes % (Manual) Monocytes % (Manual) Seg Neutrophils # Seg Neutrophils # Man Lymphocytes # (Manual) Monocytes # (Manual) PT INR POC ABG pH 7.310 L POC ABG pCO2 45.4 H 68.5 H POC ABG pO2 137 H VBG pH Sodium Potassium 3.2 L Chloride 94.9 L Carbon Dioxide BUN 5 L Glucose Lactic Acid Calcium Magnesium AST ALT Total Creatine Kinase Troponin T Albumin 3.0 L Urine WBC (Auto) Vancomycin Trough Group A Strep Rapid 04/03/19 04/03/19 04/04/19 04:13 15:44 04:16 WBC 18.9 H RBC Hgb 10.7 L Hct 33.2 L MCV MCH 27 L Plt Count 509 H Lymph % (Auto) [place] % (Auto) Lymph # [place] # Baso # Seg Neutrophils % Seg Neuts % (Manual) Lymphocytes % (Manual) Monocytes % (Manual) Seg Neutrophils # Seg Neutrophils # Man Lymphocytes # (Manual) Monocytes # (Manual) PT INR POC ABG pH 7.506 H 7.461 H POC ABG pCO2 45.8 H POC ABG pO2 143 H 109 H VBG pH Sodium Potassium Chloride Carbon Dioxide BUN Glucose Lactic Acid Calcium Magnesium AST ALT Total Creatine Kinase Troponin T Albumin Urine WBC (Auto) Vancomycin Trough Group A Strep Rapid 04/04/19 04/04/19 04/05/19 04:16 10:58 04:56 WBC 20.5 H RBC Hgb 10.8 L Hct 33.0 L MCV MCH Plt Count 546 H Lymph % (Auto) [place] % (Auto) Lymph # [place] # Baso # Seg Neutrophils % Seg Neuts % (Manual) 85.0 H Lymphocytes % (Manual) 7.0 L Monocytes % (Manual) 8.0 H Seg Neutrophils # Seg Neutrophils # Man 17.4 H Lymphocytes # (Manual) Monocytes # (Manual) 1.6 H PT INR POC ABG pH POC ABG pCO2 POC ABG pO2 VBG pH Sodium Potassium Chloride Carbon Dioxide BUN 6 L Glucose Lactic Acid Calcium Magnesium AST ALT Total Creatine Kinase Troponin T Albumin Urine WBC (Auto) Vancomycin Trough 22.3 H Group A Strep Rapid 04/05/19 04/05/19 04/06/19 04:56 04:56 04:52 WBC 18.1 H RBC 3.52 L Hgb 9.7 L Hct 29.7 L MCV MCH Plt Count 519 H Lymph % (Auto) 8.3 L [place] % (Auto) 15.4 H Lymph # [place] # 2.8 H Baso # 0.2 H Seg Neutrophils % 73.2 H Seg Neuts % (Manual) Lymphocytes % (Manual) Monocytes % (Manual) Seg Neutrophils # 13.2 H Seg Neutrophils # Man Lymphocytes # (Manual) Monocytes # (Manual) PT 15.4 H INR 1.25 H POC ABG pH POC ABG pCO2 POC ABG pO2 VBG pH Sodium 148 H Potassium 3.1 L D Chloride Carbon Dioxide BUN 7 L Glucose Lactic Acid Calcium Magnesium AST ALT Total Creatine Kinase Troponin T Albumin 3.3 L Urine WBC (Auto) Vancomycin Trough Group A Strep Rapid 04/06/19 04/06/19 04/06/19 04:52 04:52 13:42 WBC RBC Hgb Hct MCV MCH Plt Count Lymph % (Auto) [place] % (Auto) Lymph # [place] # Baso # Seg Neutrophils % Seg Neuts % (Manual) Lymphocytes % (Manual) Monocytes % (Manual) Seg Neutrophils # Seg Neutrophils # Man Lymphocytes # (Manual) Monocytes # (Manual) PT INR POC ABG pH POC ABG pCO2 POC ABG pO2 VBG pH Sodium Potassium 2.7 L* 2.8 L* Chloride Carbon Dioxide BUN 5 L 5 L Glucose 137 H Lactic Acid Calcium Magnesium 1.60 L 1.60 L AST ALT Total Creatine Kinase Troponin T Albumin 2.9 L Urine WBC (Auto) Vancomycin Trough Group A Strep Rapid 04/07/19 04/07/19 04/08/19 04:05 08:48 06:35 WBC 13.6 H 12.8 H RBC 3.64 L 3.63 L Hgb 10.1 L 10.1 L Hct 30.3 L 30.4 L MCV 83 L MCH Plt Count 492 H 529 H Lymph % (Auto) [place] % (Auto) Lymph # [place] # Baso # Seg Neutrophils % Seg Neuts % (Manual) 85.0 H Lymphocytes % (Manual) 5.0 L Monocytes % (Manual) Seg Neutrophils # Seg Neutrophils # Man 11.6 H Lymphocytes # (Manual) 0.7 L Monocytes # (Manual) PT INR POC ABG pH POC ABG pCO2 POC ABG pO2 VBG pH Sodium Potassium Chloride Carbon Dioxide BUN 5 L Glucose Lactic Acid Calcium 8.3 L Magnesium AST 43 H ALT Total Creatine Kinase Troponin T Albumin 2.6 L Urine WBC (Auto) Vancomycin Trough Group A Strep Rapid 04/08/19 04/09/19 06:35 04:31 WBC 15.4 H RBC Hgb 10.4 L Hct 31.4 L MCV MCH Plt Count 506 H Lymph % (Auto) [place] % (Auto) Lymph # [place] # Baso # Seg Neutrophils % Seg Neuts % (Manual) Lymphocytes % (Manual) Monocytes % (Manual) Seg Neutrophils # Seg Neutrophils # Man Lymphocytes # (Manual) Monocytes # (Manual) PT INR POC ABG pH POC ABG pCO2 POC ABG pO2 VBG pH Sodium Potassium Chloride Carbon Dioxide BUN 6 L Glucose Lactic Acid Calcium Magnesium AST ALT Total Creatine Kinase Troponin T Albumin Urine WBC (Auto) Vancomycin Trough Group A Strep Rapid Allied health notes reviewed: nursing
--- NOTE | 2019-04-09 15:21 | Progress Note ---
Assessment and Plan Assessment and plan: 28-year-old man was recently diagnosed with seizure, discharge from the hospital on March 22 comes back today for evaluation of seizure. After he was discharged he had a seizure on the , mom stated that he's been compliant with his Vimpat. He was seen at [facility] and discharge. He also had another seizure at home on Wednesday and was then taken to [place], no change in his medication he was given a follow-up with urology clinic. Mom states that he smoked marijuana on the prior to the seizure. He is been having fevers at home since last night. He also had seizure in route to the hospital, was intubated in the emergency room for airway protection. * CSF NEGATIVE FOR BACTERIA MENINGITIS Acute respiratory failure was intubated, now extubated, off MV Sepsis Acute Metabolic Encephalopathy Status Epilepticus - resolved Breakthrough seizure episodes on 04/07, no more seizures since 04/07/19 Sinus Tachycardia Acute on chronic seizure Pneumonia Plan Continue supportive care Acylovir discontinued MRI of Brain, unremarkable Continue ceftriaxone 2 gm IV q 12 hour Vancomycin IV discontinued Clindamycin iv discontinued Neurology following. Discussed with Dr. Kinney on 04/[address] samson today for weekend coverage Lacosamide dose increased Trileptal added DVT/GI PROPHY Discussed with patient poss dc home tomorrow if no more seizures. History Interval history: Patient extubated 04/04/19 Seizures on 04/07 and no more seizures since then Hospitalist Physical - Physical exam Narrative exam: Gen: Not in acute distress, sitting up in bed HEENT: Normocephalic, atraumatic Neck: supple, no JVD Heart: S1 and S2 reg, no murmurs, rubs or gallop Lungs: Clear to auscultation, no rhonchi, no wheeze Abd: soft, non tender, non distended, normal BS, Groin: right large inguinoscrotal hernia, Ext: No edema, no clubbing, no cyanosis Neuro: Awake, alert, oriented X 3, no focal neurological signs - Constitutional Vitals: Temp Pulse Resp BP Pulse Ox 98.1 F 100 H 18 154/102 99 04/09/19 07:31 04/09/19 11:33 04/09/19 07:31 04/09/19 11:33 04/09/19 11:33 General appearance: Present: no acute distress Results - Labs CBC & Chem 7: 04/09/19 04:31 04/09/19 04:31 Labs: Laboratory Last Values WBC 15.4 K/mm3 (4.5-11.0) H 04/09/19 04:31 RBC 3.76 M/mm3 (3.65-5.03) 04/09/19 04:31 Hgb 10.4 gm/dl (11.8-15.2) L 04/09/19 04:31 Hct 31.4 % (35.5-45.6) L 04/09/19 04:31 MCV 84 fl (84-94) 04/09/19 04:31 MCH 28 pg (28-32) 04/09/19 04:31 MCHC 33 % (32-34) 04/09/19 04:31 RDW 14.6 % (13.2-15.2) 04/09/19 04:31 Plt Count 506 K/mm3 (140-440) H 04/09/19 04:31 Lymph % (Auto) 8.3 % (13.4-35.0) L 04/06/19 04:52 Walker % (Auto) 15.4 % (0.0-7.3) H 04/06/19 04:52 Eos % (Auto) 2.3 % (0.0-4.3) 04/06/19 04:52 Baso % (Auto) 0.8 % (0.0-1.8) 04/06/19 04:52 Lymph # 1.5 K/mm3 (1.2-5.4) 04/06/19 04:52 Walker # 2.8 K/mm3 (0.0-0.8) H 04/06/19 04:52 Eos # 0.4 K/mm3 (0.0-0.4) 04/06/19 04:52 Baso # 0.2 K/mm3 (0.0-0.1) H 04/06/19 04:52 Add Manual Diff Complete 04/07/19 08:48 Total Counted 100 04/07/19 08:48 Seg Neutrophils % 73.2 % (40.0-70.0) H 04/06/19 04:52 Seg Neuts % (Manual) 85.0 % (40.0-70.0) H 04/07/19 08:48 Band Neutrophils % 1.0 % 04/07/19 08:48 Lymphocytes % (Manual) 5.0 % (13.4-35.0) L 04/07/19 08:48 Reactive Lymphs % (Man) 0 % 04/07/19 08:48 Monocytes % (Manual) 3.0 % (0.0-7.3) 04/07/19 08:48 Eosinophils % (Manual) 2.0 % (0.0-4.3) 04/07/19 08:48 Basophils % (Manual) 1.0 % (0.0-1.8) 04/07/19 08:48 Metamyelocytes % 3.0 % 04/07/19 08:48 Myelocytes % 0 % 04/07/19 08:48 Promyelocytes % 0 % 04/07/19 08:48 Blast Cells % 0 % 04/07/19 08:48 Nucleated RBC % Not Reportable 04/07/19 08:48 Seg Neutrophils # 13.2 K/mm3 (1.8-7.7) H 04/06/19 04:52 Seg Neutrophils # Man 11.6 K/mm3 (1.8-7.7) H 04/07/19 08:48 Band Neutrophils # 0.1 K/mm3 04/07/19 08:48 Lymphocytes # (Manual) 0.7 K/mm3 (1.2-5.4) L 04/07/19 08:48 Abs React Lymphs (Man) 0.0 K/mm3 04/07/19 08:48 Monocytes # (Manual) 0.4 K/mm3 (0.0-0.8) 04/07/19 08:48 Eosinophils # (Manual) 0.3 K/mm3 (0.0-0.4) 04/07/19 08:48 Basophils # (Manual) 0.1 K/mm3 (0.0-0.1) 04/07/19 08:48 Metamyelocytes # 0.4 K/mm3 04/07/19 08:48 Myelocytes # 0.0 K/mm3 04/07/19 08:48 Promyelocytes # 0.0 K/mm3 04/07/19 08:48 Blast Cells # 0.0 K/mm3 04/07/19 08:48 WBC Morphology Not Reportable 04/07/19 08:48 Hypersegmented Neuts Not Reportable 04/07/19 08:48 Hyposegmented Neuts Not Reportable 04/07/19 08:48 Hypogranular Neuts Not Reportable 04/07/19 08:48 Smudge Cells Not Reportable 04/07/19 08:48 Toxic Granulation Not Reportable 04/07/19 08:48 Toxic Vacuolation Not Reportable 04/07/19 08:48 Dohle Bodies Not Reportable 04/07/19 08:48 Pelger-Huet Anomaly Not Reportable 04/07/19 08:48 Zbigniew Rods Not Reportable 04/07/19 08:48 Platelet Estimate Consistent w auto 04/07/19 08:48 Clumped Platelets Not Reportable 04/07/19 08:48 Plt Clumps, EDTA Not Reportable 04/07/19 08:48 Large Platelets Not Reportable 04/07/19 08:48 Giant Platelets Not Reportable 04/07/19 08:48 Platelet Satelliting Not Reportable 04/07/19 08:48 Plt Morphology Comment Not Reportable 04/07/19 08:48 RBC Morphology Not Reportable 04/07/19 08:48 Dimorphic RBCs Not Reportable 04/07/19 08:48 Polychromasia Not Reportable 04/07/19 08:48 Hypochromasia Not Reportable 04/07/19 08:48 Poikilocytosis Not Reportable 04/07/19 08:48 Anisocytosis Few 04/07/19 08:48 Microcytosis Not Reportable 04/07/19 08:48 Macrocytosis Not Reportable 04/07/19 08:48 Spherocytes Not Reportable 04/07/19 08:48 Pappenheimer Bodies Not Reportable 04/07/19 08:48 Sickle Cells Not Reportable 04/07/19 08:48 Target Cells Not Reportable 04/07/19 08:48 Tear Drop Cells Not Reportable 04/07/19 08:48 Ovalocytes Not Reportable 04/07/19 08:48 Stomatocytes Rare 04/05/19 04:56 Helmet Cells Not Reportable 04/07/19 08:48 Tol[place] Bodies Not Reportable 04/07/19 08:48 [place] Rings Not Reportable 04/07/19 08:48 [place] Cells Not Reportable 04/07/19 08:48 Bite Cells Not Reportable 04/07/19 08:48 Crenated Cell Not Reportable 04/07/19 08:48 Elliptocytes Not Reportable 04/07/19 08:48 Acanthocytes (Spur) Not Reportable 04/07/19 08:48 Rouleaux Not Reportable 04/07/19 08:48 Hemoglobin C Crystals Not Reportable 04/07/19 08:48 Schistocytes Not Reportable 04/07/19 08:48 Malaria parasites Not Reportable 04/07/19 08:48 Erich Bodies Not Reportable 04/07/19 08:48 Hem Pathologist Commnt No 04/07/19 08:48 PT 15.4 Sec. (12.2-14.9) H 04/05/19 04:56 INR 1.25 (0.87-1.13) H 04/05/19 04:56 INR Cancelled 03/29/19 18:29 APTT 29.5 Sec. (24.2-36.6) 03/29/19 18:29 PT Patient/Control Mix Cancelled 03/29/19 18:29 PT Pat/Norm 1:1 5 min Cancelled 03/29/19 18:29 PT Pat/Norm 1:1 1 Hr Cancelled 03/29/19 18:29 POC ABG pH 7.461 (7.35-7.45) H 04/03/19 15:44 POC ABG pCO2 45.8 (35-45) H 04/03/19 15:44 POC ABG pO2 109 (80-105) H 04/03/19 15:44 POC ABG HCO3 32.6 (22-26 mml/L) 04/03/19 15:44 POC ABG Total CO2 34 (23-27mmol/L) 04/03/19 15:44 POC ABG O2 Sat 98 04/03/19 15:44 POC ABG Base Excess 9 ((-2) - (+3)mmol/L) 04/03/19 15:44 VBG pH 7.269 (7.320-7.420) L 03/29/19 19:09 FiO2 25 % 04/03/19 15:44 Sodium 142 mmol/L (137-145) 04/09/19 04:31 Potassium 3.8 mmol/L (3.6-5.0) 04/09/19 04:31 Chloride 102.1 mmol/L (98-107) 04/09/19 04:31 Carbon Dioxide 26 mmol/L (22-30) 04/09/19 04:31 Anion Gap 18 mmol/L 04/09/19 04:31 BUN 9 mg/dL (9-20) 04/09/19 04:31 Creatinine 1.0 mg/dL (0.8-1.5) 04/09/19 04:31 Estimated GFR > 60 ml/min 04/09/19 04:31 BUN/Creatinine Ratio 9 % 04/09/19 04:31 Glucose 79 mg/dL (75-100) 04/09/19 04:31 POC Glucose 89 (70-105) 04/03/19 12:44 Lactic Acid 1.90 mmol/L (0.7-2.0) 03/30/19 05:11 Calcium 9.1 mg/dL (8.4-10.2) 04/09/19 04:31 Phosphorus 3.10 mg/dL (2.5-4.5) 04/06/19 13:42 Magnesium 2.30 mg/dL (1.7-2.3) 04/07/19 08:48 Total Bilirubin < 0.20 mg/dL (0.1-1.2) 04/07/19 04:05 AST 43 units/L (5-40) H 04/07/19 04:05 ALT 44 units/L (7-56) 04/07/19 04:05 Alkaline Phosphatase 50 units/L (35-129) 04/07/19 04:05 Total Creatine Kinase 173 units/L (55-170) H 03/30/19 07:17 CK-MB (CK-2) 2.8 ng/mL (0.0-4.0) 03/30/19 07:17 CK-MB (CK-2) Rel Index 1.6 (0-4) 03/30/19 07:17 Troponin T 0.039 ng/mL (0.00-0.029) H 03/30/19 07:17 Total Protein 6.5 g/dL (6.3-8.2) 04/07/19 04:05 Albumin 2.6 g/dL (3.9-5) L 04/07/19 04:05 Albumin/Globulin Ratio 0.7 % 04/07/19 04:05 Triglycerides 63 mg/dL (2-149) 03/29/19 18: Cholesterol 177 mg/dL (50-199) 03/29/19 18: LDL Cholesterol Direct 119 mg/dL (50-130) 03/29/19 18:29 HDL Cholesterol 56 mg/dL (40-59) 03/29/19 18: Cholesterol/HDL Ratio 3.16 % 03/29/19 18:29 Urine Color Yellow (Yellow) 03/29/19 19: Urine Turbidity Slightly-cloudy (Clear) 03/29/19 19: Urine pH 5.0 (5.0-7.0) 03/29/19 19: Ur Specific [place] 1.011 (1.003-1.030) 03/29/19 19: Urine Protein 100 mg/dl mg/dL (Negative) 03/29/19 19: Urine Glucose (UA) Neg mg/dL (Negative) 03/29/19 19: Urine Ketones Neg mg/dL (Negative) 03/29/19 19: Urine Blood Sm (Negative) 03/29/19 19: Urine Nitrite Neg (Negative) 03/29/19 19: Urine Bilirubin Neg (Negative) 03/29/19 19: Urine Urobilinogen < 2.0 mg/dL (<2.0) 03/29/19 19: Ur Leukocyte Esterase Neg (Negative) 03/29/19 19:27 Urine WBC (Auto) 9.0 /HPF (0.0-6.0) H 03/29/19 19: Urine RBC (Auto) 3.0 /HPF (0.0-6.0) 03/29/19 19: U Epithel Cells (Auto) < 1.0 /HPF (0-13.0) 03/29/19 19: Urine Bacteria (Auto) 1+ /HPF (Negative) 03/29/19 19: Urine Mucus Few /HPF 03/29/19 19: CSF Appearance Clear 03/30/19 Unknown CSF Color Colorless 03/30/19 Unknown CSF WBC 18 /mm3 (1-10) 03/30/19 Unknown CSF RBC 10 /mm3 (0-0) 03/30/19 Unknown CSF Seg Neutrophils 4.0 % (0-6) 03/30/19 Unknown CSF Lymphocytes % 92.0 % (40-80) 03/30/19 Unknown CSF Reactive Lymphs 0 % 03/30/19 Unknown CSF Monocytes % 4.0 % (15-45) 03/30/19 Unknown CSF Eosinophils % 0 % 03/30/19 Unknown CSF Basophils 0 % 03/30/19 Unknown CSF Pathologist Review C 03/30/19 Unknown CSF Glucose 75 mg/dL 03/30/19 Unknown CSF Total Protein 61 mg/dL 03/30/19 Unknown Vancomycin Trough 22.3 ug/mL (5.0-20.0) H 04/04/19 10:58 Urine Opiates Screen Presumptive negative 03/29/19 19:27 Urine Methadone Screen Presumptive negative 03/29/19 19:27 Ur Barbiturates Screen Presumptive negative 03/29/19 19:27 Ur Phencyclidine Scrn Presumptive negative 03/29/19 19:27 Ur Amphetamines Screen Presumptive negative 03/29/19 19:27 U Benzodiazepines Scrn Presumptive positive 03/29/19 19:27 Urine Cocaine Screen Presumptive negative 03/29/19 19:27 U Marijuana (THC) Screen Presumptive negative 03/29/19 19:27 Drugs of Abuse Note Disclamer 03/29/19 19:27 RPR Nonreactive (Nonreactive) 03/31/19 11:17 Influenza A (Rapid) Negative (Negative) 03/29/19 Unknown Influenza B (Rapid) Negative (Negative) 03/29/19 Unknown Group A Strep Rapid Positive (Negative) A 03/29/19 Unknown Miscellaneous Test Flexitest 1 03/30/19 Unknown Active Medications - Current Medications Current Medications: Generic Name Dose Route Start Last Admin Trade Name Freq PRN Reason Stop Dose Admin Acetaminophen 650 mg 03/30/19 01:27 04/02/19 09:15 Tylenol PO 650 mg Q4H PRN Administration Pain MILD(1-3)/Fever >100.5/LICONA Albuterol 2.5 mg 03/30/19 14:00 Proventil IH Q4HRT PRN Shortness Of Breath Docusate Sodium 100 mg 04/04/19 13:00 04/09/19 10:20 Colace FEEDTUBE Not Given BID RENÉ Enoxaparin Sodium 40 mg 03/30/19 10:00 04/09/19 09:48 Lovenox SUB-Q 40 mg QDAY@1000 RENÉ Administration Famotidine 20 mg 04/06/19 10:00 04/09/19 09:48 Pepcid PO 20 mg BID RENÉ Administration Hydromorphone HCl 0.5 mg 04/03/19 07:30 04/03/19 07:58 Dilaudid IV 0.5 mg Q3H PRN Administration Pain , Severe (7-10) Hydrophilic Ointment 1 applic 03/30/19 14:51 Vaseline Lip Therapy TP Q2HR PRN Dry Lips Ceftriaxone Sodium 2 gm in 100 mls @ 200 mls/hr 03/31/19 10:00 04/09/19 09:46 Rocephin/Ns 2 Gm/100 Ml IV 04/09/19 23:59 200 mls/hr Q12HR RENÉ Administration Protocol Lacosamide 200 mg 04/07/19 10:00 04/09/19 09:48 Vimpat PO 200 mg Q12HR RENÉ Administration Lorazepam 2 mg 03/30/19 12:10 04/09/19 01:29 Ativan IV 2 mg Q1H PRN Administration Agitation Multi-Ingred Cream/Lotion/Oil/Oint 1 applic 03/30/19 14:51 Artificial Tears Ophth Oint OU Q4HR PRN Dry Eye(s) Ondansetron HCl 4 mg 03/30/19 01:27 04/02/19 02:50 Zofran IV 4 mg Q4H PRN Administration Nausea And Vomiting Oxcarbazepine 300 mg 04/07/19 14:00 04/09/19 09:48 Trileptal PO 300 mg BID RENÉ Administration Quetiapine Fumarate 50 mg 04/02/19 22:00 04/09/19 09:48 Seroquel PO 50 mg BID RENÉ Administration Sodium Chloride 10 ml 03/30/19 10:00 04/09/19 09:49 Sodium Chloride Flush Syringe 10 Ml IV 10 ml BID RENÉ Administration Sodium Chloride 10 ml 03/30/19 01:27 Sodium Chloride Flush Syringe 10 Ml IV PRN PRN LINE FLUSH Tamsulosin HCl 0.4 mg 04/04/19 13:00 04/09/19 09:48 Flomax PO 0.4 mg QDAY RENÉ Administration Nutrition/Malnutrition Assess - Dietary Evaluation Nutrition/Malnutrition Findings: Nutrition Notes Start: 03/30/19 12:41 Freq: Status: Active Protocol: Document 04/07/19 09:32 PS (Rec: 04/07/19 10:15 PS [id number]) Co-Sign 04/07/19 09:32 LM Nutrition Notes Initial or Follow up Reassessment Current Diagnosis Respiratory Failure Other Pertinent Diagnosis Seizures, Pneu Current Diet Regular Mechanical Soft Diet Labs/Tests BUN 5 Ca 8.3 Pertinent Medications Reviewed Height 5 ft 9 in Weight 62.3 kg [place] Body Weight (kg) 72.72 BMI 20.2 Subjective/Other Information Follow up for diet advancement . Pt. on regular diet, but having trouble chewing. Pt. requested a different meal and at 100% of that small meal ( 04/06). Mechanical soft diet ordered. Percent of energy/protein needs met: 30%/43% Burn Present Trauma Present Minimum of two criteria No #1 Nutrition Diagnosis Inadequate oral intake Diagnosis Progress(for reassessment Continues documentation) Is patient on ventilator? No Is Patient Ambulatory and/or Out of Bed No REE-([facility]-confined to bed) 1896.084 Calculation Used for Recommendations [facility] Additional Notes PRO needs: 50g-62g/kg (0.8g-1g /kg) Fluid needs: 1mL/kcal Nutrition Intervention Change Diet Order: Regular Mechanical Soft Diet Add Supplement/Snack (indicate name/kcal Ensure Enlive [place] Daily /protein ) Provides kCal: 350 Provides Protein (gm) 20 Goal #1 Meet at least 75% of energy and protein needs Anticipated Discharge Needs: Regular Diet Follow-Up By: 04/10/19 Additional Comments F/U for PO/ONS intakes
[2019-04-10] MEDS: ATIVAN IV PRN (02:49)
[2019-04-10 05:44] LABS: Hematocrit 30.9 % (35.5-45.6); Hemoglobin 10.1 gm/dl (11.8-15.2); Mean Corpuscular HGB Conc 33 % (32-34); Mean Corpuscular Volume 84 fl (84-94); Platelet Count 467 K/mm3 (140-440); Red Blood Count 3.68 M/mm3 (3.65-5.03); Red Cell Distribution Width 14.6 % (13.2-15.2)
[2019-04-10 06:13] LABS: BUN/Creatinine Ratio 9; Blood Urea Nitrogen 9 mg/dL (9-20); Calcium 9.3 mg/dL (8.4-10.2); Hemolysis Index 7
[2019-04-10] MEDS: COLACE FEEDTUBE SCH ×2 (09:18→22:31)
[2019-04-10] MEDS: FLOMAX PO SCH (09:22)
[2019-04-10] MEDS: TRILEPTAL PO SCH ×2 (09:22→22:31)
[2019-04-10] MEDS: PEPCID PO SCH ×2 (09:22→22:31)
[2019-04-10] MEDS: VIMPAT PO SCH ×2 (09:22→22:31)
[2019-04-10] MEDS: LOVENOX SUB-Q SCH (09:24)
[2019-04-10] MEDS: SODIUM CHLORIDE FLUSH SYRINGE 10 ML IV SCH ×2 (09:26→22:34)
--- NOTE | 2019-04-10 13:19 | Progress Note ---
Assessment and Plan Patient awake. Still Not answering the questions appropriatly. No acute respiratory distress. Patient is on 2 litres O2. O2 saturation 98%. Patient afebrile and has leukocytosis. - Patient Problems (1) Acute respiratory failure Current Visit: Yes Status: Acute Qualifiers: Respiratory failure complication: hypoxia Qualified Code(s): J96.01 - Acute respiratory failure with hypoxia Plan to address problem: Patient S/P acute respiratory failure and on 2 litres O2. O2 saturation 98%. No acute respiratory distress at this time. Continue S/C Lovenox. (2) Encephalopathy acute Current Visit: Yes Status: Acute Plan to address problem: Management as per primary care and neurology. (3) Metabolic acidosis Current Visit: Yes Status: Acute Plan to address problem: Anion gap 21. Recommend slowly taper lorazepam. (4) Pneumonia Current Visit: Yes Status: Acute Qualifiers: Pneumonia type: due to unspecified organism Laterality: right Lung loc ation: lower lobe of lung Qualified Code(s): J18.1 - Lobar pneumonia, unspecified organism Plan to address problem: Patient treated with ceftrioxone. Patient afebrile now. Chest xray reported no acute findings. (5) Seizure Current Visit: Yes Status: Acute Plan to address problem: Management as per primary care and neurology. Subjective Date of service: 04/10/19 Principal diagnosis: Ac. Resp failure; Seizures; Ac. Encephalopathy; Abnormal CSF (? herpes) Interval history: Patient awake. Still Not answering the questions appropriatly. No acute respiratory distress. Patient is on 2 litres O2. O2 saturation 98%. Patient afebrile and has leukocytosis. Objective Vital Signs - 12hr 04/10/19 04/10/19 04/10/19 02:06 03:35 04:00 Temperature 98.0 F Pulse Rate 96 H 86 92 H Respiratory 20 Rate Blood Pressure 141/76 O2 Sat by Pulse 97 Oximetry 04/10/19 12:01 Temperature Pulse Rate 104 H Respiratory Rate Blood Pressure 160/111 O2 Sat by Pulse 99 Oximetry Constitutional: no acute distress, alert Eyes: non-icteric ENT: oropharynx moist Neck: supple, no lymphadenopathy, no JVD Effort: normal Ascultation: Bilateral: rhonchi (scant) Percussion: Bilateral: not dull Cardiovascular: regular rate and rhythm, other (S1,S2, no murmurs) Gastrointestinal: normoactive bowel sounds, soft, non-tender Integumentary: normal Extremities: no cyanosis, no edema, pulses normal, no ischemia or petechiae Neurologic: normal mental status, non-focal exam (grossly), pupils equal and round, CN II-XII normal, motor strength normal and Psychiatric: mood appropriate, affect normal CBC and BMP: 04/10/19 05:10 04/10/19 05:10 ABG, PT/INR, D-dimer: ABG POC ABG pH 7.461 (7.35-7.45) H 04/03/19 15:44 POC ABG pCO2 45.8 (35-45) H 04/03/19 15:44 POC ABG pO2 109 (80-105) H 04/03/19 15:44 POC ABG HCO3 32.6 (22-26 mml/L) 04/03/19 15:44 POC ABG Total CO2 34 (23-27mmol/L) 04/03/19 15:44 POC ABG O2 Sat 98 04/03/19 15:44 PT/INR, D-dimer PT 15.4 Sec. (12.2-14.9) H 04/05/19 04:56 INR 1.25 (0.87-1.13) H 04/05/19 04:56 Abnormal lab findings: Abnormal Labs 03/29/19 03/29/19 03/29/19 18:29 18:29 18:29 WBC 19.4 H RBC Hgb Hct MCV MCH Plt Count Lymph % (Auto) [place] % (Auto) Lymph # [place] # Baso # Seg Neutrophils % Seg Neuts % (Manual) 72.0 H Lymphocytes % (Manual) Monocytes % (Manual) 8.0 H Seg Neutrophils # Seg Neutrophils # Man 14.0 H Lymphocytes # (Manual) Monocytes # (Manual) 1.6 H PT INR POC ABG pH POC ABG pCO2 POC ABG pO2 VBG pH Sodium 136 L Potassium Chloride 90.6 L Carbon Dioxide 13 L BUN Glucose 154 H Lactic Acid 17.50 H* Calcium Magnesium AST ALT 81 H Total Creatine Kinase Troponin T Albumin Urine WBC (Auto) Vancomycin Trough Group A Strep Rapid 03/29/19 03/29/19 03/29/19 18:29 19:09 19:27 WBC RBC Hgb Hct MCV MCH Plt Count Lymph % (Auto) [place] % (Auto) Lymph # [place] # Baso # Seg Neutrophils % Seg Neuts % (Manual) Lymphocytes % (Manual) Monocytes % (Manual) Seg Neutrophils # Seg Neutrophils # Man Lymphocytes # (Manual) Monocytes # (Manual) PT INR POC ABG pH POC ABG pCO2 POC ABG pO2 VBG pH 7.269 L Sodium Potassium Chloride Carbon Dioxide BUN Glucose Lactic Acid Calcium Magnesium AST ALT Total Creatine Kinase Troponin T 0.031 H Albumin Urine WBC (Auto) 9.0 H Vancomycin Trough Group A Strep Rapid 03/29/19 03/29/19 03/29/19 19:33 20:27 21:01 WBC RBC Hgb Hct MCV MCH Plt Count Lymph % (Auto) [place] % (Auto) Lymph # [place] # Baso # Seg Neutrophils % Seg Neuts % (Manual) Lymphocytes % (Manual) Monocytes % (Manual) Seg Neutrophils # Seg Neutrophils # Man Lymphocytes # (Manual) Monocytes # (Manual) PT INR POC ABG pH POC ABG pCO2 POC ABG pO2 170 H VBG pH Sodium Potassium Chloride Carbon Dioxide BUN Glucose Lactic Acid 3.80 H* 4.10 H* Calcium Magnesium AST ALT Total Creatine Kinase Troponin T Albumin Urine WBC (Auto) Vancomycin Trough Group A Strep Rapid 03/29/19 03/29/19 03/30/19 23:46 Unknown 04:08 WBC RBC Hgb Hct MCV MCH Plt Count Lymph % (Auto) [place] % (Auto) Lymph # [place] # Baso # Seg Neutrophils % Seg Neuts % (Manual) Lymphocytes % (Manual) Monocytes % (Manual) Seg Neutrophils # Seg Neutrophils # Man Lymphocytes # (Manual) Monocytes # (Manual) PT INR POC ABG pH POC ABG pCO2 POC ABG pO2 VBG pH Sodium Potassium Chloride Carbon Dioxide BUN Glucose Lactic Acid 2.10 H* Calcium Magnesium AST ALT Total Creatine Kinase 172 H Troponin T 0.033 H Albumin Urine WBC (Auto) Vancomycin Trough Group A Strep Rapid Positive A 03/30/19 03/30/19 03/30/19 04:45 05:21 07:17 WBC 20.8 H RBC Hgb 10.9 L Hct 33.5 L MCV MCH Plt Count Lymph % (Auto) [place] % (Auto) Lymph # [place] # Baso # Seg Neutrophils % Seg Neuts % (Manual) 85.0 H Lymphocytes % (Manual) 8.0 L Monocytes % (Manual) Seg Neutrophils # Seg Neutrophils # Man 17.7 H Lymphocytes # (Manual) Monocytes # (Manual) PT INR POC ABG pH POC ABG pCO2 POC ABG pO2 172 H VBG pH Sodium Potassium Chloride Carbon Dioxide BUN Glucose Lactic Acid Calcium Magnesium AST ALT Total Creatine Kinase 173 H Troponin T 0.039 H Albumin Urine WBC (Auto) Vancomycin Trough Group A Strep Rapid 03/31/19 03/31/19 03/31/19 04:24 04:24 04:27 WBC 17.9 H RBC Hgb 10.7 L Hct 32.4 L MCV MCH Plt Count Lymph % (Auto) [place] % (Auto) Lymph # [place] # Baso # Seg Neutrophils % Seg Neuts % (Manual) Lymphocytes % (Manual) Monocytes % (Manual) Seg Neutrophils # Seg Neutrophils # Man Lymphocytes # (Manual) Monocytes # (Manual) PT INR POC ABG pH 7.324 L POC ABG pCO2 51.9 H POC ABG pO2 VBG pH Sodium Potassium Chloride Carbon Dioxide BUN 7 L Glucose 108 H Lactic Acid Calcium Magnesium AST ALT Total Creatine Kinase Troponin T Albumin 3.3 L Urine WBC (Auto) Vancomycin Trough Group A Strep Rapid 03/31/19 04/01/19 04/02/19 20:54 22:40 04:40 WBC 13.7 H RBC 3.33 L Hgb 9.5 L Hct 28.0 L MCV MCH Plt Count Lymph % (Auto) 4.7 L [place] % (Auto) 12.7 H Lymph # 0.7 L [place] # 1.7 H Baso # Seg Neutrophils % 79.1 H Seg Neuts % (Manual) Lymphocytes % (Manual) Monocytes % (Manual) Seg Neutrophils # 10.9 H Seg Neutrophils # Man Lymphocytes # (Manual) Monocytes # (Manual) PT INR POC ABG pH 7.345 L POC ABG pCO2 54.1 H 50.2 H POC ABG pO2 78 L 145 H VBG pH Sodium Potassium Chloride Carbon Dioxide BUN Glucose Lactic Acid Calcium Magnesium AST ALT Total Creatine Kinase Troponin T Albumin Urine WBC (Auto) Vancomycin Trough Group A Strep Rapid 04/02/19 04/02/19 04/02/19 04:40 05:35 16:07 WBC RBC Hgb Hct MCV MCH Plt Count Lymph % (Auto) [place] % (Auto) Lymph # [place] # Baso # Seg Neutrophils % Seg Neuts % (Manual) Lymphocytes % (Manual) Monocytes % (Manual) Seg Neutrophils # Seg Neutrophils # Man Lymphocytes # (Manual) Monocytes # (Manual) PT INR POC ABG pH 7.310 L POC ABG pCO2 45.4 H 68.5 H POC ABG pO2 137 H VBG pH Sodium Potassium 3.2 L Chloride 94.9 L Carbon Dioxide BUN 5 L Glucose Lactic Acid Calcium Magnesium AST ALT Total Creatine Kinase Troponin T Albumin 3.0 L Urine WBC (Auto) Vancomycin Trough Group A Strep Rapid 04/03/19 04/03/19 04/04/19 04:13 15:44 04:16 WBC 18.9 H RBC Hgb 10.7 L Hct 33.2 L MCV MCH 27 L Plt Count 509 H Lymph % (Auto) [place] % (Auto) Lymph # [place] # Baso # Seg Neutrophils % Seg Neuts % (Manual) Lymphocytes % (Manual) Monocytes % (Manual) Seg Neutrophils # Seg Neutrophils # Man Lymphocytes # (Manual) Monocytes # (Manual) PT INR POC ABG pH 7.506 H 7.461 H POC ABG pCO2 45.8 H POC ABG pO2 143 H 109 H VBG pH Sodium Potassium Chloride Carbon Dioxide BUN Glucose Lactic Acid Calcium Magnesium AST ALT Total Creatine Kinase Troponin T Albumin Urine WBC (Auto) Vancomycin Trough Group A Strep Rapid 04/04/19 04/04/19 04/05/19 04:16 10:58 04:56 WBC 20.5 H RBC Hgb 10.8 L Hct 33.0 L MCV MCH Plt Count 546 H Lymph % (Auto) [place] % (Auto) Lymph # [place] # Baso # Seg Neutrophils % Seg Neuts % (Manual) 85.0 H Lymphocytes % (Manual) 7.0 L Monocytes % (Manual) 8.0 H Seg Neutrophils # Seg Neutrophils # Man 17.4 H Lymphocytes # (Manual) Monocytes # (Manual) 1.6 H PT INR POC ABG pH POC ABG pCO2 POC ABG pO2 VBG pH Sodium Potassium Chloride Carbon Dioxide BUN 6 L Glucose Lactic Acid Calcium Magnesium AST ALT Total Creatine Kinase Troponin T Albumin Urine WBC (Auto) Vancomycin Trough 22.3 H Group A Strep Rapid 04/05/19 04/05/19 04/06/19 04:56 04:56 04:52 WBC 18.1 H RBC 3.52 L Hgb 9.7 L Hct 29.7 L MCV MCH Plt Count 519 H Lymph % (Auto) 8.3 L [place] % (Auto) 15.4 H Lymph # [place] # 2.8 H Baso # 0.2 H Seg Neutrophils % 73.2 H Seg Neuts % (Manual) Lymphocytes % (Manual) Monocytes % (Manual) Seg Neutrophils # 13.2 H Seg Neutrophils # Man Lymphocytes # (Manual) Monocytes # (Manual) PT 15.4 H INR 1.25 H POC ABG pH POC ABG pCO2 POC ABG pO2 VBG pH Sodium 148 H Potassium 3.1 L D Chloride Carbon Dioxide BUN 7 L Glucose Lactic Acid Calcium Magnesium AST ALT Total Creatine Kinase Troponin T Albumin 3.3 L Urine WBC (Auto) Vancomycin Trough Group A Strep Rapid 04/06/19 04/06/19 04/06/19 04:52 04:52 13:42 WBC RBC Hgb Hct MCV MCH Plt Count Lymph % (Auto) [place] % (Auto) Lymph # [place] # Baso # Seg Neutrophils % Seg Neuts % (Manual) Lymphocytes % (Manual) Monocytes % (Manual) Seg Neutrophils # Seg Neutrophils # Man Lymphocytes # (Manual) Monocytes # (Manual) PT INR POC ABG pH POC ABG pCO2 POC ABG pO2 VBG pH Sodium Potassium 2.7 L* 2.8 L* Chloride Carbon Dioxide BUN 5 L 5 L Glucose 137 H Lactic Acid Calcium Magnesium 1.60 L 1.60 L AST ALT Total Creatine Kinase Troponin T Albumin 2.9 L Urine WBC (Auto) Vancomycin Trough Group A Strep Rapid 04/07/19 04/07/19 04/08/19 04:05 08:48 06:35 WBC 13.6 H 12.8 H RBC 3.64 L 3.63 L Hgb 10.1 L 10.1 L Hct 30.3 L 30.4 L MCV 83 L MCH Plt Count 492 H 529 H Lymph % (Auto) [place] % (Auto) Lymph # [place] # Baso # Seg Neutrophils % Seg Neuts % (Manual) 85.0 H Lymphocytes % (Manual) 5.0 L Monocytes % (Manual) Seg Neutrophils # Seg Neutrophils # Man 11.6 H Lymphocytes # (Manual) 0.7 L Monocytes # (Manual) PT INR POC ABG pH POC ABG pCO2 POC ABG pO2 VBG pH Sodium Potassium Chloride Carbon Dioxide BUN 5 L Glucose Lactic Acid Calcium 8.3 L Magnesium AST 43 H ALT Total Creatine Kinase Troponin T Albumin 2.6 L Urine WBC (Auto) Vancomycin Trough Group A Strep Rapid 04/08/19 04/09/19 04/10/19 06:35 04:31 05:10 WBC 15.4 H 17.1 H RBC Hgb 10.4 L 10.1 L Hct 31.4 L 30.9 L MCV MCH Plt Count 506 H 467 H Lymph % (Auto) [place] % (Auto) Lymph # [place] # Baso # Seg Neutrophils % Seg Neuts % (Manual) Lymphocytes % (Manual) Monocytes % (Manual) Seg Neutrophils # Seg Neutrophils # Man Lymphocytes # (Manual) Monocytes # (Manual) PT INR POC ABG pH POC ABG pCO2 POC ABG pO2 VBG pH Sodium Potassium Chloride Carbon Dioxide BUN 6 L Glucose Lactic Acid Calcium Magnesium AST ALT Total Creatine Kinase Troponin T Albumin Urine WBC (Auto) Vancomycin Trough Group A Strep Rapid Chest x-ray: report reviewed (No acute findings.), image reviewed Allied health notes reviewed: nursing
--- NOTE | 2019-04-10 13:29 | Progress Note ---
Subjective Date of service: 04/10/19 Principal diagnosis: Ac. Resp failure; Seizures; Ac. Encephalopathy; Abnormal CSF (? herpes) Interval history: spoke to Dr. De Los Santos and went back over situation he is capable of being discharged and see me in the office wednesday continue same dose of seizure medication po may be discharged Objective - Vital Sign Vital Signs - 12hr 04/10/19 04/10/19 04/10/19 02:06 03:35 04:00 Temperature 98.0 F Pulse Rate 96 H 86 92 H Respiratory 20 Rate Blood Pressure 141/76 O2 Sat by Pulse 97 Oximetry 04/10/19 12:01 Temperature Pulse Rate 104 H Respiratory Rate Blood Pressure 160/111 O2 Sat by Pulse 99 Oximetry - Laboratory Findings CBC and BMP: 04/10/19 05:10 04/10/19 05:10 Abnormal Lab Findings: Abnormal Labs 03/29/19 03/29/19 03/29/19 18:29 18:29 18:29 WBC 19.4 H RBC Hgb Hct MCV MCH Plt Count Lymph % (Auto) [place] % (Auto) Lymph # [place] # Baso # Seg Neutrophils % Seg Neuts % (Manual) 72.0 H Lymphocytes % (Manual) Monocytes % (Manual) 8.0 H Seg Neutrophils # Seg Neutrophils # Man 14.0 H Lymphocytes # (Manual) Monocytes # (Manual) 1.6 H PT INR POC ABG pH POC ABG pCO2 POC ABG pO2 VBG pH Sodium 136 L Potassium Chloride 90.6 L Carbon Dioxide 13 L BUN Glucose 154 H Lactic Acid 17.50 H* Calcium Magnesium AST ALT 81 H Total Creatine Kinase Troponin T Albumin Urine WBC (Auto) Vancomycin Trough Group A Strep Rapid 03/29/19 03/29/19 03/29/19 18:29 19:09 19:27 WBC RBC Hgb Hct MCV MCH Plt Count Lymph % (Auto) [place] % (Auto) Lymph # [place] # Baso # Seg Neutrophils % Seg Neuts % (Manual) Lymphocytes % (Manual) Monocytes % (Manual) Seg Neutrophils # Seg Neutrophils # Man Lymphocytes # (Manual) Monocytes # (Manual) PT INR POC ABG pH POC ABG pCO2 POC ABG pO2 VBG pH 7.269 L Sodium Potassium Chloride Carbon Dioxide BUN Glucose Lactic Acid Calcium Magnesium AST ALT Total Creatine Kinase Troponin T 0.031 H Albumin Urine WBC (Auto) 9.0 H Vancomycin Trough Group A Strep Rapid 03/29/19 03/29/19 03/29/19 19:33 20:27 21:01 WBC RBC Hgb Hct MCV MCH Plt Count Lymph % (Auto) [place] % (Auto) Lymph # [place] # Baso # Seg Neutrophils % Seg Neuts % (Manual) Lymphocytes % (Manual) Monocytes % (Manual) Seg Neutrophils # Seg Neutrophils # Man Lymphocytes # (Manual) Monocytes # (Manual) PT INR POC ABG pH POC ABG pCO2 POC ABG pO2 170 H VBG pH Sodium Potassium Chloride Carbon Dioxide BUN Glucose Lactic Acid 3.80 H* 4.10 H* Calcium Magnesium AST ALT Total Creatine Kinase Troponin T Albumin Urine WBC (Auto) Vancomycin Trough Group A Strep Rapid 03/29/19 03/29/19 03/30/19 23:46 Unknown 04:08 WBC RBC Hgb Hct MCV MCH Plt Count Lymph % (Auto) [place] % (Auto) Lymph # [place] # Baso # Seg Neutrophils % Seg Neuts % (Manual) Lymphocytes % (Manual) Monocytes % (Manual) Seg Neutrophils # Seg Neutrophils # Man Lymphocytes # (Manual) Monocytes # (Manual) PT INR POC ABG pH POC ABG pCO2 POC ABG pO2 VBG pH Sodium Potassium Chloride Carbon Dioxide BUN Glucose Lactic Acid 2.10 H* Calcium Magnesium AST ALT Total Creatine Kinase 172 H Troponin T 0.033 H Albumin Urine WBC (Auto) Vancomycin Trough Group A Strep Rapid Positive A 03/30/19 03/30/19 03/30/19 04:45 05:21 07:17 WBC 20.8 H RBC Hgb 10.9 L Hct 33.5 L MCV MCH Plt Count Lymph % (Auto) [place] % (Auto) Lymph # [place] # Baso # Seg Neutrophils % Seg Neuts % (Manual) 85.0 H Lymphocytes % (Manual) 8.0 L Monocytes % (Manual) Seg Neutrophils # Seg Neutrophils # Man 17.7 H Lymphocytes # (Manual) Monocytes # (Manual) PT INR POC ABG pH POC ABG pCO2 POC ABG pO2 172 H VBG pH Sodium Potassium Chloride Carbon Dioxide BUN Glucose Lactic Acid Calcium Magnesium AST ALT Total Creatine Kinase 173 H Troponin T 0.039 H Albumin Urine WBC (Auto) Vancomycin Trough Group A Strep Rapid 03/31/19 03/31/19 03/31/19 04:24 04:24 04:27 WBC 17.9 H RBC Hgb 10.7 L Hct 32.4 L MCV MCH Plt Count Lymph % (Auto) [place] % (Auto) Lymph # [place] # Baso # Seg Neutrophils % Seg Neuts % (Manual) Lymphocytes % (Manual) Monocytes % (Manual) Seg Neutrophils # Seg Neutrophils # Man Lymphocytes # (Manual) Monocytes # (Manual) PT INR POC ABG pH 7.324 L POC ABG pCO2 51.9 H POC ABG pO2 VBG pH Sodium Potassium Chloride Carbon Dioxide BUN 7 L Glucose 108 H Lactic Acid Calcium Magnesium AST ALT Total Creatine Kinase Troponin T Albumin 3.3 L Urine WBC (Auto) Vancomycin Trough Group A Strep Rapid 03/31/19 04/01/19 04/02/19 20:54 22:40 04:40 WBC 13.7 H RBC 3.33 L Hgb 9.5 L Hct 28.0 L MCV MCH Plt Count Lymph % (Auto) 4.7 L [place] % (Auto) 12.7 H Lymph # 0.7 L [place] # 1.7 H Baso # Seg Neutrophils % 79.1 H Seg Neuts % (Manual) Lymphocytes % (Manual) Monocytes % (Manual) Seg Neutrophils # 10.9 H Seg Neutrophils # Man Lymphocytes # (Manual) Monocytes # (Manual) PT INR POC ABG pH 7.345 L POC ABG pCO2 54.1 H 50.2 H POC ABG pO2 78 L 145 H VBG pH Sodium Potassium Chloride Carbon Dioxide BUN Glucose Lactic Acid Calcium Magnesium AST ALT Total Creatine Kinase Troponin T Albumin Urine WBC (Auto) Vancomycin Trough Group A Strep Rapid 04/02/19 04/02/19 04/02/19 04:40 05:35 16:07 WBC RBC Hgb Hct MCV MCH Plt Count Lymph % (Auto) [place] % (Auto) Lymph # [place] # Baso # Seg Neutrophils % Seg Neuts % (Manual) Lymphocytes % (Manual) Monocytes % (Manual) Seg Neutrophils # Seg Neutrophils # Man Lymphocytes # (Manual) Monocytes # (Manual) PT INR POC ABG pH 7.310 L POC ABG pCO2 45.4 H 68.5 H POC ABG pO2 137 H VBG pH Sodium Potassium 3.2 L Chloride 94.9 L Carbon Dioxide BUN 5 L Glucose Lactic Acid Calcium Magnesium AST ALT Total Creatine Kinase Troponin T Albumin 3.0 L Urine WBC (Auto) Vancomycin Trough Group A Strep Rapid 04/03/19 04/03/19 04/04/19 04:13 15:44 04:16 WBC 18.9 H RBC Hgb 10.7 L Hct 33.2 L MCV MCH 27 L Plt Count 509 H Lymph % (Auto) [place] % (Auto) Lymph # [place] # Baso # Seg Neutrophils % Seg Neuts % (Manual) Lymphocytes % (Manual) Monocytes % (Manual) Seg Neutrophils # Seg Neutrophils # Man Lymphocytes # (Manual) Monocytes # (Manual) PT INR POC ABG pH 7.506 H 7.461 H POC ABG pCO2 45.8 H POC ABG pO2 143 H 109 H VBG pH Sodium Potassium Chloride Carbon Dioxide BUN Glucose Lactic Acid Calcium Magnesium AST ALT Total Creatine Kinase Troponin T Albumin Urine WBC (Auto) Vancomycin Trough Group A Strep Rapid 04/04/19 04/04/19 04/05/19 04:16 10:58 04:56 WBC 20.5 H RBC Hgb 10.8 L Hct 33.0 L MCV MCH Plt Count 546 H Lymph % (Auto) [place] % (Auto) Lymph # [place] # Baso # Seg Neutrophils % Seg Neuts % (Manual) 85.0 H Lymphocytes % (Manual) 7.0 L Monocytes % (Manual) 8.0 H Seg Neutrophils # Seg Neutrophils # Man 17.4 H Lymphocytes # (Manual) Monocytes # (Manual) 1.6 H PT INR POC ABG pH POC ABG pCO2 POC ABG pO2 VBG pH Sodium Potassium Chloride Carbon Dioxide BUN 6 L Glucose Lactic Acid Calcium Magnesium AST ALT Total Creatine Kinase Troponin T Albumin Urine WBC (Auto) Vancomycin Trough 22.3 H Group A Strep Rapid 04/05/19 04/05/19 04/06/19 04:56 04:56 04:52 WBC 18.1 H RBC 3.52 L Hgb 9.7 L Hct 29.7 L MCV MCH Plt Count 519 H Lymph % (Auto) 8.3 L [place] % (Auto) 15.4 H Lymph # [place] # 2.8 H Baso # 0.2 H Seg Neutrophils % 73.2 H Seg Neuts % (Manual) Lymphocytes % (Manual) Monocytes % (Manual) Seg Neutrophils # 13.2 H Seg Neutrophils # Man Lymphocytes # (Manual) Monocytes # (Manual) PT 15.4 H INR 1.25 H POC ABG pH POC ABG pCO2 POC ABG pO2 VBG pH Sodium 148 H Potassium 3.1 L D Chloride Carbon Dioxide BUN 7 L Glucose Lactic Acid Calcium Magnesium AST ALT Total Creatine Kinase Troponin T Albumin 3.3 L Urine WBC (Auto) Vancomycin Trough Group A Strep Rapid 04/06/19 04/06/19 04/06/19 04:52 04:52 13:42 WBC RBC Hgb Hct MCV MCH Plt Count Lymph % (Auto) [place] % (Auto) Lymph # [place] # Baso # Seg Neutrophils % Seg Neuts % (Manual) Lymphocytes % (Manual) Monocytes % (Manual) Seg Neutrophils # Seg Neutrophils # Man Lymphocytes # (Manual) Monocytes # (Manual) PT INR POC ABG pH POC ABG pCO2 POC ABG pO2 VBG pH Sodium Potassium 2.7 L* 2.8 L* Chloride Carbon Dioxide BUN 5 L 5 L Glucose 137 H Lactic Acid Calcium Magnesium 1.60 L 1.60 L AST ALT Total Creatine Kinase Troponin T Albumin 2.9 L Urine WBC (Auto) Vancomycin Trough Group A Strep Rapid 04/07/19 04/07/19 04/08/19 04:05 08:48 06:35 WBC 13.6 H 12.8 H RBC 3.64 L 3.63 L Hgb 10.1 L 10.1 L Hct 30.3 L 30.4 L MCV 83 L MCH Plt Count 492 H 529 H Lymph % (Auto) [place] % (Auto) Lymph # [place] # Baso # Seg Neutrophils % Seg Neuts % (Manual) 85.0 H Lymphocytes % (Manual) 5.0 L Monocytes % (Manual) Seg Neutrophils # Seg Neutrophils # Man 11.6 H Lymphocytes # (Manual) 0.7 L Monocytes # (Manual) PT INR POC ABG pH POC ABG pCO2 POC ABG pO2 VBG pH Sodium Potassium Chloride Carbon Dioxide BUN 5 L Glucose Lactic Acid Calcium 8.3 L Magnesium AST 43 H ALT Total Creatine Kinase Troponin T Albumin 2.6 L Urine WBC (Auto) Vancomycin Trough Group A Strep Rapid 04/08/19 04/09/19 04/10/19 06:35 04:31 05:10 WBC 15.4 H 17.1 H RBC Hgb 10.4 L 10.1 L Hct 31.4 L 30.9 L MCV MCH Plt Count 506 H 467 H Lymph % (Auto) [place] % (Auto) Lymph # [place] # Baso # Seg Neutrophils % Seg Neuts % (Manual) Lymphocytes % (Manual) Monocytes % (Manual) Seg Neutrophils # Seg Neutrophils # Man Lymphocytes # (Manual) Monocytes # (Manual) PT INR POC ABG pH POC ABG pCO2 POC ABG pO2 VBG pH Sodium Potassium Chloride Carbon Dioxide BUN 6 L Glucose Lactic Acid Calcium Magnesium AST ALT Total Creatine Kinase Troponin T Albumin Urine WBC (Auto) Vancomycin Trough Group A Strep Rapid
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
--- NOTE | 2019-04-10 14:27 | Progress Note ---
Assessment and Plan Assessment and plan: Patient is 28-year-old man was recently diagnosed with seizure, discharge from the hospital on March 22 comes back on 03/29/19 for evaluation of seizure. After he was discharged he had a seizure on the , mom stated that he's been compliant with his Vimpat. He was seen at [facility] and discharge. He also had another seizure at home on Wednesday and was then taken to [place], no change in his medication he was given a follow-up with urology clinic. Mom states that he smoked marijuana on the prior to the seizure. He is been having fevers at home. He also had seizure in route to the hospital, was intubated in the emergency room for airway protection, admitted to ICU. He was seen by [employer], Neurology and ID physician. He was diagnosed with sepsis, status epilepticus. He improved, was extubated. He was on iv Antibiotics for sepsis. Lumbar puncture and CSFanalysis was done and Herpes encephalitis and Bacterial meningitis ruled out. He was improving but had 2 seizures on 04/07/19. He was reevaluated by Dr. Kinney, neurologist and he increased dose of Vimpat and added Trilepta. He has been seizure free since then. Today CT Chest and Abd ordered by ID because of persistent leukocytosis. To dc home on current anti-seizure meds if CT neg. To follow with Neurology as outpatient. Acute respiratory failure was intubated, now extubated, off MV Sepsis Acute Metabolic Encephalopathy Status Epilepticus - resolved Breakthrough seizure episodes on 04/07, no more seizures since 04/07/19 Sinus Tachycardia Acute on chronic seizure Pneumonia Leukocytosis Plan Continue supportive care Acylovir discontinued MRI of Brain, unremarkable Continue ceftriaxone 2 gm IV q 12 hour Vancomycin IV discontinued Clindamycin iv discontinued Neurology following. Lacosamide dose increased Trileptal added DVT/GI PROPHY Discussed with patient poss dc home if CT neg History Interval history: Patient extubated 04/04/19 Seizures on 04/07 and no more seizures since then Hospitalist Physical - Physical exam Narrative exam: Gen: Not in acute distress, lying in bed HEENT: Normocephalic, atraumatic Neck: supple, no JVD Heart: S1 and S2 reg, no murmurs, rubs or gallop Lungs: Clear to auscultation, no rhonchi, no wheeze Abd: soft, non tender, non distended, normal BS, Groin: right large inguinoscrotal hernia, Ext: No edema, no clubbing, no cyanosis Neuro: Awake, alert, oriented X 3, no focal neurological signs - Constitutional Vitals: Temp Pulse Resp BP Pulse Ox 98.0 F 104 H 20 160/111 99 04/10/19 03:35 04/10/19 12:01 04/10/19 03:35 04/10/19 12:01 04/10/19 12:01 General appearance: Present: no acute distress Results - Labs CBC & Chem 7: 04/10/19 05:10 04/10/19 05:10 Labs: Laboratory Last Values WBC 17.1 K/mm3 (4.5-11.0) H 04/10/19 05:10 RBC 3.68 M/mm3 (3.65-5.03) 04/10/19 05:10 Hgb 10.1 gm/dl (11.8-15.2) L 04/10/19 05:10 Hct 30.9 % (35.5-45.6) L 04/10/19 05:10 MCV 84 fl (84-94) 04/10/19 05:10 MCH 28 pg (28-32) 04/10/19 05:10 MCHC 33 % (32-34) 04/10/19 05:10 RDW 14.6 % (13.2-15.2) 04/10/19 05:10 Plt Count 467 K/mm3 (140-440) H 04/10/19 05:10 Lymph % (Auto) 8.3 % (13.4-35.0) L 04/06/19 04:52 [place] % (Auto) 15.4 % (0.0-7.3) H 04/06/19 04:52 Eos % (Auto) 2.3 % (0.0-4.3) 04/06/19 04:52 Baso % (Auto) 0.8 % (0.0-1.8) 04/06/19 04:52 Lymph # 1.5 K/mm3 (1.2-5.4) 04/06/19 04:52 [place] # 2.8 K/mm3 (0.0-0.8) H 04/06/19 04:52 Eos # 0.4 K/mm3 (0.0-0.4) 04/06/19 04:52 Baso # 0.2 K/mm3 (0.0-0.1) H 04/06/19 04:52 Add Manual Diff Complete 04/07/19 08:48 Total Counted 100 04/07/19 08:48 Seg Neutrophils % 73.2 % (40.0-70.0) H 04/06/19 04:52 Seg Neuts % (Manual) 85.0 % (40.0-70.0) H 04/07/19 08:48 Band Neutrophils % 1.0 % 04/07/19 08:48 Lymphocytes % (Manual) 5.0 % (13.4-35.0) L 04/07/19 08:48 Reactive Lymphs % (Man) 0 % 04/07/19 08:48 Monocytes % (Manual) 3.0 % (0.0-7.3) 04/07/19 08:48 Eosinophils % (Manual) 2.0 % (0.0-4.3) 04/07/19 08:48 Basophils % (Manual) 1.0 % (0.0-1.8) 04/07/19 08:48 Metamyelocytes % 3.0 % 04/07/19 08:48 Myelocytes % 0 % 04/07/19 08:48 Promyelocytes % 0 % 04/07/19 08:48 Blast Cells % 0 % 04/07/19 08:48 Nucleated RBC % Not Reportable 04/07/19 08:48 Seg Neutrophils # 13.2 K/mm3 (1.8-7.7) H 04/06/19 04:52 Seg Neutrophils # Man 11.6 K/mm3 (1.8-7.7) H 04/07/19 08:48 Band Neutrophils # 0.1 K/mm3 04/07/19 08:48 Lymphocytes # (Manual) 0.7 K/mm3 (1.2-5.4) L 04/07/19 08:48 Abs React Lymphs (Man) 0.0 K/mm3 04/07/19 08:48 Monocytes # (Manual) 0.4 K/mm3 (0.0-0.8) 04/07/19 08:48 Eosinophils # (Manual) 0.3 K/mm3 (0.0-0.4) 04/07/19 08:48 Basophils # (Manual) 0.1 K/mm3 (0.0-0.1) 04/07/19 08:48 Metamyelocytes # 0.4 K/mm3 04/07/19 08:48 Myelocytes # 0.0 K/mm3 04/07/19 08:48 Promyelocytes # 0.0 K/mm3 04/07/19 08:48 Blast Cells # 0.0 K/mm3 04/07/19 08:48 WBC Morphology Not Reportable 04/07/19 08:48 Hypersegmented Neuts Not Reportable 04/07/19 08:48 Hyposegmented Neuts Not Reportable 04/07/19 08:48 Hypogranular Neuts Not Reportable 04/07/19 08:48 Smudge Cells Not Reportable 04/07/19 08:48 Toxic Granulation Not Reportable 04/07/19 08:48 Toxic Vacuolation Not Reportable 04/07/19 08:48 Dohle Bodies Not Reportable 04/07/19 08:48 Pelger-Huet Anomaly Not Reportable 04/07/19 08:48 Zbigniew Rods Not Reportable 04/07/19 08:48 Platelet Estimate Consistent w auto 04/07/19 08:48 Clumped Platelets Not Reportable 04/07/19 08:48 Plt Clumps, EDTA Not Reportable 04/07/19 08:48 Large Platelets Not Reportable 04/07/19 08:48 Giant Platelets Not Reportable 04/07/19 08:48 Platelet Satelliting Not Reportable 04/07/19 08:48 Plt Morphology Comment Not Reportable 04/07/19 08:48 RBC Morphology Not Reportable 04/07/19 08:48 Dimorphic RBCs Not Reportable 04/07/19 08:48 Polychromasia Not Reportable 04/07/19 08:48 Hypochromasia Not Reportable 04/07/19 08:48 Poikilocytosis Not Reportable 04/07/19 08:48 Anisocytosis Few 04/07/19 08:48 Microcytosis Not Reportable 04/07/19 08:48 Macrocytosis Not Reportable 04/07/19 08:48 Spherocytes Not Reportable 04/07/19 08:48 Pappenheimer Bodies Not Reportable 04/07/19 08:48 Sickle Cells Not Reportable 04/07/19 08:48 Target Cells Not Reportable 04/07/19 08:48 Tear Drop Cells Not Reportable 04/07/19 08:48 Ovalocytes Not Reportable 04/07/19 08:48 Stomatocytes Rare 04/05/19 04:56 Helmet Cells Not Reportable 04/07/19 08:48 [place] Bodies Not Reportable 04/07/19 08:48 [place] Rings Not Reportable 04/07/19 08:48 [place] Cells Not Reportable 04/07/19 08:48 Bite Cells Not Reportable 04/07/19 08:48 Crenated Cell Not Reportable 04/07/19 08:48 Elliptocytes Not Reportable 04/07/19 08:48 Acanthocytes (Spur) Not Reportable 04/07/19 08:48 Rouleaux Not Reportable 04/07/19 08:48 Hemoglobin C Crystals Not Reportable 04/07/19 08:48 Schistocytes Not Reportable 04/07/19 08:48 Malaria parasites Not Reportable 04/07/19 08:48 Erich Bodies Not Reportable 04/07/19 08:48 Hem Pathologist Commnt No 04/07/19 08:48 PT 15.4 Sec. (12.2-14.9) H 04/05/19 04:56 INR 1.25 (0.87-1.13) H 04/05/19 04:56 INR Cancelled 03/29/19 18:29 APTT 29.5 Sec. (24.2-36.6) 03/29/19 18:29 PT Patient/Control Mix Cancelled 03/29/19 18:29 PT Pat/Norm 1:1 5 min Cancelled 03/29/19 18:29 PT Pat/Norm 1:1 1 Hr Cancelled 03/29/19 18:29 POC ABG pH 7.461 (7.35-7.45) H 04/03/19 15:44 POC ABG pCO2 45.8 (35-45) H 04/03/19 15:44 POC ABG pO2 109 (80-105) H 04/03/19 15:44 POC ABG HCO3 32.6 (22-26 mml/L) 04/03/19 15:44 POC ABG Total CO2 34 (23-27mmol/L) 04/03/19 15:44 POC ABG O2 Sat 98 04/03/19 15:44 POC ABG Base Excess 9 ((-2) - (+3)mmol/L) 04/03/19 15:44 VBG pH 7.269 (7.320-7.420) L 03/29/19 19:09 FiO2 25 % 04/03/19 15:44 Sodium 142 mmol/L (137-145) 04/10/19 05:10 Potassium 3.8 mmol/L (3.6-5.0) 04/10/19 05:10 Chloride 99.9 mmol/L (98-107) 04/10/19 05:10 Carbon Dioxide 25 mmol/L (22-30) 04/10/19 05:10 Anion Gap 21 mmol/L 04/10/19 05:10 BUN 9 mg/dL (9-20) 04/10/19 05:10 Creatinine 1.0 mg/dL (0.8-1.5) 04/10/19 05:10 Estimated GFR > 60 ml/min 04/10/19 05:10 BUN/Creatinine Ratio 9 % 04/10/19 05:10 Glucose 83 mg/dL (75-100) 04/10/19 05:10 POC Glucose 89 (70-105) 04/03/19 12:44 Lactic Acid 1.90 mmol/L (0.7-2.0) 03/30/19 05:11 Calcium 9.3 mg/dL (8.4-10.2) 04/10/19 05:10 Phosphorus 3.10 mg/dL (2.5-4.5) 04/06/19 13:42 Magnesium 2.30 mg/dL (1.7-2.3) 04/07/19 08:48 Total Bilirubin < 0.20 mg/dL (0.1-1.2) 04/07/19 04:05 AST 43 units/L (5-40) H 04/07/19 04:05 ALT 44 units/L (7-56) 04/07/19 04:05 Alkaline Phosphatase 50 units/L (35-129) 04/07/19 04:05 Total Creatine Kinase 173 units/L (55-170) H 03/30/19 07:17 CK-MB (CK-2) 2.8 ng/mL (0.0-4.0) 03/30/19 07:17 CK-MB (CK-2) Rel Index 1.6 (0-4) 03/30/19 07:17 Troponin T 0.039 ng/mL (0.00-0.029) H 03/30/19 07:17 Total Protein 6.5 g/dL (6.3-8.2) 04/07/19 04:05 Albumin 2.6 g/dL (3.9-5) L 04/07/19 04:05 Albumin/Globulin Ratio 0.7 % 04/07/19 04:05 Triglycerides 63 mg/dL (2-149) 03/29/19 18:29 Cholesterol 177 mg/dL (50-199) 03/29/19 18:29 LDL Cholesterol Direct 119 mg/dL (50-130) 03/29/19 18:29 HDL Cholesterol 56 mg/dL (40-59) 03/29/19 18:29 Cholesterol/HDL Ratio 3.16 % 03/29/19 18:29 Urine Color Yellow (Yellow) 03/29/19 19:27 Urine Turbidity Slightly-cloudy (Clear) 03/29/19 19: Urine pH 5.0 (5.0-7.0) 03/29/19 19: Ur Specific [place] 1.011 (1.003-1.030) 03/29/19 19: Urine Protein 100 mg/dl mg/dL (Negative) 03/29/19 19:27 Urine Glucose (UA) Neg mg/dL (Negative) 03/29/19 19: Urine Ketones Neg mg/dL (Negative) 03/29/19 19: Urine Blood Sm (Negative) 03/29/19 19: Urine Nitrite Neg (Negative) 03/29/19 19: Urine Bilirubin Neg (Negative) 03/29/19 19: Urine Urobilinogen < 2.0 mg/dL (<2.0) 03/29/19 19: Ur Leukocyte Esterase Neg (Negative) 03/29/19 19:27 Urine WBC (Auto) 9.0 /HPF (0.0-6.0) H 03/29/19 19: Urine RBC (Auto) 3.0 /HPF (0.0-6.0) 03/29/19 19:27 U Epithel Cells (Auto) < 1.0 /HPF (0-13.0) 03/29/19 19:27 Urine Bacteria (Auto) 1+ /HPF (Negative) 03/29/19 19:27 Urine Mucus Few /HPF 03/29/19 19:27 CSF Appearance Clear 03/30/19 Unknown CSF Color Colorless 03/30/19 Unknown CSF WBC 18 /mm3 (1-10) 03/30/19 Unknown CSF RBC 10 /mm3 (0-0) 03/30/19 Unknown CSF Seg Neutrophils 4.0 % (0-6) 03/30/19 Unknown CSF Lymphocytes % 92.0 % (40-80) 03/30/19 Unknown CSF Reactive Lymphs 0 % 03/30/19 Unknown CSF Monocytes % 4.0 % (15-45) 03/30/19 Unknown CSF Eosinophils % 0 % 03/30/19 Unknown CSF Basophils 0 % 03/30/19 Unknown CSF Pathologist Review C 03/30/19 Unknown CSF Glucose 75 mg/dL 03/30/19 Unknown CSF Total Protein 61 mg/dL 03/30/19 Unknown Vancomycin Trough 22.3 ug/mL (5.0-20.0) H 04/04/19 10:58 Urine Opiates Screen Presumptive negative 03/29/19 19:27 Urine Methadone Screen Presumptive negative 03/29/19 19:27 Ur Barbiturates Screen Presumptive negative 03/29/19 19:27 Ur Phencyclidine Scrn Presumptive negative 03/29/19 19:27 Ur Amphetamines Screen Presumptive negative 03/29/19 19:27 U Benzodiazepines Scrn Presumptive positive 03/29/19 19:27 Urine Cocaine Screen Presumptive negative 03/29/19 19:27 U Marijuana (THC) Screen Presumptive negative 03/29/19 19:27 Drugs of Abuse Note Disclamer 03/29/19 19:27 RPR Nonreactive (Nonreactive) 03/31/19 11:17 Influenza A (Rapid) Negative (Negative) 03/29/19 Unknown Influenza B (Rapid) Negative (Negative) 03/29/19 Unknown Group A Strep Rapid Positive (Negative) A 03/29/19 Unknown Miscellaneous Test Flexitest 1 03/30/19 Unknown Active Medications - Current Medications Current Medications: Generic Name Dose Route Start Last Admin Trade Name Freq PRN Reason Stop Dose Admin Acetaminophen 650 mg 03/30/19 01:27 04/02/19 09:15 Tylenol PO 650 mg Q4H PRN Administration Pain MILD(1-3)/Fever >100.5/LICONA Albuterol 2.5 mg 03/30/19 14:00 Proventil IH Q4HRT PRN Shortness Of Breath Docusate Sodium 100 mg 04/04/19 13:00 04/10/19 09:18 Colace FEEDTUBE Not Given BID [facility] Enoxaparin Sodium 40 mg 03/30/19 10:00 04/10/19 09:24 Lovenox SUB-Q Not Given QDAY@1000 [facility] Famotidine 20 mg 04/06/19 10:00 04/10/19 09:22 Pepcid PO 20 mg BID RENÉ Administration Hydromorphone HCl 0.5 mg 04/03/19 07:30 04/03/19 07:58 Dilaudid IV 0.5 mg Q3H PRN Administration Pain , Severe (7-10) Hydrophilic Ointment 1 applic 03/30/19 14:51 Vaseline Lip Therapy TP Q2HR PRN Dry Lips Lacosamide 200 mg 04/07/19 10:00 04/10/19 09:22 Vimpat PO 200 mg Q12HR RENÉ Administration Lorazepam 2 mg 03/30/19 12:10 04/10/19 02:49 Ativan IV 2 mg Q1H PRN Administration Agitation Multi-Ingred Cream/Lotion/Oil/Oint 1 applic 03/30/19 14:51 Artificial Tears Ophth Oint OU Q4HR PRN Dry Eye(s) Ondansetron HCl 4 mg 03/30/19 01:27 04/02/19 02:50 Zofran IV 4 mg Q4H PRN Administration Nausea And Vomiting Oxcarbazepine 300 mg 04/07/19 14:00 04/10/19 09:22 Trileptal PO 300 mg BID RENÉ Administration Quetiapine Fumarate 50 mg 04/02/19 22:00 04/10/19 09:22 Seroquel PO 50 mg BID RENÉ Administration Sodium Chloride 10 ml 03/30/19 10:00 04/10/19 09:26 Sodium Chloride Flush Syringe 10 Ml IV Not Given BID RENÉ Sodium Chloride 10 ml 03/30/19 01:27 Sodium Chloride Flush Syringe 10 Ml IV PRN PRN LINE FLUSH Tamsulosin HCl 0.4 mg 04/04/19 13:00 04/10/19 09:22 Flomax PO 0.4 mg QDAY RENÉ Administration Nutrition/Malnutrition Assess - Dietary Evaluation Nutrition/Malnutrition Findings: Nutrition Notes Start: 03/30/19 12:41 Freq: Status: Active Protocol: Document 04/07/19 09:32 PS (Rec: 04/07/19 10:15 PS [id number]) Co-Sign 04/07/19 09:32 LM Nutrition Notes Initial or Follow up Reassessment Current Diagnosis Respiratory Failure Other Pertinent Diagnosis Seizures, Pneu Current Diet Regular Mechanical Soft Diet Labs/Tests BUN 5 Ca 8.3 Pertinent Medications Reviewed Height 5 ft 9 in Weight 62.3 kg [place] Body Weight (kg) 72.72 BMI 20.2 Subjective/Other Information Follow up for diet advancement . Pt. on regular diet, but having trouble chewing. Pt. requested a different meal and at 100% of that small meal ( 04/06). Mechanical soft diet ordered. Percent of energy/protein needs met: 30%/43% Burn Present Trauma Present Minimum of two criteria No #1 Nutrition Diagnosis Inadequate oral intake Diagnosis Progress(for reassessment Continues documentation) Is patient on ventilator? No Is Patient Ambulatory and/or Out of Bed No REE-([facility]-confined to bed) [phone] Calculation Used for Recommendations [facility] Additional Notes PRO needs: 50g-62g/kg (0.8g-1g /kg) Fluid needs: 1mL/kcal Nutrition Intervention Change Diet Order: Regular Mechanical Soft Diet Add Supplement/Snack (indicate name/kcal Ensure Enlive [place] Daily /protein ) Provides kCal: 350 Provides Protein (gm) 20 Goal #1 Meet at least 75% of energy and protein needs Anticipated Discharge Needs: Regular Diet Follow-Up By: 04/10/19 Additional Comments F/U for PO/ONS intakes
--- NOTE | 2019-04-10 19:00 | Cat Scan Report ---
CT CHEST, ABDOMEN AND PELVIS WITH IV CONTRAST INDICATION: Right lower quadrant pain COMPARISON: None available. TECHNIQUE: Axial CT images were obtained through the chest, abdomen and pelvis after 100 mL IV contrast. All CT scans at this location are performed using CT dose reduction for ALARA by means of automated exposure control. FINDINGS -- CHEST: LUNGS: The lungs are clear. Mediastinum the mediastinal adenopathy. Heart size normal Pleura: No pleural effusion. ABDOMEN: Liver: Normal. Gallbladder: Contains a large amount of hyperdense material likely secondary to contrast administrati on versus gallstones. Bile Ducts: Normal. Pancreas: Normal. Spleen: Normal. Adrenals: Normal. Right Kidney and Proximal Ureter: Normal. Left Kidney and Proximal Ureter: Normal. Stomach and Bowel: Normal. Lymph Nodes: No significant adenopathy. Aorta: No significant abnormality. IVC: Normal. Additional Findings: Large right inguinal hernia that contains several loops of herniated small and l arge bowel. FINDINGS -- PELVIS: Urinary Bladder and Distal Ureters: Normal. Reproductive Organs: No acute abnormality. Appendix: Not well identified. Bowel: Right inguinal hernia containing several loops of herniated sm all and large bowel. Free Fluid: None. Lymph Nodes: No significant adenopathy. Additional Findings: Large right inguinal hernia, as above. Skeletal System: No acute abnormality. IMPRESSION: 1. Large right inguinal hernia containing several loops of herniated small and large bowel without ev idence of high-grade small or large bowel obstruction. These findings correlate with the recent testi cular ultrasound performed on 04/07/2019. There is some mesenteric edema identified within the right lower quadrant mesentery which may be secondary to venous engorgement of the herniated mesentery with in the right inguinal canal, possibly chronic. Recommend general surgery consultation. 2. No intra-abdominal abscess. 3. No acute intrathoracic abnormality Signer Name: Sam Lozada MD Signed: 04/10/2019 6:56 PM Workstation Name: [id number]
[2019-04-10] MEDS ORDERED: APRESOLINE IV PRN (23:12)
[2019-04-11] MEDS: LOVENOX SUB-Q SCH ×2 (10:01→10:13)
[2019-04-11] MEDS: COLACE FEEDTUBE SCH (10:01)
[2019-04-11] MEDS: FLOMAX PO SCH (10:01)
[2019-04-11] MEDS: PEPCID PO SCH (10:01)
[2019-04-11] MEDS: SODIUM CHLORIDE FLUSH SYRINGE 10 ML IV SCH (10:02)
[2019-04-11] MEDS: TRILEPTAL PO SCH (10:02)
[2019-04-11] MEDS: VIMPAT PO SCH (10:02)
[2019-04-11 10:04] VITALS: BP 152/95
--- NOTE | 2019-04-11 12:03 | Discharge Summary ---
Providers - Providers Date of Admission: 03/29/19 23:29 Attending physician: EDER LOPEZ MD 03/30/19 01:27 Consult to Physician [CONS] Routine Comment: Consulting Provider: KAT FERRO Physician Instructions: Reason For Exam: cc 03/30/19 05:11 Consult to Physician [CONS] Routine Comment: Consulting Provider: DEYANIRA ADDISON Physician Instructions: Reason For Exam: sz 03/30/19 11:53 Consult to Dietitian/Nutrition [CONS] Routine Physician Instructions: Reason For Exam: Reason for Consult: Write/Manage Tube Feeding 03/30/19 14:20 Consult to Physician [CONS] Routine Comment: Consulting Provider: ROBERT TEJADA Physician Instructions: Reason For Exam: GROUP A STREP, ?MENINGITIS 04/06/19 09:02 Physical Therapy Evaluation and Treat [CONS] Routine Comment: Reason For Exam: gen weakness 04/06/19 13:33 Consult to Physician [CONS] Routine Comment: Consulting Provider: RINA KINNEY Physician Instructions: Reason For Exam: breakthrough seizures, follow up 04/08/19 07:43 Consult to Physician [CONS] Routine Comment: Consulting Provider: JAMES DORSEY Physician Instructions: Reason For Exam: Multiple seizures, follow up 04/11/19 07:40 Consult to Physician [CONS] Routine Comment: Consulting Provider: CASH ENGLAND Physician Instructions: Reason For Exam: SEVERAL HERNIA- EVAL FOR OUTPATIENT SURGERY [facility] Condition: Stable Hospital course: Patient is 28-year-old man was recently diagnosed with seizure, discharge from the hospital on March 22 comes back on 03/29/19 for evaluation of seizure. After he was discharged he had a seizure on the , mom stated that he's been compliant with his Vimpat. He was seen at [facility] and discharge. He also had another seizure at home on Wednesday and was then taken to [place], no change in his medication he was given a follow-up with urology clinic. Mom states that he smoked marijuana on the prior to the seizure. He is been having fevers at home. He also had seizure in route to the hospital, was intubated in the emergency room for airway protection, admitted to ICU. He was seen by [employer], Neurology and ID physician. He was diagnosed with sepsis, status epilepticus. He improved, was extubated. He was on iv Antibiotics for sepsis. Lumbar puncture and CSFanalysis was done and Herpes encephalitis and Bacterial meningitis ruled out. He was improving but had 2 seizures on 04/07/19. He was reevaluated by Dr. Kinney, neurologist and he increased dose of Vimpat and added Trilepta. He has been seizure free since then. Today CT Chest and Abd ordered by ID because of persistent leukocytosis. To dc home on current anti-seizure meds if CT neg. To follow with Neurology as outpatient. Acute respiratory failure was intubated, now extubated, off MV Sepsis Acute Metabolic Encephalopathy Status Epilepticus - resolved Breakthrough seizure episodes on 04/07, no more seizures since 04/07/19 Sinus Tachycardia Acute on chronic seizure Pneumonia Leukocytosis Plan Continue supportive care Acylovir discontinued MRI of Brain, unremarkable OFF ceftriaxone 2 gm IV q 12 hour Vancomycin IV discontinued Clindamycin iv discontinued Neurology following. Lacosamide dose increased Trileptal added Disposition: DC-01 TO HOME OR SELFCARE Time spent for discharge: 35 MINS Exam - Constitutional Vitals: Temp Pulse Resp BP Pulse Ox 98.4 F 98 H 18 152/95 99 04/11/19 07:42 04/11/19 10:03 04/11/19 10:03 04/11/19 10:03 04/11/19 10:03 Plan Activity: no driving until cleared by PCP, fall precautions Diet: low cholesterol, advance as tolerated Special Instructions: record daily BP diary, smoking cessation, other (SPEECH THERAPY) Follow up with: [facility] SALOMON [Primary Care Provider] - 3-5 Days CASH ENGLAND DO [Staff Physician] - 7 Days JAMES DORSEY MD [Staff Physician] - 7 Days Prescriptions: Famotidine [Pepcid] 20 mg PO BID #60 tablet OXcarbazepine [Trileptal] 300 mg PO BID #60 tablet Lacosamide [Vimpat] 200 mg PO Q12HR #60 tablet ALPRAZolam [Xanax TAB] 0.5 mg PO BID PRN #30 tab PRN Reason: Anxiety
--- NOTE | 2019-04-11 13:01 | Progress Note ---
Assessment and Plan Patient awake. No acute respiratory distress. Patient is on room air at this time. O2 saturation 99%. Patient running low grade temp at times and has leukocytosis. Patient CT of chest reported mediastinal adenopathy. Told patients mother , He can come to my office for pulmonary follow up as out patient in 0ne or two weeks. - Patient Problems (1) Acute respiratory failure Status: Acute Qualifiers: Respiratory failure complication: hypoxia Qualified Code(s): J96.01 - Acute respiratory failure with hypoxia Plan to address problem: Patient S/P acute respiratory failure and on room air at this time. O2 saturation 98%. No acute respiratory distress at this time. Continue S/C Lovenox. (2) Encephalopathy acute Status: Acute Plan to address problem: Management as per primary care and neurology. (3) Metabolic acidosis Status: Acute Plan to address problem: Anion gap 21. Recommend slowly taper lorazepam. (4) Pneumonia Status: Acute Qualifiers: Pneumonia type: due to unspecified organism Laterality: right Lung location: lower lobe of lung Qualified Code(s): J18.1 - Lobar pneumonia, unspecified organism Plan to address problem: Patient treated with ceftrioxone. Patient afebrile now. Chest xray reported no acute findings. (5) Seizure Status: Acute Plan to address problem: Management as per primary care and neurology. Subjective Date of service: 04/11/19 Principal diagnosis: Ac. Resp failure; Seizures; Ac. Encephalopathy; Abnormal CSF (? herpes) Interval history: Patient awake. No acute respiratory distress. Patient is on room air at this time. O2 saturation 99%. Patient running low grade temp at times and has leukocytosis. Patient CT of chest reported mediastinal adenopathy. Told patients mother , He can come to my office for pulmonary follow up as out patient in 0ne or two weeks.. Objective Vital Signs - 12hr 04/11/19 04/11/19 04/11/19 03:43 07:42 10:03 Temperature 98.9 F 98.4 F Pulse Rate 90 99 H 98 H Respiratory 19 18 18 Rate Blood Pressure 129/83 150/107 Blood Pressure 152/95 [Right] O2 Sat by Pulse 97 98 99 Oximetry Constitutional: no acute distress, alert Eyes: non-icteric ENT: oropharynx moist Neck: supple, no lymphadenopathy, no JVD Effort: normal Ascultation: Bilateral: rhonchi (scant) Percussion: Bilateral: not dull Cardiovascular: regular rate and rhythm, other (S1,S2, no murmurs) Gastrointestinal: normoactive bowel sounds, soft, non-tender Integumentary: normal Extremities: no cyanosis, no edema, pulses normal, no ischemia or petechiae Neurologic: normal mental status, non-focal exam (grossly), pupils equal and round, CN II-XII normal, motor strength normal and Psychiatric: mood appropriate, affect normal CBC and BMP: 04/10/19 05:10 04/10/19 05:10 ABG, PT/INR, D-dimer: ABG POC ABG pH 7.461 (7.35-7.45) H 04/03/19 15:44 POC ABG pCO2 45.8 (35-45) H 04/03/19 15:44 POC ABG pO2 109 (80-105) H 04/03/19 15:44 POC ABG HCO3 32.6 (22-26 mml/L) 04/03/19 15:44 POC ABG Total CO2 34 (23-27mmol/L) 04/03/19 15:44 POC ABG O2 Sat 98 04/03/19 15:44 PT/INR, D-dimer PT 15.4 Sec. (12.2-14.9) H 04/05/19 04:56 INR 1.25 (0.87-1.13) H 04/05/19 04:56 Abnormal lab findings: Abnormal Labs 03/29/19 03/29/19 03/29/19 18:29 18:29 18:29 WBC 19.4 H RBC Hgb Hct MCV MCH Plt Count Lymph % (Auto) [place] % (Auto) Lymph # [place] # Baso # Seg Neutrophils % Seg Neuts % (Manual) 72.0 H Lymphocytes % (Manual) Monocytes % (Manual) 8.0 H Seg Neutrophils # Seg Neutrophils # Man 14.0 H Lymphocytes # (Manual) Monocytes # (Manual) 1.6 H PT INR POC ABG pH POC ABG pCO2 POC ABG pO2 VBG pH Sodium 136 L Potassium Chloride 90.6 L Carbon Dioxide 13 L BUN Glucose 154 H Lactic Acid 17.50 H* Calcium Magnesium AST ALT 81 H Total Creatine Kinase Troponin T Albumin Urine WBC (Auto) Vancomycin Trough Group A Strep Rapid 03/29/19 03/29/19 03/29/19 18:29 19:09 19:27 WBC RBC Hgb Hct MCV MCH Plt Count Lymph % (Auto) [place] % (Auto) Lymph # [place] # Baso # Seg Neutrophils % Seg Neuts % (Manual) Lymphocytes % (Manual) Monocytes % (Manual) Seg Neutrophils # Seg Neutrophils # Man Lymphocytes # (Manual) Monocytes # (Manual) PT INR POC ABG pH POC ABG pCO2 POC ABG pO2 VBG pH 7.269 L Sodium Potassium Chloride Carbon Dioxide BUN Glucose Lactic Acid Calcium Magnesium AST ALT Total Creatine Kinase Troponin T 0.031 H Albumin Urine WBC (Auto) 9.0 H Vancomycin Trough Group A Strep Rapid 03/29/19 03/29/19 03/29/19 19:33 20:27 21:01 WBC RBC Hgb Hct MCV MCH Plt Count Lymph % (Auto) [place] % (Auto) Lymph # [place] # Baso # Seg Neutrophils % Seg Neuts % (Manual) Lymphocytes % (Manual) Monocytes % (Manual) Seg Neutrophils # Seg Neutrophils # Man Lymphocytes # (Manual) Monocytes # (Manual) PT INR POC ABG pH POC ABG pCO2 POC ABG pO2 170 H VBG pH Sodium Potassium Chloride Carbon Dioxide BUN Glucose Lactic Acid 3.80 H* 4.10 H* Calcium Magnesium AST ALT Total Creatine Kinase Troponin T Albumin Urine WBC (Auto) Vancomycin Trough Group A Strep Rapid 03/29/19 03/29/19 03/30/19 23:46 Unknown 04:08 WBC RBC Hgb Hct MCV MCH Plt Count Lymph % (Auto) [place] % (Auto) Lymph # [place] # Baso # Seg Neutrophils % Seg Neuts % (Manual) Lymphocytes % (Manual) Monocytes % (Manual) Seg Neutrophils # Seg Neutrophils # Man Lymphocytes # (Manual) Monocytes # (Manual) PT INR POC ABG pH POC ABG pCO2 POC ABG pO2 VBG pH Sodium Potassium Chloride Carbon Dioxide BUN Glucose Lactic Acid 2.10 H* Calcium Magnesium AST ALT Total Creatine Kinase 172 H Troponin T 0.033 H Albumin Urine WBC (Auto) Vancomycin Trough Group A Strep Rapid Positive A 03/30/19 03/30/19 03/30/19 04:45 05:21 07:17 WBC 20.8 H RBC Hgb 10.9 L Hct 33.5 L MCV MCH Plt Count Lymph % (Auto) [place] % (Auto) Lymph # [place] # Baso # Seg Neutrophils % Seg Neuts % (Manual) 85.0 H Lymphocytes % (Manual) 8.0 L Monocytes % (Manual) Seg Neutrophils # Seg Neutrophils # Man 17.7 H Lymphocytes # (Manual) Monocytes # (Manual) PT INR POC ABG pH POC ABG pCO2 POC ABG pO2 172 H VBG pH Sodium Potassium Chloride Carbon Dioxide BUN Glucose Lactic Acid Calcium Magnesium AST ALT Total Creatine Kinase 173 H Troponin T 0.039 H Albumin Urine WBC (Auto) Vancomycin Trough Group A Strep Rapid 03/31/19 03/31/19 03/31/19 04:24 04:24 04:27 WBC 17.9 H RBC Hgb 10.7 L Hct 32.4 L MCV MCH Plt Count Lymph % (Auto) [place] % (Auto) Lymph # [place] # Baso # Seg Neutrophils % Seg Neuts % (Manual) Lymphocytes % (Manual) Monocytes % (Manual) Seg Neutrophils # Seg Neutrophils # Man Lymphocytes # (Manual) Monocytes # (Manual) PT INR POC ABG pH 7.324 L POC ABG pCO2 51.9 H POC ABG pO2 VBG pH Sodium Potassium Chloride Carbon Dioxide BUN 7 L Glucose 108 H Lactic Acid Calcium Magnesium AST ALT Total Creatine Kinase Troponin T Albumin 3.3 L Urine WBC (Auto) Vancomycin Trough Group A Strep Rapid 03/31/19 04/01/19 04/02/19 20:54 22:40 04:40 WBC 13.7 H RBC 3.33 L Hgb 9.5 L Hct 28.0 L MCV MCH Plt Count Lymph % (Auto) 4.7 L [place] % (Auto) 12.7 H Lymph # 0.7 L [place] # 1.7 H Baso # Seg Neutrophils % 79.1 H Seg Neuts % (Manual) Lymphocytes % (Manual) Monocytes % (Manual) Seg Neutrophils # 10.9 H Seg Neutrophils # Man Lymphocytes # (Manual) Monocytes # (Manual) PT INR POC ABG pH 7.345 L POC ABG pCO2 54.1 H 50.2 H POC ABG pO2 78 L 145 H VBG pH Sodium Potassium Chloride Carbon Dioxide BUN Glucose Lactic Acid Calcium Magnesium AST ALT Total Creatine Kinase Troponin T Albumin Urine WBC (Auto) Vancomycin Trough Group A Strep Rapid 04/02/19 04/02/19 04/02/19 04:40 05:35 16:07 WBC RBC Hgb Hct MCV MCH Plt Count Lymph % (Auto) [place] % (Auto) Lymph # [place] # Baso # Seg Neutrophils % Seg Neuts % (Manual) Lymphocytes % (Manual) Monocytes % (Manual) Seg Neutrophils # Seg Neutrophils # Man Lymphocytes # (Manual) Monocytes # (Manual) PT INR POC ABG pH 7.310 L POC ABG pCO2 45.4 H 68.5 H POC ABG pO2 137 H VBG pH Sodium Potassium 3.2 L Chloride 94.9 L Carbon Dioxide BUN 5 L Glucose Lactic Acid Calcium Magnesium AST ALT Total Creatine Kinase Troponin T Albumin 3.0 L Urine WBC (Auto) Vancomycin Trough Group A Strep Rapid 04/03/19 04/03/19 04/04/19 04:13 15:44 04:16 WBC 18.9 H RBC Hgb 10.7 L Hct 33.2 L MCV MCH 27 L Plt Count 509 H Lymph % (Auto) [place] % (Auto) Lymph # [place] # Baso # Seg Neutrophils % Seg Neuts % (Manual) Lymphocytes % (Manual) Monocytes % (Manual) Seg Neutrophils # Seg Neutrophils # Man Lymphocytes # (Manual) Monocytes # (Manual) PT INR POC ABG pH 7.506 H 7.461 H POC ABG pCO2 45.8 H POC ABG pO2 143 H 109 H VBG pH Sodium Potassium Chloride Carbon Dioxide BUN Glucose Lactic Acid Calcium Magnesium AST ALT Total Creatine Kinase Troponin T Albumin Urine WBC (Auto) Vancomycin Trough Group A Strep Rapid 04/04/19 04/04/19 04/05/19 04:16 10:58 04:56 WBC 20.5 H RBC Hgb 10.8 L Hct 33.0 L MCV MCH Plt Count 546 H Lymph % (Auto) [place] % (Auto) Lymph # [place] # Baso # Seg Neutrophils % Seg Neuts % (Manual) 85.0 H Lymphocytes % (Manual) 7.0 L Monocytes % (Manual) 8.0 H Seg Neutrophils # Seg Neutrophils # Man 17.4 H Lymphocytes # (Manual) Monocytes # (Manual) 1.6 H PT INR POC ABG pH POC ABG pCO2 POC ABG pO2 VBG pH Sodium Potassium Chloride Carbon Dioxide BUN 6 L Glucose Lactic Acid Calcium Magnesium AST ALT Total Creatine Kinase Troponin T Albumin Urine WBC (Auto) Vancomycin Trough 22.3 H Group A Strep Rapid 04/05/19 04/05/19 04/06/19 04:56 04:56 04:52 WBC 18.1 H RBC 3.52 L Hgb 9.7 L Hct 29.7 L MCV MCH Plt Count 519 H Lymph % (Auto) 8.3 L [place] % (Auto) 15.4 H Lymph # [place] # 2.8 H Baso # 0.2 H Seg Neutrophils % 73.2 H Seg Neuts % (Manual) Lymphocytes % (Manual) Monocytes % (Manual) Seg Neutrophils # 13.2 H Seg Neutrophils # Man Lymphocytes # (Manual) Monocytes # (Manual) PT 15.4 H INR 1.25 H POC ABG pH POC ABG pCO2 POC ABG pO2 VBG pH Sodium 148 H Potassium 3.1 L D Chloride Carbon Dioxide BUN 7 L Glucose Lactic Acid Calcium Magnesium AST ALT Total Creatine Kinase Troponin T Albumin 3.3 L Urine WBC (Auto) Vancomycin Trough Group A Strep Rapid 04/06/19 04/06/19 04/06/19 04:52 04:52 13:42 WBC RBC Hgb Hct MCV MCH Plt Count Lymph % (Auto) [place] % (Auto) Lymph # [place] # Baso # Seg Neutrophils % Seg Neuts % (Manual) Lymphocytes % (Manual) Monocytes % (Manual) Seg Neutrophils # Seg Neutrophils # Man Lymphocytes # (Manual) Monocytes # (Manual) PT INR POC ABG pH POC ABG pCO2 POC ABG pO2 VBG pH Sodium Potassium 2.7 L* 2.8 L* Chloride Carbon Dioxide BUN 5 L 5 L Glucose 137 H Lactic Acid Calcium Magnesium 1.60 L 1.60 L AST ALT Total Creatine Kinase Troponin T Albumin 2.9 L Urine WBC (Auto) Vancomycin Trough Group A Strep Rapid 04/07/19 04/07/19 04/08/19 04:05 08:48 06:35 WBC 13.6 H 12.8 H RBC 3.64 L 3.63 L Hgb 10.1 L 10.1 L Hct 30.3 L 30.4 L MCV 83 L MCH Plt Count 492 H 529 H Lymph % (Auto) [place] % (Auto) Lymph # [place] # Baso # Seg Neutrophils % Seg Neuts % (Manual) 85.0 H Lymphocytes % (Manual) 5.0 L Monocytes % (Manual) Seg Neutrophils # Seg Neutrophils # Man 11.6 H Lymphocytes # (Manual) 0.7 L Monocytes # (Manual) PT INR POC ABG pH POC ABG pCO2 POC ABG pO2 VBG pH Sodium Potassium Chloride Carbon Dioxide BUN 5 L Glucose Lactic Acid Calcium 8.3 L Magnesium AST 43 H ALT Total Creatine Kinase Troponin T Albumin 2.6 L Urine WBC (Auto) Vancomycin Trough Group A Strep Rapid 04/08/19 04/09/19 04/10/19 06:35 04:31 05:10 WBC 15.4 H 17.1 H RBC Hgb 10.4 L 10.1 L Hct 31.4 L 30.9 L MCV MCH Plt Count 506 H 467 H Lymph % (Auto) [place] % (Auto) Lymph # [place] # Baso # Seg Neutrophils % Seg Neuts % (Manual) Lymphocytes % (Manual) Monocytes % (Manual) Seg Neutrophils # Seg Neutrophils # Man Lymphocytes # (Manual) Monocytes # (Manual) PT INR POC ABG pH POC ABG pCO2 POC ABG pO2 VBG pH Sodium Potassium Chloride Carbon Dioxide BUN 6 L Glucose Lactic Acid Calcium Magnesium AST ALT Total Creatine Kinase Troponin T Albumin Urine WBC (Auto) Vancomycin Trough Group A Strep Rapid CT scan - chest: report reviewed, image reviewed Additional Studies: CHEST: CT done 04/10/19 LUNGS: The lungs are clear. Mediastinum the mediastinal adenopathy. Heart size normal Pleura: No pleural effusion. Allied health notes reviewed: nursing
--- NOTE | 2019-04-11 14:56 | Consultation ---
History of Present Illness Consult date: 04/11/19 Chief complaint: inguinal hernia - History of present illness History of present illness: 28 yo M with hx of seizures presented to ER 2 weeks ago s/p seizure. He was intubated for airway protection and found to be septic. He was then admitted and treated accordingly. The patient has had persistent leukocytosis and CT scan A/P was ordered. This showed a large inguinoscrotal hernia containing nondilated bowel and surgery consult recommended. Patient seen and examined. He has no complaints. He denies f/c, cp, sob, n/v, abd pain, c/d. He states he has known about the hernia for 1 year. It has not changed in size. It never gets firm or tender. Past History Past Medical History: seizures Past Surgical History: No surgical history Social history: smoking Family history: no significant family history Medications and Allergies Allergies Allergy/AdvReac Type Severity Reaction Status Date / Time levetiracetam [From [facility]] AdvReac Severe Unknown Verified 03/29/19 19:02 Home Medications Medication Instructions Recorded Confirmed Last Taken Type ALPRAZolam [Xanax TAB] 0.5 mg PO BID PRN #30 tab 04/11/19 Unknown Rx Famotidine [Pepcid] 20 mg PO BID #60 tablet 04/11/19 Unknown Rx Lacosamide [Vimpat] 200 mg PO Q12HR #60 tablet 04/11/19 Unknown Rx OXcarbazepine [Trileptal] 300 mg PO BID #60 tablet 04/11/19 Unknown Rx Active Meds: Active Medications Acetaminophen (Tylenol) 650 mg PO Q4H PRN PRN Reason: Pain MILD(1-3)/Fever >100.5/[facility]IC[place] Last Admin: 04/02/19 09:15 Dose: 650 mg Documented by: Albuterol (Proventil) 2.5 mg IH Q4HRT PRN PRN Reason: Shortness Of Breath Docusate Sodium (Colace) 100 mg FEEDTUBE BID [facility] Last Admin: 04/11/19 10:01 Dose: Not Given Documented by: Enoxaparin Sodium (Lovenox) 40 mg SUB-Q QDAY@1000 [facility] Last Admin: 04/11/19 10:13 Dose: Not Given Documented by: Famotidine (Pepcid) 20 mg PO BID [facility] Last Admin: 04/11/19 10:01 Dose: 20 mg Documented by: Hydralazine HCl (Apresoline) 10 mg IV Q4HR PRN PRN Reason: SBP>160 or DBP>110 Hydromorphone HCl (Dilaudid) 0.5 mg IV Q3H PRN PRN Reason: Pain , Severe (7-10) Last Admin: 04/03/19 07:58 Dose: 0.5 mg Documented by: Hydrophilic Ointment (Vaseline Lip Therapy) 1 applic TP Q2HR PRN PRN Reason: Dry Lips Lacosamide (Vimpat) 200 mg PO Q12HR [facility] Last Admin: 04/11/19 10:02 Dose: 200 mg Documented by: Lorazepam (Ativan) 2 mg IV Q1H PRN PRN Reason: Agitation Last Admin: 04/10/19 02:49 Dose: 2 mg Documented by: Multi-Ingred Cream/Lotion/Oil/Oint (Artificial Tears Ophth Oint) 1 applic OU Q4HR PRN PRN Reason: Dry Eye(s) Ondansetron HCl (Zofran) 4 mg IV Q4H PRN PRN Reason: Nausea And Vomiting Last Admin: 04/02/19 02:50 Dose: 4 mg Documented by: Oxcarbazepine (Trileptal) 300 mg PO BID [facility] Last Admin: 04/11/19 10:02 Dose: 300 mg Documented by: Quetiapine Fumarate (Seroquel) 50 mg PO BID [facility] Last Admin: 04/11/19 10:01 Dose: 50 mg Documented by: Sodium Chloride (Sodium Chloride Flush Syringe 10 Ml) 10 ml IV BID [facility] Last Admin: 04/11/19 10:02 Dose: 10 ml Documented by: Sodium Chloride (Sodium Chloride Flush Syringe 10 Ml) 10 ml IV PRN PRN PRN Reason: LINE FLUSH Tamsulosin HCl (Flomax) 0.4 mg PO QDAY [facility] Last Admin: 04/11/19 10:01 Dose: 0.4 mg Documented by: Review of Systems All systems: negative (10 pt ROS performed and negative except for that listed in HPI) Exam Vital Signs Temp Pulse BP 102.2 F H 130 H 160/80 03/29/19 18:47 03/29/19 18:47 03/29/19 18:47 Narrative exam: Gen: AAOx3. NAD ENT: no scleral icterus or conjunctival pallor CV; S1, S2+ Resp: even and unlabored Abd: soft, ND, NT. R inguino scrotal hernia, reducible and soft however does recur. No skin changes or TTP. Ext: no c/c/e Results - Labs 04/10/19 05:10 04/10/19 05:10 - Imaging CT scan - abdomen: report reviewed, image reviewed CT scan - pelvis: report reviewed, image reviewed Assessment and Plan 28 yo M with reducible R inguinal hernia containing bowel Plan: Hernia is reducible, nontender. No signs of bowel obstruction or compromise. CT findings of mild mesenteric stranding likely due to chronic nature of hernia. Highly recommend outpatient follow up to schedule elective robotic right inguinal hernia repair with mesh. Discussed this with patient, his brother and mother at bedside. They understand. Per mother, patient will be getting [employer] insurance and they are agreeable to follow up. I explained that if the hernia is not fixed, this could result in bowel strangulation and emergency surgery for the hernia. They understand. OK to dc from surgery standpoint. D/W Dr. Blevins
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
== END 2019-04-11 15:30 | disposition home or self-care (01) | DRG 870 ==
LOC: ED 18:03 → CC1 23:29 → 4A 04-05 18:50
PROVIDERS: ADMIT Internal Medicine; ATTEND Internal Medicine
PROC: 009U3ZX Drainage of Spinal Canal, Percutaneous Approach, Diagnostic (ICD-10-PCS; principal; 2019-03-29)
PROC: 5A1955Z Respiratory Ventilation, Greater than 96 Consecutive Hours (ICD-10-PCS; 2019-03-29)
PROC: 0BH17EZ Insertion of Endotracheal Airway into Trachea, Via Natural or Artificial Opening (ICD-10-PCS; 2019-03-29)
PROC: 4A033R1 Measurement of Arterial Saturation, Peripheral, Percutaneous Approach (ICD-10-PCS; 2019-03-29)
DX: A41.9 Sepsis, unspecified organism (principal); G93.41 Metabolic encephalopathy; J96.01 Acute respiratory failure with hypoxia; J18.1 Lobar pneumonia, unspecified organism; N17.9 Acute kidney failure, unspecified; G40.901 Epilepsy, unspecified, not intractable, with status epilepticus; F17.200 Nicotine dependence, unspecified, uncomplicated; N50.89 Other specified disorders of the male genital organs; F12.90 Cannabis use, unspecified, uncomplicated; E87.8 Other disorders of electrolyte and fluid balance, not elsewhere classified; K40.90 Unilateral inguinal hernia, without obstruction or gangrene, not specified as recurrent; Z82.49 Family history of ischemic heart disease and other diseases of the circulatory system; Z79.899 Other long term (current) drug therapy; Z72.89 Other problems related to lifestyle; Z83.3 Family history of diabetes mellitus
CPT/HCPCS: 36415; 36600; 70450; 70551; 70552; 71045; 71260; 74018; 74177; 80048; 80053; 80061; 80202; 80307; 81001; 82140; 82550; 82553; 82803; 82805; 82947; 82962; 83735; 84100; 84160; 84484; 85007; 85025; 85027; 85610; 85730; 86592; 87040; 87070; 87086; 87116; 87205; 87400; 87430; 89051; 93005; 93010; 93975; 94002; 94003; 94640; 94760; G0378; A9577; C9254; J0133; J0692; J0696; J1170; J1630; J1650; J2060; J2250; J2405; J2543; J2704; J2765; J3010; J3370; J3475; J3480; J3490; J7030; Q9967

== ENCOUNTER 2019-05-28 00:06 | Emergency (ER) | payer SELFPAY ==
[2019-05-28] MEDS ORDERED: LORazepam 2 MG/ML VIAL IV ONE (00:33)
[2019-05-28] MEDS ORDERED: LORazepam 2 MG/ML VIAL ONE (00:39)
[2019-05-28 02:09] LABS: Alanine Aminotransferase 33 units/L (7-56); Albumin 4.2 g/dL (3.9-5); BUN/Creatinine Ratio 13; Blood Urea Nitrogen 14 mg/dL (9-20); Calcium 9.1 mg/dL (8.4-10.2); Hemolysis Index 3
[2019-05-28] MEDS ORDERED: DIVALPROEX DR 500 MG TAB PO ONE (02:50)
[2019-05-28 04:56] LABS: Amphetamine Screen,Urine PRESUMPTIVE NEGATIVE; Benzodiazepines Screen,Urine PRESUMPTIVE NEGATIVE; Cannabinoid Screen,Urine PRESUMPTIVE NEGATIVE; Cocaine Screen,Urine PRESUMPTIVE NEGATIVE; Methadone Screen,Urine PRESUMPTIVE NEGATIVE; Opiate Screen,Urine PRESUMPTIVE NEGATIVE
--- NOTE | 2019-05-28 05:22 | Emergency Department Report ---
<MONTANA MCGHEE - Last Filed: 05/28/19 05:18> ED Seizure HPI - General Chief Complaint: Seizure Stated Complaint: SEIZURES Time Seen by Provider: 05/28/19 00:13 Source: family, EMS Mode of arrival: Ambulatory Limitations: Altered Mental Status - History of Present Illness Initial Comments: Patient is a 29-year-old -[place] male who is several months status post having new-onset seizures. Patient is yet to see a neurologist and his primary care physician has him on Depakote and Vimpat. Patient had a prolonged seizure today that was according to paramedics approximately 30 minutes. Patient is postictal at this time cannot give any additional history. Mother states that he has not had any recent trauma or fevers. He denies patient using drugs. - Related Data Previous Rx's Medication Instructions Recorded Last Taken Type ALPRAZolam [Xanax TAB] 0.5 mg PO BID PRN #30 tab 04/11/19 Unknown Rx Famotidine [Pepcid] 20 mg PO BID #60 tablet 04/11/19 Unknown Rx Lacosamide [Vimpat] 50 mg PO Q12HR #60 tablet 04/11/19 Unknown Rx Lacosamide [Vimpat] 200 mg PO Q12HR #60 tablet 04/11/19 Unknown Rx OXcarbazepine [Trileptal] 300 mg PO BID #60 tablet 04/11/19 Unknown Rx Allergies Allergy/AdvReac Type Severity Reaction Status Date / Time levetiracetam [From Keppra] AdvReac Severe Unknown Verified 03/29/19 19:02 ED Review of Systems Comment: All other systems reviewed and negative ED Past Medical Hx - Past Medical History Previous Medical History?: Yes Hx Seizures: Yes Additional medical history: Back injury/pain, Head lac @ age 9 - Surgical History Past Surgical History?: No - Social History Smoking Status: Former Smoker - Medications Home Medications: Home Medications Medication Instructions Recorded Confirmed Last Taken Type ALPRAZolam [Xanax TAB] 0.5 mg PO BID PRN #30 tab 04/11/19 Unknown Rx Famotidine [Pepcid] 20 mg PO BID #60 tablet 04/11/19 Unknown Rx Lacosamide [Vimpat] 50 mg PO Q12HR #60 tablet 04/11/19 Unknown Rx Lacosamide [Vimpat] 200 mg PO Q12HR #60 tablet 04/11/19 Unknown Rx OXcarbazepine [Trileptal] 300 mg PO BID #60 tablet 04/11/19 Unknown Rx ED Physical Exam - General Limitations: Altered Mental Status General appearance: alert, postictal - Head Head exam: Present: atraumatic, normocephalic - Eye Eye exam: Present: normal appearance, PERRL, EOMI - ENT ENT exam: Present: mucous membranes moist - Neck Neck exam: Present: normal inspection - Respiratory Respiratory exam: Present: normal lung sounds bilaterally. Absent: respiratory distress, wheezes, rales, rhonchi - Cardiovascular Cardiovascular Exam: Present: regular rate, normal rhythm, normal heart sounds. Absent: systolic murmur, diastolic murmur, rubs, gallop - GI/Abdominal GI/Abdominal exam: Present: soft, normal bowel sounds. Absent: distended, tenderness, guarding, rebound - Rectal Rectal exam: Present: deferred - Extremities Exam Extremities exam: Present: normal inspection - Back Exam Back exam: Present: normal inspection - Neurological Exam Neurological exam: Present: altered - Psychiatric Psychiatric exam: Present: normal affect, normal mood - Skin Skin exam: Present: warm, dry, intact, normal color. Absent: rash ED Course - Reevaluation(s) Reevaluation #1: 05/28/19 05:21 Patient is resting comfortably after receiving Ativan in route and 1 dose of Ativan for agitation during his postictal phase here in emergency department. Patient did wake up and stated that he had to have a bowel movement and the patient had a bowel movement on the bed. Patient was cleaned up and then with labetalol sleep. We'll continue to monitor the patient until he is able to ambulate his back and his baseline. ED Medical Decision Making - Lab Data Result diagrams: 05/28/19 01:11 Lab Results 05/28/19 05/28/19 05/28/19 Range/Units 01:11 01:11 04:30 Sodium 143 (137-145) mmol/L Potassium 3.5 L (3.6-5.0) mmol/L Chloride 103.3 (98-107) mmol/L Carbon Dioxide 22 (22-30) mmol/L Anion Gap 21 mmol/L BUN 14 (9-20) mg/dL Creatinine 1.1 (0.8-1.5) mg/dL Estimated GFR > 60 ml/min BUN/Creatinine Ratio 13 % Glucose 157 H (75-100) mg/dL Calcium 9.1 (8.4-10.2) mg/dL Total Bilirubin < 0.20 (0.1-1.2) mg/dL AST 23 (5-40) units/L ALT 33 (7-56) units/L Alkaline Phosphatase 50 (35-129) units/L Total Protein 7.0 (6.3-8.2) g/dL Albumin 4.2 (3.9-5) g/dL Albumin/Globulin Ratio 1.5 % Urine Opiates Screen Presumptive negative Urine Methadone Screen Presumptive negative Ur Barbiturates Screen Presumptive negative Valproic Acid 32.0 L (50-100) ug/mL Ur Phencyclidine Scrn Presumptive negative Ur Amphetamines Screen Presumptive negative U Benzodiazepines Scrn Presumptive negative Urine Cocaine Screen Presumptive negative U Marijuana (THC) Screen Presumptive negative Drugs of Abuse Note Disclamer ED Disposition Clinical Impression: Seizure Disposition: DC- TO HOME OR SELFCARE Condition: Stable Additional Instructions: Please continue with your seizure medications as prescribed. Please follow-up with your neurology appointment Referrals: PRIMARY CAREMD [Primary Care Provider] - 3-5 Days <DANIEL HAY - Last Filed: 05/29/19 23:27> ED Review of Systems ROS: Stated complaint: SEIZURES Other details as noted in HPI ED Course Vital Signs 05/28/19 05/28/19 05/28/19 00:15 00:30 02:08 Temperature Pulse Rate 124 H Respiratory 21 20 16 Rate Blood Pressure 124/80 124/80 Blood Pressure [Left] O2 Sat by Pulse 100 Oximetry 05/28/19 05/28/19 05/28/19 02:15 02:30 04:29 Temperature Pulse Rate 148 H Respiratory 27 H Rate Blood Pressure 124/80 128/35 128/35 Blood Pressure [Left] O2 Sat by Pulse Oximetry 05/28/19 09:46 Temperature 98 F Pulse Rate 93 H Respiratory 16 Rate Blood Pressure Blood Pressure 118/85 [Left] O2 Sat by Pulse 100 Oximetry - Reevaluation(s) Reevaluation #2: 05/28/19 09:56 Patient reassessed multiple times. No additional convulsive events are noted. He indicated he does not require refill on his medications. He is alert to name, location and month. He understands that he is not supposed to drive or operate motor vehicles. His father is at the bedside. No further convulsive events noted. Vital signs normalized. Patient given his Depakote. ED Medical Decision Making - Lab Data Result diagrams: 05/28/19 01:11 Vital Signs 05/28/19 05/28/19 05/28/19 00:15 00:30 02:08 Temperature Pulse Rate 124 H Respiratory 21 20 16 Rate Blood Pressure 124/80 124/80 Blood Pressure [Left] O2 Sat by Pulse 100 Oximetry 05/28/19 05/28/19 05/28/19 02:15 02:30 04:29 Temperature Pulse Rate 148 H Respiratory 27 H Rate Blood Pressure 124/80 128/35 128/35 Blood Pressure [Left] O2 Sat by Pulse Oximetry 05/28/19 09:46 Temperature 98 F Pulse Rate 93 H Respiratory 16 Rate Blood Pressure Blood Pressure 118/85 [Left] O2 Sat by Pulse 100 Oximetry Lab Results 05/28/19 05/28/19 05/28/19 Range/Units 01:11 01:11 04:30 Sodium 143 (137-145) mmol/L Potassium 3.5 L (3.6-5.0) mmol/L Chloride 103.3 (98-107) mmol/L Carbon Dioxide 22 (22-30) mmol/L Anion Gap 21 mmol/L BUN 14 (9-20) mg/dL Creatinine 1.1 (0.8-1.5) mg/dL Estimated GFR > 60 ml/min BUN/Creatinine Ratio 13 % Glucose 157 H (75-100) mg/dL Calcium 9.1 (8.4-10.2) mg/dL Total Bilirubin < 0.20 (0.1-1.2) mg/dL AST 23 (5-40) units/L ALT 33 (7-56) units/L Alkaline Phosphatase 50 (35-129) units/L Total Protein 7.0 (6.3-8.2) g/dL Albumin 4.2 (3.9-5) g/dL Albumin/Globulin Ratio 1.5 % Urine Opiates Screen Presumptive negative Urine Methadone Screen Presumptive negative Ur Barbiturates Screen Presumptive negative Valproic Acid 32.0 L (50-100) ug/mL Ur Phencyclidine Scrn Presumptive negative Ur Amphetamines Screen Presumptive negative U Benzodiazepines Scrn Presumptive negative Urine Cocaine Screen Presumptive negative U Marijuana (THC) Screen Presumptive negative Drugs of Abuse Note Disclamer Critical care attestation.: If time is entered above; I have spent that time in minutes in the direct care of this critically ill patient, excluding procedure time. ED Disposition Is pt being admited?: No Does the pt Need Aspirin: No
[2019-05-28] MEDS ORDERED: DIVALPROEX DR 500 MG TAB ONE (09:45)
[2019-05-28 09:49] VITALS: BP 118/85
== END 2019-05-28 10:18 | disposition home or self-care (01) ==
LOC: ED 00:06
DX: R56.9 Unspecified convulsions (principal); Z87.891 Personal history of nicotine dependence
CPT/HCPCS: 80053; 80164; 80307; 96374; 99284; J2060; 36415